=== PATIENT | female | born 1960 | race Caucasian/White ===

== ENCOUNTER → 2017-04-22 07:50 | Outpatient (CLI) | payer OTHER, SELFPAY ==
--- NOTE | 2017-04-22 07:54 | AAVD_ITS ---
Reason For Study: Family Hx of AAA Aorta Measurements Aorta Doppler Measurements Proximal aorta measures1.9 x 1.9cm. in cross- Peak systolic flow velocities within the proximal sectional axis. aorta measure 54.1 cm/sec. Proximal aorta measures2.0cm. in longitudinal Peak systolic flow velocities within the mid axis. aorta measure 51.3 cm/sec. Mid aorta measures1.7 x 1.7cm. in cross-sectionalPeak systolic flow velocities within the distal axis. aorta measure 59.3 cm/sec. Mid aorta measures1.6cm. in longitudinal axis. Distal aorta measures1.6 x 1.6cm. in cross- sectional axis. Distal aorta measures1.5cm. in longitudinal axis. Left Iliac Artery Left iliac artery measures .76 cm. in the longitudinal axis. Left iliac artery measures .79 x .77 cm. in the cross-sectional axis. Peak systolic velocity in the left iliac artery measures 160.0 cm/sec. Right Iliac Artery Right iliac artery measures .79 cm. in the longitudinal axis. Right iliac artery measures .77 x .71 cm. in the cross-sectional axis. Peak systolic velocity in the right iliac artery measures 92.3 cm/sec. Procedure Aorta IVC Iliac vasculature or bypass grafts [id number]. Exam performed in department. Interpretation Summary The intra-abdominal aorta is of normal caliber, without evidence of aneurysmal dilatation. The iliac arteries are also normal in size bilaterally. The intra-abdominal aorta and iliac arteries are patent, demonstrating normal, pulsatile arterial flow and normal peak systolic velocities. Ordering Physician: Brayden Mac Referring Physician: Brayden Mac Performed By: Melva Alvarez RVT
== END ==
PROVIDERS: Family Provider Family Medicine; PCP Family Medicine; Visit Provider Family Medicine
DX: Z82.49 Family history of ischemic heart disease and other diseases of the circulatory system (principal)
CPT/HCPCS: 93978

== ENCOUNTER → 2018-02-07 09:40 | Outpatient (CLI) | payer OTHER, SELFPAY ==
--- OUTSIDE RECORDS SUMMARY | 2018-05-11 22:01 | XMS RPT_ITS ---
:1960 Author Organization [facility] Care Team Providers Name Role Phone Brayden Mac Attending Unavailable Bubba, Brayden Referring Unavailable Bubba, Brayden Primary Care Unavailable Brayden Mac Attending Unavailable Mac, Brayden Referring Unavailable Mac, Brayden Primary Care Unavailable Mac, Brayden Attending Unavailable Mac, Brayden Referring Unavailable Mac, Brayden Primary Care Unavailable PROBLEMS PROBLEMS No Problem Records FoundPROCEDURES PROCEDURES No Procedure Records FoundRESULTS RESULTS URINALYSIS, COMPLETE Collected: 02/09/2018 Status: F Source: [place] 4:23 PM [facility] REPOSITORY Order Comment: How was Urine Obtained? CLEAN CATCH TYPE CODE TESTS RESULT OUT OF RANGE REFERENCE UNITS LAB L400.3000 Yellow COLOR Normal Yellow LAB L400.3050 Clear Normal CLARITY Clear LAB L400.3200 Normal mg/dl Normal GLUCOSE, UR Normal LAB L400.3300 Negative mg/dL Normal BILIRUBIN URINE Negative LAB L400.3400 Negative mg/dl Normal KETONE UR Negative LAB L400.3465 1.002-1.030 Normal SP.GR. DIPSTX 1.025 LAB L400.3550 5.0 - 8.0 pH UR Normal 6.0 LAB L400.3600 Negative mg/dl High PROT 15 DIPSTX LAB L400.3700 Normal mg/dl Normal UROBILI Normal LAB L400.3750 Negative High NITRITE UR Positive LAB L400.3780 Negative /ul High 25 OCCULT BLOOD-UR LAB L400.3800 Negative /ul High LEUK 25 ESTERASE LAB L400.4050 0-5 /hpf WBC Normal 10-25 SEEN LAB L400.4100 0-5 /hpf 0 Normal RBC-UA SEEN LAB L400.4150 5-10 /hpf SQUAM Normal EPI 0-5 SEEN LAB L400.4300 None Seen /hpf 3+ Normal BACTERIA LAB L400.4350 <or=2+ /hpf 0 Normal MUCUS, URINE SEEN Performed By: #### L400.0001 #### [facility] [address] [place], [place], [address] Observed: 02/09/2018 Status: F Source: [place] CULTURE, URINE 4:23 PM [facility] REPOSITORY Urine Culture ORGANISM 1: Presumptive E. coli [place] Count >100,000 Presumptive E. coli: REACTION Amoxacillin/Clavulanic Acid $ <=2 S Ampicillin $ <=2 S Ampicillin/Sulbactam $ <=2 S Cefazolin $ <=4 S Cefepime $ <=1 S Ceftriaxone $ <=1 S Ciprofloxacin $ <=0.25 S ESBL - Ertapenim $$$ <=0.5 S Gentamicin $ <=1 S Imipenem *NF <=0.25 S Levofloxacin $ <=0.12 S Nitrofurantoin $ <=16 S Piperacillin/Tazobactam $$ <=4 S Tobramycin $ <=1 S Trimethoprim/Sulfametho $ <=20 S (NF) indicates non-formulary drug at [facility]. Approval by Infectious Disease Specialist required before non-formulary drugs may be ordered and/or dispensed. Performed By: #### M100.0650 #### [facility] [address] [place], [place], [address] ABD AORTIC/IVC DUPLEX Observed: 04/23/2017 Status: F Source: [place] SCAN 10:01 PM [facility] REPOSITORY [facility] Cardiovascular Services [address] [place] [address] Abd Aortic/IVC Duplex scan 04/22/17 0754 MR#: [id number] Acct: [id number] Name: WILLIAM SUAREZ Rep #: [id number] : 1960 57 From: Luciano Shaw MD Attending Dr: Bubba WATSON,Brayden Status: REG CLI Ordering Dr: Brayden Mac MD Date: 04/22/17 Location: [facility] Sex: F C Admitted: Reason For Study: Family Hx of AAA Aorta Measurements Aorta Doppler Measurements Proximal aorta measures1.9 x 1.9cm. in cross- Peak systolic flow velocities within the proximal sectional axis. aorta measure 54.1 cm/sec. Proximal aorta measures2.0cm. in longitudinal Peak systolic flow velocities within the mid axis. aorta measure 51.3 cm/sec. Mid aorta measures1.7 x 1.7cm. in cross-sectionalPeak systolic flow velocities within the distal axis. aorta measure 59.3 cm/sec. Mid aorta measures1.6cm. in longitudinal axis. Distal aorta measures1.6 x 1.6cm. in cross- sectional axis. Distal aorta measures1.5cm. in longitudinal axis. Left Iliac Artery Left iliac artery measures .76 cm. in the longitudinal axis. Left iliac artery measures .79 x .77 cm. in the cross-sectional axis. Peak systolic velocity in the left iliac artery measures 160.0 cm/sec. Right Iliac Artery Right iliac artery measures .79 cm. in the longitudinal axis. Right iliac artery measures .77 x .71 cm. in the cross-sectional axis. Peak systolic velocity in the right iliac artery measures 92.3 cm/sec. Procedure Aorta IVC Iliac vasculature or bypass grafts [id number]. Exam performed in department. Interpretation Summary The intra-abdominal aorta is of normal caliber, without evidence of aneurysmal dilatation. The iliac arteries are also normal in size bilaterally. The intra- abdominal aorta and iliac arteries are patent, demonstrating normal, pulsatile arterial flow and normal peak systolic velocities. Ordering Physician: Brayden Mac Referring Physician: Brayden Mac Performed By: Melva Alvarez RVT 04/23/172200 Date Luciano Shaw MD CC: Brayden Mac MD Date Dictated: 04/22/17 0754 Date Transcribed: 04/23/172200 Physical Integration Practitioner: Signed ALLERGIES ALLERGIES No Allergies Records FoundENCOUNTERS ENCOUNTERS ADMIT/DISCHARGE ACCOUNT ADMITTING ENCOUNTER LOCATION SOURCE NUMBER CLASS 02/09/2018 [id number] Ambulatory [place]onal 1 [facility] ing:[facility] Repository 02/07/2018 [id number] Ambulatory Ronal [place] 8 [facility] ing:[facility] Repository 04/22/2017 [id number] [facility] Ronal Ronal 4 [facility] ing:[facility] Repository PAYERS PAYERS ENCOUNTER GUARANTOR PAYER SUBSCRIBER SOURCE 02/09/2018 WILLIAM Mach[place]oster [id number] Lucy Insurance:[place] [facility] [id number] [address]Dsv: (330) Number: Repository [phone] () [id number] Date:[id number] [id number]: 02/09/2018 Secondary NOT GIVENUNK [place] Insurance:SELF PAY [facility] Number: Effective Repository Date:2018-02-09 02/07/2018 WILLIAM Yost [id number] Lucy Insurance:[place]ICAL [place] [facility] [id number] [address]Bjf: (330) Number: Repository [phone] () [id number] Date:[id number] [address] [place] [id number]: 02/07/2018 Secondary NOT GIVENUNK Ronal Insurance:SELF PAY [facility] Number: Effective Repository Date:2018-02-07 04/22/2017 WILLIAM Ward Primary WILLIAM Yost [id number] Lucy Insurance:MEDICAL [place] [facility] [id number] [address]Vho: [phone]) Number: Repository [phone] () [id number] Date:2064-09-05NU [address] [place] [id number]: 04/22/2017 Secondary NOT GIVENUNK Ronal Insurance:SELF PAY [facility] Number: Effective Repository Date:2017-03-26
== END ==
PROVIDERS: Family Provider Family Medicine; PCP Family Medicine; Referring Provider Family Medicine; Visit Provider Family Medicine
DX: R82.90 Unspecified abnormal findings in urine (principal)
CPT/HCPCS: 81001; 87086

== ENCOUNTER → 2018-02-09 16:19 | Outpatient (CLI) | payer OTHER, SELFPAY ==
[2018-02-09 16:23] LABS: Mucous, Urine 0 SEEN /hpf (<or=2+); Red Blood Cells-Urine 0 SEEN /hpf (0-5)
[2018-02-09 17:31] LABS: Color, Urine Yellow (Yellow); Glucose, Dipstick Normal (Normal); Ketone-Dipstick Negative (Negative); Leukocyte Esterase-Dipstick 25 /ul (Negative); Nitrite-Dipstick Positive (Negative); Occult Blood-Urine 25 /ul (Negative); Protein-Dipstick 15 mg/dl (Negative); Specific Gravity, Urine 1.025 (1.002-1.030); Urine Bilirubin Dipstick Negative (Negative); Urine Clarity Clear (Clear); Urine Urobilinogen Normal (Normal)
[2018-02-09 17:41] LABS: Bacteria 3+ /hpf (None Seen); Squamous Epithelial Cells - UA 0-5 SEEN /hpf (5-10); White Blood Cells 10-25 SEEN /hpf (0-5)
== END ==
PROVIDERS: Family Provider Family Medicine; PCP Family Medicine; Referring Provider Family Medicine; Visit Provider Family Medicine
DX: R82.90 Unspecified abnormal findings in urine (principal)
CPT/HCPCS: 81001; 87086; 87088; 87186

== ENCOUNTER → 2018-03-30 07:09 | Outpatient (CLI) | payer OTHER, SELFPAY ==
--- NOTE | 2018-03-30 07:12 | CT_ITS ---
HISTORY: TOBACCO [id number] X43 YRSQUIT X8 MONTHS AGO TECHNIQUE: Helically acquired images were obtained of the chest. A radiation dose optimization technique was used for this scan. IV Contrast dosage and agent: None. COMPARISON: None FINDINGS: # of images incl. paperwork: [phone] UPPER ABDOMEN: Unremarkable. HEART AND PERICARDIUM: Heart size is normal. There is no pericardial effusion. VESSELS: Thoracic aorta is not dilated. Mild calcific atherosclerosis. MEDIASTINUM AND ERNESTINE: There is no mediastinal or hilar adenopathy. Esophagus is unremarkable. There is no hiatal hernia. SOFT TISSUES: Included thyroid gland is unremarkable. There is no axillary, supraclavicular or lower cervical adenopathy. LUNGS AND LARGE AIRWAYS: No concerning nodules or masses. No pneumonia or edema. No significant emphysematous changes. PLEURA: Unremarkable. No pleural effusion or thickening. BONES: No suspicious lytic or blastic abnormality observed. CT/Low Dose CT Lung Screening IMPRESSION: Negative CT chest without contrast. Individualized dose optimization techniques were used for this CT. at 2312 Reported and signed by: Jose Colvin MD Electronically Signed: Jose Colvin, at 23:11 EST Tel , Service support ,
== END ==
PROVIDERS: Family Provider Family Medicine; PCP Family Medicine; Referring Provider Family Medicine; Visit Provider Family Medicine
DX: Z87.891 Personal history of nicotine dependence (principal)
CPT/HCPCS: G0297

== ENCOUNTER → 2018-05-03 17:00 | Outpatient (CLI) | payer OTHER, SELFPAY ==
--- NOTE | 2018-05-03 17:07 | BI_ITS ---
MAMMOGRAPHY - BILATERAL SCREENING REASON FOR EXAM: Female, 58 years old. Routine annual screening examination. PERTINENT HISTORY: Non-contributory. TECHNIQUE: Digital bilateral breast luisa (3D mammographic acquisition) in the CC and MLO projections. 2-D mediolateral oblique (MLO) and craniocaudad (CC) views of both breasts were obtained. CAD: Full Field Digital Mammography with Computer Added Detection was performed. COMPARISON: Comparison is made with prior study dated January 29, 2016 and January 03, 2015. FINDINGS: Breast Composition: There are scattered areas of fibroglandular density. There are no dominant masses or suspicious calcifications. No other significant abnormalities are identified. There has been no significant change since the prior study. BI/SCREENING MAMM (CAD), BILAT IMPRESSION: Stable bilateral screening mammogram. Yearly follow-up mammogram recommended. (A) ASSESSMENT CATEGORY: BIRADS Category 1: Negative. A letter regarding these results will be sent to the patient by the facility within 30 days. Approximately 10% of breast cancers are not detected by mammography. A normal mammogram should not delay biopsy of a clinically suspicious abnormality. [id number] Electronically Signed: Zohaib Mack, at 8:59 EDT , Service support ,
== END ==
PROVIDERS: Family Provider Family Medicine; PCP Family Medicine; Referring Provider Family Medicine; Visit Provider Family Medicine
DX: Z12.31 Encounter for screening mammogram for malignant neoplasm of breast (principal)
CPT/HCPCS: 77063; 77067

== ENCOUNTER → 2018-08-01 10:57 | Outpatient (CLI) | payer OTHER, SELFPAY ==
[2018-08-01 12:38] LABS: Hemoglobin A1c 6.1 % (4.2-6.3)
[2018-08-01 12:50] LABS: ALB/GLOB Ratio 1.2 RATIO (0.9-2.4); AST(SGOT) 19 U/L (15-37); Alanine Aminotransfer ALT/SGPT 26 U/L (13-56); Albumin, Serum 3.6 g/dL (3.2-5.0); Alkaline Phosphatase 75 U/L (45-117); Anion Gap 7 (5-15); BUN 13 mg/dL (7-18); BUN/Creat Ratio 16.7 RATIO (10-20); Calcium,Total 9.1 mg/dL (8.5-10.1); Chloride 106 mmol/L (98-107); Creatinine, Serum 0.78 mg/dL (0.55-1.02); EST Glomerular Filtration Rate 80 mL/min (>60); Est Glom Filt Rate - Afr Amer 97 mL/min (>60); Globulin 3.1 g/dL (2.2-4.2); Glucose 84 mg/dL (74-106); Potassium 4.4 mmol/L (3.5-5.1); Protein, Total 6.7 g/dL (6.4-8.2); Sodium Level 144 mmol/L (136-145); T4 Free Direct 1.51 ng/dL (0.76-1.46); Thyroid Stim Hormone (TSH) 0.31 uIU/mL (0.358-3.74)
== END ==
PROVIDERS: Family Provider Family Medicine; PCP Family Medicine; Visit Provider Family Medicine
DX: E03.9 Hypothyroidism, unspecified (principal)
CPT/HCPCS: 36415; 80053; 83036; 84439; 84443

== ENCOUNTER 2018-09-15 11:00 | Outpatient (RCR) | payer OTHER, SELFPAY | END 2018-09-21 23:59 | LOC: NS 11:00 | PROVIDERS: Family Provider Family Medicine; PCP Family Medicine; Visit Provider Family Medicine | DX: Z71.3 Dietary counseling and surveillance (principal); R73.03 Prediabetes; E66.3 Overweight; Z68.28 Body mass index [BMI] 28.0-28.9, adult | CPT/HCPCS: 97802; 97803 ==

== ENCOUNTER → 2018-10-04 08:00 | Outpatient (CLI) | payer OTHER, SELFPAY ==
[2018-10-04 10:19] LABS: Cholesterol 194 mg/dL (200); Creatinine, Serum 0.77 mg/dL (0.55-1.02); EST Glomerular Filtration Rate 81 mL/min (>60); Est Glom Filt Rate - Afr Amer 98 mL/min (>60); High Density Lipoprotein 62 mg/dL; T4 Free Direct 1.35 ng/dL (0.76-1.46); Thyroid Stim Hormone (TSH) 0.99 uIU/mL (0.358-3.74); Triglycerides 65 mg/dL; Very Low Density Lipoprotein 13 mg/dL (5-40)
== END ==
PROVIDERS: Family Provider Family Medicine; PCP Family Medicine; Referring Provider Family Medicine; Visit Provider Family Medicine
DX: Z00.00 Encounter for general adult medical examination without abnormal findings (principal); E03.9 Hypothyroidism, unspecified
CPT/HCPCS: 36415; 80061; 82565; 84439; 84443

== ENCOUNTER 2018-10-13 10:30 | Outpatient (RCR) | payer OTHER, SELFPAY | END 2018-10-22 23:59 | LOC: NS 10:30 | PROVIDERS: Family Provider Family Medicine; PCP Family Medicine; Visit Provider Family Medicine | DX: Z71.3 Dietary counseling and surveillance (principal); R73.03 Prediabetes; E66.3 Overweight; Z68.28 Body mass index [BMI] 28.0-28.9, adult | CPT/HCPCS: 97803 ==

== ENCOUNTER 2018-11-08 16:00 | Outpatient (RCR) | payer OTHER, SELFPAY | END 2018-11-21 23:59 | LOC: NS 16:00 | PROVIDERS: Family Provider Family Medicine; PCP Family Medicine; Visit Provider Family Medicine | DX: R73.03 Prediabetes (principal); E66.3 Overweight; Z68.28 Body mass index [BMI] 28.0-28.9, adult; Z71.3 Dietary counseling and surveillance | CPT/HCPCS: 97803 ==

== ENCOUNTER 2018-12-20 16:30 | Outpatient (RCR) | payer OTHER, SELFPAY | END 2018-12-22 23:59 | LOC: NS 16:30 | PROVIDERS: Family Provider Family Medicine; PCP Family Medicine; Visit Provider Family Medicine | DX: R73.03 Prediabetes (principal); E66.3 Overweight; Z68.28 Body mass index [BMI] 28.0-28.9, adult; Z71.3 Dietary counseling and surveillance | CPT/HCPCS: 97803 ==

== ENCOUNTER 2019-01-09 17:11 | Outpatient (RCR) | payer OTHER, SELFPAY | END 2019-01-09 23:59 | disposition home or self-care (01) | LOC: NS 17:11 | PROVIDERS: Family Provider Family Medicine; PCP Family Medicine; Visit Provider Family Medicine | DX: Z71.3 Dietary counseling and surveillance (principal); R73.03 Prediabetes; E66.3 Overweight; Z68.28 Body mass index [BMI] 28.0-28.9, adult | CPT/HCPCS: 97803 ==

== ENCOUNTER → 2019-05-23 09:40 | Outpatient (CLI) | payer OTHER, SELFPAY ==
[2019-05-23 12:38] LABS: PTHIN 75.6 pg/mL (18.4-80.1)
[2019-05-23 12:42] LABS: Vitamin B12 491 pg/mL (211-911)
[2019-05-23 12:55] LABS: ALB/GLOB Ratio 1.1 RATIO (0.9-2.4); AST(SGOT) 27 U/L (15-37); Alanine Aminotransfer ALT/SGPT 40 U/L (13-56); Albumin, Serum 3.6 g/dL (3.2-5.0); Alkaline Phosphatase 55 U/L (45-117); Anion Gap 5 (5-15); BUN 19 mg/dL (7-18); Calcium,Total 8.7 mg/dL (8.5-10.1); Chloride 104 mmol/L (98-107); Creatinine, Serum 0.76 mg/dL (0.55-1.02); EST Glomerular Filtration Rate 82 mL/min (>60); Est Glom Filt Rate - Afr Amer 99 mL/min (>60); Ferritin 81 ng/mL (8-252); Globulin 3.3 g/dL (2.2-4.2); Glucose 80 mg/dL (74-106); Potassium 4.2 mmol/L (3.5-5.1); Protein, Total 6.9 g/dL (6.4-8.2); Sodium Level 137 mmol/L (136-145); T4 Free Direct 1.32 ng/dL (0.76-1.46); Thyroid Stim Hormone (TSH) 1.87 uIU/mL (0.358-3.74)
[2019-05-25 12:01] LABS: ANTINUCLEAR ANTIBODIES DIRECT Negative (Negative)
== END ==
PROVIDERS: PCP Family Medicine; Referring Provider Family Medicine; Visit Provider Family Medicine
DX: E03.9 Hypothyroidism, unspecified (principal); K59.00 Constipation, unspecified; R53.83 Other fatigue
CPT/HCPCS: 36415; 80053; 82607; 82728; 82746; 83970; 84439; 84443; 86038

== ENCOUNTER → 2019-06-08 14:32 | Outpatient (CLI) | payer OTHER, SELFPAY ==
--- NOTE | 2019-06-08 14:38 | CT_ITS ---
STUDY: LOW DOSE CT LUNG CANCER SCREENING REASON FOR EXAM: Female, 59 years old. 35 pack-year history. 2 years ago. Prediabetic on metformin. RADIATION DOSAGE (If Supplied By Facility): CTDIvol = ( 2.01 ) mGy, DLP = ( 74.99 ) mGycm TECHNIQUE: No contrast was administered. Low dose technique was utilized (average mAS-38 and kVp 120). 1.25 mm axial source images with a slice interval of 1.25-mm were reconstructed in lung windows. 2.5 mm axial source images with a slice interval of 2.5-mm were reconstructed in lung windows. 5.0 mm axial source images with a slice interval of 5.0-mm were reconstructed in soft tissue windows. Nodule measured using lung windows on PACS and/or independent workstation with automated measurement of minimum and maximum diameter. Nodule measurement reported as average diameter rounded to the nearest whole number. Growth is defined as an increase ins size of greater than 1.5 mm. COMPARISON: March 30, 2018. NODULES: Total lung nodules (excluding granulomas): 0 Emphysema: None Endobronchial lesion: None Aorta: Atherosclerotic changes of the thoracic aorta without aneurysm. Coronary arteries: Stable coronary artery calcifications. Heart: Normal in size Pulmonary artery: Normal Mediastinal nodes: None Other chest and abdominal findings: Mild degenerative changes of the thoracic spine. CT/Low Dose CT Lung Screening IMPRESSION: No major interval change when compared to the previous examination. Lung-RADS category 1 - Continue annual screening with LDCT in 12 months. IMPORTANT NOTES FOR USE: ACR Lung-RADS Version 1.0 Assessment Categories Release Date: June 19, 2013 Category: Coded 0-4 bases on nodule(s) with highest degree of suspicion. Negative screen is defined as categories 1 and 2; a positive screen is defined as categories 3 and 4. Category 3 and 4A nodules that are unchanged on interval CT should be coded as category 2, and individuals returned to screening in 12 months. Category 4X: Category 3 or 4 nodules with additional imaging findings that increase the suspicion of lung cancer, such as spiculation, GGN that doubles in size in 1 year, enlarged lymph notes, etc. Category Modifiers: S (significant finding unrelated to lung cancer) and C (prior history of treated lung cancer) may be added to the 0-4 Lung-RADS Electronically Signed: Phong Wilson DO at 17:32 EDT Tel [phone], Service support ,
== END ==
PROVIDERS: PCP Family Medicine; Referring Provider Family Medicine; Visit Provider Family Medicine
DX: Z87.891 Personal history of nicotine dependence (principal); Z12.2 Encounter for screening for malignant neoplasm of respiratory organs; R73.03 Prediabetes; Z79.899 Other long term (current) drug therapy
CPT/HCPCS: G0297

== ENCOUNTER → 2019-10-27 14:48 | Outpatient (CLI) | payer OTHER, SELFPAY ==
--- NOTE | 2019-10-27 15:13 | BI_ITS ---
MAMMOGRAPHY - BILATERAL SCREENING REASON FOR EXAM: Female, 59 years old. Routine annual screening examination. PERTINENT HISTORY: Non-contributory. TECHNIQUE: Digital bilateral breast mari (3D mammographic acquisition) in the CC and MLO projections. 2-D mediolateral oblique (MLO) and craniocaudad (CC) views of both breasts were obtained. CAD: Full Field Digital Mammography with Computer Added Detection was performed. COMPARISON: Comparison is made with prior study dated 05/03/2018 and 01/29/2016. FINDINGS: Breast Composition: There are scattered areas of fibroglandular density. There are no dominant masses or suspicious calcifications. Stable small benign appearing bilateral axillary nodes. No other significant abnormalities are identified. There has been no significant change since the prior study. BI/SCREEN MAMM (CAD) W/MARI BILAT IMPRESSION: Stable bilateral screening mammogram. Yearly follow-up mammogram recommended. (A) ASSESSMENT CATEGORY: BIRADS Category 2: Benign. A letter regarding these results will be sent to the patient by the facility within 30 days. Approximately 10% of breast cancers are not detected by mammography. A normal mammogram should not delay biopsy of a clinically suspicious abnormality. [id number] Electronically Signed: Zohaib Mack, at 8:03 EDT , Service support ,
== END ==
PROVIDERS: PCP Family Medicine; Referring Provider Family Medicine; Visit Provider Family Medicine
DX: Z12.31 Encounter for screening mammogram for malignant neoplasm of breast (principal)
CPT/HCPCS: 77063; 77067

== ENCOUNTER → 2020-03-27 17:21 | Outpatient (CLI) | payer OTHER, SELFPAY ==
--- NOTE | 2020-03-27 17:22 | RAD_ITS ---
HISTORY: lumbosacral pain, bilateral L low back more than R ADDITIONAL HISTORY: None provided. EXAMINATION/TECHNIQUE: XR Spine Lumbar Comp W/ Bending Min 6 Views Number of images including paperwork: 7 COMPARISON: None FINDINGS: VERTEBRAE: No acute fracture. VERTEBRAL ALIGNMENT: No traumatic subluxation. No evidence of instability on flexion and extension views. Mild left convex lumbar scoliosis. DISKS AND JOINTS: Moderate to severe discogenic degenerative changes at L3-4 and L5-S1. Mild discogenic degenerative changes elsewhere. Facet arthropathy. SOFT TISSUES: Vascular calcifications. RAD/L/S Spine w Bend Min 6 Vw IMPRESSION: 1. No acute findings. 2. Lumbar spondylosis. at 2224 Reported and signed by: Bertha Cruz MD Electronically Signed: Bertha Cruz MD at 22:24 EST Tel , Service support ,
== END ==
PROVIDERS: PCP Family Medicine; Referring Provider Family Medicine; Visit Provider Family Medicine
DX: M54.5 Low back pain (principal)
CPT/HCPCS: 72114

== ENCOUNTER 2020-05-01 17:30 | Outpatient (RCR) | payer OTHER, SELFPAY ==
--- NOTE | 2020-04-10 12:34 | HP.PTEVAL ---
Patient's Visit Information WILLIAM SUAREZ is a 60 year old F referred to Physical Therapy by Dr. Brayden Mac MD with a diagnosis of lumbo/sacral pain and glut pain. Date of Evaluation: 04/10/20 Physical Therapist: PETE Amador - Visit Plan Frequency: 2x /Week Duration: 4-6 Weeks Plan: 2X/ week for 4-6 weeks for B hip strengthening, core stability, postural exercises with HEP and modalities as needed. - Subjective Pt reports that the Dr did an x-ray and there was something wrong with her disc but not sure what it is. 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 The pain is on her R sided back pain and she feels that her urine has a smell and she is wondering if she has a kidney issue. It is a constant pain and pressure. She will call Dr Mac for a urine specimen. It is the same R sided pain that she had a few month ago as well. She has some pain in her R leg/groin area. The anti-inflamm helps some. - Pain Back pain Pain Intensity (Out of 10): 4 Pain Intensity Range: 7 R groin pain Pain Intensity (Out of 10): 0 - Objective Gait: walks with a normal gait pattern. Trunk AROM: flex 100%, Ext 75%, SB B 75% with no pain. LE MMT: B hip flex 4-/5, B knee ext 4/5, B knee flex 4/5, B hip abd 4-/5, R hip ext 3+/5 and L hip ext 4-/5. Able to walk on heels and toes with no signs of weakness. Patella DTR's 2+/3 B. Palpation: tender along the L5 on the R side.... no tenderness along the soft tissue. Prone press ups X 10 no change in symptoms. 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 Goal Time Frame: 4-6 Weeks Goal 3:: Decrease back pain to less than 1/10 with ADL's Goal Time Frame: 4-6 Weeks Goal 4:: Sit with upright posture during treatment sessions Goal Time Frame: 4-6 Weeks - Rehabilitation Potential Rehabilitation Potential: Good - Anticipated Interventions Patient/Client Instruction: Educate patient on: Condition, Plan of Care For the Purpose of:: To decrease pain, To increase ROM, To improve nutrient delivery to tissue, To improve muscle performance and motor function, To improve ability to perform ADL's, To increase tolerance to activity/condition/position, To improve performance and independence with ADL's, To improve gait and locomotor functions, To improve health of tissue, To decrease soft tissue restriction, To increase flexibility/ROM Therapeutic Exercise to Include: Strength training, Body mechanics, Postural training, Flexibilty training, Gait and locomotor training, Neuromotor development, Passive ROM, Active ROM, Dynamic Lumbar Stabilization, Jame Exercises, Scapular Strength/Stabilization For the Purpose of:: To decrease pain, To increase ROM, To improve nutrient delivery to tissue, To improve muscle performance and motor function, To improve ability to perform ADL's, To improve performance and independence with ADL's, To decrease level of supervision to perform tasks, To improve ability of physical actions for home/community/work/leisure, To improve gait and locomotor functions, To improve health of tissue, To decrease soft tissue restriction Manual Therapy Techniques to Include: Mobilization, Passive ROM, Soft tissue mobilization For the Purpose of:: To decrease pain, To increase ROM, To improve nutrient delivery to tissue, To improve muscle performance and motor function, To improve ability to perform ADL's, To increase tolerance to activity/condition/position, To improve gait and locomotor functions, To improve health of tissue, To decrease soft tissue restriction IF ES: Yes Cryotherapy (ice pack, ice massage): Yes Thermo therapy (hot pack): Yes Ultrasound (thermal/non thermal): Yes For the Purpose of:: To decrease pain, To decrease swelling/inflammation, To increase ROM, To improve nutrient delivery to tissue Thank you for the opportunity to evaluate your patient. For Medicare and Medicare HMO plans, please review the plan of care and approve it. It will need to be FAXED BACK to us at [phone] for Medicare purposes. For Medicare only, by signing this I certify the plan of care. Please let me know if there are questions or concerns regarding this plan of care. Physician Signature: Date:
== END 2020-05-01 19:00 | disposition home or self-care (01) ==
LOC: PT 17:30
PROVIDERS: PCP Family Medicine; Referring Provider Family Medicine; Visit Provider Family Medicine
DX: M54.5 Low back pain (principal)
CPT/HCPCS: 97110; 97140; 97161; 97530

== ENCOUNTER → 2020-07-05 10:34 | Outpatient (CLI) | payer OTHER, SELFPAY ==
[2020-07-05 13:03] LABS: ALB/GLOB Ratio 1.3 RATIO (0.9-2.4); AST(SGOT) 21 U/L (15-37); Alanine Aminotransfer ALT/SGPT 27 U/L (13-56); Albumin, Serum 3.7 g/dL (3.2-5.0); Alkaline Phosphatase 73 U/L (45-117); Anion Gap 5 (5-15); BUN 17 mg/dL (7-18); BUN/Creat Ratio 23.6 RATIO (10-20); Calcium,Total 9.1 mg/dL (8.5-10.1); Chloride 107 mmol/L (98-107); Creatinine, Serum 0.72 mg/dL (0.55-1.02); EST Glomerular Filtration Rate 87 mL/min (>60); Est Glom Filt Rate - Afr Amer 105 mL/min (>60); Globulin 2.8 g/dL (2.2-4.2); Glucose 78 mg/dL (74-106); Potassium 4.5 mmol/L (3.5-5.1); Protein, Total 6.5 g/dL (6.4-8.2); Sodium Level 140 mmol/L (136-145); Thyroid Stim Hormone (TSH) 1.86 uIU/mL (0.358-3.74)
== END ==
PROVIDERS: PCP Family Medicine; Referring Provider Family Medicine; Visit Provider Family Medicine
DX: E88.81 Metabolic syndrome and other insulin resistance (principal); E03.9 Hypothyroidism, unspecified
CPT/HCPCS: 36415; 80053; 84443

== ENCOUNTER → 2020-07-17 15:40 | Outpatient (CLI) | payer OTHER, SELFPAY ==
--- NOTE | 2020-07-17 15:45 | CT_ITS ---
STUDY: LOW DOSE CT LUNG CANCER SCREENING REASON FOR EXAM: Female, 60 years old. 35 pack-year history. 3 years ago. Prediabetes. RADIATION DOSAGE (If Supplied By Facility): CTDIvol = ( 3.02 ) mGy, DLP = ( 99.68 ) mGycm TECHNIQUE: No contrast was administered. Low dose technique was utilized (average mAS-38 and kVp 120). 1.25 mm axial source images with a slice interval of 1.25-mm were reconstructed in lung windows. 2.5 mm axial source images with a slice interval of 2.5-mm were reconstructed in lung windows. 5.0 mm axial source images with a slice interval of 5.0-mm were reconstructed in soft tissue windows. Nodule measured using lung windows on PACS and/or independent workstation with automated measurement of minimum and maximum diameter. Nodule measurement reported as average diameter rounded to the nearest whole number. Growth is defined as an increase ins size of greater than 1.5 mm. COMPARISON: 06/08/2019. NODULES: Total lung nodules (excluding granulomas): 0 Emphysema: Yes Endobronchial lesion: No Aorta: Stable atherosclerotic changes. Coronary arteries: Stable coronary artery calcifications. Heart: Normal Pulmonary artery: Normal Mediastinal nodes: None Other chest and abdominal findings: Mild degenerative changes on the thoracic spine. CT/Low Dose CT Lung Screening IMPRESSION: No major interval change when compared to prior study. Lung-RADS category 1 - Continue annual screening with LDCT in 12 months. IMPORTANT NOTES FOR USE: ACR Lung-RADS Version 1.1 Assessment Categories Release Date: 2018 Category: Coded 0-4 bases on nodule(s) with highest degree of suspicion. Negative screen is defined as categories 1 and 2; a positive screen is defined as categories 3 and 4. Category 3 and 4A nodules that are unchanged on interval CT should be coded as category 2, and individuals returned to screening in 12 months. Category 4X: Category 3 or 4 nodules with additional imaging findings that increase the suspicion of lung cancer, such as spiculation, GGN that doubles in size in 1 year, enlarged lymph notes, etc. Category Modifiers: S (significant finding unrelated to lung cancer) Electronically Signed: Phong Wilson DO at 19:01 EDT [phone] This report is pending additional review. Service support ,
== END ==
PROVIDERS: PCP Family Medicine; Referring Provider Family Medicine; Visit Provider Family Medicine
DX: Z87.891 Personal history of nicotine dependence (principal)
CPT/HCPCS: 71271

== ENCOUNTER 2020-09-11 06:37 | Day surgery (SDC) | payer OTHER, SELFPAY ==
[2020-09-11 07:00] VITALS: BP 146/74; PULSE 68; RESP 16; TEMP 35.9; O2SAT 100; BMI 28.6
[2020-09-11] MEDS: Lactated Ringers 1,000 ML 100 ML IV (07:07)
--- NOTE | 2020-09-11 07:25 | H&P.OPEN ---
HPI - General HPI Narrative WILLIAM SUAREZ, is a 60 F who presents for screening colonoscopy. Patient's last colonoscopy was in 2010 had a small inflammatory polyp at that time in the cecum, colon was also noted to be tortuous. Patient denies any chronic abdominal pain/nausea/vomiting/reflux. Patient states he has bowel moods about every 3 days, denies any family history of colon cancer. [facility] Medical History (Updated 09/11/20 @ 07:[address] Debbie Garrett MD) Back pain Former smoker Hx of fracture of wrist Thyroid disease Wears partial dentures Home Medications levothyroxine 112 mcg PO DAILY 09/10/20 [History Last Taken 09/11/20 06:00] meloxicam 15 mg PO PRN PRN 09/10/20 [History Last Taken Unknown] Allergy/AdvReac Type Severity Reaction Status Date / Time sulfamethoxazole Allergy Swelling Verified 09/11/20 06:59 [From Bactrim] trimethoprim [From Bactrim] Allergy Swelling Verified 09/11/20 06:59 Surgical History (Updated 09/10/20 @ 09:34 by Estela Tripp) Hx of hysterectomy Hx of tubal ligation Social History Smoking Status: Former smoker Past Medical/Surgical History Planned Operation Planned Operative Procedure/s: COLONOSCOPY Previous Hospitalizations/Surgeries HX Hospitalizations: No Any Problems With Anesthesia: No You/Your Family Experience Fever (Hyperthermia) With Anes: No Cholinesterase deficiency: No Cardiovascular Hx of Irregular Heartbeat and/or Afib: No Hx Heart Attack: No Hx Congestive Heart Failure: No Hx Hypertension: No Hx Pacemaker: No Respiratory Hx Chronic Obstructive Pulmonary Disease (COPD): No Hx Asthma: No Hx Emphysema: No Hx Sleep Apnea: No Hx Respiratory Tract Infection/Cold (presently): No Do You Snore Loudly (louder than talking or can be heard): No Do You Often Feel Tired/ Fatigued/ Sleepy Dring Daytime?: No Has Anyone Observed You Stop Breathing During Sleep?: No Result (for STOP score): Negative Smoking Status: Former smoker Gastrointestinal Hx Gastroesophageal Reflux: Yes Controlled With Meds: No (unsure) Hx Ulcer: No Special diet followed at home: No Neurological Hx Seizures: No Hx Headaches: No Does patient have nerve stimulator: No Endocrine Hx Diabetes: No (Pre DM) Miscellaneous Recent Exposure to Contagious Disease: No Allergies sulfamethoxazole [From Bactrim] Allergy (Verified 09/11/20 06:59) Swelling trimethoprim [From Bactrim] Allergy (Verified 09/11/20 06:59) Swelling Discharge Is Pt Admitted From a Jail, or a Correction: No After D/C, Where Do you Plan to Go: Return Home Vital Signs Vital Signs Vital Signs: 09/11/20 07:00 Temperature 96.6 F L Temperature Source Temporal Pulse Rate 68 Respiratory Rate 16 Respiratory Pattern Normal Blood Pressure 146/74 H Blood Pressure Mean 98 Blood Pressure Source Monitor Blood Pressure Position Semi-Fowlers Blood Pressure Location Right Arm Pulse Ox 100 Oxygen Delivery Method Room Air Weight Weight: 166 lb 14.239 oz Body Mass Index (BMI) 28.6 Physical Exam Const alert, oriented x3 and no apparent distress HEENT normocephalic and head/scalp atraumatic Resp normal respiratory effort Cardio regular rate GI soft to palpation and non-tender; Negative for non-distended Palpation: Negative for guarding Extremity no clubbing, cyanosis or edema Neuro CN's II-XII intact bilaterally Psych mental status grossly normal Assessment & Plan Assessment/Plan (1) Screening for colon cancer: Procedure Criteria Type of Procedure Procedure Type: Elective Elective Risks - COVID COVID Risk Discussion: The surgeon/proceduralist and patient have discussed in detail the risk of exposure to and/or potential harm posed by the COVID-19 virus with having a surgery/procedure at this time versus the risk of delaying the surgery/procedure. It is not possible to know either the risk of delaying the surgery or procedure or chance of getting an infection with perfect accuracy, but a joint decision was made between the patient and the surgeon/proceduralist to proceed at this time with the scheduled surgery/procedure as indicated on the consent form. Surgery Risks - Colonoscopy Risks Include but are not Limited To: Risks include but are not limited to: Bleeding, perforation requiring further surgery, inability to complete colonoscopy requiring barium enema.
--- NOTE | 2020-09-11 08:00 | COLBX_PTH ---
PATIENT: WILLIAM SUAREZ LOC: EN U#:[id number] AGE/SX: 60/F ROOM: RE09/11/[address]: Dr. Debbie Garrett MD : 1960 BED: DIS: 09/11/2020 SPEC #: [id number] RECD: 09/11/20 08:43 STATUS: EMMETT REHerb #: [id number] FLO: 09/11/20 08:[address]: Debbie Garrett DEPT: SURGICAL PATHOLOGY RECD BY: Precious Wilde ENTERED: 09/11/20 10:42 SP TYPE: COLON BX OT DR: Dr. Brayden Mac MD Tissues: A - Transverse colon B - Descending colon C - Rectum, NOS Procedures: Surgery Specimen Level IV HEADER OPERATION: Colonoscopy ? open access (MAC) PRE-OP DIAGNOSIS: Screening for colon cancer TISSUE SUBMITTED: A - Transverse colon polyp biopsy, B - Descending colon polyp biopsy, C - Rectal colon polyp x3 biopsy MICROSCOPIC DIAGNOSIS A. Transverse colon polyp, biopsy: Polypoid fragment of benign colonic mucosa. See comment. B. Descending colon polyp, biopsy: Colonic mucosa with focal hyperplastic change. C. Rectal polyp, biopsy: Fragments of hyperplastic polyp. AM:ric 09/12/2020 COMMENT A. Neither hyperplastic nor adenomatous change is identified. Clinical correlation is suggested. MICROSCOPIC DESCRIPTION Slides are reviewed. GROSS DESCRIPTION A - Received in fixative is one container labeled with the patient's name and designated transverse colon polyp biopsy. The specimen consists of one irregular fragment of light schaefer soft tissue that measures 0.2 x 0.2 x 0.1 cm. The specimen is totally submitted in one cassette. B - Received in fixative is one container labeled with the patient's name and designated descending colon polyp biopsy. The specimen consists of two irregular fragments of light schaefer soft tissue that in aggregate measure 0.6 x 0.4 x 0.1 cm. The specimen is totally submitted in one cassette. C - Received in fixative is one container labeled with the patient's name and designated rectal colon polyps x3 biopsy. The specimen consists of multiple irregular fragments of light schaefer soft tissue that in aggregate measure 0.8 x 0.5 x 0.1 cm. The specimen is totally submitted in one cassette. / JENNIFER:ric 09/11/20 TC:5 CPT: 59736 x3
[2020-09-11 08:29] VITALS: BP 108/77; BP 146/74; PULSE 68; RESP 16; TEMP 36.1; O2SAT 100
[2020-09-11 08:35] VITALS: BP 117/62; BP 146/74; PULSE 55; RESP 16; O2SAT 100
[2020-09-11 08:40] VITALS: BP 103/77; BP 146/74; PULSE 61; RESP 16; O2SAT 100
[2020-09-11 08:45] VITALS: BP 115/76; BP 146/74; PULSE 58; RESP 16; TEMP 35.9; O2SAT 100
[2020-09-11 09:05] VITALS: BP 146/74
--- NOTE | 2020-09-11 10:18 | OP.CCLET_ITS ---
09/11/2020 Brayden Mac [address] [place] [address] Re : Colonoscopy procedure for Kristina Shoemaker Dear Dr. Mac This procedure was performed on Friday, September 11, 2020. My impressions and recommendations are as follows: Impressions : - Five 3 to 5 mm polyps in the rectum, in the descending colon and in the transverse colon, removed with a cold biopsy forceps. Resected and retrieved. - Non-bleeding external hemorrhoids. Recommendations : - Repeat colonoscopy in 3 - 5 years for surveillance based on pathology results. - Continue present medications. My findings are described in the full procedure note, which is enclosed. If I can be of further assistance, please feel free to contact me at Doctor phone number(s): , Work: . Sincerely, MD Debbie Hines MD 09/11/2020 8:39:03 AM This report has been signed electronically.
--- NOTE | 2020-09-11 10:18 | OP.COLON_ITS ---
Patient Name: Kristina Shoemaker Procedure Date: 09/11/2020 7:43 AM Date of : 1960 Age: 60 Procedure: Colonoscopy Indications: Screening for colorectal malignant neoplasm Providers: Debbie Garrett MD Referring MD: Brayden Mac Medicines: Monitored Anesthesia Care Patient Profile: This is a 60 year old female. Last Colonoscopy: 2010. Complications: No immediate complications. Procedure: Pre-Anesthesia Assessment: - Prior to the procedure, a History and Physical was performed, and patient medications and allergies were reviewed. The patient's tolerance of previous anesthesia was also reviewed. The risks and benefits of the procedure and the sedation options and risks were discussed with the patient. All questions were answered, and informed consent was obtained. Prior Anticoagulants: The patient has taken no previous anticoagulant or antiplatelet agents. ASA Grade Assessment: Per anesthesia. After reviewing the risks and benefits, the patient was deemed in satisfactory condition to undergo the procedure. After I obtained informed consent, the scope was passed under direct vision. Throughout the procedure, the patient's blood pressure, pulse, and oxygen saturations were monitored continuously. The colonoscope was introduced through the anus and advanced to the cecum, identified by the appendiceal orifice, ileocecal valve and palpation. The patient tolerated the procedure well. The colonoscopy was technically difficult and complex due to a tortuous colon. The patient tolerated the procedure well. The quality of the bowel preparation was good. Scope In: 7:57:31 AM Scope Withdrawal Time 0 hours 17 minutes 26 seconds Scope Out: 8:24:32 AM Total Procedure Duration Time 0 hours 27 minutes 1 second Findings: Five sessile polyps were found in the rectum, descending colon and transverse colon. The polyps were 3 to 5 mm in size. These polyps were removed with a cold biopsy forceps. Resection and retrieval were complete. No additional abnormalities were found on retroflexion. Non-bleeding external hemorrhoids were found. Impression: - Five 3 to 5 mm polyps in the rectum, in the descending colon and in the transverse colon, removed with a cold biopsy forceps. Resected and retrieved. - Non-bleeding external hemorrhoids. Recommendation: - Repeat colonoscopy in 3 - 5 years for surveillance based on pathology results. - Continue present medications. Procedure Code(s): --- Professional --- 11672, PT, Colonoscopy, flexible; with biopsy, single or multiple Diagnosis Code(s): --- Professional --- Z12.11, Encounter for screening for malignant neoplasm of colon K62.1, Rectal polyp D12.4, Benign neoplasm of descending colon D12.3, Benign neoplasm of transverse colon (hepatic flexure or splenic flexure) K64.4, Residual hemorrhoidal skin tags CPT copyright 2017 [employer]. All rights reserved. The codes documented in this report are preliminary and upon emt paramedic review may be revised to meet current compliance requirements. MD Debbie Hines MD 09/11/2020 8:39:03 AM This report has been signed electronically. Number of Addenda: 0 Note Initiated On: 09/11/2020 7:43 AM
== END 2020-09-11 09:18 ==
LOC: EN 06:37 → AC 06:39
PROVIDERS: PCP Family Medicine; Referring Provider Family Medicine; Visit Provider Surgery
PROC: 0DJD8ZZ Inspection of Lower Intestinal Tract, Via Natural or Artificial Opening Endoscopic (ICD-10-PCS; CPT 45378; principal; 2020-09-11 07:55)
DX: Z12.11 Encounter for screening for malignant neoplasm of colon (principal); D12.4 Benign neoplasm of descending colon; D12.3 Benign neoplasm of transverse colon; K62.1 Rectal polyp; K64.4 Residual hemorrhoidal skin tags; E07.9 Disorder of thyroid, unspecified; K21.9 Gastro-esophageal reflux disease without esophagitis; Z79.890 Hormone replacement therapy; Z79.899 Other long term (current) drug therapy; Z87.891 Personal history of nicotine dependence
CPT/HCPCS: 45380; 88305; J7120; J2405

== ENCOUNTER → 2020-11-22 12:25 | Outpatient (CLI) | payer OTHER, SELFPAY ==
--- NOTE | 2020-11-22 12:27 | BI_ITS ---
MAMMOGRAPHY - BILATERAL SCREENING REASON FOR EXAM: Female, 60 years old. Routine annual screening examination. PERTINENT HISTORY: Non-contributory. TECHNIQUE: Digital bilateral breast mari (3D mammographic acquisition) in the CC and MLO projections. 2-D mediolateral oblique (MLO) and craniocaudad (CC) views of both breasts were obtained. CAD: Full Field Digital Mammography with Computer Added Detection was performed. COMPARISON: Comparison is made with prior study 10/27/2019 and 05/03/2018. FINDINGS: Breast Composition: There are scattered areas of fibroglandular density. There are no dominant masses or suspicious calcifications. Stable small benign-appearing bilateral axillary lymph nodes. No other significant abnormalities are identified. There has been no significant change since the prior study. BI/SCRN MAMM (CAD)W/MARI BILAT IMPRESSION: Stable bilateral screening mammogram. Yearly follow-up mammogram recommended. (A) ASSESSMENT CATEGORY: BIRADS Category 2: Benign. A letter regarding these results will be sent to the patient by the facility within 30 days. Approximately 10% of breast cancers are not detected by mammography. A normal mammogram should not delay biopsy of a clinically suspicious abnormality. [id number] Electronically Signed: Zohaib Mack MD at 13:16 EDT , Service support ,
== END ==
PROVIDERS: PCP Family Medicine; Referring Provider Family Medicine; Visit Provider Family Medicine
DX: Z12.31 Encounter for screening mammogram for malignant neoplasm of breast (principal)
CPT/HCPCS: 77063; 77067

== ENCOUNTER 2021-04-21 09:39 | Outpatient (CLI) | payer OTHER, SELFPAY ==
[2021-04-21 12:47] LABS: AST(SGOT) 22 U/L (15-37); Alanine Aminotransfer ALT/SGPT 29 U/L (13-56); Albumin, Serum 3.6 g/dL (3.2-5.0); Alkaline Phosphatase 71 U/L (45-117); Anion Gap 6 (5-15); BUN 11 mg/dL (7-18); Calcium,Total 9.5 mg/dL (8.5-10.1); Chloride 106 mmol/L (98-107); Cholesterol 202 mg/dL (200); Creatinine, Serum 0.78 mg/dL (0.55-1.02); EST Glomerular Filtration Rate 79 mL/min (>60); Est Glom Filt Rate - Afr Amer 95 mL/min (>60); Globulin 3.6 g/dL (2.2-4.2); Glucose 89 mg/dL (74-106); High Density Lipoprotein 65 mg/dL; Protein, Total 7.2 g/dL (6.4-8.2); Sodium Level 137 mmol/L (136-145); T4 Free Direct 1.43 ng/dL (0.76-1.46); Thyroid Stim Hormone (TSH) 0.62 uIU/mL (0.358-3.74); Triglycerides 62 mg/dL; Very Low Density Lipoprotein 12 mg/dL (5-40)
[2021-04-21 13:28] LABS: Hemoglobin A1c 5.7 % (3.8-5.6)
== END 2021-04-21 23:59 | disposition home or self-care (01) ==
PROVIDERS: PCP Family Medicine; Referring Provider Family Medicine; Visit Provider Family Medicine
DX: E88.81 Metabolic syndrome and other insulin resistance (principal); E03.9 Hypothyroidism, unspecified
CPT/HCPCS: 36415; 80053; 80061; 83036; 84439; 84443

== ENCOUNTER → 2021-09-12 | Outpatient (CLI) | payer OTHER, SELFPAY ==
--- NOTE | 2021-09-12 13:51 | CT_ITS ---
STUDY: LOW DOSE CT LUNG CANCER SCREENING REASON FOR EXAM: Female, 61 years old. FORMER TOBACCO USE. The patient smoked 1.5 packs per day for 40 years. RADIATION DOSAGE (If Supplied By Facility): CTDIvol = ( 3.02 ) mGy, DLP = ( 104.20 ) mGycm TECHNIQUE: No contrast was administered. Low dose technique was utilized (average mAS-38 and kVp 120). 1.25 mm axial source images with a slice interval of 1.25-mm were reconstructed in lung windows. 2.5 mm axial source images with a slice interval of 2.5-mm were reconstructed in lung windows. 5.0 mm axial source images with a slice interval of 5.0-mm were reconstructed in soft tissue windows. COMPARISON: Comparison is made with prior study dated 07/17/2020. NODULES: No suspicious nodules are seen. Emphysema: Mild degree of emphysematous changes. Endobronchial lesion: None Aorta: Calcified atherosclerotic plaques of the aortic arch. CORONARY ARTERIES: Coronary artery calcification is seen. Heart: Unremarkable Pulmonary artery: Unremarkable Mediastinal nodes: Unremarkable Other chest and abdominal findings: Mild degree of degenerative changes of the dorsal spine. CT/Low Dose CT Lung Screening IMPRESSION: Lung-RADS category 2 - Continue annual screening with LDCT in 12 months. IMPORTANT NOTES FOR USE: ACR Lung-RADS Version 1.1 Assessment Categories Release Date: 2018 Category: Coded 0-4 bases on nodule(s) with highest degree of suspicion. Negative screen is defined as categories 1 and 2; a positive screen is defined as categories 3 and 4. Category 3 and 4A nodules that are unchanged on interval CT should be coded as category 2, and individuals returned to screening in 12 months. Category 4X: Category 3 or 4 nodules with additional imaging findings that increase the suspicion of lung cancer, such as spiculation, GGN that doubles in size in 1 year, enlarged lymph notes, etc. Category Modifiers: S (significant finding unrelated to lung cancer) Electronically Signed: Zohaib Mack MD at 14:25 EDT ,
== END | disposition home or self-care (01) ==
LOC: CT 13:50
PROVIDERS: PCP Family Medicine; Referring Provider Family Medicine; Visit Provider Family Medicine
DX: Z87.891 Personal history of nicotine dependence (principal)
CPT/HCPCS: 71271

== ENCOUNTER → 2021-12-08 | Outpatient (CLI) | payer OTHER, SELFPAY ==
[2021-12-08 17:13] LABS: Mucous, Urine 0 SEEN /hpf (<or=2+)
[2021-12-08 17:52] LABS: Color, Urine Yellow (Yellow); Glucose, Dipstick Normal (Normal); Ketone-Dipstick Negative (Negative); Leukocyte Esterase-Dipstick 500 /ul (Negative); Nitrite-Dipstick Positive (Negative); Occult Blood-Urine 250 /ul (Negative); Protein-Dipstick 100 mg/dl (Negative); Urine Bilirubin Dipstick Negative (Negative); Urine Clarity Sl. Cloudy (Clear); Urine Urobilinogen Normal (Normal)
[2021-12-08 18:00] LABS: Bacteria 4+ /hpf (None Seen); Red Blood Cells-Urine 50-100 SEEN /hpf (0-5); Squamous Epithelial Cells - UA 0-5 SEEN /hpf (5-10); White Blood Cells >100 SEEN /hpf (0-5)
== END | disposition home or self-care (01) ==
LOC: LAB 17:09
PROVIDERS: PCP Family Medicine; Referring Provider Family Medicine; Visit Provider Family Medicine
DX: R35.0 Frequency of micturition (principal)
CPT/HCPCS: 81001; 87086; 87088; 87186

== ENCOUNTER → 2021-12-16 | Outpatient (CLI) | payer OTHER, SELFPAY ==
[2021-12-16 14:22] LABS: Mucous, Urine 0 SEEN /hpf (<or=2+)
[2021-12-16 18:03] LABS: Color, Urine Amber (Yellow); Glucose, Dipstick Normal (Normal); Ketone-Dipstick Negative (Negative); Leukocyte Esterase-Dipstick 500 /ul (Negative); Nitrite-Dipstick Positive (Negative); Occult Blood-Urine 250 /ul (Negative); Protein-Dipstick 30 mg/dl (Negative); Urine Bilirubin Dipstick Negative (Negative); Urine Clarity Sl. Cloudy (Clear); Urine Urobilinogen Normal (Normal)
[2021-12-16 18:56] LABS: Bacteria 3+ /hpf (None Seen); Red Blood Cells-Urine 25-50 SEEN /hpf (0-5); Squamous Epithelial Cells - UA 0-5 SEEN /hpf (5-10); White Blood Cells 25-50 SEEN /hpf (0-5)
== END | disposition home or self-care (01) ==
LOC: MTLAB 14:12
PROVIDERS: PCP Family Medicine; Referring Provider Family Medicine; Visit Provider Family Medicine
DX: R35.0 Frequency of micturition (principal)
CPT/HCPCS: 81001; 87086; 87088; 87186

== ENCOUNTER → 2022-07-16 | Outpatient (CLI) | payer OTHER, SELFPAY ==
[2022-07-16 10:56] LABS: Anion Gap 7 (5-15); BUN 18 mg/dL (7-18); BUN/Creat Ratio 25.2 RATIO (10-20); Calcium,Total 9.1 mg/dL (8.5-10.1); Chloride 107 mmol/L (98-107); Cholesterol 203 mg/dL (200); Creatinine, Serum 0.71 mg/dL (0.55-1.02); EST Glomerular Filtration Rate 87 mL/min (>60); Est Glom Filt Rate - Afr Amer 106 mL/min (>60); Glucose 83 mg/dL (74-106); High Density Lipoprotein 60 mg/dL; Potassium 4.3 mmol/L (3.5-5.1); Sodium Level 139 mmol/L (136-145); Thyroid Stim Hormone (TSH) 3.76 uIU/mL (0.358-3.74); Triglycerides 79 mg/dL; Very Low Density Lipoprotein 16 mg/dL (5-40)
== END | disposition home or self-care (01) ==
PROVIDERS: PCP Family Medicine; Visit Provider Nurse Practitioner Family
DX: E03.9 Hypothyroidism, unspecified (principal); Z13.220 Encounter for screening for lipoid disorders; Z13.1 Encounter for screening for diabetes mellitus
CPT/HCPCS: 36415; 80048; 80061; 84443

== ENCOUNTER → 2022-07-17 | Outpatient (CLI) | payer OTHER, SELFPAY ==
--- NOTE | 2022-07-17 14:25 | BI_ITS ---
MAMMOGRAPHY - BILATERAL SCREENING REASON FOR EXAM: Female, 62 years old. Routine annual screening examination. PERTINENT HISTORY: Non-contributory. TECHNIQUE: Digital bilateral breast mari (3D mammographic acquisition) in the CC and MLO projections. 2-D mediolateral oblique (MLO) and craniocaudad (CC) views of both breasts were obtained. CAD: Full Field Digital Mammography with Computer Added Detection was performed. COMPARISON: Comparison is made with prior examination November 22, 2020 and October 27, 2019. FINDINGS: Breast Composition: There are scattered areas of fibroglandular density. There are no dominant masses or suspicious calcifications. Stable small benign appearing bilateral axillary lymph nodes. No other significant abnormalities are identified. There has been no significant change since the prior study. BI/SCRN MAMM (CAD)W/MARI BILAT IMPRESSION: Stable bilateral screening mammogram. Yearly follow-up mammogram recommended. (A) ASSESSMENT CATEGORY: BIRADS Category 2: Benign. A letter regarding these results will be sent to the patient by the facility within 30 days. Approximately 10% of breast cancers are not detected by mammography. A normal mammogram should not delay biopsy of a clinically suspicious abnormality. [id number] Electronically Signed: Zohaib Mack MD at 13:11 EDT ,
== END | disposition home or self-care (01) ==
LOC: OPBI 14:24
PROVIDERS: PCP Family Medicine; Referring Provider Nurse Practitioner Family; Visit Provider Nurse Practitioner Family
DX: Z12.31 Encounter for screening mammogram for malignant neoplasm of breast (principal)
CPT/HCPCS: 77063; 77067

== ENCOUNTER → 2022-09-16 | Outpatient (CLI) | payer OTHER, SELFPAY ==
--- NOTE | 2022-09-16 14:39 | CT_ITS ---
EXAM: CT CHEST, LUNG CANCER SCREENING WITHOUT INTRAVENOUS CONTRAST CLINICAL INDICATION: EX-SMOKER 5 YEARS. DID SMOKE 1.5 PPD X 40 YEARS TECHNIQUE: Helically acquired images were obtained of the chest without intravenous contrast using low dose (LDCT) lung cancer screening protocol. This CT exam was performed using one or more of the following dose reduction techniques: automated exposure control, adjustment of the mA and/or kV according to patient size, and/or use of iterative reconstruction technique. COMPARISON: CT Lung Cancer Screening dated 09/12/2021 FINDINGS: LUNGS AND PLEURAL SPACES: New 4 mm right upper lobe pulmonary nodule. Stable scattered 3 mm nodules noted throughout both lungs. Mild diffuse centrilobular pulmonary emphysema. No pleural effusion or thickening. No pneumothorax. HEART: Heart is normal size. Mild to moderate coronary artery calcification. No pericardial effusion. MEDIASTINUM: Normal. No mediastinal or hilar adenopathy. Esophagus is unremarkable. No hiatal hernia. THYROID: Normal. No thyroid nodules or calcification. BONES/JOINTS: No suspicious lytic or blastic abnormality. VASCULATURE: No aortic aneurysm. LYMPH NODES: Normal. No enlarged lymph nodes. CT/Low Dose CT Lung Screening IMPRESSION: New 4 mm right apical pulmonary nodule. Stable scattered 3 mm nodules within both lungs. Lung-RADS score: 3 - Probably Benign. Recommend low-dose CT (LDCT) in 6 months. Electronically Signed: Yung Daniels MD at 15:20 EDT ,
== END | disposition home or self-care (01) ==
LOC: CT 14:37
PROVIDERS: PCP Family Medicine; Referring Provider Nurse Practitioner Family; Visit Provider Nurse Practitioner Family
DX: Z12.2 Encounter for screening for malignant neoplasm of respiratory organs (principal); Z87.891 Personal history of nicotine dependence
CPT/HCPCS: 71271

== ENCOUNTER → 2023-03-20 | Outpatient (CLI) | payer MEDICARE, SELFPAY ==
--- NOTE | 2023-03-20 09:45 | CT_ITS ---
STUDY: LOW DOSE CT LUNG CANCER SCREENING REASON FOR EXAM: Female, 63 years old. SCREEN RADIATION DOSAGE (If Supplied By Facility): CTDIvol = ( 3.02 ) mGy, DLP = ( 92.89 ) mGycm TECHNIQUE: No contrast was administered. Low dose technique was utilized (average mAS-38 and kVp 120). 1.25 mm axial source images with a slice interval of 1.25-mm were reconstructed in lung windows with coronal and sagittal reformats. COMPARISON: September 16, 2022, September 12, 2021, July 17, 2020 NODULES: Nodule #: 1 Density: Solid Lung location: Anterior central right lung apex, 2 cm from pleura Location in series: Series Number: 2 Image: 36 Size - D1 x D2 mm: 4 x 4 mm: 4mm average diameter Margin: Irregular Shape: Irregular Calcification: None Fat: None Temporal comparison: Unchanged from September 16, 2022, new compared with September 12, 2021 Other scattered subpleural and pleural-based to 3 mm nodules again remain unchanged from prior exams. Parenchyma: No airspace consolidation, effusion, or pneumothorax. Endobronchial lesion: Mild bilateral peribronchial thickening. No endobronchial lesion Aorta: Enteric atherosclerosis without ectasia. CORONARY ARTERIES: Mild multivessel coronary atherosclerosis. Heart: No cardiomegaly or pericardial effusion. Pulmonary artery: No main pulmonary arterial enlargement. Mediastinal nodes: No mediastinal or hilar adenopathy. Other chest and abdominal findings: Minimal hiatal hernia. CT/Low Dose CT Lung Screening IMPRESSION: Right apical 4 mm nodule remains unchanged from September 16, 2022. Other scattered 2 to 3 mm nodules also remain unchanged. No evidence of new or enlarging nodularity. Recommend attention to right apical nodule on one year follow-up screening CT. Mild peribronchial thickening as can be seen with acute or chronic bronchitis/bronchiolitis. Lung-RADS category 2 - Continue annual screening with LDCT in 12 months. IMPORTANT NOTES FOR USE: ACR Lung-RADS Version 1.1 Assessment Categories Release Date: 2018 Category: Coded 0-4 bases on nodule(s) with highest degree of suspicion. Negative screen is defined as categories 1 and 2; a positive screen is defined as categories 3 and 4. Category 3 and 4A nodules that are unchanged on interval CT should be coded as category 2, and individuals returned to screening in 12 months. Category 4X: Category 3 or 4 nodules with additional imaging findings that increase the suspicion of lung cancer, such as spiculation, GGN that doubles in size in 1 year, enlarged lymph notes, etc. Category Modifiers: S (significant finding unrelated to lung cancer) Electronically Signed: Jonathan Gonzalez MD at 7:45 EST ,
--- OUTSIDE RECORDS SUMMARY | 2023-03-20 09:51 | XMS RPT_ITS | CCD ---
Author Name Unknown Address [address] [place] [address] Organization [facility] Care Team Providers Care Toilet And Laundry Soap Supervisor Name Role Phone Angelo Payton Unavailable Vickie Haney Unavailable Unavailable FLORES, MARGOT Unavailable Unavailable FLORES, MARGOT Unavailable Unavailable FLORES, MARGOT Unavailable Unavailable FLORES, MARGOT Unavailable Unavailable FLORES, MARGOT Unavailable Unavailable FLORES, MARGOT Unavailable Unavailable FLORES, MARGOT Unavailable Unavailable FLORES, MARGOT Unavailable Unavailable FLORES, MARGOT Unavailable Unavailable FLORES, MARGOT Unavailable Unavailable Allergies Allergy Classification Reported Allergen(s) Allergy Type Date of Onset Reaction(s) Facility (2 sources) sulfamethoxazole / trimethoprim Drug Allergy 7 [facility] Work Phone: (2 sources) sulfamethoxazole / trimethoprim; Translations: [SULFAMETHOXAZOLE-TR IMETHOPRIM] Drug Allergy 7 [facility] Rep[facility] Medications Completed/Discontinued Medications Medication Drug Class(es) Dates Sig (Normalized) Sig (Original) levothyroxine sodium 0.125 mg oral tablet (2 sources) l-Thyroxine Start: 01-21-2017 LEVOTHYROXINE SODIUM 125 MCG TABS 1 tablet daily LEVOTHYROXINE SODIUM [id number] Bijan HUMMEL Problems Active Problems Problem Classification Problem Date Documented Da te Episodic/Chronic Thyroid disorders (2 sources) Hypothyroidism; Translations: [Hypothyroidism, unspecified] Onset: 01-21-2017 01-21-2017 Chronic Unclassified (1 source) Unknown / UNK(Unknown) Onset: 08-31-2016 Past or Other Problems Problem Classification Problem Date Documented Date Episodic/Chronic Diseases of mouth; excluding dental (2 sources) Aphthous ulcer of mouth; Translations: [Recurrent oral aphthae] Onset: 01-21-2017 01-21-2017 Episodic Fracture of upper limb (2 sources) Other intraarticular fracture of lower end of right radius, subsequent encounter for closed fracture with routine healing; Translations: [Fracture of unspecified carpal bone, right wrist, initial encounter for closed fracture] Onset: 08-07-2016 Episodic Results Test Name Value Interpretation Reference Range Facil ity Vital Signs Date Time Vital Sign Value Performing Clinician Facility 01-21-2017 12:39-0500 BMI (Body Mass Index) 24.93 kg/m2 [facility] Work Phone: 01-21-2017 12:39-0500 Body Temperature 98.1 [degF] [facility] Work Phone: 01-21-2017 12:39-0500 BP Diastolic 82 mm[Hg] [facility] Work Phone: 01-21-2017 12:39-0500 BP Systolic 124 mm[Hg] [facility] Work Phone: 01-21-2017 12:39-0500 Height 161.29 cm [facility] Work Phone: 01-21-2017 12:39-0500 Pulse (Heart Rate) 74 /min [facility] Work Phone: 01-21-2017 12:39-0500 Respiratory Rate 14 /min [facility] Work Phone: 01-21-2017 12:39-0500 Weight 64.86 kg [facility] [employer] Work Phone: Encounters Encounter Date Encounter Type Care Provider Facility Start: 09-21-2016 End: 09-21-2016 Ambulatory MARGOT FLORES [facility] Start: 09-08-2016 End: 09-08-2016 Ambulatory MARGOT FLORES [facility] Start: 08-31-2016 End: 08-31-2016 Ambulatory MARGOT FLORES [facility] Start: 08-07-2016 Ambulatory [facility] Plan of Treatment Date Care Activity Detail Author Start: 01-21-2017 End: 01-21-2017 Appointment Appointment [facility] Work Phone: [facility] Work Phone: Summary Purpose Family History No Family History Records FoundNo Family History Records Found Advance Directives No Advanced Directives Records FoundNo Advanced Directives Records Found Additional Source Comments INFORMATION SOURCE (unrecogn ized section and content) DATE CREATED AUTHOR AUTHOR'S ANMOL VINCIIUSADALI 08/18/2017 [facility] FOR RECORDS PERTAINING TO PATIENTS WHO ARE OR HAVE BEEN ENROLLED IN A CHEMICAL DEPENDENCY/SUBSTANCEABUSE PROGRAM, SOME INFORMATION MAY BE OMITTED. This clinical summary was aggregated from multiple sources. Caution should be exercised in using it in the provision of clinical care. This summary normalizes information from multiple sources, and as a consequence, information in this document may materially change the coding, format and clinical context of patient data. In addition, data may be omitted in some cases. CLINICAL DECISIONS SHOULD BE BASED ON THE PRIMARY CLINICAL RECORDS. [facility] [employer] [facility]. provides no warranty or guarantee of the accuracy or completeness of information in this document.
== END | disposition home or self-care (01) ==
LOC: CT 09:44
PROVIDERS: PCP Family Medicine; Visit Provider Nurse Practitioner Family
DX: Z12.2 Encounter for screening for malignant neoplasm of respiratory organs (principal)
CPT/HCPCS: 71271

== ENCOUNTER → 2023-08-03 | Outpatient (CLI) | payer MEDICARE, SELFPAY ==
[2023-08-03 12:19] LABS: Absolute Lymphocyte Count 1.46 X10^3/uL (0.83-4.51); Absolute Neutrophil Count 3.4 X10^3/uL (2.0-7.7); Basophil# 0.09 X10^3/uL; Basophil% 1.6 % (0-1); Eosinophil# 0.37 X10^3/uL; Eosinophils% 6.5 % (0-5); Hematocrit 41.2 % (37-47); Hemoglobin 13.1 g/dL (12.0-15.0); Lymphocyte # 1.46 X10^3/ul (0.83-4.51); Lymphocyte % 25.7 % (19-41); Mean Corp Hgb Conc 31.8 g/dL (32-36); Mean Corpuscular Hgb 30.9 pg (27.0-32.0); Mean Corpuscular Volume 97.2 fL (81-99); Mean Platelet Vol. 10.9 fl (6.2-12.0); Monocyte# 0.34 X10^3/uL; NRBC Flagged by Analyzer 0 % (0-5); Neutrophil # 3.41 X10^3/uL (2.7-7.7); Platelet Count 330 K/mm3 (150-450); RBC Distribution Width CV 13.8 % (11.6-14.6); RBC Distribution Width SD 49.8 fl (35.1-43.9); Red Blood Count 4.24 M/mm3 (4.2-5.4); White Blood Count 5.7 K/mm3 (4.4-11.0)
[2023-08-03 14:08] LABS: AST(SGOT) 22 U/L (15-37); Alanine Aminotransfer ALT/SGPT 26 U/L (13-56); Albumin, Serum 3.5 g/dL (3.2-5.0); Alkaline Phosphatase 78 U/L (45-117); Anion Gap 3 (5-15); BUN 13 mg/dL (7-18); BUN/Creat Ratio 17.6 RATIO (10-20); Calcium,Total 9.3 mg/dL (8.5-10.1); Chloride 108 mmol/L (98-107); Cholesterol 209 mg/dL (200); Creatinine, Serum 0.74 mg/dL (0.55-1.02); EST Glomerular Filtration Rate 84 mL/min (>60); Est Glom Filt Rate - Afr Amer 101 mL/min (>60); Free T3 1.9 pg/mL (2.18-3.98); Globulin 3.5 g/dL (2.2-4.2); Glucose 83 mg/dL (74-106); High Density Lipoprotein 68 mg/dL; Potassium 4.2 mmol/L (3.5-5.1); Sodium Level 139 mmol/L (136-145); T4 Free Direct 1.49 ng/dL (0.76-1.46); Thyroid Stim Hormone (TSH) 3.04 uIU/mL (0.358-3.74); Triglycerides 74 mg/dL; Very Low Density Lipoprotein 15 mg/dL (5-40)
[2023-08-03 14:42] LABS: Hemoglobin A1c 5.5 % (3.8-5.6)
== END | disposition home or self-care (01) ==
LOC: MTLAB 09:28
PROVIDERS: PCP Family Medicine; Referring Provider Family Medicine; Visit Provider Family Medicine
DX: R79.89 Other specified abnormal findings of blood chemistry (principal); E88.810 Metabolic syndrome; M23.92 Unspecified internal derangement of left knee; E03.9 Hypothyroidism, unspecified
CPT/HCPCS: 36415; 80053; 80061; 83036; 84439; 84443; 84481; 85025

== ENCOUNTER → 2023-09-07 | Outpatient (CLI) | payer MEDICARE, SELFPAY ==
--- NOTE | 2023-09-07 14:09 | BI_ITS ---
MAMMOGRAPHY - BILATERAL SCREENING REASON FOR EXAM: Female, 63 years old. Routine annual screening examination. PERTINENT HISTORY: Non-contributory. TECHNIQUE: Digital bilateral breast mari (3D mammographic acquisition) in the CC and MLO projections. 2-D mediolateral oblique (MLO) and craniocaudad (CC) views of both breasts were obtained. CAD: Full Field Digital Mammography with Computer Added Detection was performed. COMPARISON: Comparison is made with prior study of July 17, 2022 and November 22, 2020. FINDINGS: Breast Composition: The breasts are almost entirely fatty. There are no dominant masses or suspicious calcifications. No other significant abnormalities are identified. There has been no significant change since the prior study. BI/SCRN MAMM (CAD)W/MARI BILAT IMPRESSION: Stable bilateral screening mammogram. Yearly follow-up mammogram recommended. (A) ASSESSMENT CATEGORY: BIRADS Category 1: Negative. A letter regarding these results will be sent to the patient by the facility within 30 days. Approximately 10% of breast cancers are not detected by mammography. A normal mammogram should not delay biopsy of a clinically suspicious abnormality. [id number] Electronically Signed: Zohaib Mack MD at 15:18 EDT ,
--- NOTE | 2023-09-07 14:09 | BD_ITS ---
STUDY: DUAL ENERGY X-RAY ABSORPTIOMETRY / DXA REASON FOR EXAM: Female, 63 years old. [id number] TECHNIQUE: Bone Mineral Density (BMD) measurements of lumbar spine and bilateral hips were obtained. COMPARISON: None. FINDINGS: Lumbar Spine (L1-L4): g/cm2 (0.978) / T-score (-0.6) / Z-score (1.2) Findings are suggestive of normal bone density with a low fracture risk. Left Femur Total: g/cm2 (0.767) / T-score (-1.4) / Z-score (-0.2) Left Femoral Neck: g/cm2 (0.626) / T-score (-2.0) / Z-score (-0.5) Right Femur Total: g/cm2 (0.726) / T-score (-1.8) / Z-score (-0.5) Right Femoral Neck: g/cm2 (0.546) / T-score (-2.7) / Z-score (-1.2) BD/Dexa Bone Density Study IMPRESSION: The patient is considered osteoporotic as outlined below according to World Zeeshan Organization (WHO) criteria with a high fracture risk. Reference Information: The T-score is the number of standard deviations above or below the standard which is normal for young adults at their peak bone mineral density. The World Health Organization (WHO) interprets the T-scores as follows: Above -1 Normal bone density Between -1 and -2.5 Osteopenia Equal to / or below -2.5 Osteoporosis As a practical clinical guideline, osteopenia may be graded as follows: Mild -1 through -1.5 Moderate -1.6 through -2.0 Severe -2.1 through -2.4 The Z-score is the number of standard deviations above or below age-matched controls. A Z-score of less than -1.5 would be considered abnormal. References: 1. NIH Osteoporosis and Related Bone Diseases www osteo.org 2. International Society for Clinical Densitometry www iscd.org 3. National Osteoporosis Foundation www nof.org Electronically Signed: Zohaib Mack MD at 8:16 EDT ,
== END | disposition home or self-care (01) ==
LOC: OPBD 14:07
PROVIDERS: PCP Family Medicine; Referring Provider Family Medicine; Visit Provider Family Medicine
DX: Z12.31 Encounter for screening mammogram for malignant neoplasm of breast (principal); N95.9 Unspecified menopausal and perimenopausal disorder
CPT/HCPCS: 77063; 77067; 77080

== ENCOUNTER → 2023-09-13 | Outpatient (CLI) | payer MEDICARE, SELFPAY ==
--- NOTE | 2023-09-13 16:32 | MRI_ITS ---
EXAM: MR LEFT LOWER EXTREMITY WITHOUT INTRAVENOUS CONTRAST, KNEE CLINICAL INDICATION: internal derangement lt knee, ANTERIOR PAIN TECHNIQUE: Multiplanar and multisequence MR images of the left knee without intravenous contrast. COMPARISON: No relevant prior studies available. FINDINGS: BONES/JOINTS: Osteochondral defect or insufficiency fracture involving the middle weightbearing portion of the lateral femoral condyle with an anterior to posterior dimension of 1.8 cm and associated edema and tiny subchondral cystic changes. EXTENSOR MECHANISM: Unremarkable. MEDIAL MENISCUS: Complex tear involving the posterior horn and adjacent portion of the body segment of the medial meniscus with degenerative thickening and possible degenerative tearing involving the posterior root ligament of the medial meniscus. LATERAL MENISCUS: Lateral meniscus is intact. MEDIAL CAPSULE/SUPPORTING STRUCTURES: Unremarkable. Intact. LATERAL CAPSULE/SUPPORTING STRUCTURES: Unremarkable. Lateral collateral ligamentous complex, inclusive of the popliteal tendon, are intact. ANTERIOR CRUCIATE LIGAMENT: Unremarkable. Intact. POSTERIOR CRUCIATE LIGAMENT: Unremarkable. Intact. MUSCLES: Unremarkable. CARTILAGE: Unremarkable. Intact. FLUID: Small amount of joint fluid with tiny Cabral''s cyst noted. OTHER SOFT TISSUES: No other remarkable soft tissue masses or fluid collections. MRI/Lower Ext Joint Only (Routine) IMPRESSION: 1. Osteochondral defect or insufficiency fracture involving the middle weightbearing portion of the lateral femoral condyle with an anterior to posterior dimension of 1.8 cm and associated bone marrow edema/small subchondral cystic changes. 2. Complex tear involving the posterior horn and adjacent portion of the body segment of the medial meniscus with degenerative thickening and possible degenerative tearing involving the posterior root ligament of the medial meniscus. Electronically Signed: Evaristo Andrade MD at 0:35 EDT ,
== END | disposition home or self-care (01) ==
LOC: MRI 16:10
PROVIDERS: PCP Family Medicine; Referring Provider Family Medicine; Visit Provider Family Medicine
DX: Z87.891 Personal history of nicotine dependence (principal); N95.9 Unspecified menopausal and perimenopausal disorder; Z12.31 Encounter for screening mammogram for malignant neoplasm of breast; M23.92 Unspecified internal derangement of left knee
CPT/HCPCS: 73721

== ENCOUNTER → 2024-01-27 | Outpatient (CLI) | payer MEDICARE, SELFPAY ==
[2024-01-27 10:16] LABS: Absolute Lymphocyte Count 1.68 X10^3/uL (0.83-4.51); Absolute Neutrophil Count 4.5 X10^3/uL (2.0-7.7); Basophil# 0.07 X10^3/uL; Eosinophil# 0.33 X10^3/uL; Eosinophils% 4.7 % (0-5); Hematocrit 42.1 % (37-47); Lymphocyte # 1.68 X10^3/ul (0.83-4.51); Lymphocyte % 23.8 % (19-41); Mean Corp Hgb Conc 30.9 g/dL (32-36); Mean Corpuscular Hgb 29.6 pg (27.0-32.0); Mean Corpuscular Volume 95.9 fL (81-99); Mean Platelet Vol. 10.9 fl (6.2-12.0); Monocyte# 0.46 X10^3/uL; Monocyte% 6.5 % (0-10); NRBC Flagged by Analyzer 0 % (0-5); Neutrophil # 4.48 X10^3/uL (2.7-7.7); Neutrophil % 63.4 % (47-70); Platelet Count 336 K/mm3 (150-450); RBC Distribution Width CV 13.3 % (11.6-14.6); Red Blood Count 4.39 M/mm3 (4.2-5.4); White Blood Count 7.1 K/mm3 (4.4-11.0)
[2024-01-27 11:06] LABS: AST(SGOT) 20 U/L (15-37); Alanine Aminotransfer ALT/SGPT 28 U/L (13-56); Albumin, Serum 3.6 g/dL (3.2-5.0); Alkaline Phosphatase 73 U/L (45-117); Anion Gap 5 (5-15); BUN 14 mg/dL (7-18); BUN/Creat Ratio 19.1 RATIO (10-20); Calcium,Total 9.1 mg/dL (8.5-10.1); Chloride 106 mmol/L (98-107); Creatinine, Serum 0.73 mg/dL (0.55-1.02); EST Glomerular Filtration Rate 84 mL/min (>60); Est Glom Filt Rate - Afr Amer 102 mL/min (>60); Globulin 3.6 g/dL (2.2-4.2); Glucose 91 mg/dL (74-106); Potassium 4.3 mmol/L (3.5-5.1); Protein, Total 7.2 g/dL (6.4-8.2); Sodium Level 138 mmol/L (136-145); T4 Free Direct 1.37 ng/dL (0.76-1.46)
[2024-01-27 12:41] LABS: Hemoglobin A1c 5.7 % (3.8-5.6)
== END | disposition home or self-care (01) ==
LOC: MFPLAB 08:57
PROVIDERS: PCP Family Medicine; Visit Provider Family Medicine
DX: E03.9 Hypothyroidism, unspecified (principal); E88.810 Metabolic syndrome; K21.9 Gastro-esophageal reflux disease without esophagitis
CPT/HCPCS: 36415; 80053; 83036; 84439; 84443; 85025

== ENCOUNTER → 2024-03-21 | Outpatient (CLI) | payer MEDICARE, SELFPAY ==
--- NOTE | 2024-03-21 15:49 | CT_ITS ---
PROCEDURE: LOW DOSE CT LUNG SCREENING REASON FOR EXAM: Former smoker. TECHNIQUE: Low Dose CT Lung Screening without contrast COMPARISON: 03/20/2023 CT. FINDINGS: PULMONARY NODULES: (Only nodules >6mm are reported) Pulmonary Nodules: Right upper lobe 5 mm nodule, unchanged (image 41). Right lower lobe subpleural perifissural 2 mm nodule, unchanged (image 86) Left upper lobe 5 mm ground-glass nodule, unchanged (image 48). Hardware:None Lymph Nodes:No mediastinal hilar or axillary lymphadenopathy. Heart and Vasculature:Normal heart size. No pericardial effusion.Thoracic aorta and pulmonary arteries have normal contours; noncontrast technique limits evaluation. Coronary Artery Calcifications: Lungs and Airways: Mild centrilobular emphysema. Pleura:No pleural effusion. No pneumothorax. Upper Abdomen:Visualized portions of the upper abdominal viscera are unremarkable. Bones:Bone windows are unremarkable. CT/Low Dose CT Lung Screening IMPRESSION: 1. BASED ON THE ACR LUNG RADS FOR THE MOST SUSPICIOUS NODULE (IF ANY) DESCRIBE D IN THIS REPORT, THE OVERALL LUNG RADS SCORE IS 2.2 - BENIGN (BASED ON IMAGING FEATURES OR INDOLENT BEHAVIOR). RECOMMEND 12-MON TH SCREENING LDCT.. 2. SMOKING CESSATION COUNSELING IS RECOMMENDED IF THE PATIENT IS STILL SMOKING . 3. OTHER SIGNIFICANT FINDINGSmild centrilobular emphysema. One or more dose reduction techniques were used (e.g., Automated exposure contr ol, adjustment of the mA and/or kV according to patient size, use of iterative reconstruction technique). The following information is provided for reference:Lung-RADS 2021 Assessment C ategories. Additional information involving Lung-RADS is available at www.acr.org. Reading Location: [id number]
== END | disposition home or self-care (01) ==
LOC: CT 15:46
PROVIDERS: PCP Family Medicine; Referring Provider Family Medicine; Visit Provider Family Medicine
DX: Z12.2 Encounter for screening for malignant neoplasm of respiratory organs (principal); Z87.891 Personal history of nicotine dependence
CPT/HCPCS: 71271

== ENCOUNTER 2024-08-01 09:05 | Observation (INO) | payer MEDICARE, SELFPAY ==
[2024-08-01] VITALS (13 sets, daily range): BP systolic 136–185; BP diastolic 71–99; PULSE 58–86; RESP 14–18; TEMP 36.1–36.7; O2SAT 95–99; BMI 31.6; BMI 32.1; BMI 32.2
--- NOTE | 2024-08-01 09:09 | EKG12_ITS ---
Test Reason : Blood Pressure : */* mmHG Vent. Rate : 57 BPM Atrial Rate : 57 BPM P-R Int : 196 ms QRS Dur : 72 ms QT Int : 406 ms P-R-T Axes : 56 39 32 degrees QTcB Int : 395 ms Sinus bradycardia Otherwise normal ECG Confirmed by Peter Ocampo ([id number]), editor greeting card OVI MENDEZ ([id number]) on 08/03/2024 6:13:14 AM Referred By: Confirmed By: Peter Ocampo
--- NOTE | 2024-08-01 09:09 | CT_ITS ---
PROCEDURE: STROKE CTA HEAD AND NECK W/CON 08/01/2024 REASON FOR EXAM: NEURO DEFICIT, ACUTE, STROKE SUSPECTED TECHNIQUE: CTA imaging of the head and neck from the aortic arch to the skull vertex with out contrast and with intravenous contrast. Multiplanar and multisequence images were obtained. CONTRAST: 100 cc Isovue 370 mL One or more dose reduction techniques were used (e.g., Automated exposure control, adjustment of the mA and/or kV according to patient size, use of iterative reconstruction technique). RADIATION DOSE SUMMARY: DLP: 625.23 mGycm COMPARISON: August 01, 2024 9:11 FINDINGS: Aortic Arch: Unremarkable Brachiocephalic and Subclavians: Patent RIGHT Carotid: Right CCA: Patent Right ICA: Patent Maximum stenosis (NASCET): 0 % Right ECA: Patent LEFT Carotid: Left CCA: Patent Left ICA: Patent Maximum stenosis (NASCET): 0 % Left ECA: Patent Vertebrals: Patent RIGHT Vertebral: Patent LEFT Vertebral: Patent Anatomy: Intact Aneurysm or avm: None Anterior cerebral arteries: Patent Middle cerebral arteries: Patent Basilar artery: Patent Posterior cerebral arteries: Patent Other major branches of the posterior circulation: Unremarkable Major venous structures: Patent Other findings: Neck: Clear lungs: Clear bones: Fluid density is noted in a portion of the left mastoid air cells, with mastoiditis. CT/STROKE CTA Head AND Neck W/Con IMPRESSION: Fluid density is noted in a portion of the left mastoid air cells, with mastoid itis. Unremarkable CTA of the head and neck. Reading Location: [facility]
--- NOTE | 2024-08-01 09:09 | CT_ITS ---
PROCEDURE: STROKE BRAIN/HEAD WITHOUT CONT 08/01/2024 REASON FOR EXAM: NEURO DEFICIT, ACUTE, STROKE SUSPECTED Left arm weakness/numbness. TECHNIQUE: Head CT without intravenous contrast. Coronal and Sagittal reconstruction series were provided. One or more dose reduction techniques were used (e.g., Automated exposure control, adjustment of the mA and/or kV according to patient size, use of iterative reconstruction technique. RADIATION DOSE SUMMARY: CTDlvol: 44.99 mGy DLP: 796.11 mGycm COMPARISON: None FINDINGS: Brain: Tiny lacune is seen in the right basal ganglion. No surrounding edema or mass effect. CSF Spaces: Mild generalized cerebral atrophy Sinuses/Mastoids: Clear at visualized levels Bones: Unremarkable CT/STROKE Brain/Head without Cont IMPRESSION: Tiny lacune in the right basal ganglion. Red Alert: Tiny lacune in Right basal ganglion The critical information above was relayed directly by me by telephone to Imtiaz Bocanegra on 08/01/2024 at 9:30 am with readback verification. Reading Location: [place] [id number]
--- NOTE | 2024-08-01 09:10 | ED.VIS.STROK ---
HPI History of Present Illness Chief Complaint: Stroke Alert Informant: patient and family Narrative Narrative: 7:30 AM was walking fell tingling left arm then it turned in the rubber.. She is right-hand dominant. She feeling weak in the left arm. Starting to improve. No headache no speech changes. No leg weakness. She ambulates to the department. No stroke history. No anticoagulants. History of prediabetes on metformin states couple weeks ago the medication was increased by her PCP. Denies visual changes. Prior similar symptoms: No PFSH PFSH Medical History Wears partial dentures Thyroid disease Back pain Former smoker Hx of fracture of wrist Home Medications ?Medication ?Instructions ?Recorded ?Last Taken ?Type acetaminophen 650 mg 1,300 mg PO Q8H PRN fever or pain 08/01/24 Unknown History tablet,extended release (8 Hour Pain Reliever) celecoxib 200 mg capsule 200 mg PO BID PRN PRN knee pain 08/01/24 Unknown History famotidine 20 mg tablet 20 mg PO BID 08/01/24 07/31/24 History ibandronate 150 mg tablet 150 mg PO QMONTH 08/01/24 Unknown History levothyroxine 125 mcg tablet 125 mcg PO DAILY 08/01/24 08/01/24 History metformin 500 mg tablet 500 mg PO BID 08/01/24 07/31/24 History pantoprazole 20 mg tablet,delayed 20 mg PO DAILY 08/01/24 07/31/24 History release Allergy/AdvReac Type Severity Reaction Status Date / Time sulfamethoxazole (From Allergy Swelling Verified 09/11/20 06:59 Bactrim) trimethoprim (From Bactrim) Allergy Swelling Verified 09/11/20 06:59 Surgical History Hx of tubal ligation Hx of hysterectomy Social History Smoking Status: Former smoker ROS ROS ED Constitutional Constitutional ED: Denies chills, fever(s) or sweats ENT ENT ED: Denies sore throat Cardiovascular Cardiovascular: Denies chest pain, leg edema, palpitations or racing heartbeat Respiratory/Chest Respiratory/Chest: Denies cough, dyspnea or dyspnea on exertion Gastrointestinal Gastrointestinal: Denies abdominal pain, diarrhea, nausea or vomiting Genitourinary Genitourinary ED: Denies dysuria, hematuria or urinary frequency Musculoskeletal Musculoskeletal: Denies back pain, extremity pain or neck pain Integumentary Denies rash or wounds Neurologic Neurologic: Reports paresthesias and weakness; Denies headache(s) EXAM Physical Exam Const Vital Signs: 08/01/24 09:06 08/01/24 09:07 08/01/24 09:09 Temperature 97 F L Temperature Source Temporal Pulse Rate 78 73 Respiratory Rate 18 18 Blood Pressure 168/86 H 168/86 H Blood Pressure Mean 113 113 Pulse Ox 99 98 Oxygen Delivery Method Room Air Room Air Room Air 08/01/24 09:39 08/01/24 10:09 08/01/24 10:30 Temperature Temperature Source Pulse Rate 62 63 64 Respiratory Rate 15 14 14 Blood Pressure 166/82 H 169/91 H 171/99 H Blood Pressure Mean 110 117 123 Pulse Ox 98 98 98 Oxygen Delivery Method Room Air Room Air Room Air 08/01/24 11:00 08/01/24 11:00 08/01/24 11:18 Temperature 97.9 F Temperature Source Pulse Rate 72 64 64 Respiratory Rate 16 14 16 Blood Pressure 165/80 H 185/75 H 180/72 H Blood Pressure Mean 108 111 108 Pulse Ox 98 98 99 Oxygen Delivery Method Room Air Room Air Positive well nourished and well developed General Appearance ED: well developed and NAD HEENT Reports moist mucous membranes normocephalic and atraumatic Eyes General Eye ED: Yes normal appearance of both eyes Neck full ROM Chest Wall Chest: Negative for tenderness Resp normal respiratory effort and normal air movement Effort and Inspection: symmetric chest movement; Negative for respiratory distress Cardio regular rate, regular rhythm and no murmurs Peripheral Pulses: pulses 2+ throughout GI normal to inspection, nondistended, normoactive bowel sounds and non-tender Palpation: Negative for guarding or rebound tenderness present Extremity normal to inspection General Extremety ED: Negative for edema or tenderness General Extremity: Negative for edema Neuro oriented x3, CN's II-XII intact bilaterally and no sensory deficits noted Neuro Narrative: Mild clinical pharmacologist strength weakness left side compared to right. Sensorium / Orientation: awake and alert Skin no rashes or lesions noted and no wounds MDM MDM MDM Narrative Medical decision making narrative: Interventions / MDM: Differential diagnosis: TIA, left upper extremity weakness, history of diabetes Diagnosis considered but do not suspect: Intracranial hemorrhage however CT negative My EKG interpretation: Sinus rate of 57, no ST changes. QTc 395. Imaging independently reviewed and interpreted by myself: CT brain: No acute process. CT angiogram head and neck: External documents reviewed: N/A Test considered but not ordered:N/A ED course: Patient symptom onset 730, 90 minutes prior to arrival ice to the left upper extremity symptoms mild clinical pharmacologist strength weakness NIH was 0. Timeframe symptom onset stroke protocol initiated. 0924: Patient returned from CT recheck NIH still 0 still has mild clinical pharmacologist strength weakness left hand compared to the right. CT brain reviewed inter myself no intracranial hemorrhage awaiting final read from radiology. 0928: Discussed with radiology concerns for small lacunar infarct basal ganglia, age-indeterminate 0940: Stroke neurologist on the monitor in the room evaluated patient. Decreased could be a small stroke. We discussed the radiology read on the basal ganglia, he states difficult to call at this time our treatment will be the same without intervention. Recommended full dose aspirin statin to be started. Bedside swallow will be obtained. Awaiting final read from CT angiogram however no obvious large vessel occlusions noted by neurology. Will plan for admission for further workup. 1017: Resolved CT angiogram no LVO normal vasculature per radiology. Fluid densely left mastoid. Questioning mastoiditis per radiology. Patient without ear pain TMs normal no mastoid tenderness. Will discuss with hospitalist service for admission. 1100: I spoke with Dr. Marcos for admission to PCU. Re-evaluation: stable Disposition discussed with patient/family/significant other: Patient and family Case discussed with consulting clinician: Telestroke neurology, hospitalist This note was generated with [employer] dictation software. It may contain incorrect words, spelling, and punctuation that were not noted in checking the note before signing. Lab Data Attestation: I reviewed the patient's lab results. Labs: Laboratory Results - last 24 hr 08/01/24 08/01/24 09:08 09:25 WBC 4.4 RBC 3.66 L Hgb 11.2 L Hct 34.0 L MCV 92.9 MCH 30.6 MCHC 32.9 RDW Std Deviation 47.2 H RDW Coeff of Jamin 13.7 Plt Count 273 MPV 10.3 Immature Gran % (Auto) 0.200 Neut % (Auto) 58.2 Lymph % (Auto) 29.6 [place] % (Auto) 7.0 Eos % (Auto) 3.4 Baso % (Auto) 1.6 H Absolute Neuts (auto) 2.6 Absolute Lymphs (auto) 1.31 Nucleated RBC % 0 PT 13.0 INR 1.0 APTT 27.2 Sodium 133 Potassium 3.9 Chloride 102 Carbon Dioxide 22.3 Anion Gap 9 BUN 16 Creatinine 0.61 L Estim Creat Clear Calc 72.92 Est GFR (MDRD) Non-Af 98 BUN/Creatinine Ratio 26.7 H Glucose 94 Calcium 8.4 Troponin T High Sens 12 POC Glucose 84 Radiography Diagnostic Testing: Clinical Impression(s) from Imaging Studies Brain CT 08/01/24 09:09 IMPRESSION: Tiny lacune in the right basal ganglion. Red Alert: Tiny lacune in Right basal ganglion The critical information above was relayed directly by me by telephone to Karl Bocanegra on 08/01/2024 at 9:30 am with readback verification. Reading Location: [facility] Head/Neck CTA 08/01/24 09:09 IMPRESSION: Fluid density is noted in a portion of the left mastoid air cells, with mastoiditis. Unremarkable CTA of the head and neck. Reading [facility] Critical Care Time Critical Care Time: Yes Critical care time (excluding procedures): 30-74 minutes, Discussing w/Patient &/or Family/[place], Discussing w/Consultants, Arranging Admission or Transfer, Performing Direct Patient Care at Bedside and - (30 minutes) Discharge Plan Dx/Rx/DC Orders Clinical Impression: Brain TIA, Left arm weakness, History of prediabetes Disposition Disposition: Acute Care Hospital [facility] Discharge Date/Time: 08/01/24 12:05 NIHSS NIHSS 1a. Level of Consciousness: 0 - Alert; keenly responsive 1b. LOC Questions: 0 - Answers BOTH questions correctly 1c. LOC Commands: 0 - Performs BOTH tasks correctly 2. Best Gaze: 0 - Normal 3. Visual: 0 - No visual loss 4. Facial Palsy: 0 - Normal symmetrical movements 5a. Left Arm: 0 - No drift; arm holds 90 (or 45) degrees for full 10 seconds 5b. Right Arm: 0 - No drift; arm holds 90 (or 45) degrees for full 10 seconds 6a. Left Le - No drift; leg holds 30-degree position for full 5 seconds 6b. Right Le - No drift; leg holds 30-degree position for full 5 seconds 7. Limb Ataxia: 0 - Absent 8. Sensory: 0 - Normal; no sensory loss 9. Best Language: 0 - No aphasia; normal 10. Dysarthria: 0 - Normal 11. Extinction and Inattention: 0 - No abnormality Total: 0 Stroke Questions Stroke Team Activated: Yes Reviewed Inclusion/Exclusion criteria: Yes
[2024-08-01 09:27] LABS: Bedside Glucose 84 mg/dL (74-106)
[2024-08-01 09:36] LABS: Absolute Lymphocyte Count 1.31 X10^3/uL (0.83-4.51); Absolute Neutrophil Count 2.6 X10^3/uL (2.0-7.7); Basophil# 0.07 X10^3/uL; Basophil% 1.6 % (0-1); Eosinophil# 0.15 X10^3/uL; Eosinophils% 3.4 % (0-5); Hemoglobin 11.2 g/dL (12.0-15.0); Lymphocyte # 1.31 X10^3/ul (0.83-4.51); Lymphocyte % 29.6 % (19-41); Mean Corp Hgb Conc 32.9 g/dL (32-36); Mean Corpuscular Hgb 30.6 pg (27.0-32.0); Mean Corpuscular Volume 92.9 fL (81-99); Mean Platelet Vol. 10.3 fl (6.2-12.0); Monocyte# 0.31 X10^3/uL; NRBC Flagged by Analyzer 0 % (0-5); Neutrophil # 2.57 X10^3/uL (2.7-7.7); Neutrophil % 58.2 % (47-70); Platelet Count 273 K/mm3 (150-450); RBC Distribution Width CV 13.7 % (11.6-14.6); RBC Distribution Width SD 47.2 fl (35.1-43.9); Red Blood Count 3.66 M/mm3 (4.2-5.4); White Blood Count 4.4 K/mm3 (4.4-11.0)
[2024-08-01 09:47] LABS: Partial Thromboplast Time 27.2 Seconds (24.1-36.2)
[2024-08-01] MEDS: Aspirin 325 MG Tablet PO (09:55)
[2024-08-01 10:04] LABS: Anion Gap 9 (5-15); BUN 16 mg/dL (4-19); BUN/Creat Ratio 26.7 RATIO (10-20); Calcium,Total 8.4 mg/dL (7.6-11.0); Carbon Dioxide 22.3 mmol/L (21.0-32.0); Chloride 102 mmol/L (98-108); Creatinine, Serum 0.61 mg/dL (0.70-1.20); EST Glomerular Filtration Rate 98 (>60); Estimated Creatinine Clearance 72.92 ml/min (50-250); Glucose 94 mg/dL (70-99); Potassium 3.9 mmol/L (3.3-5.1); Sodium Level 133 mmol/L (133-145); Troponin T High Sensitivity 12 ng/L (<=14)
[2024-08-01] MEDS: Pravastatin 40 MG Tablet PO (10:39)
--- NOTE | 2024-08-01 11:37 | ECHOCS_ITS ---
Reason For Study Reason For Study: TIA/CVA Procedure This was a 2D Doppler, Color Flow transthoracic echocardiogram. Contrast injection was performed. Exam performed portable in patient room. Left Ventricle Normal size and thickness. The LV systolic function is normal. EF is 65 %. Normal diastology for age. Right Ventricle Normal right ventricle. Atria The left and right atria are normal. Mitral Valve Trivial mitral valve insufficiency. Tricuspid Valve Trivial tricuspid valve insufficiency. Normal pulmonary artery pressure. Aortic Valve Aortic sclerosis, no stenosis. Pulmonic Valve The pulmonic valve is not well visualized. Great Vessels Normal sized aortic root. Pericardium/Pleural No pericardial effusion. Medication Diluted definity 1.5ml given slow IV push to enhance endocardial definition. MMode/2D Measurements & Calculations LVIDd: 4.4 cm IVSd: 1.1 cm LVOT diam: 2.0 cm LVIDs: 2.6 cm LVPWd: 0.96 cm RVDd: 3.4 cm FS: 41.2 % LVOT area: 3.1 cm2 asc Aorta Diam: 3.5 cm LAV(MOD-bp): 35.2 ml LVAd ap4: 30.5 cm2 LAV(MOD-bp) Indexed: 18.5 ml/m2 LVLd ap4: 8.1 cm LAV(MOD-sp2): 28.9 ml EDV(MOD-sp4): 94.4 ml LAV(MOD-sp4): 35.3 ml EDV(sp4-el): 97.8 ml LVAs ap4: 16.7 cm2 LVLs ap4: 6.5 cm ESV(MOD-sp4): 38.7 ml ESV(sp4-el): 36.6 ml EF(MOD-sp4): 59.1 % EF(sp4-el): 62.6 % LVAd ap2: 32.4 cm2 SV(MOD-sp4): 55.8 ml SV(MOD-sp2): 67.2 ml LVLd ap2: 8.1 cm SI(MOD-sp4): 29.3 ml/m2 SI(MOD-sp2): 35.4 ml/m2 EDV(MOD-sp2): 107.2 ml EDV(sp2-el): 109.3 ml LVAs ap2: 17.5 cm2 LVLs ap2: 6.7 cm ESV(MOD-sp2): 40.0 ml ESV(sp2-el): 38.8 ml EF(MOD-sp2): 62.7 % SV(sp4-el): 61.2 ml Ao sinus diam: 3.[address] Junction: 2.7 cm LA dimension(2D): 3.6 cm LA A4 area: 15.2 cm2 RA A4 area: 8.0 cm2 TAPSE: 2.0 cm Time Measurements MV dec time: 0.19 sec Doppler Measurements & Calculations MV E max ammon: 64.3 cm/sec Lat Peak E' Ammon: 10.5 cm/sec Med Peak E' Ammon: 11.2 cm/sec MV A max ammon: 75.9 cm/sec E/E' lat: 6.1 E/E' med: 5.8 MV E/A: 0.85 MV dec slope: 336.2 cm/sec2 Ao V2 max: 105.2 cm/sec LV V1 max: 85.2 cm/sec Ao max P.4 mmHg LV V1 max P.9 mmHg Ao V2 mean: 77.1 cm/sec LV V1 mean P.3 mmHg Ao mean P.6 mmHg LV V1 mean: 53.3 cm/sec Ao V2 VTI: 25.7 cm LV V1 VTI: 18.9 cm AV (velocity ratio): 0.73 KEYSHA(I,D): 2.3 cm2 KEYSHA(V,D): 2.6 cm2 SV(LVOT): 59.4 ml PA V2 max: 87.2 cm/sec TR max ammon: 214.7 cm/sec TR max P.4 mmHg ECHO/Echo Complete W/ Contrast Interpretation Summary The LV systolic function is normal. EF is 65 %. Aortic sclerosis, no stenosis. Ordering Physician: Srinivasan Marcos Referring Physician: Brayden Mac MD Performed By: Jacquelin Werner RDCS and Student
--- NOTE | 2024-08-01 15:15 | MRI_ITS ---
PROCEDURE: BRAIN WITHOUT CONTRAST 08/01/2024 REASON FOR EXAM: TIA TECHNIQUE: Noncontrast brain MRI. Multiplanar and multisequence images were obtained. COMPARISON: 08/01/2024 CT and CTA. FINDINGS: The ventricles are normal in size and midline in position. No evidence of acute hemorrhage or infarction. No extra-axial blood or fluid collections. Periventricular white matter T2/FLAIR hyperintense foci likely representing mild chronic microvascular ischemia. Partial left and trace right mastoid effusions. The paranasal sinuses are clear. MRI/Brain without Contrast IMPRESSION: No acute intracranial abnormality. Reading Location: [place] [id number]
--- NOTE | 2024-08-01 16:02 | CHAPLAIN ---
Type of Pastoral Visit ___ Initial Visit ___ Follow-up Visit ___ On-call Visit ___ General Patient Visit ___ Spiritual Assessment ___ Family Conference ___ Bereavement ___ Rapid Response ___ Code Blue ___ Other (describe below) Pastoral Care Referral From ___ Patient ___ Family ___ Nurse ___ Physician ___ Head Transfer Clerk ___ Driller Brake Lining ___ Other (describe below) Sacrament/Intervention ___ Active listening ___ Anointing ___ Mosque ___ Bereavement ___ Communion ___ Ninfa exploration ___ ___ Life review ___ Prayer ___ Reconciliation ___ Sacrament of Sick ___ Supportive presence ___ Wedding ___ Other (describe below) Pastoral Comments patient was out of the room; left a calling card
[2024-08-01 17:05] LABS: Troponin T High Sens 2 HR 11 ng/L (<=14)
--- NOTE | 2024-08-01 18:45 | CASEMGMT ---
Care Management Face to Face with patient for initial transition planning/care coordination assessment in the ED.? This commercial lines underwriter introduced self and role at [facility]. Patient alert and oriented. Patient willing to participate in assessment and is able to answer all questions appropriately.? Care providers, pharmacy, and demographics verified. Admitting Diagnosis: ?Brain TIA Other diagnosis history: ?thyroid disease, back pain PCP: ?[facility] Specialists: ?none Preferred Pharmacy: [facility] Insurance: ?MMO Medicare Prescription Benefit: ?yes Living Will/HPOA: ?would like to complete while admitted LNOK: ?Son Living Arrangements: ?Patient lives alone in a 3 story home, independent with ADLs and IADLs.? Transportation: ?Patient drives DME: ?cane, pulse ox HHC: ?none SNF/Rehab: ?none Community Resources: ?none Behavioral Health History: ?none Patient goals: Patient wishes to discharge home, denies need for home health care at this time. Patient denies any further needs or concerns at this time. Disposition Plan: admission to acute; RN CM/SW to follow for discharge planning needs that may arise. Geno Avila, MACHINE SANDER, MID TEACHER
--- NOTE | 2024-08-01 19:59 | DCINST_ITS ---
Discharge Instructions Diet Discharge Diet: No restrictions DC O2, CPAP, BIPAP needs Home O2 Discharge instructions: No Dressing / Incision Discharge Activity: Return to Normal Activity Weight Bearing Status: Full weight bearing Follow Up Care Test Results: Test results from this visit will be discussed in further detail at your follow- up appointment, if applicable. Discharge Plan Admission Admit Date/Time: 08/01/24 11:20 Primary Reason for Your Visit: Transient ischemic attack (TIA) Attending Provider: Srinivasan Marcos Primary Care Provider: Brayden Mac Consulting Providers: Bassam Cross; Gisela Reyes; Nohelia Burns; Lizbeth Peralta; Kate Goins; Cresencio Guzman; Adrienne Jaramillo; Forrest Luna; Zechariah Haines; Daniel Asencio; Martina Poe; Jonathan Lofton; Rosamaria Davenport; Reyes Stubbs; Turner Laurent; Karri Mims; Marina Falcon; Griffin Joseph; Becca Douglas; Cassie Mnia Discharge Orders/Prescriptions Prescriptions: New atorvastatin 80 mg Tablet 80 mg PO DAILY Qty: 30 0RF aspirin 81 mg Tablet,Chewable 81 mg PO BREAKFAST Qty: 0 0RF clopidogrel 75 mg tablet 75 mg PO DAILY Qty: 30 0RF Continued pantoprazole 20 mg tablet,delayed release (DR/EC) 20 mg PO DAILY metformin 500 mg tablet 500 mg PO BID Patient Comments: patient takes 1,000 mg BID per PCP order. New prescription written, just not filled. famotidine 20 mg tablet 20 mg PO BID levothyroxine 125 mcg tablet 125 mcg PO DAILY ibandronate 150 mg tablet 150 mg PO QMONTH celecoxib 200 mg capsule 200 mg PO BID PRN PRN (Reason: knee pain) No Action acetaminophen [8 Hour Pain Reliever] 650 mg tablet extended release 1,300 mg PO Q8H PRN (Reason: fever or pain) Referrals / Follow Up: Brayden Mac MD [Primary Care Provider] - Within 2 Weeks Disposition Disposition (needs filled in before D/C Order can be placed): Home, Self Care
--- NOTE | 2024-08-01 20:05 | PCM.HP.STD ---
HPI - General General Date of Admission: 08/01/24 Date of Service: 08/01/24 Chief Complaint: Left arm paresthesias and weakness HPI Narrative WILLIAM SUAREZ, is a 64 F who presents to the emergency room at [facility] with an episode of left arm weakness and paresthesias which lasted approximately a minute according to the patient. Patient stated her left arm felt like rubber and there was tingling in the arm. Stroke alert was called, she was examined by teleneurology in the ER, her NIH stroke score was 0 and her imaging studies showed only a small lacunar infarct in the right basal ganglion. Patient CBC was notable for a hemoglobin of 11.2, chemistry profile was unremarkable. Patient will be placed in observation status on PCU, she was placed on 81 mg aspirin daily and 80 mg Lipitor daily, lipid profile will be ordered, she will be seen by PT OT and speech therapy. Patient will undergo an MRI of the brain without contrast. She will undergo an echocardiogram. [facility] Medical History Wears partial dentures Thyroid disease Back pain Former smoker Hx of fracture of wrist Home Medications ?Medication ?Instructions ?Recorded ?Last Taken ?Type acetaminophen 650 mg 1,300 mg PO Q8H PRN fever or pain 08/01/24 Unknown History tablet,extended release (8 Hour Pain Reliever) aspirin 81 mg chewable tablet 81 mg PO BREAKFAST #0 tabs 08/01/24 Unknown Rx atorvastatin 80 mg tablet 80 mg PO DAILY #30 tabs 08/01/24 Unknown Rx celecoxib 200 mg capsule 200 mg PO BID PRN PRN knee pain 08/01/24 Unknown History clopidogrel 75 mg tablet 75 mg PO DAILY #30 tabs 08/01/24 Unknown Rx famotidine 20 mg tablet 20 mg PO BID 08/01/24 07/31/24 History ibandronate 150 mg tablet 150 mg PO QMONTH 08/01/24 Unknown History levothyroxine 125 mcg tablet 125 mcg PO DAILY 08/01/24 08/01/24 History metformin 500 mg tablet 500 mg PO BID 08/01/24 07/31/24 History pantoprazole 20 mg tablet,delayed 20 mg PO DAILY 08/01/24 07/31/24 History release Allergy/AdvReac Type Severity Reaction Status Date / Time sulfamethoxazole (From Allergy Swelling Verified 07/21/21 06:59 Bactrim) trimethoprim (From Bactrim) Allergy Swelling Verified 09/11/20 06:59 Surgical History Hx of tubal ligation Hx of hysterectomy Social History Smoking Status: Former smoker ROS Constitutional Constitutional: Denies anorexia, change in weight, chills, fatigue, fever(s), night sweats or weakness Eyes Eyes: Denies blurry vision, change in vision, discharge from eye(s) or eye pain Cardiovascular Cardiovascular: Denies chest pain, claudication, edema or palpitations Respiratory/Chest Respiratory/Chest: Denies cough, hemoptysis, shortness of breath at rest or shortness of breath with exertion Gastrointestinal Gastrointestinal: Denies abdominal pain, constipation, diarrhea, hematemesis, hematochezia, melena, nausea or vomiting Genitourinary Genitourinary: Denies dysuria, hematuria, urinary frequency, urinary hesitancy, urinary incontinence or urinary urgency Musculoskeletal Musculoskeletal: Denies back pain, joint pain, joint stiffness, joint swelling, myalgias or neck pain Neurologic Neurologic: Reports focal weakness, paresthesias RUE and other Details: Focal weakness in the right arm lasting approximately a minute, paresthesias in the right arm lasting a minute ; Denies abnormal gait, abnormal speech, dizziness, headache(s), loss of vision, numbness, other visual disturbances, syncope or tingling Psychiatric Psychiatric: Denies anxiety, cognitive impairment, depression, irritability, mood swings or suicidal ideation Endocrine Endocrinology: Denies change in body appearance, cold intolerance, excessive sweating, heat intolerance, polydipsia or polyuria Hematologic/Lymphatic Hematologic/Lymphatic: Denies none, anemia, easy bleeding, easy bruising or lymphadenopathy Allergic/Immunologic Allergic/Immunologic: Denies rhinitis, urticaria, eczemia or asthma Vital Signs Vital Signs Vital Signs: 08/01/24 09:06 08/01/24 09:07 08/01/24 09:09 Temperature 97 F L Temperature Source Temporal Pulse Rate 78 73 Respiratory Rate 18 18 Blood Pressure 168/86 H 168/86 H Blood Pressure Mean 113 113 Blood Pressure Source Blood Pressure Position Blood Pressure Location Pulse Ox 99 98 Oxygen Delivery Method Room Air Room Air Room Air 08/01/24 09:39 08/01/24 10:09 08/01/24 10:30 Temperature Temperature Source Pulse Rate 62 63 64 Respiratory Rate 15 14 14 Blood Pressure 166/82 H 169/91 H 171/99 H Blood Pressure Mean 110 117 123 Blood Pressure Source Blood Pressure Position Blood Pressure Location Pulse Ox 98 98 98 Oxygen Delivery Method Room Air Room Air Room Air 08/01/24 11:00 08/01/24 11:00 08/01/24 11:18 Temperature 97.9 F Temperature Source Pulse Rate 72 64 64 Respiratory Rate 16 14 16 Blood Pressure 165/80 H 185/75 H 180/72 H Blood Pressure Mean 108 111 108 Blood Pressure Source Blood Pressure Position Blood Pressure Location Pulse Ox 98 98 99 Oxygen Delivery Method Room Air Room Air 08/01/24 11:30 08/01/24 12:20 08/01/24 14:42 Temperature 97.2 F L 98.0 F Temperature Source Temporal Oral Pulse Rate 63 58 L 61 Respiratory Rate 14 15 18 Blood Pressure 180/72 H 150/90 H 147/96 H Blood Pressure Mean 108 110 113 Blood Pressure Source Monitor Monitor Blood Pressure Position Supine Supine Blood Pressure Location Right Arm Right Arm Pulse Ox 98 98 95 Oxygen Delivery Method Room Air Room Air Room Air 08/01/24 18:23 Temperature 97.3 F L Temperature Source Temporal Pulse Rate 62 Respiratory Rate 17 Blood Pressure 136/71 H Blood Pressure Mean 92 Blood Pressure Source Monitor Blood Pressure Position Supine Blood Pressure Location Left Arm Pulse Ox 96 Oxygen Delivery Method Room Air Weight Weight: 85.1 kg Body Mass Index (BMI) 32.2 Physical Exam Const alert, oriented x3, no apparent distress and healthy appearing General Appearance: cooperative, well kempt and well developed Orientation / Consciousness: awake, oriented to person, oriented to place and oriented to time HEENT normocephalic, head/scalp atraumatic, hearing grossly normal bilaterally and moist oral mucous membranes Eyes PERRL, EOMs intact bilaterally and conjunctivae normal Neck supple, no JVD, thyroid normal and no carotid bruits General: trachea midline Resp normal respiratory effort, no retractions, no use of accessory muscles and clear to auscultation bilaterally Auscultation: Negative for rales, rhonchi or wheezes Cardio regular rate, regular rhythm, S1 normal heart sound, S2 normal heart sound, no murmurs, no rub and no gallops GI normal to inspection, nondistended, normoactive bowel sounds, soft to palpation, non-tender and non-distended Extremity no clubbing, cyanosis or edema Skin no rashes or lesions noted General Skin Exam: no breakdown Neuro oriented x3, CN's II-XII intact bilaterally, moves all extremities, no focal motor deficits and no sensory deficits noted Sensorium / Orientation: awake and alert Speech: speech normal Psych affect normal Results Lab / Micro Data 08/01/24 09:25 08/01/24 09:25 Labs: Laboratory Results - last 24 hr 08/01/24 09:08: POC Glucose 84 08/01/24 09:25: WBC 4.4, RBC 3.66 L, Hgb 11.2 L, Hct 34.0 L, MCV 92.9, MCH 30.6, MCHC 32.9, RDW Std Deviation 47.2 H, RDW Coeff of Jamin 13.7, Plt Count 273, MPV 10.3, Immature Gran % (Auto) 0.200, Neut % (Auto) 58.2, Lymph % (Auto) 29.6, [place] % (Auto) 7.0, Eos % (Auto) 3.4, Baso % (Auto) 1.6 H, Absolute Neuts (auto) 2.6, Absolute Lymphs (auto) 1.31, Nucleated RBC % 0, PT 13.0, INR 1.0, APTT 27.2, Sodium 133, Potassium 3.9, Chloride 102, Carbon Dioxide 22.3, Anion Gap 9, BUN 16, Creatinine 0.61 L, Estim Creat Clear Calc 72.92, Est GFR (MDRD) Non-Af 98, BUN/Creatinine Ratio 26.7 H, Glucose 94, Calcium 8.4, Troponin T High Sens 12 08/01/24 16:15: Troponin T Hi Sens 2 Hr 11 Imaging Radiology Impression Brain CT 08/01/24 09:09 IMPRESSION: Tiny lacune in the right basal ganglion. Red Alert: Tiny lacune in Right basal ganglion The critical information above was relayed directly by me by telephone to Karl Bocanegra on 08/01/2024 at 9:30 am with readback verification. Reading Location: [id number] Head/Neck CTA 08/01/24 09:09 IMPRESSION: Fluid density is noted in a portion of the left mastoid air cells, with mastoiditis. Unremarkable CTA of the head and neck. Reading Location: [facility] Echocardiogram 08/01/24 11:37 Interpretation Summary The LV systolic function is normal. EF is 65 %. Aortic sclerosis, no stenosis. Ordering Physician: Srinivasan Marcos Referring Physician: Brayden Mac MD Performed By: Jacquelin Werner RDCS and Student Brain MRI 08/01/24 15:15 IMPRESSION: No acute intracranial abnormality. Reading Location: [id number] Assessment & Plan Assessment/Plan (1) Brain TIA: PLAN: Plan 1. Left arm weakness and left arm paresthesia lasting approximately 1 minute-possible TIA, patient will be placed in observation status on PCU, she will undergo an MRI, echocardiogram, she will be given 81 mg aspirin and 80 mg Lipitor, lipid panel will be performed, she will be seen by PT OT and speech therapy, NIH scores will be monitored, she will be seen by teleneurology and follow-up tomorrow. #2 prediabetes-patient is on metformin, this will be held during her observation stay #3 hypothyroidism-patient is on Synthroid #4 GERD-patient is on omeprazole according to nursing and she takes Pepcid as needed for symptoms Total clinical time spent by myself addressing the patient's medical issues, reviewing all of her data, and collaborating of the patient's care team: 55 minutes Charges/Coding Visit Charges Inpatient E&M: 49346 Init Hosp L2
--- OUTSIDE RECORDS SUMMARY | 2024-08-01 20:10 | XMS RPT_ITS | CCD ---
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 Role Phone Angelo Payton Unavailable Vickie Haney Unavailable Unavailable FLORES, MARGOT Unavailable Unavailable FLORES, MARGOT Unavailable Unavailable FLORES, MARGOT Unavailable Unavailable FLORES, MARGOT Unavailable Unavailable FLORES, MARGOT Unavailable Unavailable FLORES, MARGOT Unavailable Unavailable FLORES, MARGOT Unavailable Unavailable FLORES, MARGOT Unavailable Unavailable FLORES, MARGOT Unavailable Unavailable FLORES, MARGOT Unavailable Unavailable Mac, Brayden Primary Care Unavailable Mac, Brayden Attending Unavailable Mac, Brayden Referring Unavailable Mac, Brayden Referring Unavailable Mac, Brayden Primary Care Unavailable Mac, Brayden Attending Unavailable Mac, Brayden Referring Unavailable Mac, Brayden Primary Care Unavailable Mac, Brayden Attending Unavailable Mac, Brayden Referring Unavailable Mac, Brayden Primary Care Unavailable Mac, Brayden Attending Unavailable Mac, Brayden Primary Care Unavailable Bubba, Brayden Attending Unavailable Bubba WATSON, Dr. Owen Primary Care Provider [phone] Dr. Karl Bocanegra DO Emergency Provider Dr. Marie Marcos DO Admit Provider Dr. Marie Marcos DO Attending Provider Allergies Allergy Classification Reported Allergen(s) Allergy Type Date of Onset Reaction(s) Facility (2 sources) sulfamethoxazole / trimethoprim Drug Allergy [address] [facility] Work Phone: (2 sources) sulfamethoxazole / trimethoprim; Translations: [SULFAMETHOXAZOLE-TR IMETHOPRIM] Drug Allergy 7 [facility] Repository (7 sources) Sulfamethoxazole Drug Allergy 1 [facility] (7 sources) Trimethoprim Drug Allergy 1 Swelling [facility] (1 source) Sulfamethoxazole Drug Allergy 1 [facility] Repository (1 source) Trimethoprim Drug Allergy 1 [facility] Repository Medications Current Medications Medication Drug Class(es) Dates Sig (Normalized) Sig (Original) 8 hr acetaminophen 650 mg extended release oral tablet (1 source) Start: 08-01-2024 Acetaminophen (8 Hour Pain Reliever) 650 mg tablet extended release Active 1300 mg PO Q8H as needed for fever or pain August 01, 2024 12:00am famotidine 20 mg oral tablet (1 source) Histamine-2 Receptor Antagonist Start: 08-01-2024 take 1 tablet by mouth twice daily Famotidine 20 mg tablet Active 20 mg PO TWICE A DAY August 01, 2024 12:00am ibandronic acid 150 mg oral tablet (1 source) Bisphosphonate Start: 08-01-2024 take 1 tablet by mouth every month Ibandronate 150 mg tablet Active 150 mg PO EVERY MONTH August 01, 2024 12:00am metFORMIN hydrochloride 500 mg oral tablet (1 source) Biguanide Start: 08-01-2024 take 1 tablet by mouth twice daily Metformin 500 mg tablet Active 500 mg PO TWICE A DAY August 01, 2024 12:00am pantoprazole 20 mg delayed release oral tablet (1 source) Proton Pump Inhibitor Start: 08-01-2024 take 1 tablet by mouth once daily Pantoprazole 20 mg tablet,delayed release (DR/EC) Active 20 mg PO DAILY August 01, 2024 12:00am levothyroxine sodium 0.125 mg oral tablet (10 sources) l-Thyroxine Start: 08-01-2024 take 1 tablet by mouth once daily Levothyroxine 125 mcg tablet Active 125 ug PO DAILY August 01, 2024 12:00am Start: 09-10-2020 End: 08-01-2024 take 1 tablet by mouth once daily Levothyroxine 112 mcg tablet Discontinued 112 ug PO DAILY September 10, 2020 12:00am August 01, 2024 9:13am Start: 01-21-2017 LEVOTHYROXINE SODIUM 125 MCG TABS 1 tablet daily LEVOTHYROXINE SODIUM [id number] Bijan HUMMEL Completed/Discontinued Medications Medication Drug Class(es) Dates Sig (Normalized) Sig (Original) meloxicam 15 mg oral tablet (7 sources) Nonsteroidal Anti-inflammatory Drug Start: 09-10-2020 End: 08-01-2024 Meloxicam 15 mg tablet Discontinued 15 mg PO NEEDED as needed for Pain September 10, 2020 12:00am August 01, 2024 9:13am Problems Active Problems Problem Classification Problem Date Documented Date Episodic/Chronic Other connective tissue disease (2 sources) Muscle weakness of upper limb; Translations: [Other symptoms and signs involving the musculoskeletal system] 08-01-2024 Episodic Other screening for suspected conditions (not mental disorders or infectious disease) (10 sources) Patient encounter status; Translations: [Encounter for screening for malignant neoplasm of colon] Onset: 08-20-2023 09-11-2020 Episodic Residual codes; unclassified (2 sources) H/O: endocrine disorder; Translations: [Personal history of other specified conditions] 08-01-2024 Episodic Thyroid disorders (3 sources) Hypothyroidism; Translations: [Hypothyroidism, unspecified] Onset: 01-21-2017 01-21-2017 Chronic Transient cerebral ischemia (2 sources) Transient cerebral ischemia; Translations: [Transient cerebral ischemic attack, unspecified] 08-01-2024 Chronic Unclassified (1 source) Unknown / UNK(Unknown) [...] encounter for closed fracture] Onset: 08-07-2016 Episodic Screening and history of mental health and substance abuse codes (1 source) Personal history of nicotine dependence; Translations: [Personal history of nicotine dependence] Onset: 10-06-2023 Episodic Results Test Name Value Interpretation Reference Range Facility Absolute lymphocyte countOrd ered By: Karl Bocanegra on 08-01-2024 Lymphocytes Auto (Unsp spec) [#/Vol] 1.31 10*3/uL 0.83-4.51 [facility] Absolute neutrophil countOrd ered By: Karl Bocanegra on 08-01-2024 Neutrophils (Bld) [#/Vol] 2.6 10*3/uL 2.0-7.7 [facility] Activated partial thrombopla stin time (aPTT) in platelet poor plasma by coagulation aOrdered By: Karl Bocanegra on 08-01-2024 aPTT Coag (PPP) [Time] 27.2 s 24.1-36.2 [facility] Anion gap in Serum or Plasma Ordered By: Karl Bocanegra on 08-01-2024 Anion gap [Moles/Vol] 9 mmol/L 5-15 [facility] Automated lymphocyte count a s percentage of total leukocytesOrdered By: Karl Bocanegra on 08-01-2024 Lymphocytes/100 WBC Auto (Unsp spec) 29.6 % 19-41 [facility] BUN/creatinine ratioOrdered By: Karl Bocanegra on 08-01-2024 Urea nitrogen/Creatinine [Mass ratio] 26.7 mg/mg High 10-20 [facility] Basophil percentageOrdered B y: Karl Bocanegra on 08-01-2024 Basophils/100 WBC (Bld) 1.6 % High 0-1 [facility] Carbon dioxide, total [Moles /volume] in Central venous bloodOrdered By: Karl Bocanegra on 08-01-2024 CO2 [Moles/Vol] 22.3 mmol/L 21.0-32.0 [facility] Chloride assayOrdered By: Juan Antonio Bocanegra on 08-01-2024 Chloride [Moles/Vol] 102 mmol/L 98-108 [facility] Eosinophil percentageOrdered By: Karl Bocanegra on 08-01-2024 Eosinophils/100 WBC (Bld) 3.4 % 0-5 [facility] Erythrocyte distribution wid th ratioOrdered By: Karl Bocanegra on 08-01-2024 Erythrocyte distribution width (RBC) [Ratio] 13.7 % 11.6-14.6 [facility] Erythrocyte distribution wid th standard deviationOrdered By: Karl Bocanegra on 08-01-2024 Erythrocyte distribution width (RBC) [Ratio] 47.2 fl High 35.1-43.9 [facility] Glomerular filtration rate ( GFR) estimation/1.73 sq m using serum, plasma, or whole bOrdered By: Karl Bocanegra on 08-01-2024 GFR/1.73 sq M.predicted among non-blacks MDRD (S/P/Bld) [Vol rate/Area] 98 mL/min/{1.73_m2} >60 [facility] Comment on above: mL/min/1.73m2 CKD-EP I Creatinine Equation (2020) Glucose measurement at bedsi deOrdered By: Karl Bocanegra on 08-01-2024 Glucose [Mass/Vol] 84 mg/dL 74-106 [facility] Comment on above: MANAGEMENT OF PATIEN T CARE PER NURSING PROTOCOL Hematocrit Auto (Bld) [Volum e fraction]Ordered By: Karl Bocanegra on 08-01-2024 Hematocrit (Bld) [Volume fraction] 34.0 % Low 37-47 [facility] Hemoglobin measurementOrdere d By: Karl Bocanegra on 08-01-2024 Hemoglobin (Bld) [Mass/Vol] 11.2 g/dL Low 12.0-15.0 [facility] Immature granulocytes/100 WB C Auto (Bld)Ordered By: Karl Bocanegra on 08-01-2024 Immature granulocytes/100 WBC (Bld) 0.200 % 0.0-0.9 [facility] Comment on above: IG% - Immature Granu locytes (promyelocytes, myelocytes and metamyelocytes) > 1% indicates that a LEFT SHIFT is Present. International normalized rat io (INR) calculationOrdered By: Karl Bocanegra on 08-01-2024 INR Coag (Bld) [Relative time] 1.0 {INR} [facility] MCV (mean corpuscular volume ) determinationOrdered By: Karl Bocanegra on 08-01-2024 MCV (RBC) [Entitic vol] 92.9 fL 81-99 [facility] Mean corpuscular hemoglobin (MCH) determinationOrdered By: Karl Bocanegra on 08-01-2024 MCH (RBC) [Entitic mass] 30.6 pg 27.0-32.0 [facility] Mean corpuscular hemoglobin concentration (MCHC) determinationOrdered By: Karl Bocanegra on 08-01-2024 MCHC (RBC) [Mass/Vol] 32.9 g/dL 32-36 [facility] Mean platelet volume determi nationOrdered By: Karl Bocanegra on 08-01-2024 Platelet mean volume (Bld) [Entitic vol] 10.3 fL 6.2-12.0 [facility] Monocyte percentageOrdered B y: Karl Bocanegra on 08-01-2024 Monocytes/100 WBC (Bld) 7.0 % 0-10 [facility] Neutrophil percentageOrdered By: Karl Bocanegra on 08-01-2024 Neutrophils/100 WBC (Bld) 58.2 % 47-70 [facility] Nucleated red blood cell per centageOrdered By: Karl Bocanegra on 08-01-2024 Nucleated RBC/100 WBC (Bld) [Ratio] 0 % 0-5 [facility] Platelet countOrdered By: Juan Antonio Bocanegra on 08-01-2024 Platelets (Bld) [#/Vol] 273 10*3/uL 150-450 [facility] Potassium measurement (mass/ volume)Ordered By: Karl Bocanegra on 08-01-2024 Potassium (Unsp spec) [Mass/Vol] 3.9 mmol/L 3.3-5.1 [facility] Prothrombin timeOrdered By: Karl Bocanegra on 08-01-2024 PT Coag (PPP) [Time] 13.0 s 11.7-14.9 [facility] RBC Auto (Bld) [#/Vol]Ordere d By: Karl Bocanegra on 08-01-2024 RBC (Bld) [#/Vol] 3.66 10*6/uL Low 4.2-5.4 [facility] Serum creatinine measurement (mass/volume)Ordered By: Karl Bocanegra on 08-01-2024 Creatinine [Mass/Vol] 0.61 mg/dL Low 0.70-1.20 [facility] Serum glucose measurement (m ass/volume)Ordered By: Karl Bocanegra on 08-01-2024 Glucose [Mass/Vol] 94 mg/dL 70-99 [facility] Serum or plasma calcium delta urement (mass/volume)Ordered By: Karl Bocanegra on 08-01-2024 Calcium [Mass/Vol] 8.4 mg/dL 7.6-11.0 [facility] Serum or plasma urea nitroge n measurement (mass/volume)Ordered By: Karl Bocanegra on 08-01-2024 Urea nitrogen [Mass/Vol] 16 mg/dL 4-19 [facility] Sodium levelOrdered By: Karl Bocanegra on 08-01-2024 Sodium [Moles/Vol] 133 mmol/L 133-145 [facility] Troponin T.cardiac [Mass/vol ume] in Serum or Plasma by High sensitivity methodOrdered By: Karl Bocanegra on 08-01-2024 Troponin T.cardiac High sensitivity method [Mass/Vol] 12 ng/L <14 [facility] White blood cell (WBC) count Ordered By: Karl Bocanegra on 08-01-2024 WBC (Bld) [#/Vol] 4.4 10*3/uL 4.4-11.0 [facility] Low Dose CT Lung Screeningon 03-21-[address] Lung Screening [facility] [address] [place] [address] Lung Screening MR#: [id number] Acct: [id number] Name: KRISTINA SUAREZ Rep #: [id number] : 1960 F 64 From: Jonathan Haney MD PCP: Dr. Brayden Mac MD Status: [facility] CLI Study: Low Dose CT Lung Screening Date of Exam: 03/21 Exam# [id number] Ordering Dr: Brayden Mac MD PROCEDURE: LOW DOSE CT LUNG SCREENING REASON FOR EXAM: Former smoker. TECHNIQUE: Low Dose CT Lung Screening without contrast COMPARISON: 03/20/2023 CT. FINDINGS: PULMONARY NODULES: (Only nodules >6mm are reported) Pulmonary Nodules: Right upper lobe 5 mm nodule, unchanged (image 41). Right lower lobe subpleural perifissural 2 mm nodule, unchanged (image 86) Left upper lobe 5 mm ground-glass nodule, unchanged (image 48). Hardware:None Lymph Nodes:No mediastinal hilar or axillary lymphadenopathy. Heart and Vasculature:Normal heart size. No pericardial effusion.Thoracic aorta and pulmonary arteries have normal contours; noncontrast technique limits evaluation. Coronary Artery Calcifications: Lungs and Airways: Mild centrilobular emphysema. Pleura:No pleural effusion. No pneumothorax. Upper Abdomen:Visualized portions of the upper abdominal viscera are unremarkable. Bones:Bone windows are unremarkable. CT/Low Dose CT Lung Screening IMPRESSION: 1. BASED ON THE ACR LUNG RADS FOR THE MOST SUSPICIOUS NODULE (IF ANY) DESCRIBED IN THIS REPORT, THE OVERALL LUNG RADS SCORE IS 2.2 - BENIGN (BASED ON IMAGING FEATURES OR INDOLENT BEHAVIOR). RECOMMEND 12-MONTH SCREENING LDCT.. 2. SMOKING CESSATION COUNSELING IS RECOMMENDED IF THE PATIENT IS STILL SMOKING. 3. OTHER SIGNIFICANT FINDINGSmild centrilobular emphysema. One or more dose reduction techniques were used (e.g., Automated exposure control, adjustment of the mA and/or kV according to patient size, use of iterative reconstruction technique). The following information is provided for reference:Lung-RADS 2022 Assessment Categories. Additional information involving Lung-RADS is available at www.[email or web address].org. Reading Location: [id number] CC: Dr. Brayden Mac MD Physical Therapy Professor: Signed Normal [facility] CBC W/Diff, Automatedon Absolute Lymph 1.68 X10 3/uL Normal 0.83-4.51 [facility] Comment on above: Order Comment: Order Date: 01/27/24 Order Info: 0184-1 - CBCD Performed By: #### L 500.4050, L100.0100, L501.9520, L501.9985, L506.0400 #### [facility] [address] [place], [address] Absolute Neut 4.5 X10 3/uL Normal 2.0-7.7 [facility] Comment on above: Order Comment: Order Date: 01/27/24 Order Info: 0184-1 - CBCD Performed By: #### L 500.4050, L100.0100, L501.9520, L501.9985, L506.0400 #### [facility] [address] [place], [address] Basophils/100 WBC (Bld) 1.0 % Normal 0-1 [facility] Comment on above: Order Comment: Order Date: 01/27/24 Order Info: 0184-1 - CBCD Performed By: #### L 500.4050, L100.0100, L501.9520, L501.9985, L506.0400 #### [facility] [address] [place], [address] Eosinophils/100 WBC (Bld) 4.7 % Normal 0-5 [facility] Comment on above: Order Comment: Order Date: 01/27/24 Order Info: 0184-1 - CBCD Performed By: #### L 500.4050, L100.0100, L501.9520, L501.9985, L506.0400 #### [facility] [address] [place], [address] Erythrocyte distribution width (RBC) [Ratio] 13.3 % Normal 11.6-14.6 [facility] Comment on above: Order Comment: Order Date: 01/27/24 Order Info: 0184-1 - CBCD Performed By: #### L 500.4050, L100.0100, L501.9520, L501.9985, L506.0400 #### [facility] [address] [place], [address] Hematocrit (Bld) [Volume fraction] 42.1 % Normal 37-47 [facility] Comment on above: Order Comment: Order Date: 01/27/24 Order Info: 0184-1 - CBCD Performed By: #### L 500.4050, L100.0100, L501.9520, L501.9985, L506.0400 #### [facility] [address] [place], [address] Hemoglobin (Bld) [Mass/Vol] 13.0 g/dL Normal 12.0-15.0 [facility] Comment on above: Order Comment: Order Date: 01/27/24 Order Info: 0184-1 - CBCD Performed By: #### L 500.4050, L100.0100, L501.9520, L501.9985, L506.0400 #### [facility] [address] [place], [address] IG% 0.600 Normal 0.0-0.9 [facility] Comment on above: Order Comment: Order Date: 01/27/24 Order Info: 0184-1 - CBCD Result Comment: IG% - Immature Granulocytes (promyelocytes, myelocytes and metamyelocytes) > 1% indicates that a LEFT SHIFT is Present. Performed By: #### L 500.4050, L100.0100, L501.9520, L501.9985, L506.0400 #### [facility] [address] [place], [address] Lymphocytes/100 WBC (Bld) 23.8 % Normal 19-41 [facility] Comment on above: Order Comment: Order Date: 01/27/24 Order Info: 0184-1 - CBCD Performed By: #### L 500.4050, L100.0100, L501.9520, L501.9985, L506.0400 #### [facility] [address] [place], [address] MCH (RBC) [Entitic mass] 29.6 pg Normal 27.0-32.0 [facility] Comment on above: Order Comment: Order Date: 01/27/24 Order Info: 0184-1 - CBCD Performed By: #### L 500.4050, L100.0100, L501.9520, L501.9985, L506.0400 #### [facility] [address] [place], [address] MCHC (RBC) [Mass/Vol] 30.9 g/dL Low 32-36 [facility] Comment on above: Order Comment: Order Date: 01/27/24 Order Info: 0184-1 - CBCD Performed By: #### L 500.4050, L100.0100, L501.9520, L501.9985, L506.0400 #### [facility] [address] [place], [address] MCV (RBC) [Entitic vol] 95.9 fL Normal 81-99 [facility] Comment on above: Order Comment: Order Date: 01/27/24 Order Info: 0184-1 - CBCD Performed By: #### L 500.4050, L100.0100, L501.9520, L501.9985, L506.0400 #### [facility] [address] [place], [address] Monocytes/100 WBC (Bld) 6.5 % Normal 0-10 [facility] Comment on above: Order Comment: Order Date: 01/27/24 Order Info: 0184-1 - CBCD Performed By: #### L 500.4050, L100.0100, L501.9520, L501.9985, L506.0400 #### [facility] [address] [place], [address] Neutrophils/100 WBC (Bld) 63.4 % Normal 47-70 [facility] Comment on above: Order Comment: Order Date: 01/27/24 Order Info: 0184-1 - CBCD Performed By: #### L 500.4050, L100.0100, L501.9520, L501.9985, L506.0400 #### [facility] [address] [place], [address] Nucleated RBC (Bld) [#/Vol] 0 10*3/uL Normal 0-5 [facility] Comment on above: Order Comment: Order Date: 01/27/24 Order Info: 0184-1 - CBCD Performed By: #### L 500.4050, L100.0100, L501.9520, L501.9985, L506.0400 #### [facility] [address] [place], [address] Platelet mean volume (Bld) [Entitic vol] 10.9 fL Normal 6.2-12.0 [facility] Comment on above: Order Comment: Order Date: 01/27/24 Order Info: 0184-1 - CBCD Performed By: #### L 500.4050, L100.0100, L501.9520, L501.9985, L506.0400 #### [facility] [address] [place], [address] Platelets (Bld) [#/Vol] 336 10*3/uL Normal 150-450 [facility] Comment on above: Order Comment: Order Date: 01/27/24 Order Info: 018- - CBCD Performed By: #### L 500.4050, L100.0100, L501.9520, L501.9985, L506.0400 #### [facility] [address] [place], [address] RBC (Bld) [#/Vol] 4.39 10*6/uL Normal 4.2-5.4 [facility] Comment on above: Order Comment: Order Date: 01/27/24 Order Info: 0184- - CBCD Performed By: #### L 500.4050, L100.0100, L501.9520, L501.9985, L506.0400 #### [facility] [address] [place], [address] RDW SD 48.0 fl High 35.1-43.9 [facility] Comment on above: Order Comment: Order Date: 01/27/24 Order Info: 018- - CBCD Performed By: #### L 500.4050, L100.0100, L501.9520, L501.9985, L506.0400 #### [facility] [address] [place], [address] WBC (Bld) [#/Vol] 7.1 10*3/uL Normal 4.4-11.0 [facility] Comment on above: Order Comment: Order Date: 01/27/24 Order Info: 018-1 - CBCD Performed By: #### L 500.4050, L100.0100, L501.9520, L501.9985, L506.0400 #### [facility] [address] [place], [address] Comprehensive Metabolic Prof ilon 01-27-2024 Albumin [Mass/Vol] 3.6 g/dL Normal 3.2-5.0 [facility] Comment on above: Order Comment: Order Date: 01/27/24 Order Info: 0786-1 - CMP Order Info: 3016-3 - TSH Order Info: 3024-7 - T4F Performed By: #### L 500.4050, L100.0100, L501.9520, L501.9985, L506.0400 #### [facility] [address] [place], [address] Albumin/Globulin [Mass ratio] 1.0 {ratio} Normal 0.9-2.4 [facility] Comment on above: Order Comment: Order Date: 01/27/24 Order Info: 0786-1 - CMP Order Info: 3 - TSH Order Info: 3027 - T4F Performed By: #### L 500.4050, L100.0100, L501.9520, L501.9985, L506.0400 #### [facility] [address] [place], [address] ALK P 73 U/L Normal 45-117 [facility] Comment on above: Order Comment: Order Date: 01/27/24 Order Info: 0786-1 - CMP Order Info: 3 - TSH Order Info: 302-7 - T4F Performed By: #### L 500.4050, L100.0100, L501.9520, L501.9985, L506.0400 #### [facility] [address] [place], [address] ALT [Catalytic activity/Vol] 28 U/L Normal 13-56 [facility] Comment on above: Order Comment: Order Date: 01/27/24 Order Info: 0786-1 - CMP Order Info: [id number] - TSH Order Info: 3024-7 - T4F Performed By: #### L 500.4050, L100.0100, L501.9520, L501.9985, L506.0400 #### [facility] [address] [place], [address] AST [Catalytic activity/Vol] 20 U/L Normal 15-37 [facility] Comment on above: Order Comment: Order Date: 01/27/24 Order Info: 0786-1 - CMP Order Info: 3016-3 - TSH Order Info: 3024-7 - T4F Performed By: #### L 500.4050, L100.0100, L501.9520, L501.9985, L506.0400 #### [facility] [address] [place], [address] Bilirubin [Mass/Vol] 0.40 mg/dL Normal 0.20-1.00 [facility] Comment on above: Order Comment: Order Date: 01/27/24 Order Info: 07-1 - CMP Order Info: 3 - TSH Order Info: 302-7 - T4F Result Comment: For patients on eltrombopag therapy, use of Dimension [place] TBIL is not recommended. Performed By: #### L 500.4050, L100.0100, L501.9520, L501.9985, L506.0400 #### [facility] [address] [place], [address] BUN/CRE 19.1 RATIO Normal 10-20 [facility] Comment on above: Order Comment: Order Date: 01/27/24 Order Info: 0786-1 - CMP Order Info: 3016-3 - TSH Order Info: 3024-7 - T4F Performed By: #### L 500.4050, L100.0100, L501.9520, L501.9985, L506.0400 #### [facility] [address] [place], [address] CA,Total 9.1 mg/dL Normal 8.5-10.1 [facility] Comment on above: Order Comment: Order Date: 01/27/24 Order Info: 0786-1 - CMP Order Info: 3015-04 - TSH Order Info: 7 - T4F Performed By: #### L 500.4050, L100.0100, L501.9520, L501.9985, L506.0400 #### [facility] [address] [place], [address] Chloride [Moles/Vol] 106 mmol/L Normal 98-107 [facility] Comment on above: Order Comment: Order Date: 01/27/24 Order Info: 07-1 - CMP Order Info: 3015-04 - TSH Order Info: 3023-08 - T4F Performed By: #### L 500.4050, L100.0100, L501.9520, L501.9985, L506.0400 #### [facility] [address] [place], [address] CO2 [Moles/Vol] 27.0 mmol/L Normal 21.0-32.0 [facility] Comment on above: Order Comment: Order Date: 01/27/24 Order Info: 07 - CMP Order Info: 3015-04 - TSH Order Info: 3023-08 - T4F Performed By: #### L 500.4050, L100.0100, L501.9520, L501.9985, L506.0400 #### [facility] [address] [place], [address] Creatinine [Mass/Vol] 0.73 mg/dL Normal 0.55-1.02 [facility] Comment on above: Order Comment: Order Date: 01/27/24 Order Info: 0786-1 - CMP Order Info: 3015-04 - TSH Order Info: 7 - T4F Result Comment: The validity of the calculated GFR GFRAA in patients over 70 years has not been determined. Clinical correlation is essential. Performed By: #### L 500.4050, L100.0100, L501.9520, L501.9985, L506.0400 #### [facility] [address] [place], [address] EST GFR - AA 102 mL/min Normal >60 [facility] Comment on above: Order Comment: Order Date: 01/27/24 Order Info: 785- - CMP Order Info: 3015-04 - TSH Order Info: 3023-08 - T4F Result Comment: Afri can Croatian GFR Calc Performed By: #### L 500.4050, L100.0100, L501.9520, L501.9985, L506.0400 #### [facility] [address] [place], [address] GAP 5 Normal 5-15 [facility] Comment on above: Order Comment: Order Date: 01/27/24 Order Info: 785-02 - CMP Order Info: 3015-04 - TSH Order Info: 3023-08 - T4F Performed By: #### L 500.4050, L100.0100, L501.9520, L501.9985, L506.0400 #### [facility] [address] [place], [address] GFR/1.73 sq M.predicted among non-blacks MDRD (S/P/Bld) [Vol rate/Area] 84 mL/min/{1.73_m2} Normal >60 [facility] Comment on above: Order Comment: Order Date: 01/27/24 Order Info: 785-02 - CMP Order Info: 3015-04 - TSH Order Info: 3023-08 - T4F Result Comment: Non- GFR Calc Performed By: #### L 500.4050, L100.0100, L501.9520, L501.9985, L506.0400 #### [facility] [address] [place], [address] Globulin (S) [Mass/Vol] 3.6 g/dL Normal 2.2-4.2 [facility] Comment on above: Order Comment: Order Date: 01/27/24 Order Info: 785- - CMP Order Info: 3015-04 - TSH Order Info: 3024-7 - T4F Performed By: #### L 500.4050, L100.0100, L501.9520, L501.9985, L506.0400 #### [facility] [address] [place], [address] Glucose [Mass/Vol] 91 mg/dL Normal 74-106 [facility] Comment on above: Order Comment: Order Date: 01/27/24 Order Info: 0786-1 - CMP Order Info: 3015-3 - TSH Order Info: 302-7 - T4F Performed By: #### L 500.4050, L100.0100, L501.9520, L501.9985, L506.0400 #### [facility] [address] [place], [address] Potassium [Moles/Vol] 4.3 mmol/L Normal 3.5-5.1 [facility] Comment on above: Order Comment: Order Date: 01/27/24 Order Info: 0786-1 - CMP Order Info: 6-3 - TSH Order Info: 3023-7 - T4F Performed By: #### L 500.4050, L100.0100, L501.9520, L501.9985, L506.0400 #### [facility] [address] [place], [address] Sodium [Moles/Vol] 138 mmol/L Normal 136-145 [facility] Comment on above: Order Comment: Order Date: 01/27/24 Order Info: 0786-1 - CMP Order Info: 3016-3 - TSH Order Info: 3024-7 - T4F Performed By: #### L 500.4050, L100.0100, L501.9520, L501.9985, L506.0400 #### [facility] [address] [place], [address] T PROT 7.2 g/dL Normal 6.4-8.2 [facility] Comment on above: Order Comment: Order Date: 01/27/24 Order Info: 0786-1 - CMP Order Info: 3 - TSH Order Info: 3023-08 - T4F Performed By: #### L 500.4050, L100.0100, L501.9520, L501.9985, L506.0400 #### [facility] [address] [place], [address] Urea nitrogen [Mass/Vol] 14 mg/dL Normal 7-18 [facility] Comment on above: Order Comment: Order Date: 01/27/24 Order Info: 0786 - CMP Order Info: 3 - TSH Order Info: 3023-08 - T4F Performed By: #### L 500.4050, L100.0100, L501.9520, L501.9985, L506.0400 #### [facility] [address] [place], [address] Hemoglobin A1con 01-27-2024 HbA1c (Bld) [Mass fraction] 5.7 % High 3.8-5.6 [facility] Comment on above: Order Comment: Order Date: 01/27/24 Order Info: 4548-4 - A1C Result Comment: Norm al < 5.7 % Prediabetic 5.7 - 6.4 % Diabetic >or= 6.5 % Please note range changes. Performed By: #### L 500.4050, L100.0100, L501.9520, L501.9985, L506.0400 #### [facility] [address] [place], [address] T4 Free Directon 01-27-2024 T4 FREE DIRECT 1.37 ng/dL Normal 0.76-1.46 [facility] Comment on above: Order Comment: Order Date: 01/27/24 Order Info: 0786-1 - CMP Order Info: 3016-3 - TSH Order Info: 30205-29 - T4F Performed By: #### L 500.4050, L100.0100, L501.9520, L501.9985, L506.0400 #### [facility] [address] [place], [address] Thyroid Stim Hormone (TSH)on 01-27-2024 TSH 5.210 uIU/mL High 0.358-3.740 [facility] Comment on above: Order Comment: Order Date: 01/27/24 Order Info: 0786-1 - CMP Order Info: 3016-3 - TSH Order Info: 3024-7 - T4F Performed By: #### L 500.4050, L100.0100, L501.9520, L501.9985, L506.0400 #### [facility] [address] [place], [place], [address] Lower Ext Joint Only (Routin e)on 09-13-2023 Lower Ext Joint Only (Routine) [facility] Imaging Services [address] [place], [place] [address] Lower Ext Joint Only (Routine) MR#: [id number] Acct: [id number] Name: KRISTINA SUAREZ Rep #: [id number] : 1960 F 63 From: Evaristo Andrade MD PCP: Dr. Brayden Mac MD Status: REG CLI Study: Lower Ext Joint Only (Routine) Date of Exam: 0 09/13/23 Exam# [id number] Ordering Dr: Brayden aMc MD [id number] EXAM: MR LEFT LOWER EXTREMITY WITHOUT INTRAVENOUS CONTRAST, KNEE CLINICAL INDICATION: internal derangement lt knee, ANTERIOR PAIN TECHNIQUE: Multiplanar and multisequence MR images of the left knee without intravenous contrast. COMPARISON: No relevant prior studies available. FINDINGS: BONES/JOINTS: Osteochondral defect or insufficiency fracture involving the middle weightbearing portion of the lateral femoral condyle with an anterior to posterior dimension of 1.8 cm and associated edema and tiny subchondral cystic changes. EXTENSOR MECHANISM: Unremarkable. MEDIAL MENISCUS: Complex tear involving the posterior horn and adjacent portion of the body segment of the medial meniscus with degenerative thickening and possible degenerative tearing involving the posterior root ligament of the medial meniscus. LATERAL MENISCUS: Lateral meniscus is intact. MEDIAL CAPSULE/SUPPORTING STRUCTURES: Unremarkable. Intact. LATERAL CAPSULE/SUPPORTING STRUCTURES: Unremarkable. Lateral collateral ligamentous complex, inclusive of the popliteal tendon, are intact. ANTERIOR CRUCIATE LIGAMENT: Unremarkable. Intact. POSTERIOR CRUCIATE LIGAMENT: Unremarkable. Intact. MUSCLES: Unremarkable. CARTILAGE: Unremarkable. Intact. FLUID: Small amount of joint fluid with tiny Cabral''s cyst noted. OTHER SOFT TISSUES: No other remarkable soft tissue masses or fluid collections. MRI/Lower Ext Joint Only (Routine) IMPRESSION: 1. Osteochondral defect or insufficiency fracture involving the middle weightbearing portion of the lateral femoral condyle with an anterior to posterior dimension of 1.8 cm and associated bone marrow edema/small subchondral cystic changes. 2. Complex tear involving the posterior horn and adjacent portion of the body segment of the medial meniscus with degenerative thickening and possible degenerative tearing involving the posterior root ligament of the medial meniscus. Electronically Signed: Evaristo Andrade MD at 0:35 EDT Reading Location ID and State: [facility] / [place] Tel , Service support , CC: Dr. Brayden Mac MD Physical Therapy Professor: Signed Normal [facility] Dexa Bone Density Studyon Dexa Bone Density Study [facility] Imaging Services [address] [place] [address] Dexa Bone Density Study MR#: [id number] Acct: [id number] Name: KRISTINA SUAREZ Rep #: [id number] : 1960 F 63 From: Zohaib garcia MD PCP: Dr. Brayden Mac MD Status: [facility] Study: Dexa Bone Density Study Date of Exam: 09/07/23 Exam# [id number] Ordering Dr: Brayden Mac MD [id number] STUDY: DUAL ENERGY X-RAY ABSORPTIOMETRY / DXA REASON FOR EXAM: Female, 63 years old. [id number] TECHNIQUE: Bone Mineral Density (BMD) measurements of lumbar spine and bilateral hips were obtained. COMPARISON: None. FINDINGS: Lumbar Spine (L1-L4): g/cm2 (0.978) / T-score (-0.6) / Z-score (1.2) Findings are suggestive of normal bone density with a low fracture risk. Left Femur Total: g/cm2 (0.767) / T-score (-1.4) / Z-score (-0.2) Left Femoral Neck: g/cm2 (0.626) / T-score (-2.0) / Z-score (-0.5) Right Femur Total: g/cm2 (0.726) / T-score (-1.8) / Z-score (-0.5) Right Femoral Neck: g/cm2 (0.546) / T-score (-2.7) / Z-score (-1.2) BD/Dexa Bone Density Study IMPRESSION: The patient is considered osteoporotic as outlined below according to World Zeeshan Organization (WHO) criteria with a high fracture risk. Reference Information: The T-score is the number of standard deviations above or below the standard which is normal for young adults at their peak bone mineral density. The World Health Organization (WHO) interprets the T-scores as follows: Above -1 Normal bone density Between -1 and -2.5 Osteopenia Equal to / or below -2.5 Osteoporosis As a practical clinical guideline, osteopenia may be graded as follows: Mild -1 through -1.5 Moderate -1.6 through -2.0 Severe -2.1 through -2.4 The Z-score is the number of standard deviations above or below age-matched controls. A Z-score of less than -1.5 would be considered abnormal. References: 1. NIH Osteoporosis and Related Bone Diseases www osteo.org 2. International Society for Clinical Densitometry www iscd.org 3. National Osteoporosis Foundation www nof.org Electronically Signed: Zohaib Mack MD at 8:16 EDT , CC: Dr. Brayden Mac MD Physical Therapy Professor: Signed Normal [facility] SCRN MAMM (CAD)W/MARI BILATo n 09-07-2023 SCRN MAMM (CAD)W/MARI BILAT [facility] Imaging Services [address] [place], [place] [address] SCRN MAMM (CAD)W/MARI BILAT MR#: [id number] Acct: [id number] Name: KRISTINA SUAREZ Rep #: [id number] : 1960 F 63 From: Zohaib garcia MD PCP: Dr. Brayden Mac MD Status: [facility] Study: SCRN MAMM (CAD)W/MARI BILAT Date of Exam: 08/22 08/15 Exam# [id number] Ordering Dr: Brayden Mac MD [id number] MAMMOGRAPHY - BILATERAL SCREENING REASON FOR EXAM: Female, 63 years old. Routine annual screening examination. PERTINENT HISTORY: Non-contributory. TECHNIQUE: Digital bilateral breast mari (3D mammographic acquisition) in the CC and MLO projections. 2-D mediolateral oblique (MLO) and craniocaudad (CC) views of both breasts were obtained. CAD: Full Field Digital Mammography with Computer Added Detection was performed. COMPARISON: Comparison is made with prior study of July 17, 2022 and November 22, 2020. FINDINGS: Breast Composition: The breasts are almost entirely fatty. There are no dominant masses or suspicious calcifications. No other significant abnormalities are identified. There has been no significant change since the prior study. BI/SCRN MAMM (CAD)W/MARI BILAT IMPRESSION: Stable bilateral screening mammogram. Yearly follow-up mammogram recommended. (A) ASSESSMENT CATEGORY: BIRADS Category 1: Negative. A letter regarding these results will be sent to the patient by the facility within 30 days. Approximately 10% of breast cancers are not detected by mammography. A normal mammogram should not delay biopsy of a clinically suspicious abnormality. [id number] Electronically Signed: Zohaib Mack MD at 15:18 EDT , CC: Dr. Brayden Mac MD Physical Therapy Professor: Signed Normal [facility] CBC W/Diff, Automatedon 07-23 Absolute Lymph 1.46 X10 3/uL Normal 0.83-4.51 [facility] Comment on above: Order Comment: Order Date: 08/03/23 Order Info: 0184-1 - CBCD Performed By: #### L 501.84380, L501.9520, L506.0400, L501.9985, L100.0100, L500.4100, L500.4050 #### [facility] [address] [place], [place], [address] Absolute Neut 3.4 X10 3/uL Normal 2.0-7.7 [facility] Comment on above: Order Comment: Order Date: 08/03/23 Order Info: 0184-1 - CBCD Performed By: #### L 501.11088, L501.9520, L506.0400, L501.9985, L100.0100, L500.4100, L500.4050 #### [facility] [address] [place], [place], [address] Basophils/100 WBC (Bld) 1.6 % High 0-1 [facility] Comment on above: Order Comment: Order Date: 08/03/23 Order Info: 0184-1 - CBCD Performed By: #### L 501.47840, L501.9520, L506.0400, L501.9985, L100.0100, L500.4100, L500.4050 #### [facility] [address] [place], [address] Eosinophils/100 WBC (Bld) 6.5 % High 0-5 [facility] Comment on above: Order Comment: Order Date: 08/03/23 Order Info: 0184-1 - CBCD Performed By: #### L 501.52668, L501.9520, L506.0400, L501.9985, L100.0100, L500.4100, L500.4050 #### [facility] [address] [place], [address] Erythrocyte distribution width (RBC) [Ratio] 13.8 % Normal 11.6-14.6 [facility] Comment on above: Order Comment: Order Date: 08/03/23 Order Info: 0184-1 - CBCD Performed By: #### L 501.80720, L501.9520, L506.0400, L501.9985, L100.0100, L500.4100, L500.4050 #### [facility] [address] [place], [address] Hematocrit (Bld) [Volume fraction] 41.2 % Normal 37-47 [facility] Comment on above: Order Comment: Order Date: 08/03/23 Order Info: 0184-1 - CBCD Performed By: #### L 501.80250, L501.9520, L506.0400, L501.9985, L100.0100, L500.4100, L500.4050 #### [facility] [address] [place], [address] Hemoglobin (Bld) [Mass/Vol] 13.1 g/dL Normal 12.0-15.0 [facility] Comment on above: Order Comment: Order Date: 08/03/23 Order Info: 0184-1 - CBCD Performed By: #### L 501.66225, L501.9520, L506.0400, L501.9985, L100.0100, L500.4100, L500.4050 #### [facility] [address] [place], [address] IG% 0.200 Normal 0.0-0.9 [facility] Comment on above: Order Comment: Order Date: 08/03/23 Order Info: 01805-23 - CBCD Result Comment: IG% - Immature Granulocytes (promyelocytes, myelocytes and metamyelocytes) > 1% indicates that a LEFT SHIFT is Present. Performed By: #### L 501.09228, L501.9520, L506.0400, L501.9985, L100.0100, L500.4100, L500.4050 #### [facility] [address] [place], [address] Lymphocytes/100 WBC (Bld) 25.7 % Normal 19-41 [facility] Comment on above: Order Comment: Order Date: 08/03/23 Order Info: 0184-1 - CBCD Performed By: #### L 501.02587, L501.9520, L506.0400, L501.9985, L100.0100, L500.4100, L500.4050 #### [facility] [address] [place], [address] MCH (RBC) [Entitic mass] 30.9 pg Normal 27.0-32.0 [facility] Comment on above: Order Comment: Order Date: 08/03/23 Order Info: 0184-1 - CBCD Performed By: #### L 501.93616, L501.9520, L506.0400, L501.9985, L100.0100, L500.4100, L500.4050 #### [facility] [address] [place], [address] MCHC (RBC) [Mass/Vol] 31.8 g/dL Low 32-36 [facility] Comment on above: Order Comment: Order Date: 08/03/23 Order Info: 0184-1 - CBCD Performed By: #### L 501.26183, L501.9520, L506.0400, L501.9985, L100.0100, L500.4100, L500.4050 #### [facility] [address] [place], [address] MCV (RBC) [Entitic vol] 97.2 fL Normal 81-99 [facility] Comment on above: Order Comment: Order Date: 08/03/23 Order Info: 0184-1 - CBCD Performed By: #### L 501.54960, L501.9520, L506.0400, L501.9985, L100.0100, L500.4100, L500.4050 #### [facility] [address] [place], [address] Monocytes/100 WBC (Bld) 6.0 % Normal 0-10 [facility] Comment on above: Order Comment: Order Date: 08/03/23 Order Info: 0184-1 - CBCD Performed By: #### L 501.49798, L501.9520, L506.0400, L501.9985, L100.0100, L500.4100, L500.4050 #### [facility] [address] [place], [address] Neutrophils/100 WBC (Bld) 60.0 % Normal 47-70 [facility] Comment on above: Order Comment: Order Date: 08/03/23 Order Info: 0184-1 - CBCD Performed By: #### L 501.56021, L501.9520, L506.0400, L501.9985, L100.0100, L500.4100, L500.4050 #### [facility] [address] [place], [address] Nucleated RBC (Bld) [#/Vol] 0 10*3/uL Normal 0-5 [facility] Comment on above: Order Comment: Order Date: 08/03/23 Order Info: 0184-1 - CBCD Performed By: #### L 501.67404, L501.9520, L506.0400, L501.9985, L100.0100, L500.4100, L500.4050 #### [facility] [address] [place], [address] Platelet mean volume (Bld) [Entitic vol] 10.9 fL Normal 6.2-12.0 [facility] Comment on above: Order Comment: Order Date: 08/03/23 Order Info: 0184-1 - CBCD Performed By: #### L 501.11782, L501.9520, L506.0400, L501.9985, L100.0100, L500.4100, L500.4050 #### [facility] [address] [place], [address] Platelets (Bld) [#/Vol] 330 10*3/uL Normal 150-450 [facility] Comment on above: Order Comment: Order Date: 08/03/23 Order Info: 0184-1 - CBCD Performed By: #### L 501.96469, L501.9520, L506.0400, L501.9985, L100.0100, L500.4100, L500.4050 #### [facility] [address] [place], [address] RBC (Bld) [#/Vol] 4.24 10*6/uL Normal 4.2-5.4 [facility] Comment on above: Order Comment: Order Date: 08/03/23 Order Info: 0184-1 - CBCD Performed By: #### L 501.67629, L501.9520, L506.0400, L501.9985, L100.0100, L500.4100, L500.4050 #### [facility] [address] [place], [place], [address] RDW SD 49.8 fl High 35.1-43.9 [facility] Comment on above: Order Comment: Order Date: 08/03/23 Order Info: 0184-1 - CBCD Performed By: #### L 501.54526, L501.9520, L506.0400, L501.9985, L100.0100, L500.4100, L500.4050 #### [facility] [address] [place], [place], [address] WBC (Bld) [#/Vol] 5.7 10*3/uL Normal 4.4-11.0 [facility] Comment on above: Order Comment: Order Date: 08/03/23 Order Info: 0184-1 - CBCD Performed By: #### L 501.41891, L501.9520, L506.0400, L501.9985, L100.0100, L500.4100, L500.4050 #### [facility] [address] [place], [place], [id number] Comprehensive Metabolic Prof [facility] 08-03-2023 Albumin [Mass/Vol] 3.5 g/dL Normal 3.2-5.0 [facility] Comment on above: Order Comment: Order Date: 08/03/23 Order Info: 0786-1 - CMP Order Info: 73996-9 - LIPID Order Info: 3051-0 - T3F Order Info: 3016-3 - TSH Order Info: 3024-7 - T4F Performed By: #### L 501.87099, L501.9520, L506.0400, L501.9985, L100.0100, L500.4100, L500.4050 #### [facility] [address] [place], [place], [address] Albumin/Globulin [Mass ratio] 1.0 {ratio} Normal 0.9-2.4 [facility] Comment on above: Order Comment: Order Date: 08/03/23 Order Info: 86-1 - CMP Order Info: 63851-4 - LIPID Order Info: 3051-0 - T3F Order Info: 3016-3 - TSH Order Info: 3024-7 - T4F Performed By: #### L 501.75172, L501.9520, L506.0400, L501.9985, L100.0100, L500.4100, L500.4050 #### [facility] [address] [place], [address] ALK P 78 U/L Normal 45-117 [facility] Comment on above: Order Comment: Order Date: 08/03/23 Order Info: 785-1 - CMP Order Info: 49901-0 - LIPID Order Info: 3051-0 - T3F Order Info: 3 - TSH Order Info: 3024-7 - T4F Performed By: #### L 501.15554, L501.9520, L506.0400, L501.9985, L100.0100, L500.4100, L500.4050 #### [facility] [address] [place], [address] ALT [Catalytic activity/Vol] 26 U/L Normal 13-56 [facility] Comment on above: Order Comment: Order Date: 08/03/23 Order Info: 785-1 - CMP Order Info: 10869-6 - LIPID Order Info: 3051-0 - T3F Order Info: 3 - TSH Order Info: 3024-7 - T4F Performed By: #### L 501.62423, L501.9520, L506.0400, L501.9985, L100.0100, L500.4100, L500.4050 #### [facility] [address] [place], [address] AST [Catalytic activity/Vol] 22 U/L Normal 15-37 [facility] Comment on above: Order Comment: Order Date: 08/03/23 Order Info: 785- - CMP Order Info: 59180-8 - LIPID Order Info: 3051-0 - T3F Order Info: 3 - TSH Order Info: 7 - T4F Performed By: #### L 501.36172, L501.9520, L506.0400, L501.9985, L100.0100, L500.4100, L500.4050 #### [facility] [address] [place], [address] Bilirubin [Mass/Vol] 0.30 mg/dL Normal 0.20-1.00 [facility] Comment on above: Order Comment: Order Date: 08/03/23 Order Info: 785-02 - CMP Order Info: - LIPID Order Info: 3051-0 - T3F Order Info: 3 - TSH Order Info: 7 - T4F Result Comment: For patients on eltrombopag therapy, use of Dimension [place] TBIL is not recommended. Performed By: #### L 501.31769, L501.9520, L506.0400, L501.9985, L100.0100, L500.4100, L500.4050 #### [facility] [address] [place], [address] BUN/CRE 17.6 RATIO Normal 10-20 [facility] Comment on above: Order Comment: Order Date: 08/03/23 Order Info: 785-02 - CMP Order Info: 41042-4 - LIPID Order Info: 3051-0 - T3F Order Info: 3 - TSH Order Info: 3023-7 - T4F Performed By: #### L 501.48809, L501.9520, L506.0400, L501.9985, L100.0100, L500.4100, L500.4050 #### [facility] [address] [place], [address] CA,Total 9.3 mg/dL Normal 8.5-10.1 [facility] Comment on above: Order Comment: Order Date: 08/03/23 Order Info: 785-02 - CMP Order Info: - LIPID Order Info: 3050-0 - T3F Order Info: 3 - TSH Order Info: 7 - T4F Performed By: #### L 501.70908, L501.9520, L506.0400, L501.9985, L100.0100, L500.4100, L500.4050 #### [facility] [address] [place], [address] Chloride [Moles/Vol] 108 mmol/L High 98-107 [facility] Comment on above: Order Comment: Order Date: 08/03/23 Order Info: 785- - CMP Order Info: 60714-5 - LIPID Order Info: 3050-0 - T3F Order Info: 3 - TSH Order Info: 7 - T4F Performed By: #### L 501.48518, L501.9520, L506.0400, L501.9985, L100.0100, L500.4100, L500.4050 #### [facility] [address] [place], [address] CO2 [Moles/Vol] 28.0 mmol/L Normal 21.0-32.0 [facility] Comment on above: Order Comment: Order Date: 08/03/23 Order Info: 785-02 - CMP Order Info: - LIPID Order Info: 3050-0 - T3F Order Info: 3 - TSH Order Info: 3024-7 - T4F Performed By: #### L 501.64945, L501.9520, L506.0400, L501.9985, L100.0100, L500.4100, L500.4050 #### [facility] [address] [place], [address] Creatinine [Mass/Vol] 0.74 mg/dL Normal 0.55-1.02 [facility] Comment on above: Order Comment: Order Date: 08/03/23 Order Info: 785- - CMP Order Info: - LIPID Order Info: 3050-0 - T3F Order Info: 3015-04 - TSH Order Info: 7 - T4F Result Comment: The validity of the calculated GFR GFRAA in patients over 70 years has not been determined. Clinical correlation is essential. Performed By: #### L 501.06782, L501.9520, L506.0400, L501.9985, L100.0100, L500.4100, L500.4050 #### [facility] [address] [place], [place], [address] EST GFR - AA 101 mL/min Normal >60 [facility] Comment on above: Order Comment: Order Date: 08/03/23 Order Info: 785-02 - CMP Order Info: - LIPID Order Info: 0 - T3F Order Info: 3015-04 - TSH Order Info: 3023-08 - T4F Result Comment: Afri can Croatian GFR Calc Performed By: #### L 501.78627, L501.9520, L506.0400, L501.9985, L100.0100, L500.4100, L500.4050 #### [facility] [address] [place], [place], [address] GAP 3 Low 5-15 [facility] Comment on above: Order Comment: Order Date: 08/03/23 Order Info: 07- - CMP Order Info: [id number] - LIPID Order Info: 0 - T3F Order Info: 3015-04 - TSH Order Info: 3023-08 - T4F Performed By: #### L [id number], L501.9520, L506.0400, L501.9985, L100.0100, L500.4100, L500.4050 #### [facility] [address] [place], [place], [id number] GFR/1.73 sq M.predicted among non-blacks MDRD (S/P/Bld) [Vol rate/Area] 84 mL/min/{1.73_m2} Normal >60 [facility] Comment on above: Order Comment: Order Date: 08/03/23 Order Info: 785-1 - CMP Order Info: [id number] - LIPID Order Info: 3051-0 - T3F Order Info: 3 - TSH Order Info: 7 - T4F Result Comment: Non- GFR Calc Performed By: #### L 501.44330, L501.9520, L506.0400, L501.9985, L100.0100, L500.4100, L500.4050 #### [facility] [address] [place], [place], [id number] Globulin (S) [Mass/Vol] 3.5 g/dL Normal 2.2-4.2 [facility] Comment on above: Order Comment: Order Date: 08/03/23 Order Info: 785-02 - CMP Order Info: - LIPID Order Info: 0 - T3F Order Info: 3015-04 - TSH Order Info: 3023-08 - T4F Performed By: #### L 501.89131, L501.9520, L506.0400, L501.9985, L100.0100, L500.4100, L500.4050 #### [facility] [address] [place], [place], [address] Glucose [Mass/Vol] 83 mg/dL Normal 74-106 [facility] Comment on above: Order Comment: Order Date: 08/03/23 Order Info: 785-02 - CMP Order Info: - LIPID Order Info: 305-0 - T3F Order Info: 3 - TSH Order Info: 7 - T4F Performed By: #### L 501.08599, L501.9520, L506.0400, L501.9985, L100.0100, L500.4100, L500.4050 #### [facility] [address] [place], [address] Potassium [Moles/Vol] 4.2 mmol/L Normal 3.5-5.1 [facility] Comment on above: Order Comment: Order Date: 08/03/23 Order Info: 86-1 - CMP Order Info: 22984-4 - LIPID Order Info: 3051-0 - T3F Order Info: 3016-3 - TSH Order Info: 3024-7 - T4F Performed By: #### L 501.16864, L501.9520, L506.0400, L501.9985, L100.0100, L500.4100, L500.4050 #### [facility] [address] [place], [address] Sodium [Moles/Vol] 139 mmol/L Normal 136-145 [facility] Comment on above: Order Comment: Order Date: 08/03/23 Order Info: 785- - CMP Order Info: 50879-3 - LIPID Order Info: 3051-0 - T3F Order Info: 3016-3 - TSH Order Info: 3024-7 - T4F Performed By: #### L 501.00948, L501.9520, L506.0400, L501.9985, L100.0100, L500.4100, L500.4050 #### [facility] [address] [place], [address] T PROT 7.0 g/dL Normal 6.4-8.2 [facility] Comment on above: Order Comment: Order Date: 08/03/23 Order Info: 785-1 - CMP Order Info: 50160-4 - LIPID Order Info: 3051-0 - T3F Order Info: 3016-3 - TSH Order Info: 3024-7 - T4F Performed By: #### L 501.53360, L501.9520, L506.0400, L501.9985, L100.0100, L500.4100, L500.4050 #### [facility] [address] [place], [address] Urea nitrogen [Mass/Vol] 13 mg/dL Normal 7-18 [facility] Comment on above: Order Comment: Order Date: 08/03/23 Order Info: 07-1 - CMP Order Info: 64559-5 - LIPID Order Info: 3051-0 - T3F Order Info: 3016-3 - TSH Order Info: 3024-7 - T4F Performed By: #### L 501.48504, L501.9520, L506.0400, L501.9985, L100.0100, L500.4100, L500.4050 #### [facility] [address] [place], [place], [id number] (152) Free T3on 08-03-2023 Free T3 [Mass/Vol] 1.9 pg/mL Low 2.18-3.98 [facility] Comment on above: Order Comment: Order Date: 08/03/23 Order Info: 07 - CMP Order Info: 72312-2 - LIPID Order Info: 3051-0 - T3F Order Info: 6-3 - TSH Order Info: 7 - T4F Performed By: #### L 501.31982, L501.9520, L506.0400, L501.9985, L100.0100, L500.4100, L500.4050 #### [facility] [address] [place], [place], [id number] [phone] Hemoglobin A1con 08-03-2023 HbA1c (Bld) [Mass fraction] 5.5 % Normal 3.8-5.6 [facility] Comment on above: Order Comment: Order Date: 01/27/24 Order Info: 0184-1 - CBCD Result Comment: Norm al < 5.7 % Prediabetic 5.7 - 6.4 % Diabetic >or= 6.5 % Please note range changes. Performed By: #### L 500.4050, L100.0100, L501.9520, L501.9985, L506.0400 #### [facility] [address] [place], [place], [id number] Lipid Profileon 08-03-2023 Cholesterol [Mass/Vol] 209 mg/dL High 200 [facility] Comment on above: Order Comment: Order Date: 08/03/23 Order Info: 785- - CMP Order Info: - LIPID Order Info: 0 - T3F Order Info: 3 - TSH Order Info: 3023-08 T4F Result Comment: <200 mg/dL Desirable 200-240 mg/dL Borderline >240 mg/dL High Risk Performed By: #### L 501.64454, L501.9520, L506.0400, L501.9985, L100.0100, L500.4100, L500.4050 #### [facility] [address] [place], [address] Cholesterol in HDL [Mass/Vol] 68 mg/dL Normal [facility] Comment on above: Order Comment: Order Date: 08/03/23 Order Info: 785-02 - CMP Order Info: - LIPID Order Info: T3F Order Info: 3015-04 - TSH Order Info: 3023-08 T4F Result Comment: The drugs N-Acetylcysteine and Metamizole may falsely depress this assay. Reference Range HDL <40 mg/dL Low HDL Cholesterol HDL >or= 60 mg/dL High HDL Cholesterol Performed By: #### L 501.90504, L501.9520, L506.0400, L501.9985, L100.0100, L500.4100, L500.4050 #### [facility] [address] [place], [address] Cholesterol in LDL [Mass/Vol] 126 mg/dL Normal 0-130 [facility] Comment on above: Order Comment: Order Date: 08/03/23 Order Info: 07 - CMP Order Info: - LIPID Order Info: 0 - T3F Order Info: 3015-04 - TSH Order Info: 3023-08 T4F Performed By: #### L 501.08778, L501.9520, L506.0400, L501.9985, L100.0100, L500.4100, L500.4050 #### [facility] [address] [place], [address] Cholesterol in VLDL [Mass/Vol] 15 mg/dL Normal 5-40 [facility] Comment on above: Order Comment: Order Date: 08/03/23 Order Info: 0786-1 - CMP Order Info: 77788-1 - LIPID Order Info: 3051-0 - T3F Order Info: 3 - TSH Order Info: 7 - T4F Performed By: #### L 501.20434, L501.9520, L506.0400, L501.9985, L100.0100, L500.4100, L500.4050 #### [facility] [address] [place], [address] Triglyceride [Mass/Vol] 74 mg/dL Normal [facility] Comment on above: Order Comment: Order Date: 08/03/23 Order Info: 0786- - CMP Order Info: 26978-1 - LIPID Order Info: 305-0 - T3F Order Info: 3 - TSH Order Info: 7 - T4F Result Comment: The drugs N-Acetylcysteine and Metamizole may falsely depress this assay. Serum Triglycerides Reference Interval Normal <150 mg/dL Borderline high 150 - 199 mg/dL High 200 - 499 mg/dL Very High > or = 500 mg/dL Performed By: #### L 501.40762, L501.9520, L506.0400, L501.9985, L100.0100, L500.4100, L500.4050 #### [facility] [address] [place], [address] T4 Free Directon 08-03-2023 T4 FREE DIRECT 1.49 ng/dL High 0.76-1.46 [facility] Comment on above: Order Comment: Order Date: 01/27/24 Order Info: 0184-1 - CBCD Performed By: #### L 500.4050, L100.0100, L501.9520, L501.9985, L506.0400 #### [facility] [address] [place], [address] Thyroid Stim Hormone (TSH)on 08-03-2023 TSH 3.04 uIU/mL Normal 0.358-3.74 [facility] Comment on above: Order Comment: Order Date: 01/27/24 Order Info: 0184-1 - CBCD Performed By: #### L 500.4050, L100.0100, L501.9520, L501.9985, L506.0400 #### [facility] [address] [place], [address] Basophil percentageOrdered B y: Chanell Cantu on 07-16-2022 Chloride [Moles/Vol] 107 mmol/L 98-107 [facility] Cholesterol [Mass/Vol] 203 mg/dL <200 [facility] Comment on above: <200 mg/dL Desirable 200-240 mg/dL Borderline >240 mg/dL High Risk Glucose [Mass/Vol] 83 mg/dL 74-106 [facility] Potassium [Moles/Vol] 4.3 mmol/L 3.5-5.1 [facility] Sodium [Moles/Vol] 139 mmol/L 136-145 [facility] Triglyceride [Mass/Vol] 79 mg/dL <199 [facility] Comment on above: The drugs N-Acetylcy steine and Metamizole may falsely depress this assay.Serum Triglycerides Reference Interval Normal <150 mg/dL Borderline high 150 - 199 mg/dL High 200 - 499 mg/dL Very High > or = 500 mg/dL Laboratory - Chemistry and C hemistry - challengeOrdered By: Chanell Cantu on 07-16-2022 CO2 [Moles/Vol] 25.0 mmol/L 21.0-32.0 [facility] Urea nitrogen/Creatinine [Mass ratio] 25.2 mg/mg 10-20 [facility] No Panel InformationOrdered By: Chanell Cantu on 07-16-2022 Estimated GFR (MDRD) Amer 106 mL/min >60 [facility] Comment on above: GFR Calc Estimated GFR (MDRD) Non-Af Amer 87 mL/min >60 [facility] Comment on above: Non- GFR Calc Thyroid Stimulating Hormone (TSH) 3.76 uIU/mL 0.358-3.74 [facility] Serum or plasma calcium delta urement (mass/volume)Ordered By: Chanell Cantu on 07-16-2022 Calcium [Mass/Vol] 9.1 mg/dL 8.5-10.1 [facility] Serum or plasma cholesterol in HDL measurement (mass/volume)Ordered By: Chanell Cantu on 07-16-2022 Cholesterol in HDL [Mass/Vol] 60 mg/dL >40 [facility] Comment on above: The drugs N-Acetylcy steine and Metamizole may falsely depress this assay. Reference Range HDL <40 mg/dL Low HDL Cholesterol HDL >or= 60 mg/dL High HDL Cholesterol Serum or plasma cholesterol in VLDL measurement (mass/volume)Ordered By: Chanell Cantu on 07-16-2022 Cholesterol in VLDL [Mass/Vol] 16 mg/dL 5-40 [facility] Serum or plasma creatinine m easurement (mass/volume)Ordered By: Chanell Cantu on 07-16-2022 Creatinine [Mass/Vol] 0.71 mg/dL 0.55-1.02 [facility] Comment on above: The validity of the calculated GFR & GFRAA in patients over 70 years has not been determined. Clinical correlation is essential. Serum or plasma low density lipoprotein (LDL) cholesterol measurement (mass/volume)Ordered By: Chanell Cantu on 07-16-2022 Cholesterol in LDL [Mass/Vol] 127 mg/dL 0-130 [facility] Serum or plasma urea nitroge n measurement (mass/volume)Ordered By: Chanellmitch Cantu on 07-16-2022 Urea nitrogen [Mass/Vol] 18 mg/dL 7-18 [facility] Thin prep Papanicolaou smear with manual screeningOrdered By: Chanellmitch Cantu on 07-16-2022 Thin prep Papanicolaou smear with manual screening 7 5-15 [facility] Basophil percentageon 2021 Basophil percentage >100 SEEN /hpf 0-5 [facility] Work Phone: Bilirubin Test strip Ql (U)o n 12-08-2021 Bilirubin Ql (U) Negative Negative [facility] Work Phone: Ketones Test strip Ql (U)on 12-08-2021 Ketones Ql (U) Negative Negative [facility] Work Phone: Mucus LM Ql (Urine sed)on Mucus Ql (Urine sed) 0 SEEN /hpf [facility] Work Phone: Nitrite Test strip Ql (U)on 12-08-2021 Nitrite Ql (U) Positive Negative [facility] Work Phone: Protein Test strip Ql (U)on 12-08-2021 Protein Ql (U) 100 mg/dl Negative [facility] Work Phone: Squamous epithelial cells de tection in urine sediment by light microscopyon 12-08-2021 Epithelial cells.squamous LM Ql (Urine sed) 0-5 SEEN /hpf 5-10 [facility] Work Phone: Urine blood detectionon 11-22 RBC Ql (U) 250 /ul Negative [facility] Work Phone: RBC Ql (U) 50-100 SEEN /hpf 0-5 [facility] Work Phone: Urine clarityon 12-08-2021 Clarity (U) Sl. Cloudy Clear [facility] Work Phone: Urine color determinationon 12-08-2021 Color (U) Yellow Yellow [facility] Work Phone: Urine glucose detectionon Glucose Ql (U) Normal mg/dl Normal [facility] Work Phone: Urine leukocyte esterase det ection by dipstickon 12-08-2021 Leukocyte esterase Test strip Ql (U) 500 /ul Negative [facility] Work Phone: Urine pHon 12-08-2021 pH (U) 7.0 [pH] 5.0 - 8.0 [facility] Work Phone: Urine sediment bacteria coun t by microscopy (number/high power field)on 12-08-2021 Bacteria LM.HPF (Urine sed) [#/Area] 4 /[HPF] None Seen [facility] Work Phone: Urine specific gravity measu rementon 12-08-2021 Specific gravity (U) [Rel density] 1.010 1.002-1.030 [facility] Work Phone: Urobilinogen Auto test strip Ql (U)on 12-08-2021 Urobilinogen Ql (U) Normal mg/dl Normal [facility] Work Phone: Office Visit: UC: Hypothyroi dism aphthous ulcer,on 01-21-2017 Documentation of current medications (procedure) Done Invalid Interpretation Code [facility] Work Phone: Fall risk assessment No Invalid Interpretation Code [facility] Work Phone: Tobacco smoking status NHIS Never Invalid Interpretation Code [facility] Work Phone: Tobacco smoking status NHIS Tobacco smoking status NHIS Invalid Interpretation Code [facility] Work Phone: Tobacco use [facility] Never smoker Invalid Interpretation Code [facility] Work Phone: PROGRESSon 09-22-2016 PROGRESS HNO ID: [id number]: Margot FloresSerlorrainee: (none)Author Type: PhysicianType: Progress NotesFiled: 09/22/2016 8:14 AMNote Text:Margot Flores [facility]ENTERepartment of OrthopaedicsOrtpark city hospitalaeson[facility] [facility] [address]Xkpz: [phone] Myoo 2016CHIEF COMPLAINT: Surgical Followup (6 weeks 3 days post ORIF right distalradius).ASSESSME NT:S52.571D Other closed intra-articular fracture of distal end of rightradius with routine healing, subsequent encounter (primary encounterdiagnosis)RAFITA RANGEL/PLAN:Patient is 6/2 weeks status post ORIF of right distal radius. She isdoing far better and enjoys removing the brace at times to get some of thestiffness out. She also was not wearing it at work recently as itdifficult for her to write with the brace on. She has not been doing anylifting. Pain is significantly better. She does report a small stitchthat appears to be in the center.We discussed occupational therapy if her stiffness does not seem to beresolving over the next week or 2.Exam:Surgical site is healed nicely, there is a bit of the Monocryl suture inthe center without any redness or troubles. She is quite stiff with onlyflexion of 30? extension of 30?. She's lacking only a few degrees ofterminal pronation and 15? of supination.Imaging:IMP RESSION: Stable distal radial fractureTranscriptioni st: PSCB ?Transcribe Date/Time: Sep 21 2016 ?4:01PDictated by : TITUS ISLAS MDThis examination was interpreted and the report reviewed andelectronically signed by:TITUS ISLAS MD on Sep 21 2016 ?4:02PM ?ESTResults-Findings* * *Final Report* * *DATE OF EXAM: Sep 21 2016 12:42PM ?WRX ? 2880 ?- ?XR WRIST PA/LAT/OBL ?- RIGHT / REASON: Other intraarticular fracture of lower end of rightradius, subsequent encounter?? ?* * * * Physician Interpretation * * * *?PROCEDURE: ?Right wristINDICATION: ?Other intraarticular fracture of lower end of right radius,subsequent encounter for closed fracture with routine healing ? .TECHNIQUE: ?XR WRIST PA/LAT/OBLCOMPARISON: ?08/31/2016FINDINGS:Jamee te and screws within the distal radius remain in place. ?Satisfactorily aligned distal radial fracture is unchanged in position. ?There is mild sclerosis at the fracture site consistent with healing,however little changed in amount compared to the prior study. ?Disuseosteopenia is evident.Ms. Kristina Suarez was advised as to contrast therapies and/or to takeanalgesics/anti-in flammatories as needed and all contraindications werereviewed.Radha mcmahon Information Below:Medications:Curr ent Outpatient Prescriptions:levothyr oxine (SYNTHROID) 50 mcg ORAL tablet Take 125 mcg by mouth oncedaily.HYDROcodone- acetaminophen (NORCO) 5-325 mg per tablet Take 1 tablet bymouth every 6 hours as needed.No current facility-administered medications for this visit.Allergies: Bactrim [Sulfamethoxazole-Trim ethoprim]This note was partially generated using [employer] voice recognition system,and there may be some incorrect words, spellings, and punctuation thatwere not noted in checking the note before saving.Margot Flores MD [facility] CNOVon 09-21-2016 CNOV Office Visit (ORTHWS) KRISTINA SUAREZ ([id number]) 1960 FDate Time Provider Department09/21/16 1:00 PM MARGOT FLORES During your visit today, we recorded the following information about you:Silva Charles Ma 09/22/2016 8:14 AM SignedPatient presents with:Surgical Followup: 6 weeks 3 days post ORIF right distal radiusAMB ROOMING INTAKE FLOWSHEET DATARisk ScreeningDo you have concerns about personal safety or safety in the home?: NoPatient states she is continuing to wear Exos brace. States she does remove itwhen she gets home at night and doing the exercises. 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 States she did not lift anything. Patient does have a retainingdisolvable stitch that is poking out in the middle of her incision. Patient hadx-ray done today prior to appointment.Gris Trujillo RN 09/22/2016 8:14 AM SignedIncision cleansed with Chlora prep and small disolvable suture clipped at skinlevel mid incision. New stockinet given from under EXOS brace.Marogt Flores MD 09/22/2016 8:14 AM SignedMargot Flores [facility]ENTERepartment of Orthopaedicrtsan [facility]Woosteva [place] [address]Odbo: [phone] Mmpe 2016CHIEF COMPLAINT: Surgical Followup (6 weeks 3 days post ORIF right distalradius).ASSESSME NT:S52.571D Other closed intra-articular fracture of distal end of right radiuswith routine healing, subsequent encounter (primary encounter diagnosis)SUMMARY/PLAN :Patient is 6/2 weeks status post ORIF of right distal radius. She is doing farbetter and enjoys removing the brace at times to get some of the stiffness out. She also was not wearing it at work recently as it difficult for her to writewith the brace on. She has not been doing any lifting. Pain is significantlybetter. She does report a small stitch that appears to be in the center.We discussed occupational therapy if her stiffness does not seem to beresolving over the next week or 2.Exam:Surgical site is healed nicely, there is a bit of the Monocryl suture in thecenter without any redness or troubles. She is quite stiff with only flexionof 30? extension of 30?. She's lacking only a few degrees of terminalpronation and 15? of supination.Imaging:IMP RESSION: Stable distal radial fractureTranscriptioni st: PSCB ?Transcribe Date/Time: Sep 21 2016 ?4:01PDictated by : TITUS ISLAS MDThis examination was interpreted and the report reviewed andelectronically signed by:TITUS ISLAS MD on Sep 21 2016 ?4:02PM ?ESTResults-Findings* * *Final Report* * *DATE OF EXAM: Sep 21 2016 12:42PM ?WRX ? 2880 ?- ?XR WRIST PA/LAT/OBL ?- RIGHT / REASON: Other intraarticular fracture of lower end of rightradius, subsequent encounter?? ?* * * * Physician Interpretation * * * *?PROCEDURE: ?Right wristINDICATION: ?Other intraarticular fracture of lower end of right radius,subsequent encounter for closed fracture with routine healing ? .TECHNIQUE: ?XR WRIST PA/LAT/OBLCOMPARISON: ?08/31/2016FINDINGS:Jamee te and screws within the distal radius remain in place. ?Satisfactorily aligned distal radial fracture is unchanged in position. ?There is mild sclerosis at the fracture site consistent with healing,however little changed in amount compared to the prior study. ?Disuseosteopenia is evident.Ms. Kristina Suarez was advised as to contrast therapies and/or to takeanalgesics/anti-in flammatories as needed and all contraindications werereviewed.Radha mcmahon Information Below:Medications:[facility] ent Outpatient Prescriptions:levothyr oxine (SYNTHROID) 50 mcg ORAL tablet Take 125 mcg by mouth once daily.HYDROcodone-acet aminophen (NORCO) 5-325 mg per tablet Take 1 tablet by mouthevery 6 hours as needed.No current facility-administered medications for this visit.Allergies: Bactrim [Sulfamethoxazole-Trim ethoprim]This note was partially generated using [employer] voice recognition system, andthere may be some incorrect words, spellings, and punctuation that were notnoted in checking the note before saving.Reece Avendaño Provider: MARGOT FLORES [[id number]]Allergies As of Date: 09/21/2016 Noted Allergy ReactionBACTRIM (SULFAMETHOXAZOLE-TRIM ETH*08/03/2016 14 - Other: See Comments Comments: Tongue swells and lips get tinglyDate Reviewed: 09/21/2016Reviewed by: Silva Charles Ma - Fully AssessedReason for Visit: Surgical Followup [104] Cmt: 6 weeks 3 days post ORIF right distal radiusPrimary Visit Diagnosis:Other closed intra-articular fracture of distal end of right radius with routine healing, subsequent encounter [S52.570J]Prescription s as of 09/21/2016 Sig: * LEVOTHYROXINE 50 MCG TABLET Take 125 mcg by mouth once da* HYDROCODONE 5 MG-ACETAMINOPHE* Take 1 tablet by mouth every *Problem List As Of Date 09/21/2016 Noted Resolved Benign neoplasm of colon [D12.6] INVALID FOR* Special screening for malignant neoplasms, colo*INVALID FOR*08/05/2016 Hypothyroid [E03.9] INVALID FOR* Smoker [F17.200] INVALID FOR* Status:Closed by MARGOT FLORES MD on 09/22/16 [facility] PROGRESSon 09-21-2016 PROGRESS HNO ID: [id number]: Gris Trujillo RNService: (none)Author Type: (none)Type: Progress NotesFiled: 09/22/2016 8:14 AMNote Text:Incision cleansed with Chlora prep and small disolvable suture clipped atskin level mid incision. New stockinet given from under EXOS brace. Normal [facility] PROGRESS HNO ID: [id number]: Silva Charles Kelli: (none)Author Type: (none)Type: Progress NotesFiled: 09/22/2016 8:14 AMNote Text:Patient presents with:Surgical Followup: 6 weeks 3 days post ORIF right distal radiusAMB ROOMING INTAKE FLOWSHEET DATARisk ScreeningDo you have concerns about personal safety or safety in the home?: NoPatient states she is continuing to wear Exos brace. States she doesremove it when she gets home at night and doing the exercises. Patientstates they had inventory at work last night and removed the brace due tohaving to write numbers. States she did not lift anything. Patient doeshave a retaining disolvable stitch that is poking out in the middle of herincision. Patient had x-ray done today prior to appointment. Normal [facility] PROGRESS HNO ID: [id number]: Itz Saunders (Rt): (none)Author Type: TechnicianType: Progress NotesFiled: 09/21/2016 12:33 PMNote Text: Radiology Service Progress NotePATIENT NAME: Kristina JulioN: [id number] OF SERVICE: September 21, 2016TIME: 12:27 PMPATIENT IDENTITY VERIFICATION COMPLETED USING TWO (2) METHODS: Patientconfirmed name verbally and Date of .PATIENT GENDER DATA: Female. status: : NoBreastfeeding status: NO.PATIENT RELEVANT IMPLANT DATA REVIEWED: Not ApplicableRADIOLOGY DEPARTMENT: General X-ray: Exam(s) Completed: Upper ExtremityX-Ray(s): Wrist, Right :PERIPHERAL IV DATA: Not applicableSIGNED BY: Sol Saunders 2016 12:27 PM [facility] XR WRIST PA/LAT/OBLon 2016 XR WRIST PA/LAT/OBL * * *Final Report* * *DATE OF EXAM: Sep 21 2016 12:42PM WRX 2880 - XR WRIST PA/LAT/OBL - RIGHT / REASON: Other intraarticular fracture of lower end of right radius, subsequent encounter * * * * Physician Interpretation * * * * PROCEDURE: Right wristINDICATION: Other intraarticular fracture of lower end of right radius, subsequent encounter for closed fracture with routine healing .TECHNIQUE: XR WRIST PA/LAT/OBLCOMPARISON: 08/31/2016FINDINGS:Plat e and screws within the distal radius remain in place. Satisfactorily aligned distal radial fracture is unchanged in position. There is mild sclerosis at the fracture site consistent with healing, however little changed in amount compared to the prior study. Disuse osteopenia is evident.IMPRESSION: Stable distal radial fractureTranscriptioni st: PSCB Transcribe Date/Time: Sep 21 2016 4:01PDictated by : TITUS ISLAS MDThis examination was interpreted and the report reviewed and electronically signed by: TITUS ISLAS MD on Sep 21 2016 4:02PM EST Normal [facility] PROGRESSon 09-01-2016 PROGRESS HNO ID: [id number]: Margot FloresSerlorrainee: (none)Author Type: PhysicianType: Progress NotesFiled: 09/01/2016 11:38 AMNote Text:Margot Flores [facility]ENTERepartment of OrthopaedicsOrtpark city hospitalaesonoma valley hospital[address] [facility] [address]Wxui: [phone] Fbom 2016CHIEF COMPLAINT: Post Op (3 week 3 days post ORIF right wrist ).ASSESSMENT:S52.571D Other closed intra-articular fracture of distal end of rightradius with routine healing, subsequent encounter (primary encounterdiagnosis)RAFITA RANGEL/PLAN:Patient is just over 3 weeks status post ORIF of her right distal radius.She is actually doing quite a bit better, still a bit concerned about thebruising which is very minimal at this time. She stated she had a littlebit of tingling in the palm but this is already improved since her castwas off. We'll get her into a functional brace. She has excellent rangeof motion already with pronation and supination and she'll continue workon this. We'll see how she does with just some light flexion andextension range of motion exercises over the next 3 weeks or so. If donatoins quite stiff, we'll get her into hand therapy, otherwise we'll seeher back for 3 weeks with repeat imaging. I was still caution her withlifting, however otherwise she can return to work.Imagin views of the right wrist show excellent positioning of the hardware andreduction of the fracture. No issues interval.Supporting Information Below:Medications:[facility] ent Outpatient Prescriptions:levothyr oxine (SYNTHROID) 50 mcg ORAL tablet Take 125 mcg by mouth oncedaily.HYDROcodone- acetaminophen (NORCO) 5-325 mg per tablet Take 1 tablet bymouth every 6 hours as needed.No current facility-administered medications for this visit.Allergies: Bactrim [Sulfamethoxazole-Trim ethoprim]This note was partially generated using [employer] voice recognition system,and there may be some incorrect words, spellings, and punctuation thatwere not noted in checking the note before saving.Margot Flores MD [facility] CNOVon 08-31-2016 CNOV Office Visit (BHARATH) KRISTINA SUAREZ ([id number]) 1960 [facility] Time Provider Department08/31/16 4:00 PM MARGOT FLORES During your visit today, we recorded the following information about you:Alis Willingham Ma 09/01/2016 11:38 AM SignedAMB ROOMING INTAKE FLOWSHEET DATARisk ScreeningDo you have concerns about personal safety or safety in the home?: NoPatient here today for 3 weeks 3 days post ORIF right wrist. Denies any painin surgical arm. Arrives with cast intact, but removed for exam and x-ray.Silva Charles Ma 09/01/2016 11:38 AM SignedPT ASSESSMENT - CASTING ROOMKathleen presents for Application of brace.Applied Kavon Jimenez short arm fracture brace open thumb to Right wrist.Patient tolerated well.Patient has been instructed in Care and proper application of brace. Patientsigned Jonathon Collins product agreement form for billing. Patient verbalizednakia gallegoSilva Charles Breana Flores MD 09/01/2016 11:38 AM SignedTAYLOR Avendañoartment of OrthopaedicsOrtgood samaritan hospital [address] [address]Zezj: [phone] Zfmj 2016CHIEF COMPLAINT: Post Op (3 week 3 days post ORIF right wrist ).ASSESSMENT:S52.571D Other closed intra-articular fracture of distal end of right radiuswith routine healing, subsequent encounter (primary encounter diagnosis)SUMMARY/PLAN :Patient is just over 3 weeks status post ORIF of her right distal radius. Sheis actually doing quite a bit better, still a bit concerned about the bruisingwhich is very minimal at this time. She stated she had a little bit oftingling in the palm but this is already improved since her cast was off.We'll get her into a functional brace. She has excellent range of motionalready with pronation and supination and she'll continue work on this. We'llsee how she does with just some light flexion and extension range of motionexercises over the next 3 weeks or so. If she remains quite stiff, we'll gether into hand therapy, otherwise we'll see her back for 3 weeks with repeatimaging. I was still caution her with lifting, however otherwise she canreturn to work.Imagin views of the right wrist show excellent positioning of the hardware andreduction of the fracture. No issues interval.Supporting Information Below:Medications:Curr ent Outpatient Prescriptions:levothyr oxine (SYNTHROID) 50 mcg ORAL tablet Take 125 mcg by mouth once daily.HYDROcodone-acet aminophen (NORCO) 5-325 mg per tablet Take 1 tablet by mouthevery 6 hours as needed.No current facility-administered medications for this visit.Allergies: Bactrim [Sulfamethoxazole-Trim ethoprim]This note was partially generated using [employer] voice recognition system, andthere may be some incorrect words, spellings, and punctuation that were notnoted in checking the note before saving.KAMARI Avendañoeferrdee Provider: MARGOT FLORES [[id number]]Allergies As of Date: 08/31/2016 Noted Allergy ReactionBACTRIM (SULFAMETHOXAZOLE-TRIM ETH*08/03/2016 14 - Other: See Comments Comments: Tongue swells and lips get tinglyDate Reviewed: 08/31/2016Reviewed by: Alis Willingham Ma - Fully AssessedReason for Visit: Post Op [174] Cmt: 3 week 3 days post ORIF right wristPrimary Visit Diagnosis:Other closed intra-articular fracture of distal end of right radius with routine healing, subsequent encounter [S52.571D]Prescription s as of 08/31/2016 Sig: * LEVOTHYROXINE 50 MCG TABLET Take 125 mcg by mouth once da* HYDROCODONE 5 MG-ACETAMINOPHE* Take 1 tablet by mouth every *Medication notes this encounter HYDROCODONE 5 MG-ACETAMINOPHEN 325 MG TABLET >> Alis Willingham Ma 08/31/2016 4:07 PM >> ALIS WILLINGHAM MA Mon Aug 31, 2016 4:07 PM No longer taking.Problem List As Of Date 08/31/2016 Noted Resolved Benign neoplasm of colon [D12.6] INVALID FOR* Special screening for malignant neoplasms, colo*INVALID FOR*08/05/2016 Hypothyroid [E03.9] INVALID FOR* Smoker [F17.200] INVALID FOR* Status:Closed by MARGOT FLORES MD on 09/01/16 [facility] PROGRESSon 08-31-2016 PROGRESS HNO ID: [id number]: Silva Charles MaService: (none)Author Type: (none)Type: Progress NotesFiled: 09/01/2016 11:38 AMNote Text:PT ASSESSMENT - CASTING ROOMKristina presents for Application of brace.Applied DonJoy Exos short arm fracture brace open thumb to Right wrist.Patient tolerated well.Patient has been instructed in Care and proper application of brace.Patient signed [employer] product agreement form for billing. Patientverbalized understanding.Silva Charles Ma [facility] PROGRESS HNO ID: [id number]: Sarah Cisneros (Rt) Itz Armendariz: (none)Author Type: TechnicianType: Progress NotesFiled: 08/31/2016 4:41 PMNote Text: Radiology Service Progress NotePATIENT NAME: Kristina RajputRN: [id number] OF SERVICE: August 31, 2016TIME: 4:34 PMPATIENT IDENTITY VERIFICATION COMPLETED USING TWO (2) METHODS: Patientconfirmed name verbally and Date of .PATIENT GENDER DATA: Female. status: : NoBreastfeeding status: NO.PATIENT RELEVANT IMPLANT DATA REVIEWED: Not ApplicableRADIOLOGY DEPARTMENT: General X-ray: Exam(s) Completed: Upper ExtremityX-Ray(s): Wrist, Right :PERIPHERAL IV DATA: Not applicableSIGNED BY: Sol Story 2016 4:34 PM Normal [facility] PROGRESS HNO ID: [id number]: Alis Willingham MaService: (none)Author Type: (none)Type: Progress NotesFiled: 09/01/2016 11:38 AMNote Text:AMB ROOMING INTAKE FLOWSHEET DATARisk ScreeningDo you have concerns about personal safety or safety in the home?: NoPatient here today for 3 weeks 3 days post ORIF right wrist. Denies anypain in surgical arm. Arrives with cast intact, but removed for exam andx-ray. Normal [facility] XR WRIST PA/LAT/OBLon 2016 XR WRIST PA/LAT/OBL * * *Final Report* * *DATE OF EXAM: Aug 31 2016 4:42PM WRX [id number] - XR WRIST PA/LAT/OBL - RIGHT / REASON: Other intraarticular fracture of lower end of right radius, subsequent encounter * * * * Physician Interpretation * * * * Right breastHISTORY: 56 years oldClinical information: Other intraarticular fracture of lower end of right radius, subsequent encounter for closed fracture with routine healingFracture and surgery follow up without complicationTECHNIQUE: Images: XR WRIST PA/LAT/OBLComparison: 08/17/2016.RESULT:Find ings:No change in alignment of distal radial fracture or change of associated hardware. Increased density associated with area of fracture consistent with callus.IMPRESSION:Heal ing fracture.Wireless Construction Manager ist: PSCB Transcribe Date/Time: Sep 01 2016 6:17PDictated by : MARIE MARION MDThis examination was interpreted and the report reviewed and electronically signed by: MARIE MARION MD on Sep 01 2016 6:18PM EST Normal [facility] PROGRESSon 08-24-2016 PROGRESS HNO ID: [id number]: Margot Johanna: (none)Author Type: PhysicianType: Progress NotesFiled: 08/24/2016 12:25 PMNote Text:Margot Flores [facility]ENTERepartment of OrthopaedicsOrtpark city hospitalae cs[address] RdWnewton [place] [address]Jgte: [phone] Bxmu 2016CHIEF COMPLAINT: New Patient (Comminuted impacted right wrist fracture )HPI: Ms. Kristina Suarez is a 56 year old female , lrkde-tuhv-ajainxnh whohad a fall at her daughter's house just a day or 2 ago. She was then seenat urgent care and splinted. 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 Shedenies any head or neck injury, no elbow or shoulder pain.ASSESSMENT:S52.57 1A Other closed intra-articular fracture of distal end of rightradius, initial encounter (primary encounter diagnosis)PLAN:With the comminution and displacement of the fracture, my recommendationis for operative fixation. The risks, benefits, alternatives andpotential Locations were discussed and she would like to pursue surgicalintervention.F OLLOW UP INSTRUCTIONS:We'll schedule accordingly.Ms. Kristina Suarez was advised as to contrast therapies and/or to takeanalgesics/anti-in flammatories as needed and all contraindications werereviewed.OBJECTIVE :Ms. Kristina Suarez is a pleasant 56 year old in no apparent distress.Gen:BP 131/91 Pulse 98 Ht 5' 4 (1.63m) Wt 144 lb 9.6 oz (65.6kg) BMI 24.81 kg/(m2). nl development, non obese, no deformitiesENT: Normocephalic, normal hearing, moist mucosaCV: Pulses:Radial= 2+ and symmetric, capillary refill < 2 secs, noperipheral edema/varicositiesSkin : no rash, bruising or lesions. Good turgor.Psych: cooperative and appropriate, alert and oriented x 3, good mood andaffect.Musculoskele connie:Right wrist with no skin lesions or abrasions. Mild appropriate swellingand ecchymoses. Tenderness at the distal radial metaphysis.Neurovascul ar exam is intact.IMAGING:* * *Final Report* * *DATE OF EXAM: Aug 02 2016 11:45AM ?WOX ? 1503 ?- ?XR WRIST 3VIEW /SCAPHOID ?- RIGHT / REASON: Unspecified injury of right wrist, hand and finger(s),initial encounter?? ?* * * * Physician Interpretation * * * *?HISTORY: InjuryTECHNIQUE: 4 viewsCOMPARISON: NoneRESULT: There is comminuted impaction fracture of the distal radius withslight dorsal angulation.Supporting Subjective Information Below:Past Medical History:PAST MEDICAL HISTORYDiagnosis Date- Benign neoplasm of colon- Hypothyroid- Smoker 08/05/2016Past Surgical History: PAST SURGICAL HISTORY06/26/2010: COLONOSCOP W/ OR W/O [facility] SPEC Comment: ColonoscopyNo date: DANDC, DIAG AND/OR THERAPEUTIC Comment: Dilation AND curettageNo date: LIGATE FALLOPIAN TUBE Comment: Tubal /16/2017: PAST SURGICAL HISTORY OF Right Comment: ORIF right wristNo date: TOTAL ABDOM HYSTERECTOMY Comment: Hysterectomy, TAHFamily History:FAMILY HISTORY Cancer Father Comment: lung COPD Mother Emphysema Mother Hypertension Mother A fib [OTHER] MotherSocial History:Social History Marital status: Single Spouse name: Chetan Years of education: Number of children: 4Occupational HistoryOccupation Employer Comment [employer] History Main Topics Smoking status: Current Every Day Smoker Packs/day: 1.00 Years: 0.00 Types: Cigarettes Start date: 02/23/1972 Smokeless status: Never Used Alcohol use: Yes Comment: 6 cans per week Drug use: NoMedications:Current Outpatient Prescriptions:levothyr oxine (SYNTHROID) 50 mcg ORAL tablet Take 125 mcg by mouth oncedaily.HYDROcodone- acetaminophen (NORCO) 5-325 mg per tablet Take 1 tablet bymouth every 6 hours as needed.No current facility-administered medications for this visit.Allergies: Bactrim [Sulfamethoxazole-Trim ethoprim]ROS:General (negative for fatigue, malaise, weight loss/gain)HEENT (negative for headache, earache, recent vision changes, sinus pain,sore throat) Respiratory (no recent shortness of breath, hemoptysis)CV (negative for chest tightness, palpitations)Musculosk eletal (see HPI)Psych (no depression, anxiety)REFERRING PHYSICIAN: Ms. Kristina Suarez was referred to me forconsultation by the following physician. This consultation note will besent to the following physician by either mail or electronic medicalrecord.[place] Call, [id number] [facility] [id number] Ferguson [address] [address]Pxhq note was partially generated using [employer] voice recognition system,and there may be some incorrect words, spellings, and punctuation thatwere not noted in checking the note before saving.Margot Flores MD Normal [facility] Culture, urine Bacteria identified Cx Nom (U) Presumptive E. coli [facility] Work Phone: Vital Signs Date Time Vital Sign Value Performing Clinician Facility 08-01-2024 12:10-0400 Body height 162.[address] Brayden Mac MD Work Phone: [facility] 08-01-2024 12:10-0400 Body mass index (BMI) [Ratio] 32.2 kg/m2 Dr. Brayden Mac MD Work Phone: [facility] 08-01-2024 12:10-0400 Body weight 85.[address] Brayden Mac MD Work Phone: [facility] 08-01-2024 11:30-0400 Diastolic blood pressure 72 mm[Hg] Dr. Brayden Mac MD Work Phone: [facility] 08-01-2024 11:30-0400 Heart rate 63 /min Dr. Brayden Mac MD Work Phone: [facility] 08-01-2024 11:30-0400 Respiratory rate 14 /min Dr. Brayden Mac MD Work Phone: [facility] 08-01-2024 11:30-0400 SaO2% (BldA) [Mass fraction] 98 % Dr. Brayden Mac MD Work Phone: [facility] 08-01-2024 11:30-0400 Systolic blood pressure 180 mm[Hg] Dr. Brayden Mac MD Work Phone: [facility] 08-01-2024 11:18-0400 Body temperature 97.9 [degF] Dr. Brayden Mac MD Work Phone: [facility] 01-21-2017 12:39-0500 BMI (Body Mass Index) 24.93 kg/m2 [facility] Work Phone: 01-21-2017 12:39-0500 Body Temperature 98.1 [degF] [facility] Work Phone: 01-21-2017 12:39-0500 BP Diastolic 82 mm[Hg] [facility] Work Phone: 01-21-2017 12:39-0500 BP Systolic 124 mm[Hg] [facility] Work Phone: 01-21-2017 12:39-0500 Height 161.29 cm [facility] Work Phone: 01-21-2017 12:39-0500 Pulse (Heart Rate) 74 /min [facility] Work Phone: 01-21-2017 12:39-0500 Respiratory Rate 14 /min [facility] Work Phone: 01-21-2017 12:39-0500 Weight 64.86 kg [facility] Work Phone: Encounters Encounter Date Encounter Type Care Provider Facility Start: 08-01-2024 Evaluation and management of inpatient Dr. Marie Marcos DO -Progressive Care Unit Work Phone: Start: 08-01-[address] Brayden Mac MD Work Phone: [facility] Work Phone: Start: 03-21-2024 End: 03-21-2024 ambulatory Brayden Mac Facility:[facility] Start: 01-27-2024 End: 01-27-2024 ambulatory Brayden Mac Facility:[facility] Start: 09-13-2023 End: 09-13-2023 ambulatory Brayden Mac Facility:[facility] Start: 09-07-2023 End: 09-07-2023 ambulatory Brayden Mac Facility:[facility] Start: 08-03-2023 End: 08-03-2023 ambulatory Brayden Mac Facility:[facility] Start: 03-20-2023 End: 03-20-2023 ambulatory [facility] Work Phone: Start: 03-20-2023 End: 03-20-2023 Patient encounter procedure [facility]-Cat Scan, [facility] Work Phone: Start: 09-16-2022 End: 09-16-2022 ambulatory [facility] Work Phone: Start: 09-16-2022 End: 09-16-2022 Patient encounter procedure [facility]-Cat Scan, [facility] Work Phone: Start: 07-17-2022 End: 07-17-2022 ambulatory [facility] Work Phone: Start: 07-17-2022 End: 07-17-2022 Patient encounter procedure [facility]-Outpatient Breast Imaging Work Phone: Start: 07-16-2022 End: 07-16-2022 ambulatory [facility] Work Phone: Start: 07-16-2022 End: 07-16-2022 Patient encounter procedure [facility]-Laboratory, [facility] Start: 12-08-2021 End: 12-08-2021 ambulatory [facility] Work Phone: Start: 12-08-2021 End: 12-08-2021 Patient encounter procedure [facility]-Laboratory Start: 09-12-2021 End: 09-12-2021 Patient encounter procedure [facility]-Cat Scan, [facility] Start: 09-21-2016 End: 09-21-2016 Ambulatory MARGOT FLORES [facility] Start: 09-08-2016 End: 07-18-2017 Ambulatory MARGOT FLORES [facility] Start: 08-31-2016 End: 08-31-2016 Ambulatory MARGOT FLORES [facility] Start: 08-07-2016 Ambulatory MARGOT FLORES [facility] Procedures Date Procedure Procedure Detail Performing Clinician Start: 08-01-[address] Brayden Mac MD Work Phone: Start: 08-01-2024 CT angiography of he ad and neck Dr. Brayden Mac MD Work Phone: Start: 08-01-2024 CT of head without contrast Dr. Brayden Mac MD Work Phone: Start: 03-20-2023 CT of chest Start: 09-16-2022 CT of chest Start: 07-17-2022 Screening mammography Start: 09-12-2021 CT of chest Bacteria identified in Urine by Culture Urine culture Plan of Treatment Date Care Activity Detail Author Start: 08-01-2024 Ambulation without limitation [facility] Start: 08-01-2024 Assessment of risk of venous thromboembolism [facility] Start: 08-01-2024 Cardiac monitoring [facility] Start: 08-01-2024 Catheterization of vein [facility] Start: 08-01-2024 Consultation [facility] Start: 08-01-2024 Continuous pulse oximetry [facility] Start: 08-01-2024 Exercises [facility] Start: 08-01-2024 Insertion of catheter into peripheral vein [facility] Start: 08-01-2024 Measuring intake and output [facility] Start: 08-01-2024 Notification of physician [facility] Start: 08-01-2024 Oxygen therapy [facility] Start: 08-01-2024 Patient referral to dietitian [facility] Start: 08-01-2024 Providing care according to standard [facility] Start: 08-01-2024 Referral to occupational therapist [facility] Start: 08-01-2024 Referral to service [facility] Start: 08-01-2024 Speech therapy assessment [facility] Start: 08-01-2024 Telemedicine consultation with patient [facility] Start: 08-01-2024 Vital signs measurements [facility] Start: 08-01-2024 MRI of brain without contrast Brain without Contrast [facility] Start: 08-01-2024 Verification routine [facility] Start: 08-01-2024 Admission procedure [facility] Start: 08-01-2024 End: 08-01-2024 [facility] Start: 08-01-2024 Hospital admission, emergency, from emergency room, medical nature [facility] Start: 08-01-2024 Oxygen therapy [facility] Start: 08-01-2024 [facility] Start: 01-21-2017 End: 01-21-[address] [facility] Work Phone: Cholesterol [Mass/vo lume] in Serum or Plasma [facility] Cholesterol in HDL [Mass/volume] in Serum or Plasma [facility] Low density lipoprot ein cholesterol measurement [facility] Patient referral [facility] Work Phone: Total cholesterol:HD L ratio measurement [facility] Triglycerides measurement [facility] Troponin T.cardiac [Mass/volume] in Serum or Plasma by High sensitivity method [facility] Troponin T.cardiac [Mass/volume] in Serum or Plasma by High sensitivity method [facility] VLDL cholesterol measurement [facility] Work Phone: Payers Date Payer Category Payer Self-pay [id number] Unknown [id number] Private Health Insurance [employer] [id number] Unknown [id number] Unknown [id number] 2.16.8 [id number] Unknown [id number] 2.16.8 [id number] Unknown [id number] 2.16.8 [id number] Unknown [id number] 2.16.8 [id number] Unknown [id number] 2.16.8 [id number] Social History Date Type Detail Facility Start: 09-11-2020 End: 09-11-2020 Tobacco smoking status OKIS Unknown if ever smoked [facility] Start: 1960 Sex Assigned At Female W [facility] Start: 08-01-2024 Tobacco smoking stat us NHIS Ex-smoker (finding) [facility] Mental Status Date Assessment Result Facility 08-01-2024 Cognitive function Voice/Name [facility] Work Phone: Radiology Diagnostic study note 08-01-2024 Note Date & Type Note Facility 08-01-2024 Radiology Diagnostic study note [facility] Imaging Services [address] [place] [address] STROKE CTA Head AND Neck W/Con MR#: [id number] Acct: [id number] Name: KRISTINA SUAREZ Rep #: [id number] : 1960 F 64 From: Shama Butt MD PCP: Dr. Brayden Mac MD Status: [facility] ER Study:STROKE CTA Head AND Neck W/Con Date of Exam: 08/01/24 Exam# [id number] Ordering Dr: Karl Bocanegra DO PROCEDURE: STROKE CTA HEAD AND NECK W/CON 08/01/2024 REASON FOR EXAM: NEURO DEFICIT, ACUTE, STROKE SUSPECTED TECHNIQUE: CTA imaging of the head and neck from the aortic arch to the skull vertex with out contrast and with intravenous contrast. Multiplanar and multisequence images were obtained. CONTRAST: 100 cc Isovue 370 mL One or more dose reduction techniques were used (e.g., Automated exposure control, adjustment of the mA and/or kV according to patient size, use of iterative reconstruction technique). RADIATION DOSE SUMMARY: DLP: 625.23 mGycm COMPARISON: August 01, 2024 9:11 FINDINGS: Aortic Arch: Unremarkable Brachiocephalic and Subclavians: Patent RIGHT Carotid: Right CCA: Patent Right ICA: Patent Maximum stenosis (NASCET): 0 % Right ECA: Patent LEFT Carotid: Left CCA: Patent Left ICA: Patent Maximum stenosis (NASCET): 0 % Left ECA: Patent Vertebrals: Patent RIGHT Vertebral: Patent LEFT Vertebral: Patent Anatomy: Intact Aneurysm or avm: None Anterior cerebral arteries: Patent Middle cerebral arteries: Patent Basilar artery: Patent Posterior cerebral arteries: Patent Other major branches of the posterior circulation: Unremarkable Major venous structures: Patent Other findings: Neck: Clear lungs: Clear bones: Fluid density is noted in a portion of the left mastoid air cells, with mastoiditis. CT/STROKE CTA Head AND Neck W/Con IMPRESSION: Fluid density is noted in a portion of the left mastoid air cells, with mastoiditis. Unremarkable CTA of the head and neck. [facility] CC: Dr. Brayden Mac MD; Dr. Karl Bocanegra DO ~ Physical Therapy Professor: Signed [facility] Radiology Diagnostic study note 08-01-2024 Note Date & Type Note Facility 08-01-2024 Radiology Diagnostic study note [facility] Imaging Services [address], [place] [id number] STROKE Brain/Head without Cont MR#: [id number] Acct: [id number] Name: KRISTINA SUAREZ Rep #: [id number] : [id number] F 64 From: Romain Mack MD PCP: Dr. Brayden Mac MD Status: REG ER Study:STROKE Brain/Head without Cont Date of Exam: 08/01/24 Exam# [id number] Ordering Dr: Karl Bocanegra DO PROCEDURE: STROKE BRAIN/HEAD WITHOUT CONT 08/01/2024 REASON FOR EXAM: NEURO DEFICIT, ACUTE, STROKE SUSPECTED Left arm weakness/numbness. TECHNIQUE: Head CT without intravenous contrast. Coronal and Sagittal reconstruction serieswere provided. One or more dose reduction techniques were used (e.g., Automated exposure control, adjustment of the mA and/or kV according to patient size, use of iterative reconstruction technique. RADIATION DOSE SUMMARY: CTDlvol: 44.99 mGy DLP: 796.11 mGycm COMPARISON: None FINDINGS: Brain: Tiny lacune is seen in the right basal ganglion. No surrounding edema ormass effect. CSF Spaces: Mild generalized cerebral atrophy Sinuses/Mastoids: Clear at visualized levels Bones: Unremarkable CT/STROKE Brain/Head without Cont IMPRESSION: Tiny lacune in the right basal ganglion. Red Alert: Tiny lacune in Right basal ganglion The critical information above was relayed directly by me by telephone to Karl Bocanegra on 08/01/2024 at 9:30 am with readback verification. Reading Location: [place] [address] CC: Dr. Brayden Mac MD; Dr. Karl Bocanegra DO ~ Physical Therapy Professor: Signed [facility] Evaluation note Note Date & Type Note Facility Evaluation note No assessment information availa ble [facility] Work Phone: Evaluation note Note Date & Type Note Facility Evaluation note Diagnosis Onset Date Resolution Brain TIA acute August 01 11:20am History of prediabetes acute Ju 2024 11:20am Left arm weakness acute August 012024 11:20am [facility] Work Phone: Reason for referral (narrative) Note Date & Type Note Facility Reason for referral (narrative) No reason for referral information available [facility] Work Phone: Summary Purpose Family History No Family History Records FoundNo Family History Records FoundNo Family History Records Found Advance Directives Advance Directive Response Recorded Date/ Time Living Will No September 10, 2020 9:35am Power of Fashion Intern No September 10 9:35am Advance Directive Response Recorded Date/ Time Living Will No September 10, 2020 8:35am Power of Fashion Intern No September 10 8:35am Advance Directive Response Recorded Date/ Time Do you have a Healthcare Power of Fashion Intern? No August 01, 2024 12:02pm Chief Complaint and Reason for Visit Chief Complaint FORMER TOBACCO USE Chief Complaint FORMER TOBACCO USE EORDER- URINE Chief Complaint SCREENING Chief Complaint SCREENING MALIGNANT NEOPLASM OF RESPITORY ORGANS Chief Complaint Encounter for screen ing for malignant neoplasm of Chief Complaint Admit Date TIA, LUE WEAKNESS August 01, 2024 11:2 0am Reason for Visit Admit Date Brain TIA August 01, 2024 11:2 0am History of prediabetes August 01, 2024 1 1:20am Left arm weakness August 01, 2024 11:2 0am Additional Source Comments INFORMATION SOURCE (unrecogn ized section and content) DATE CREATED AUTHOR 08/18/2017 [facility] DATE CREATED AUTHOR AUTHOR'S ORGANIZ ATION 08/18/2017 [facility] DATE CREATED AUTHOR AUTHOR'S ORGANIZ ATION 04/07/2024 [facility] Goals (unrecognized section and content) Goals may be documented in a n alternate sectionGoals may be documented in an alternate sectionGoals may be documented in an alternate sectionGoals may be documented in an alternate sectionGoals may be documented in an alternate sectionGoals may be documented in an alternate sectionGoals may be documented in an alternate section Care Teams (unrecognized sec tion and content) Team Status: Active Member Role Status Dates Dr. Brayden Mac MD Family Provider Active Dr. Brayden Mac MD Primary Care Provider Active Team Status: Active Member Role Status Dates Dr. Brayden Mac MD Primary Care Provider Active Chanell Cantu NP, DISTRIBUTION OPERATIONS MANAGER-C Attending Provider Active Team Status: Inactive Member Role Status Dates Dr. Brayden Mac MD Primary Care Provider Active Chanell Cantu NP, DISTRIBUTION OPERATIONS MANAGER-C Attending Provider, Referring Pro vider Active Team Status: Inactive Member Role Status Dates Dr. Brayden Mac MD Primary Care Provider Active Chanell Cantu NP, DISTRIBUTION OPERATIONS MANAGER-C Attending Provider Active Team Status: Active Member Role Status Dates Dr. Brayden Mac MD Primary Care Provider Active Team Status: Active Member Role Status Dates Dr. Brayden Mac MD Primary Care Provider Active Start: August 01, 2024 Dr. Karl Bocanegra DO Emergency Provider Active Start : August 01, 2024 Dr. Marie Marcos DO Admit Provider Active S tart: August 01, 2024 Dr. Marie Marcos DO Attending Provider Active Start: August 01, 2024 FOR RECORDS PERTAINING TO PATIENTS WHO ARE [...] BE BASED ON THE PRIMARY CLINICAL RECORDS. [email or web address]. provides no warranty or guarantee of the accuracy or completeness of information in this document.
--- NOTE | 2024-08-01 20:17 | DS.PCM_ITS ---
Providers Date of Admission: 08/01/24 Date of Discharge: 08/01/24 Primary Care Physician: Dr. Brayden Mac MD Consultations 08/01/24 12:01 Consult: Tele-Neurology Routine Consulting Provider: [facility] Reason for Consult: Acute Ischemic Stroke/TIA EMERGENT Consult: No MD Notified: Yes Date Notified: 08/01/24 Time Notified: 12:00 Method of Notification: ED Physician Initiated Nursing Unit Staff Notify [facility] of Tele-Neurology Consult: Yes Reason For Visit: TIA, LUE WEAKNESS Diagnosis Discharge Diagnosis (1) Brain TIA: Status: Acute Code(s): G45.9 - Transient cerebral ischemic attack, unspecified Plan 1. TIA involving the left arm-resolved at the time of discharge #2 prediabetes-patient is on metformin, this will be held during her observation stay #3 hypothyroidism-patient is on Synthroid #4 GERD-patient is on omeprazole according to nursing and she takes Pepcid as needed for symptoms Total clinical time spent by myself addressing the patient's medical issues, reviewing all of her data, and collaborating of the patient's care team: 55 minutes Medications at Discharge Home Medications acetaminophen 650 mg tablet,extended release (8 Hour Pain Reliever) 1,300 mg PO Q8H PRN fever or pain 08/01/24 aspirin 81 mg chewable tablet 81 mg PO BREAKFAST #0 tabs 08/01/24 atorvastatin 80 mg tablet 80 mg PO DAILY #30 tabs 08/01/24 celecoxib 200 mg capsule 200 mg PO BID PRN PRN knee pain 08/01/24 clopidogrel 75 mg tablet 75 mg PO DAILY #30 tabs 08/01/24 famotidine 20 mg tablet 20 mg PO BID 08/01/24 ibandronate 150 mg tablet 150 mg PO QMONTH 08/01/24 levothyroxine 125 mcg tablet 125 mcg PO DAILY 08/01/24 metformin 500 mg tablet 500 mg PO BID 08/01/24 pantoprazole 20 mg tablet,delayed release 20 mg PO DAILY 08/01/24 Hospital Course Operations None Procedures 2-D Echocardiogram Summary of Care Provided Minutes Spent on Discharge: 30 Hospital Course: This 64-year-old white female was seen in the emergency room at [facility] with complaints of an episode of left arm numbness and loss of strength that lasted approximately 1 minute while she was in her car. This resolved prior to her being seen in the emergency room at [facility], a stroke team was called on her arrival to the ER and she underwent imaging studies that were unremarkable except for a right basilar ganglia lacunar infarct. CTA of her head and neck did not show any evidence of high- grade occlusion. Patient is NIH stroke score was 0. Labs showed only a slightly low hemoglobin, chemistry panel was unremarkable. Patient was seen by stroke teleneurology, it was recommended the patient be placed in the hospital and undergo an echocardiogram labs and be seen by PT OT and speech therapy, also it was recommended she undergo an MRI of the brain and echocardiogram. Patient underwent an MRI of the brain on 08/01/2024 which was unremarkable, patient underwent an echocardiogram on 08/01/2024 which was also unremarkable for thrombus, a lipid profile was drawn on the patient, her NIH scores remained 0. I talked to the patient the evening of 08/01/2024, she desired to be discharged home and did not want to be seen by neurology on 08/02/2024. She she understood the risks of this. I made the decision to place her on aspirin 81 mg and Plavix 75 mg as well as Lipitor 80 mg. On 08/01/2024, patient was seen and examined: On examination she appeared in good health and spirits, she does not appear to be in any distress. Vital signs as documented. Skin warm and dry and without overt rashes. Neck without JVD, thyroid appears normal, trachea is midline, neck is supple. Lungs clear, normal air movement was noted. Heart exam notable for regular rhythm, normal sounds and absence of murmurs, rubs or gallops. Abdomen unremarkable and without evidence of organomegaly, masses, or abdominal aortic enlargement, bowel sounds are present in all 4 quadrants, no abdominal tenderness was noted. Extremities nonedematous, no cyanosis was noted, no clubbing was noted. Neuro: Cranial nerves II through XII are grossly intact, no focal motor deficits were noted, sensation to light touch and pinprick is intact, motor exam 5/5 throughout. Psych: Patient is alert and oriented x3, she does not appear anxious or depressed, she does not appear agitated. Patient was not seen by PT OT and speech therapy, patient felt that she did not need to see them and her NIH stroke score remained 0. Patient was discharged in stable condition on 08/01/2024 Weight / BMI Weight Weight: 85.1 kg Body Mass Index (BMI) 32.2 ABG / Lab / Microbiology Data 08/01/24 09:25 08/01/24 09:25 Laboratory: Laboratory Results - last 24 hr 08/01/24 09:08: POC Glucose 84 08/01/24 09:25: WBC 4.4, RBC 3.66 L, Hgb 11.2 L, Hct 34.0 L, MCV 92.9, MCH 30.6, MCHC 32.9, RDW Std Deviation 47.2 H, RDW Coeff of Jamin 13.7, Plt Count 273, MPV 10.3, Immature Gran % (Auto) 0.200, Neut % (Auto) 58.2, Lymph % (Auto) 29.6, [place] % (Auto) 7.0, Eos % (Auto) 3.4, Baso % (Auto) 1.6 H, Absolute Neuts (auto) 2.6, Absolute Lymphs (auto) 1.31, Nucleated RBC % 0, PT 13.0, INR 1.0, APTT 27.2, Sodium 133, Potassium 3.9, Chloride 102, Carbon Dioxide 22.3, Anion Gap 9, BUN 16, Creatinine 0.61 L, Estim Creat Clear Calc 72.92, Est GFR (MDRD) Non-Af 98, BUN/Creatinine Ratio 26.7 H, Glucose 94, Calcium 8.4, Troponin T High Sens 12 08/01/24 16:15: Troponin T Hi Sens 2 Hr 11 Radiography Diagnostic Testing: Radiology Impression Brain CT 08/01/24 09:09 IMPRESSION: Tiny lacune in the right basal ganglion. Red Alert: Tiny lacune in Right basal ganglion The critical information above was relayed directly by me by telephone to Karl Bocanegra on 08/01/2024 at 9:30 am with readback verification. Reading Location: [facility] Head/Neck CTA 08/01/24 09:09 IMPRESSION: Fluid density is noted in a portion of the left mastoid air cells, with mastoiditis. Unremarkable CTA of the head and neck. Reading Location: [facility] Echocardiogram 08/01/24 11:37 Interpretation Summary The LV systolic function is normal. EF is 65 %. Aortic sclerosis, no stenosis. Ordering Physician: Srinivasan Marcos Referring Physician: Brayden Mac MD Performed By: Jacquelin Werner RDCS and Student Brain MRI 08/01/24 15:15 IMPRESSION: No acute intracranial abnormality. Reading Location: [id number] D/C Instructions Discharge Diet: No restrictions Weight Bearing Status: Full weight bearing DC O2, CPAP, BIPAP Needs Home O2 Discharge instructions: No Meaningful Use Info Meaningful Use Meaningful Use Diagnoses (Choose all that apply): None applicable Ischemic Stroke Statin Dosing Therapy Reference: STATIN DOSE THERAPY REFERENCE: * Patients > 75 years receive moderate or high dose statin therapy. * Patients 75 years or YOUNGER should receive HIGH intensity statin dose unless contraindicated. You will be required to document reason for non-treatment if statin daily dose does not meet guidelines. HIGH DOSE STATIN THERAPY DAILY Atorvastatin > than or = to 40 mg Rosuvastatin > than or = to 20 mg Amlodipine + Atorvastatin > than or = to 2.5/40 mg Ezetimibe + Simvastatin 10/80 mg Simvastatin 80mg Discharge Plan Admission Admit Date/Time: 08/01/24 11:20 Primary Reason for Your Visit: Transient ischemic attack (TIA) Attending Provider: Srinivasan Marcos Primary Care Provider: Brayden Mac Consulting Providers: Bassam Cross; Gisela Reyes; Nohelia Burns; Lizbeth Peralta; Kate Goins; Cresencio Guzman; Adrienne Jaramillo; Forrest Luna; Zechariah Haines; Daniel Asencio; Martina Poe; Jonathan Lofton; Rosamaria Davenport; Reyes Stubbs; Turner Laurent; Karri Mims; Marina Falcon; Griffin Joseph; Becca Douglas; Cassie Mina Discharge Orders/Prescriptions Prescriptions: New atorvastatin 80 mg Tablet 80 mg PO DAILY Qty: 30 0RF aspirin 81 mg Tablet,Chewable 81 mg PO BREAKFAST Qty: 0 0RF clopidogrel 75 mg tablet 75 mg PO DAILY Qty: 30 0RF Continued pantoprazole 20 mg tablet,delayed release (DR/EC) 20 mg PO DAILY metformin 500 mg tablet 500 mg PO BID Patient Comments: patient takes 1,000 mg BID per PCP order. New prescription written, just not filled. famotidine 20 mg tablet 20 mg PO BID levothyroxine 125 mcg tablet 125 mcg PO DAILY ibandronate 150 mg tablet 150 mg PO QMONTH celecoxib 200 mg capsule 200 mg PO BID PRN PRN (Reason: knee pain) No Action acetaminophen [8 Hour Pain Reliever] 650 mg tablet extended release 1,300 mg PO Q8H PRN (Reason: fever or pain) Referrals / Follow Up: Brayden Mac MD [Primary Care Provider] - Within 2 Weeks Disposition Disposition (needs filled in before D/C Order can be placed): Home, Self Care Charges/Coding Visit Charges OBSV E&M: 32416 Observ/hosp same date L1
[2024-08-01 20:59] LABS: Cholesterol 190 mg/dL (<=200); High Density Lipoprotein 54 mg/dL; Low Density Lipoprotein Calc. 121 mg/dL; Triglycerides 75 mg/dL; Very Low Density Lipoprotein 15 mg/dL (5-40); cholesterol:hdl ratio screen 3.52
--- OUTSIDE RECORDS SUMMARY | 2024-08-01 23:02 | XMS RPT_ITS | CCD ---
Author Organization [facility] CliniSytx Care Team Providers Care Color Dipper Name Role Phone Angelo Payton Unavailable Vickie Haney Unavailable Unavailable FLORES, KOBI Unavailable Unavailable FLORES, KOBI Unavailable Unavailable FLORES, KOBI Unavailable Unavailable FLORES, KOBI Unavailable Unavailable FLORES, KOBI Unavailable Unavailable FLORES, KOBI Unavailable Unavailable FLORES, KOBI Unavailable Unavailable FLORES, KOBI Unavailable Unavailable FLORES, KOBI Unavailable Unavailable FLORES, KOBI Unavailable Unavailable Mac, Brayden Primary Care Unavailable Mac, Brayden Attending Unavailable Mac, Brayden Referring Unavailable Mac, Brayden Referring Unavailable Mac, Brayden Primary Care Unavailable Mac, Brayden Attending Unavailable Mac, Brayden Referring Unavailable Mac, Brayden Primary Care Unavailable Mac, Brayden Attending Unavailable Mac, Brayden Referring Unavailable Mac, Brayden Primary Care Unavailable Mac, Brayden Attending Unavailable Mac, Brayden Primary Care Unavailable Mac, Brayden Attending Unavailable Bubba WATSON, Dr. Owen Primary Care Provider [phone] Dr. Karl Bocanegra DO Emergency Provider Dr. Marie Marcos DO Admit Provider [phone] Marie Marcos DO Attending Provider Bassam Cross MD Other Provider Unavailable Dr. Gisela Reyes MD Other Provider Nohelia Burns MD Other Provider Unavailable Dr. Lizbeth Peralta DO Other Provider [phone] Dr. Kate Goins MD Other Provider Dr. Cresencio Guzman MD Other Provider Dr. Adrienne Jaramillo MD Other Provider Dr. Forrest Luna MD Other Provider Dr. Titus Haines MD Other Provider Luis M WATSON, Dr. Sanchez Other Provider [phone] Martina Poe MD Other Provider Kirsty WATSON, Dr. Castillo Other Provider Issac WATSON, Dr. Blank Other Provider [phone] Evelyne WATSON, Dr. Chambers Other Provider [phone] Mehran WATSON, Dr. Turner Reed Other Provider Prasanna WATSON, Dr. Zeng Other Provider Ezekiel WATSON, Dr. Gray Other Provider [phone] Opal WATSON, Dr. Moya Other Provider Misael WATSON, Dr. Hudson Other Provider Unavailable Leopoldo WATSON, Yousejeremy Other Provider Unavailable Rafat WATSON, Dr. Hobbs Attending Provider Hemant RIZVI, Dr. Mattson Other Provider Allergies Allergy Classification Reported Allergen(s) Allergy Type Date of Onset Reaction(s) Facility (2 sources) sulfamethoxazole / trimethoprim Drug Allergy 7 [facility] Work Phone: (2 sources) sulfamethoxazole / trimethoprim; Translations: [SULFAMETHOXAZOLE-TR IMETHOPRIM] Drug Allergy 7 [facility] Rep[facility] (8 sources) Sulfamethoxazole Drug Allergy 1 Swelling [facility] (8 sources) Trimethoprim Drug Allergy 1 [facility] (1 source) Sulfamethoxazole Drug Allergy 1 [facility] Repository (1 source) Trimethoprim Drug Allergy 1 [facility] Repository Medications Current Medications Medication Drug Class(es) Dates Sig (Normalized) Sig (Original) 8 hr acetaminophen 650 mg extended release oral tablet (2 sources) Start: 08-01-2024 Acetaminophen (8 Hour Pain Reliever) 650 mg tablet extended release Active 1300 mg PO Q8H as needed for fever or pain August 01, 2024 12:00am aspirin 81 mg chewable tablet (1 source) Platelet Aggregation Inhibitor, Nonsteroidal Anti-inflammatory Drug Start: 08-01-2024 take 1 tablet by mouth at breakfast Aspirin 81 mg Tablet,Chewable Active 81 mg PO WITH BREAKFAST 0 August 01, 2024 12:00am atorvastatin 80 mg oral tablet (1 source) HMG-CoA Reductase Inhibitor Start: 08-01-2024 take 1 tablet by mouth once daily Atorvastatin 80 mg Tablet Active 80 mg PO DAILY August 01, 2024 12:00am celecoxib 200 mg oral capsule (1 source) Nonsteroidal Anti-inflammatory Drug Start: 08-01-2024 take 1 capsule by mouth twice daily as needed for pain Celecoxib 200 mg capsule Active 200 mg PO TWICE DAILY NEEDED as needed for knee pain August 01, 2024 12:00am clopidogrel 75 mg oral tablet (1 source) P2Y12 Platelet Inhibitor Start: 08-01-2024 take 1 tablet by mouth once daily Clopidogrel 75 mg tablet Active 75 mg PO DAILY August 01, 2024 12:00am famotidine 20 mg oral tablet (2 sources) Histamine-2 Receptor Antagonist Start: 08-01-2024 take 1 tablet by mouth twice daily Famotidine 20 mg tablet Active 20 mg PO TWICE A DAY August 01, 2024 12:00am ibandronic acid 150 mg oral tablet (2 sources) Bisphosphonate Start: 08-01-2024 take 1 tablet by mouth every month Ibandronate 150 mg tablet Active 150 mg PO EVERY MONTH August 01, 2024 12:00am metFORMIN hydrochloride 500 mg oral tablet (2 sources) Biguanide Start: 08-01-2024 take 1 tablet by mouth twice daily Metformin 500 mg tablet Active 500 mg PO TWICE A DAY August 01, 2024 12:00am pantoprazole 20 mg delayed release oral tablet (2 sources) Proton Pump Inhibitor Start: 08-01-2024 take 1 tablet by mouth once daily Pantoprazole 20 mg tablet,delayed release (DR/EC) Active 20 mg PO DAILY August 01, 2024 12:00am levothyroxine sodium 0.125 mg oral tablet (12 sources) l-Thyroxine Start: 08-01-2024 take 1 tablet [...] MCG TABS 1 tablet daily LEVOTHYROXINE SODIUM [id number] Bijan HUMMEL Completed/Discontinued Medications Medication Drug Class(es) Dates Sig (Normalized) Sig (Original) meloxicam 15 mg oral tablet (8 sources) Nonsteroidal Anti-inflammatory Drug Start: 09-10-2020 End: 08-01-2024 Meloxicam 15 mg tablet Discontinued 15 mg PO NEEDED as needed for Pain September 10, 2020 12:00am August 01, 2024 9:13am Problems Active Problems Problem Classification Problem Date Documented Date Episodic/Chronic Other connective tissue disease (4 sources) Muscle weakness of upper limb; Translations: [Other symptoms and signs involving the musculoskeletal system] 08-01-2024 Episodic Other screening for suspected conditions (not mental disorders or infectious disease) (11 sources) Patient encounter status; Translations: [Encounter for screening for malignant neoplasm of colon] Onset: 08-20-2023 09-11-2020 Episodic Residual codes; unclassified (4 sources) H/O: endocrine disorder; Translations: [Personal history of other specified conditions] 08-01-2024 Episodic Thyroid disorders (3 sources) Hypothyroidism; Translations: [Hypothyroidism, unspecified] Onset: 01-21-2017 01-21-2017 Chronic Transient cerebral ischemia (4 sources) Transient cerebral ischemia; Translations: [Transient cerebral [...] Auto (Unsp spec) [#/Vol] 1.31 10*3/uL 0.83-4.51 [facility] Absolute neutrophil countOrd ered By: Karl Bcoanegra on 08-01-2024 Neutrophils (Bld) [#/Vol] 2.6 10*3/uL 2.0-7.7 [facility] Activated partial thrombopla stin time (aPTT) in platelet poor plasma by coagulation aOrdered By: Karl Bocanegra on 08-01-2024 aPTT Coag (PPP) [Time] 27.2 s 24.1-36.2 [facility] Anion gap in Serum or Plasma Ordered By: Karl Bocanegra on 08-01-2024 Anion gap [Moles/Vol] 9 mmol/L 5-15 [facility] Automated lymphocyte count a s percentage of total leukocytesOrdered By: Karl Bocanegra on 08-01-2024 Lymphocytes/100 WBC Auto (Unsp spec) 29.6 % 19-41 [facility] BUN/creatinine ratioOrdered By: Karl Bocanegra on 08-01-2024 Urea nitrogen/Creatinine [Mass ratio] 26.7 mg/mg High 10-20 [facility] Basophil percentageOrdered B y: Karl Bocanegra on 08-01-2024 Basophils/100 WBC (Bld) 1.6 % High 0-1 [facility] Calculated very low density lipoprotein (VLDL) cholesterol measurementOrdered By: Marie Marcos on 08-01-2024 Calculated very low density lipoprotein (VLDL) cholesterol measurement 15 mg/dL 5-40 [facility] Carbon dioxide, total [Moles /volume] in Central venous bloodOrdered By: Karl Bocanegra on 08-01-2024 CO2 [Moles/Vol] 22.3 mmol/L 21.0-32.0 [facility] Chloride assayOrdered By: Juan Antonio Bocanegra on 08-01-2024 Chloride [Moles/Vol] 102 mmol/L 98-108 [facility] Echocardiogram study reportO rdered By: Anjel Douglass on 08-01-2024 Study report [facility] [address] [place] [address] Echo Complete W/ Contrast 08/01/24 1316 MR#: [id number] Acct: [id number] Name: KRISTINA SUAREZ Rep #:[id number] : 1960 64 From: Anjel Douglass MD Attending Dr: Dr. Marie Marcos, DO Status: ADM LUCIANA Ordering Dr: Marie Marcos DO Date: 08/01/24 Location: [facility] Sex: F C Admitted: 08/01/24 Reason For Study Reason For Study: TIA/CVA Procedure This was a 2D Doppler, Color Flow transthoracic echocardiogram. Contrast injection was performed. Exam performed portable in patient room. Left Ventricle Normal size and thickness. The LV systolic function is normal. EF is 65 %. Normal diastology for age. Right Ventricle Normal right ventricle. Atria The left and right atria are normal. Mitral Valve Trivial mitral valve insufficiency. Tricuspid Valve Trivial tricuspid valve insufficiency. Normal pulmonary artery pressure. Aortic Valve Aortic sclerosis, no stenosis. Pulmonic Valve The pulmonic valve is not well visualized. Great Vessels Normal sized aortic root. Pericardium/Pleural No pericardial effusion. Medication Diluted definity 1.5ml given slow IV push to enhance endocardial definition. MMode/2D Measurements & Calculations LVIDd: 4.4 cm IVSd: 1.1 cm LVOT diam: 2.0 cm LVIDs: 2.6 cm LVPWd: 0.96 cm RVDd: 3.4 cm FS: 41.2 % LVOT area: 3.1 cm2 asc Aorta Diam: 3.5 cm LAV(MOD-bp): 35.2 ml LVAd ap4: 30.5 cm2 LAV(MOD-bp) Indexed: 18.5 ml/m2 LVLd ap4: 8.1 cm LAV(MOD-sp2): 28.9 ml EDV(MOD-sp4): 94.4 ml LAV(MOD-sp4): 35.3 ml EDV(sp4-el): 97.8 ml LVAs ap4: 16.7 cm2 LVLs ap4: 6.5 cm ESV(MOD-sp4): 38.7 ml ESV(sp4-el): 36.6 ml EF(MOD-sp4): 59.1 % EF(sp4-el): 62.6 % LVAd ap2: 32.4 cm2 SV(MOD-sp4): 55.8 ml SV(MOD-sp2): 67.2 ml LVLd ap2: 8.1 cm SI(MOD-sp4): 29.3 ml/m2 SI(MOD-sp2): 35.4 ml/m2 EDV(MOD-sp2): 107.2 ml EDV(sp2-el): 109.3 ml LVAs ap2: 17.5 cm2 LVLs ap2: 6.7 cm ESV(MOD-sp2): 40.0 ml ESV(sp2-el): 38.8 ml EF(MOD-sp2): 62.7 % SV(sp4-el): 61.2 ml Ao sinus diam: 3.[address] Junction: 2.7 cm LA dimension(2D): 3.6 cm LA A4 area: 15.2 cm2 RA A4 area: 8.0 cm2 TAPSE: 2.0 cm Time Measurements MV dec time: 0.19 sec Doppler Measurements & Calculations MV E max yared: 64.3 cm/sec Lat Peak E' Yared: 10.5 cm/sec Med Peak E' Yared: 11.2 cm/sec MV A max yared: 75.9 cm/sec E/E' lat: 6.1 E/E' med: 5.8 MV E/A: 0.85 _ MV dec slope: 336.2 cm/sec2 Ao V2 max: 105.2 cm/sec LV V1 max: 85.2 cm/sec Ao max P.4 mmHg LV V1 max P.9 mmHg Ao V2 mean: 77.1 cm/sec LV V1 mean P.3 mmHg Ao mean P.6 mmHg LV V1 mean: 53.3 cm/sec Ao V2 VTI: 25.7 cm LV V1 VTI: 18.9 cm AV (velocity ratio): 0.73 KEYSHA(I,D): 2.3 cm2 KEYSHA(V,D): 2.6 cm2 SV(LVOT): 59.4 ml PA V2 max: 87.2 cm/sec TR max yared: 214.7 cm/sec TR max P.4 mmHg ECHO/Echo Complete W/ Contrast Interpretation Summary The LV systolic function is normal. EF is 65 %. Aortic sclerosis, no stenosis. Ordering Physician: Marie Marcos Referring Physician: Brayden Mac MD Performed By: Jacquelin Werner RDCS and Student 08/01/24 1530 Date _ Anjel Douglass MD CC: Dr. Brayden Mac MD; Dr. Marie Marcos DO ~ Date Dictated: 08/01/24 1316 Date Transcribed: 08/01/24 153 Pastry Chef: Signed [facility] Work Phone: Eosinophil percentageOrdered By: Karl Bocanegra on 08-01-2024 Eosinophils/100 WBC (Bld) 3.4 % 0-5 [facility] Erythrocyte distribution wid th ratioOrdered By: Karl Bocanegra on 08-01-2024 Erythrocyte distribution width (RBC) [Ratio] 13.7 % 11.6-14.6 [facility] Erythrocyte distribution wid th standard deviationOrdered By: Kalr Bocanegra on 08-01-2024 Erythrocyte distribution width (RBC) [Ratio] 47.2 fl High 35.1-43.9 [facility] Glomerular filtration rate ( GFR) estimation/1.73 sq m using serum, plasma, or whole bOrdered By: Karl Bocanegra on 08-01-2024 GFR/1.73 sq M.predicted among non-blacks MDRD (S/P/Bld) [Vol rate/Area] 98 mL/min/{1.73_m2} >60 [facility] Comment on above: mL/min/1.73m2 CKD-EP I Creatinine Equation (2020) Gl[facility] deOrdered By: Karl Bocanegra on 08-01-2024 Glucose [Mass/Vol] 84 mg/dL 74-106 [facility] Comment on above: MANAGEMENT OF PATIEN T CARE PER NURSING PROTOCOL Hematocrit Auto (Bld) [Volum e fraction]Ordered By: Karl Bocanegra on 08-01-2024 Hematocrit (Bld) [Volume fraction] 34.0 % Low 37-47 [facility] Hemoglobin measurementOrdere d By: Karl Bocanegra on 08-01-2024 Hemoglobin (Bld) [Mass/Vol] 11.2 g/dL Low 12.0-15.0 [facility] Immature granulocytes/100 WB C Auto (Bld)Ordered By: Karl Bocanegra on 08-01-2024 Immature granulocytes/100 WBC (Bld) 0.200 % 0.0-0.9 [facility] Comment on above: IG% - Immature Granu locytes (promyelocytes, myelocytes and metamyelocytes) > 1% indicates that a LEFT SHIFT is Present. International normalized rat io (INR) calculationOrdered By: Karl Bocanegra on 08-01-2024 INR Coag (Bld) [Relative time] 1.0 {INR} [facility] LDL calc ser/plasOrdered By: Marie Marcos on 08-01-2024 Cholesterol in LDL [Mass/Vol] 121 mg/dL [facility] Comment on above: Iaewztgccs=005-873 m g/dL & Higher Eypa=152 mg/dL or greater MCV (mean corpuscular volume ) determinationOrdered By: Karl Bocanegra on 08-01-2024 MCV (RBC) [Entitic vol] 92.9 fL 81-99 [facility] Magnetic resonance imaging r eportOrdered By: Jonathan Haney on 08-01-2024 Study report [facility] Imaging Services [address] [place], [place] [address] Brain without Contrast MR#: [id number] Acct: [id number] Name: KRISTINA SUAREZ Rep #: [id number] : 1960 F 64 From: Rik Haney MD PCP: Dr. rBayden Mac MD Status: ADM LUCIANA Study:Brain without Contrast Date of Exam: 08/01/24 Exam# [id number] Ordering Dr: Marie Reese DO PROCEDURE: BRAIN WITHOUT CONTRAST 08/01/2024 REASON FOR EXAM: TIA TECHNIQUE: Noncontrast brain MRI. Multiplanar and multisequence images were obtained. COMPARISON: 08/01/2024 CT and CTA. FINDINGS: The ventricles are normal in size and midline in position. No evidence of acutehemorrhage or infarction. No extra-axial blood or fluid collections. Periventricular white matter T2/FLAIR hyperintense foci likely representing mild chronic microvascular ischemia. Partial left and trace right mastoid effusions. The paranasal sinuses are clear. MRI/Brain without Contrast IMPRESSION: No acute intracranial abnormality. Reading Location: [place] [address] CC: Dr. Brayden Mac MD; Dr. Marie Marcos DO ~ Pastry Chef: Signed [facility] Mean corpuscular hemoglobin (MCH) determinationOrdered By: Karl Bocanegra on 08-01-2024 MCH (RBC) [Entitic mass] 30.6 pg 27.0-32.0 [facility] Mean corpuscular hemoglobin concentration (MCHC) determinationOrdered By: Karl Bocanegra on 08-01-2024 MCHC (RBC) [Mass/Vol] 32.9 g/dL 32-36 [facility] Mean platelet volume determi nationOrdered By: Karl Bocanegra on 08-01-2024 Platelet mean volume (Bld) [Entitic vol] 10.3 fL 6.2-12.0 [facility] Monocyte percentageOrdered B y: Karl Bocanegra on 08-01-2024 Monocytes/100 WBC (Bld) 7.0 % 0-10 [facility] Neutrophil percentageOrdered By: Karl Le on 08-01-2024 Neutrophils/100 WBC (Bld) 58.2 % 47-70 [facility] Nucleated red blood cell per centageOrdered By: Karl Le on 08-01-2024 Nucleated RBC/100 WBC (Bld) [Ratio] 0 % 0-5 [facility] Platelet countOrdered By: Juan Antonio Bocanegra on 08-01-2024 Platelets (Bld) [#/Vol] 273 10*3/uL 150-450 [facility] Potassium measurement (mass/ volume)Ordered By: Karl Bocanegra on 08-01-2024 Potassium (Unsp spec) [Mass/Vol] 3.9 mmol/L 3.3-5.1 [facility] Prothrombin timeOrdered By: Karl Bocanegra on 08-01-2024 PT Coag (PPP) [Time] 13.0 s 11.7-14.9 [facility] RBC Auto (Bld) [#/Vol]Ordere d By: Karl Bocanegra on 08-01-2024 RBC (Bld) [#/Vol] 3.66 10*6/uL Low 4.2-5.4 [facility] Screening total cholesterol/ high density lipoprotein (HDL) cholesterol ratioOrdered By: Marie Marcos on 08-01-2024 Cholesterol.total/Marisol sterol in HDL [Mass ratio] 3.52 {ratio} [facility] Serum creatinine measurement (mass/volume)Ordered By: Karl Bocanegra on 08-01-2024 Creatinine [Mass/Vol] 0.61 mg/dL Low 0.70-1.20 [facility] Serum glucose measurement (m ass/volume)Ordered By: Karl Bocanegra on 08-01-2024 Glucose [Mass/Vol] 94 mg/dL 70-99 [facility] Serum or plasma calcium delta urement (mass/volume)Ordered By: Karl Bocanegra on 08-01-2024 Calcium [Mass/Vol] 8.4 mg/dL 7.6-11.0 [facility] Serum or plasma cholesterol in HDL measurement (mass/volume)Ordered By: Marie Marcos on 08-01-2024 Cholesterol in HDL [Mass/Vol] 54 mg/dL >40 [facility] Comment on above: National Cholesterol Education Program (NCEP) guidelines:<40 mg/dL: Low HDL-cholesterol (major risk factor for CHD)>= 60 mg/dL: High HDL-cholesterol (negative risk factor for CHD)HDL-cholesterol is affected by a number of factors, e.g. smoking, exercise, hormones, sex and age. Serum or plasma cholesterol measurement (mass/volume)Ordered By: Marie Marcos on 08-01-2024 Cholesterol [Mass/Vol] 190 mg/dL <201 [facility] Comment on above: Cholesterol level, D esirable <200 mg/dLBorderline high cholesterol 200-239 mg/dLHigh cholesterol >=240 mg/dLRecommendations of the NCEP Adult Treatment Panel for the following risk-cutoff thresholds for the [place] population. Serum or plasma urea nitroge n measurement (mass/volume)Ordered By: Karl Bocanegra on 08-01-2024 Urea nitrogen [Mass/Vol] 16 mg/dL 4-19 [facility] Sodium levelOrdered By: Karl Bocanegra on 08-01-2024 Sodium [Moles/Vol] 133 mmol/L 133-145 [facility] Triglycerides measurementOrd ered By: Marie Marcos on 08-01-2024 Triglyceride [Mass/Vol] 75 mg/dL <199 [facility] Comment on above: The drugs N-Acetylcy steine and Metamizole may falsely depress this assay. Normal range: <150 mg/dLBorderline High: 150-199 mg/dLHigh: 200-499 mg/dLVery High: >500 mg/dL Troponin T.cardiac [Mass/vol ume] in Serum or Plasma by High sensitivity methodOrdered By: Karl Bocanegra on 08-01-2024 Troponin T.cardiac High sensitivity method [Mass/Vol] 11 ng/L <14 [facility] Troponin T.cardiac High sensitivity method [Mass/Vol] 12 ng/L <14 [facility] White blood cell (WBC) count Ordered By: Karl Bocanegra on 08-01-2024 WBC (Bld) [#/Vol] 4.4 10*3/uL 4.4-11.0 [facility] Low Dose CT Lung Screeningon 03-21-[address] Lung Screening [facility] Imaging Services [address] [place], [place] [id number] Low Dose CT Lung Screening MR#: [id number] Acct: [id number] Name: KRISTINA SUAREZ Rep #: [id number] : 1960 F 64 From: Jonathan Haney MD PCP: Dr. Brayden Mac MD Status: REG CLI Study: Low Dose CT Lung Screening Date of Exam: 03/21 Exam# [id number] Ordering Dr: Brayden Mac MD PROCEDURE: LOW [...] Lung-RADS is available at [email or web address] Reading Location: [id number] CC: Dr. Brayden Mac MD Pastry Chef: Signed Normal [facility] CBC W/Diff, Automatedon 12-0 Absolute Lymph 1.68 X10 3/uL Normal 0.83-4.51 [facility] Comment on above: Order Comment: Order Date: 01/27/24 Order Info: 0184-1 - CBCD Performed By: #### L 500.4050, L100.0100, L501.9520, L501.9985, L506.0400 #### [facility] Laboratory [address] [place], [address] Absolute Neut 4.5 X10 3/uL Normal 2.0-7.7 [facility] Comment on above: Order Comment: Order Date: 01/27/24 Order Info: 018- - CBCD Performed By: #### L 500.4050, L100.0100, L501.9520, L501.9985, L506.0400 #### [facility] [address] [place], [address] Basophils/100 WBC (Bld) 1.0 % Normal 0-1 [facility] Comment on above: Order Comment: Order Date: 01/27/24 Order Info: 018- - CBCD Performed By: #### L 500.4050, L100.0100, L501.9520, L501.9985, L506.0400 #### [facility] [address] [place], [address] Eosinophils/100 WBC (Bld) 4.7 % Normal 0-5 [facility] Comment on above: Order Comment: Order Date: 01/27/24 Order Info: 0184-1 - CBCD Performed By: #### L 500.4050, L100.0100, L501.9520, L501.9985, L506.0400 #### [facility] [address] [place], [address] Erythrocyte distribution width (RBC) [Ratio] 13.3 % Normal 11.6-14.6 [facility] Comment on above: Order Comment: Order Date: 01/27/24 Order Info: 0184-1 - CBCD Performed By: #### L 500.4050, L100.0100, L501.9520, L501.9985, L506.0400 #### [facility] [address] [place], [address] Hematocrit (Bld) [Volume fraction] 42.1 % Normal 37-47 [facility] Comment on above: Order Comment: Order Date: 01/27/24 Order Info: 0184-1 - CBCD Performed By: #### L 500.4050, L100.0100, L501.9520, L501.9985, L506.0400 #### [facility] [address] [place], [address] Hemoglobin (Bld) [Mass/Vol] 13.0 g/dL Normal 12.0-15.0 [facility] Comment on above: Order Comment: Order Date: 01/27/24 Order Info: 0184-1 - CBCD Performed By: #### L 500.4050, L100.0100, L501.9520, L501.9985, L506.0400 #### [facility] [address] [place], [address] IG% 0.600 Normal 0.0-0.9 [facility] Comment on above: Order Comment: Order Date: 01/27/24 Order Info: 0184-1 - CBCD Result Comment: IG% - Immature Granulocytes (promyelocytes, myelocytes and metamyelocytes) > 1% indicates that a LEFT SHIFT is Present. Performed By: #### L 500.4050, L100.0100, L501.9520, L501.9985, L506.0400 #### [facility] [address] [place], [address] Lymphocytes/100 WBC (Bld) 23.8 % Normal 19-41 [facility] Comment on above: Order Comment: Order Date: 01/27/24 Order Info: 0184-1 - CBCD Performed By: #### L 500.4050, L100.0100, L501.9520, L501.9985, L506.0400 #### [facility] [address] [place], [address] MCH (RBC) [Entitic mass] 29.6 pg Normal 27.0-32.0 [facility] Comment on above: Order Comment: Order Date: 01/27/24 Order Info: 0184- - CBCD Performed By: #### L 500.4050, L100.0100, L501.9520, L501.9985, L506.0400 #### [facility] [address] [place], [address] MCHC (RBC) [Mass/Vol] 30.9 g/dL Low 32-36 [facility] Comment on above: Order Comment: Order Date: 01/27/24 Order Info: 0184- - CBCD Performed By: #### L 500.4050, L100.0100, L501.9520, L501.9985, L506.0400 #### [facility] [address] [place], [address] MCV (RBC) [Entitic vol] 95.9 fL Normal 81-99 [facility] Comment on above: Order Comment: Order Date: 01/27/24 Order Info: 0184-1 - CBCD Performed By: #### L 500.4050, L100.0100, L501.9520, L501.9985, L506.0400 #### [facility] [address] [place], [address] Monocytes/100 WBC (Bld) 6.5 % Normal 0-10 [facility] Comment on above: Order Comment: Order Date: 01/27/24 Order Info: 0184-1 - CBCD Performed By: #### L 500.4050, L100.0100, L501.9520, L501.9985, L506.0400 #### [facility] [address] [place], [address] Neutrophils/100 WBC (Bld) 63.4 % Normal 47-70 [facility] Comment on above: Order Comment: Order Date: 01/27/24 Order Info: 0184-1 - CBCD Performed By: #### L 500.4050, L100.0100, L501.9520, L501.9985, L506.0400 #### [facility] [address] [place], [address] Nucleated RBC (Bld) [#/Vol] 0 10*3/uL Normal 0-5 [facility] Comment on above: Order Comment: Order Date: 01/27/24 Order Info: 0184-1 - CBCD Performed By: #### L 500.4050, L100.0100, L501.9520, L501.9985, L506.0400 #### [facility] [address] [place], [address] Platelet mean volume (Bld) [Entitic vol] 10.9 fL Normal 6.2-12.0 [facility] Comment on above: Order Comment: Order Date: 01/27/24 Order Info: 0184-1 - CBCD Performed By: #### L 500.4050, L100.0100, L501.9520, L501.9985, L506.0400 #### [facility] [address] [place], [address] Platelets (Bld) [#/Vol] 336 10*3/uL Normal 150-450 [facility] Comment on above: Order Comment: Order Date: 01/27/24 Order Info: 0184-1 - CBCD Performed By: #### L 500.4050, L100.0100, L501.9520, L501.9985, L506.0400 #### [facility] [address] [place], [address] RBC (Bld) [#/Vol] 4.39 10*6/uL Normal 4.2-5.4 [facility] Comment on above: Order Comment: Order Date: 01/27/24 Order Info: 0184-1 - CBCD Performed By: #### L 500.4050, L100.0100, L501.9520, L501.9985, L506.0400 #### [facility] [address] [place], [address] RDW SD 48.0 fl High 35.1-43.9 [facility] Comment on above: Order Comment: Order Date: 01/27/24 Order Info: 0184- - CBCD Performed By: #### L 500.4050, L100.0100, L501.9520, L501.9985, L506.0400 #### [facility] [address] [place], [address] WBC (Bld) [#/Vol] 7.1 10*3/uL Normal 4.4-11.0 [facility] Comment on above: Order Comment: Order Date: 01/27/24 Order Info: 0184-1 - CBCD Performed By: #### L 500.4050, L100.0100, L501.9520, L501.9985, L506.0400 #### [facility] [address] [place], [address] Comprehensive Metabolic Prof ilon 01-27-2024 Albumin [Mass/Vol] 3.6 g/dL Normal 3.2-5.0 [facility] Comment on above: Order Comment: Order Date: 01/27/24 Order Info: 0786-1 - CMP Order Info: 3016-3 - TSH Order Info: 3024-7 - T4F Performed By: #### L 500.4050, L100.0100, L501.9520, L501.9985, L506.0400 #### [facility] [address] [place], [address] Albumin/Globulin [Mass ratio] 1.0 {ratio} Normal 0.9-2.4 [facility] Comment on above: Order Comment: Order Date: 01/27/24 Order Info: 0786-1 - CMP Order Info: 3016-3 - TSH Order Info: 3024-7 - T4F Performed By: #### L 500.4050, L100.0100, L501.9520, L501.9985, L506.0400 #### [facility] [address] [place], [address] ALK P 73 U/L Normal 45-117 [facility] Comment on above: Order Comment: Order Date: 01/27/24 Order Info: 0786-1 - CMP Order Info: 3 - TSH Order Info: 3027 - T4F Performed By: #### L 500.4050, L100.0100, L501.9520, L501.9985, L506.0400 #### [facility] [address] [place], [address] ALT [Catalytic activity/Vol] 28 U/L Normal 13-56 [facility] Comment on above: Order Comment: Order Date: 01/27/24 Order Info: 0786-1 - CMP Order Info: 3 - TSH Order Info: 302-7 - T4F Performed By: #### L 500.4050, L100.0100, L501.9520, L501.9985, L506.0400 #### [facility] [address] [place], [address] AST [Catalytic activity/Vol] 20 U/L Normal 15-37 [facility] Comment on above: Order Comment: Order Date: 01/27/24 Order Info: 0786-1 - CMP Order Info: 3013 - TSH Order Info: 3024-7 - T4F Performed By: #### L 500.4050, L100.0100, L501.9520, L501.9985, L506.0400 #### [facility] [address] [place], [address] Bilirubin [Mass/Vol] 0.40 mg/dL Normal 0.20-1.00 [facility] Comment on above: Order Comment: Order Date: 01/27/24 Order Info: 0786-1 - CMP Order Info: 3016-3 - TSH Order Info: 3027 - T4F Result Comment: For patients on eltrombopag therapy, use of Dimension [place] TBIL is not recommended. Performed By: #### L 500.4050, L100.0100, L501.9520, L501.9985, L506.0400 #### [facility] [address] [place], [address] BUN/CRE 19.1 RATIO Normal 10-20 [facility] Comment on above: Order Comment: Order Date: 01/27/24 Order Info: 0786-1 - CMP Order Info: 3016-3 - TSH Order Info: 7 - T4F Performed By: #### L 500.4050, L100.0100, L501.9520, L501.9985, L506.0400 #### [facility] [address] [place], [address] CA,Total 9.1 mg/dL Normal 8.5-10.1 [facility] Comment on above: Order Comment: Order Date: 01/27/24 Order Info: 0786-1 - CMP Order Info: 3016-3 - TSH Order Info: 3027 - T4F Performed By: #### L 500.4050, L100.0100, L501.9520, L501.9985, L506.0400 #### [facility] [address] [place], [address] Chloride [Moles/Vol] 106 mmol/L Normal 98-107 [facility] Comment on above: Order Comment: Order Date: 01/27/24 Order Info: 785-02 - CMP Order Info: 3015-04 - TSH Order Info: 3023-08 - T4F Performed By: #### L 500.4050, L100.0100, L501.9520, L501.9985, L506.0400 #### [facility] [address] [place], [address] CO2 [Moles/Vol] 27.0 mmol/L Normal 21.0-32.0 [facility] Comment on above: Order Comment: Order Date: 01/27/24 Order Info: 785-02 - CMP Order Info: 3015-04 - TSH Order Info: 3023-08 - T4F Performed By: #### L 500.4050, L100.0100, L501.9520, L501.9985, L506.0400 #### [facility] [address] [place], [address] Creatinine [Mass/Vol] 0.73 mg/dL Normal 0.55-1.02 [facility] Comment on above: Order Comment: Order Date: 01/27/24 Order Info: 785-02 - CMP Order Info: 3015-04 - TSH Order Info: 3023-08 - T4F Result Comment: The validity of the calculated GFR GFRAA in patients over 70 years has not been determined. Clinical correlation is essential. Performed By: #### L 500.4050, L100.0100, L501.9520, L501.9985, L506.0400 #### [facility] [address] [place], [address] EST GFR - AA 102 mL/min Normal >60 [facility] Comment on above: Order Comment: Order Date: 01/27/24 Order Info: 07861 - CMP Order Info: 3015-04 - TSH Order Info: 3027 - T4F Result Comment: Afri can [place] GFR Calc Performed By: #### L 500.4050, L100.0100, L501.9520, L501.9985, L506.0400 #### [facility] [address] [place], [address] GAP 5 Normal 5-15 [facility] Comment on above: Order Comment: Order Date: 01/27/24 Order Info: 0786-1 - CMP Order Info: 3016-3 - TSH Order Info: 3024-7 - T4F Performed By: #### L 500.4050, L100.0100, L501.9520, L501.9985, L506.0400 #### [facility] [address] [place], [address] GFR/1.73 sq M.predicted among non-blacks MDRD (S/P/Bld) [Vol rate/Area] 84 mL/min/{1.73_m2} Normal >60 [facility] Comment on above: Order Comment: Order Date: 01/27/24 Order Info: 0786-1 - CMP Order Info: 3015-3 - TSH Order Info: 3024-7 - T4F Result Comment: Non- GFR Calc Performed By: #### L 500.4050, L100.0100, L501.9520, L501.9985, L506.0400 #### [facility] [address] [place], [address] Globulin (S) [Mass/Vol] 3.6 g/dL Normal 2.2-4.2 [facility] Comment on above: Order Comment: Order Date: 01/27/24 Order Info: 0786-1 - CMP Order Info: 3016-3 - TSH Order Info: 3024-7 - T4F Performed By: #### L 500.4050, L100.0100, L501.9520, L501.9985, L506.0400 #### [facility] [address] [place], [address] Glucose [Mass/Vol] 91 mg/dL Normal 74-106 [facility] Comment on above: Order Comment: Order Date: 01/27/24 Order Info: 0786-1 - CMP Order Info: 3 - TSH Order Info: 3027 - T4F Performed By: #### L 500.4050, L100.0100, L501.9520, L501.9985, L506.0400 #### [facility] [address] [place], [address] Potassium [Moles/Vol] 4.3 mmol/L Normal 3.5-5.1 [facility] Comment on above: Order Comment: Order Date: 01/27/24 Order Info: 0786-1 - CMP Order Info: 3 - TSH Order Info: 7 - T4F Performed By: #### L 500.4050, L100.0100, L501.9520, L501.9985, L506.0400 #### [facility] [address] [place], [address] Sodium [Moles/Vol] 138 mmol/L Normal 136-145 [facility] Comment on above: Order Comment: Order Date: 01/27/24 Order Info: 0786-1 - CMP Order Info: 3 - TSH Order Info: 3027 - T4F Performed By: #### L 500.4050, L100.0100, L501.9520, L501.9985, L506.0400 #### [facility] [address] [place], [address] T PROT 7.2 g/dL Normal 6.4-8.2 [facility] Comment on above: Order Comment: Order Date: 01/27/24 Order Info: 0786-1 - CMP Order Info: 3 - TSH Order Info: 3027 - T4F Performed By: #### L 500.4050, L100.0100, L501.9520, L501.9985, L506.0400 #### [facility] [address] [place], [address] Urea nitrogen [Mass/Vol] 14 mg/dL Normal 7-18 [facility] Comment on above: Order Comment: Order Date: 01/27/24 Order Info: 0786-1 - CMP Order Info: 3015-3 - TSH Order Info: 3023-7 - T4F Performed By: #### L 500.4050, L100.0100, L501.9520, L501.9985, L506.0400 #### [facility] [address] [place], [address] Hemoglobin A1con 01-27-2024 HbA1c (Bld) [Mass fraction] 5.7 % High 3.8-5.6 [facility] Comment on above: Order Comment: Order Date: 01/27/24 Order Info: 4548-4 - A1C Result Comment: Norm al < 5.7 % Prediabetic 5.7 - 6.4 % Diabetic >or= 6.5 % Please note range changes. Performed By: #### L 500.4050, L100.0100, L501.9520, L501.9985, L506.0400 #### [facility] [address] [place], [address] T4 Free Directon 01-27-2024 T4 FREE DIRECT 1.37 ng/dL Normal 0.76-1.46 [facility] Comment on above: Order Comment: Order Date: 01/27/24 Order Info: 0786-1 - CMP Order Info: 301-3 - TSH Order Info: 7 - T4F Performed By: #### L 500.4050, L100.0100, L501.9520, L501.9985, L506.0400 #### [facility] [address] [place], [address] Thyroid Stim Hormone (TSH)on 01-27-2024 TSH 5.210 uIU/mL High 0.358-3.740 [facility] Comment on above: Order Comment: Order Date: 01/27/24 Order Info: 0786-1 - CMP Order Info: 3 - TSH Order Info: 7 - T4F Performed By: #### L 500.4050, L100.0100, L501.9520, L501.9985, L506.0400 #### [facility] [address] [place], [place], [address] Lower Ext Joint Only (Routin e)on 09-13-2023 Lower Ext Joint Only (Routine) [facility] Imaging Services [address] [place] [address] Lower Ext Joint Only (Routine) MR#: [id number] Acct: [id number] Name: KRISTINA SUAREZ Rep #: [id number] : 1960 F 63 From: Evaristo Andrade MD PCP: Dr. Brayden Mac MD Status: REG CLI Study: Lower Ext Joint Only (Routine) Date of Exam: 0 09/13/23 Exam# [id number] Ordering Dr: Brayden Mac MD [id number] EXAM: MR LEFT LOWER EXTREMITY WITHOUT INTRAVENOUS [...] Signed: Evaristo Andrade MD at 0:35 EDT , CC: Dr. Brayden Mac MD Pastry Chef: Signed Normal [facility] Dexa Bone Density Studyon Dexa Bone Density Study [facility] Imaging Services [address] [place] [address] Dexa Bone Density Study MR#: [id number] Acct: [id number] Name: KRISTINA SUAREZ Rep #: [id number] : 1960 F 63 From: Zohaib garcia MD PCP: Dr. Brayden Mac MD Status: [facility] Study: Dexa Bone Density Study Date of Exam: 09/07/23 Exam# [id number] Ordering Dr: Brayden Mac MD [id number] STUDY: DUAL ENERGY X-RAY ABSORPTIOMETRY / DXA [...] EDT , CC: Dr. Brayden Mac MD Pastry Chef: Signed Normal [facility] SCRN MAMM (CAD)W/MARI Abdullahi n 09-07-2023 SCRN MAMM (CAD)W/MARI BRANT [facility] Imaging Services [address] [place] [place] [address] SCRN MAMM (CAD)W/MARI BILAT MR#: [id number] Acct: [id number] Name: KRISTINA SUAREZ Rep #: [id number] : 1960 F 63 From: Zohaib garcia MD PCP: Dr. Brayden Mac MD Status: [facility] Study: SCRN MAMM (CAD)W/MARI BILAT Date of Exam: 08/22 08/15 Exam# [id number] Ordering Dr: Brayden Mac MD [id number] MAMMOGRAPHY - BILATERAL SCREENING REASON FOR EXAM: [...] delay biopsy of a clinically suspicious abnormality. [id number] Electronically Signed: Zohaib Mack MD at 15:18 EDT , CC: Dr. Brayden Mac MD Pastry Chef: Signed Normal [facility] CBC W/Diff, Automatedon 07-23 Absolute Lymph 1.46 X10 3/uL Normal 0.83-4.51 [facility] Comment on above: Order Comment: Order Date: 08/03/23 Order Info: 0184-1 - CBCD Performed By: #### L 501.14553, L501.9520, L506.0400, L501.9985, L100.0100, L500.4100, L500.4050 #### [facility] [address] [place], [place], [id number] (607) Absolute Neut 3.4 X10 3/uL Normal 2.0-7.7 [facility] Comment on above: Order Comment: Order Date: 08/03/23 Order Info: 0184-1 - CBCD Performed By: #### L 501.69121, L501.9520, L506.0400, L501.9985, L100.0100, L500.4100, L500.4050 #### [facility] [address] [place], [address] Basophils/100 WBC (Bld) 1.6 % High 0-1 [facility] Comment on above: Order Comment: Order Date: 08/03/23 Order Info: 0184-1 - CBCD Performed By: #### L 501.37936, L501.9520, L506.0400, L501.9985, L100.0100, L500.4100, L500.4050 #### [facility] [address] [place], [place], [phone] (253) Eosinophils/100 WBC (Bld) 6.5 % High 0-5 [facility] Comment on above: Order Comment: Order Date: 08/03/23 Order Info: 0184-1 - CBCD Performed By: #### L 501.69685, L501.9520, L506.0400, L501.9985, L100.0100, L500.4100, L500.4050 #### [facility] [address] [place], [place], [phone] Erythrocyte distribution width (RBC) [Ratio] 13.8 % Normal 11.6-14.6 [facility] Comment on above: Order Comment: Order Date: 08/03/23 Order Info: 0184-1 - CBCD Performed By: #### L 501.11880, L501.9520, L506.0400, L501.9985, L100.0100, L500.4100, L500.4050 #### [facility] [address] [place], [place], [address] Hematocrit (Bld) [Volume fraction] 41.2 % Normal 37-47 [facility] Comment on above: Order Comment: Order Date: 08/03/23 Order Info: 0184-1 - CBCD Performed By: #### L 501.01066, L501.9520, L506.0400, L501.9985, L100.0100, L500.4100, L500.4050 #### [facility] [address] [place], [place], [phone] Hemoglobin (Bld) [Mass/Vol] 13.1 g/dL Normal 12.0-15.0 [facility] Comment on above: Order Comment: Order Date: 08/03/23 Order Info: 0184-1 - CBCD Performed By: #### L 501.38169, L501.9520, L506.0400, L501.9985, L100.0100, L500.4100, L500.4050 #### [facility] [address] [place], [address] IG% 0.200 Normal 0.0-0.9 [facility] Comment on above: Order Comment: Order Date: 08/03/23 Order Info: 01805-23 - CBCD Result Comment: IG% - Immature Granulocytes (promyelocytes, myelocytes and metamyelocytes) > 1% indicates that a LEFT SHIFT is Present. Performed By: #### L 501.94739, L501.9520, L506.0400, L501.9985, L100.0100, L500.4100, L500.4050 #### [facility] [address] [place], [address] Lymphocytes/100 WBC (Bld) 25.7 % Normal 19-41 [facility] Comment on above: Order Comment: Order Date: 08/03/23 Order Info: 01805-23 - CBCD Performed By: #### L 501.82139, L501.9520, L506.0400, L501.9985, L100.0100, L500.4100, L500.4050 #### [facility] [address] [place], [address] MCH (RBC) [Entitic mass] 30.9 pg Normal 27.0-32.0 [facility] Comment on above: Order Comment: Order Date: 08/03/23 Order Info: 01805-23 - CBCD Performed By: #### L 501.23317, L501.9520, L506.0400, L501.9985, L100.0100, L500.4100, L500.4050 #### [facility] [address] [place], [address] MCHC (RBC) [Mass/Vol] 31.8 g/dL Low 32-36 [facility] Comment on above: Order Comment: Order Date: 08/03/23 Order Info: 01805-23 - CBCD Performed By: #### L 501.82419, L501.9520, L506.0400, L501.9985, L100.0100, L500.4100, L500.4050 #### [facility] [address] [place], [address] MCV (RBC) [Entitic vol] 97.2 fL Normal 81-99 [facility] Comment on above: Order Comment: Order Date: 08/03/23 Order Info: 018- - CBCD Performed By: #### L 501.90144, L501.9520, L506.0400, L501.9985, L100.0100, L500.4100, L500.4050 #### [facility] [address] [place], [address] Monocytes/100 WBC (Bld) 6.0 % Normal 0-10 [facility] Comment on above: Order Comment: Order Date: 08/03/23 Order Info: 01805-23 - CBCD Performed By: #### L 501.45731, L501.9520, L506.0400, L501.9985, L100.0100, L500.4100, L500.4050 #### [facility] [address] [place], [address] Neutrophils/100 WBC (Bld) 60.0 % Normal 47-70 [facility] Comment on above: Order Comment: Order Date: 08/03/23 Order Info: 01805-23 - CBCD Performed By: #### L 501.91724, L501.9520, L506.0400, L501.9985, L100.0100, L500.4100, L500.4050 #### [facility] [address] [place], [address] Nucleated RBC (Bld) [#/Vol] 0 10*3/uL Normal 0-5 [facility] Comment on above: Order Comment: Order Date: 08/03/23 Order Info: 018- - CBCD Performed By: #### L 501.49481, L501.9520, L506.0400, L501.9985, L100.0100, L500.4100, L500.4050 #### [facility] [address] [place], [address] Platelet mean volume (Bld) [Entitic vol] 10.9 fL Normal 6.2-12.0 [facility] Comment on above: Order Comment: Order Date: 08/03/23 Order Info: 0184-1 - CBCD Performed By: #### L 501.60753, L501.9520, L506.0400, L501.9985, L100.0100, L500.4100, L500.4050 #### [facility] [address] [place], [address] Platelets (Bld) [#/Vol] 330 10*3/uL Normal 150-450 [facility] Comment on above: Order Comment: Order Date: 08/03/23 Order Info: 0184-1 - CBCD Performed By: #### L 501.78980, L501.9520, L506.0400, L501.9985, L100.0100, L500.4100, L500.4050 #### [facility] [address] [place], [address] RBC (Bld) [#/Vol] 4.24 10*6/uL Normal 4.2-5.4 [facility] Comment on above: Order Comment: Order Date: 08/03/23 Order Info: 0184-1 - CBCD Performed By: #### L 501.83722, L501.9520, L506.0400, L501.9985, L100.0100, L500.4100, L500.4050 #### [facility] [address] [place], [address] RDW SD 49.8 fl High 35.1-43.9 [facility] Comment on above: Order Comment: Order Date: 08/03/23 Order Info: 0184-1 - CBCD Performed By: #### L 501.89154, L501.9520, L506.0400, L501.9985, L100.0100, L500.4100, L500.4050 #### [facility] [address] [place], [place], [address] WBC (Bld) [#/Vol] 5.7 10*3/uL Normal 4.4-11.0 [facility] Comment on above: Order Comment: Order Date: 08/03/23 Order Info: 0184-1 - CBCD Performed By: #### L 501.50181, L501.9520, L506.0400, L501.9985, L100.0100, L500.4100, L500.4050 #### [facility] [address] [place], [place], [address] Comprehensive Metabolic Prof ilon 08-03-2023 Albumin [Mass/Vol] 3.5 g/dL Normal 3.2-5.0 [facility] Comment on above: Order Comment: Order Date: 08/03/23 Order Info: 0786-1 - CMP Order Info: 27338-2 - LIPID Order Info: 1-0 - T3F Order Info: 3 - TSH Order Info: 7 - T4F Performed By: #### L 501.41512, L501.9520, L506.0400, L501.9985, L100.0100, L500.4100, L500.4050 #### [facility] [address] [place], [place], [address] Albumin/Globulin [Mass ratio] 1.0 {ratio} Normal 0.9-2.4 [facility] Comment on above: Order Comment: Order Date: 08/03/23 Order Info: 0786-1 - CMP Order Info: 73567-1 - LIPID Order Info: 3051-0 - T3F Order Info: 3016-3 - TSH Order Info: 3024-7 - T4F Performed By: #### L 501.66280, L501.9520, L506.0400, L501.9985, L100.0100, L500.4100, L500.4050 #### [facility] [address] [place], [place], [address] ALK P 78 U/L Normal 45-117 [facility] Comment on above: Order Comment: Order Date: 08/03/23 Order Info: 86-1 - CMP Order Info: 41461-5 - LIPID Order Info: 3051-0 - T3F Order Info: 3016-3 - TSH Order Info: 3024-7 - T4F Performed By: #### L 501.05459, L501.9520, L506.0400, L501.9985, L100.0100, L500.4100, L500.4050 #### [facility] [address] [place], [place], [address] ALT [Catalytic activity/Vol] 26 U/L Normal 13-56 [facility] Comment on above: Order Comment: Order Date: 08/03/23 Order Info: 86-1 - CMP Order Info: 63665-0 - LIPID Order Info: 3051-0 - T3F Order Info: 3016-3 - TSH Order Info: 3024-7 - T4F Performed By: #### L 501.89588, L501.9520, L506.0400, L501.9985, L100.0100, L500.4100, L500.4050 #### [facility] [address] [place], [place], [address] [phone] [Catalytic activity/Vol] 22 U/L Normal 15-37 [facility] Comment on above: Order Comment: Order Date: 08/03/23 Order Info: 86-1 - CMP Order Info: 98955-9 - LIPID Order Info: 3051-0 - T3F Order Info: 3016-3 - TSH Order Info: 3024-7 - T4F Performed By: #### L 501.24872, L501.9520, L506.0400, L501.9985, L100.0100, L500.4100, L500.4050 #### [facility] [address] [place], [place], [address] Bilirubin [Mass/Vol] 0.30 mg/dL Normal 0.20-1.00 [facility] Comment on above: Order Comment: Order Date: 08/03/23 Order Info: 0786- - CMP Order Info: 57505-7 - LIPID Order Info: 3051-0 - T3F Order Info: 3 - TSH Order Info: 302-7 - T4F Result Comment: For patients on eltrombopag therapy, use of Dimension [place] TBIL is not recommended. Performed By: #### L 501.33222, L501.9520, L506.0400, L501.9985, L100.0100, L500.4100, L500.4050 #### [facility] [address] [place], [place], [address] BUN/CRE 17.6 RATIO Normal 10-20 [facility] Comment on above: Order Comment: Order Date: 08/03/23 Order Info: 785-02 - CMP Order Info: 61609-0 - LIPID Order Info: 3051-0 - T3F Order Info: 3 - TSH Order Info: 7 - T4F Performed By: #### L 501.11024, L501.9520, L506.0400, L501.9985, L100.0100, L500.4100, L500.4050 #### [facility] [address] [place], [place], [address] [place],Total 9.3 mg/dL Normal 8.5-10.1 [facility] Comment on above: Order Comment: Order Date: 08/03/23 Order Info: [id number] - CMP Order Info: [id number] - LIPID Order Info: 3051-0 - T3F Order Info: 3013 - TSH Order Info: 3024-7 - T4F Performed By: #### L [id number], [id number], L506.0400, L501.9985, L100.0100, L500.4100, L500.4050 #### [facility] [address] [place], [address] Chloride [Moles/Vol] 108 mmol/L High 98-107 [facility] Comment on above: Order Comment: Order Date: 08/03/23 Order Info: 785-1 - CMP Order Info: [id number] - LIPID Order Info: 3051-0 - T3F Order Info: 3013 - TSH Order Info: 302-7 - T4F Performed By: #### L 501.22706, L501.9520, L506.0400, L501.9985, L100.0100, L500.4100, L500.4050 #### [facility] [address] [place], [address] CO2 [Moles/Vol] 28.0 mmol/L Normal 21.0-32.0 [facility] Comment on above: Order Comment: Order Date: 08/03/23 Order Info: 785-02 - CMP Order Info: [id number] - LIPID Order Info: 3051-0 - T3F Order Info: 3 - TSH Order Info: 7 - T4F Performed By: #### L 501.86044, L501.9520, L506.0400, L501.9985, L100.0100, L500.4100, L500.4050 #### [facility] [address] [place], [address] Creatinine [Mass/Vol] 0.74 mg/dL Normal 0.55-1.02 [facility] Comment on above: Order Comment: Order Date: 08/03/23 Order Info: 785-1 - CMP Order Info: [id number] - LIPID Order Info: 3051-0 - T3F Order Info: 30163 - TSH Order Info: 3024-7 - T4F Result Comment: The validity of the calculated GFR GFRAA in patients over 70 years has not been determined. Clinical correlation is essential. Performed By: #### L 501.87269, L501.9520, L506.0400, L501.9985, L100.0100, L500.4100, L500.4050 #### [facility] [address] [place], [place], [address] EST GFR - AA 101 mL/min Normal >60 [facility] Comment on above: Order Comment: Order Date: 08/03/23 Order Info: 785-1 - CMP Order Info: - LIPID Order Info: 305-0 - T3F Order Info: 3 - TSH Order Info: 3027 - T4F Result Comment: Afri can [place]gu[place] GFR Calc Performed By: #### L 501.66602, L501.9520, L506.0400, L501.9985, L100.0100, L500.4100, L500.4050 #### [facility] [address] [place], [place], [id number] [phone] [phone] 3 Low 5-15 [facility] Comment on above: Order Comment: Order Date: 08/03/23 Order Info: 785-02 - CMP Order Info: - LIPID Order Info: 0 - T3F Order Info: [id number] - TSH Order Info: 7 - T4F Performed By: #### L 501.04659, L501.9520, L506.0400, L501.9985, L100.0100, L500.4100, L500.4050 #### [facility] [address] [place], [place], [address] GFR/1.73 sq M.predicted among non-blacks MDRD (S/P/Bld) [Vol rate/Area] 84 mL/min/{1.73_m2} Normal >60 [facility] Comment on above: Order Comment: Order Date: 08/03/23 Order Info: 785-1 - CMP Order Info: [id number] - LIPID Order Info: 3051-0 - T3F Order Info: 3 - TSH Order Info: 3027 - T4F Result Comment: Non- GFR Calc Performed By: #### L 501.71016, L501.9520, L506.0400, L501.9985, L100.0100, L500.4100, L500.4050 #### [facility] [address] [place], [address] Globulin (S) [Mass/Vol] 3.5 g/dL Normal 2.2-4.2 [facility] Comment on above: Order Comment: Order Date: 08/03/23 Order Info: 785- - CMP Order Info: [id number] - LIPID Order Info: 3051-0 - T3F Order Info: 3 - TSH Order Info: 7 - T4F Performed By: #### L 501.95647, L501.9520, L506.0400, L501.9985, L100.0100, L500.4100, L500.4050 #### [facility] [address] [place], [address] Glucose [Mass/Vol] 83 mg/dL Normal 74-106 [facility] Comment on above: Order Comment: Order Date: 08/03/23 Order Info: 785-02 - CMP Order Info: - LIPID Order Info: 3051-0 - T3F Order Info: 3 - TSH Order Info: 302-7 - T4F Performed By: #### L 501.67952, L501.9520, L506.0400, L501.9985, L100.0100, L500.4100, L500.4050 #### [facility] [address] [place], [address] Potassium [Moles/Vol] 4.2 mmol/L Normal 3.5-5.1 [facility] Comment on above: Order Comment: Order Date: 08/03/23 Order Info: 785-02 - CMP Order Info: [id number] - LIPID Order Info: 3051-0 - T3F Order Info: 3013 - TSH Order Info: 30247 - T4F Performed By: #### L 501.82005, L501.9520, L506.0400, L501.9985, L100.0100, L500.4100, L500.4050 #### [facility] [address] [place], [place], [address] Sodium [Moles/Vol] 139 mmol/L Normal 136-145 [facility] Comment on above: Order Comment: Order Date: 08/03/23 Order Info: 785-1 - CMP Order Info: [id number] - LIPID Order Info: 3051-0 - T3F Order Info: 3016-3 - TSH Order Info: 3024-7 - T4F Performed By: #### L 501.91229, L501.9520, L506.0400, L501.9985, L100.0100, L500.4100, L500.4050 #### [facility] [address] [place], [place], [address] T PROT 7.0 g/dL Normal 6.4-8.2 [facility] Comment on above: Order Comment: Order Date: 08/03/23 Order Info: 785-02 - CMP Order Info: [id number] - LIPID Order Info: 3051-0 - T3F Order Info: 3016-3 - TSH Order Info: 3024-7 - T4F Performed By: #### L 501.56507, L501.9520, L506.0400, L501.9985, L100.0100, L500.4100, L500.4050 #### [facility] [address] [place], [place], [address] Urea nitrogen [Mass/Vol] 13 mg/dL Normal 7-18 [facility] Comment on above: Order Comment: Order Date: 08/03/23 Order Info: 785-1 - CMP Order Info: [id number] - LIPID Order Info: 3051-0 - T3F Order Info: 3016-3 - TSH Order Info: 3024-7 - T4F Performed By: #### L 501.69709, L501.9520, L506.0400, L501.9985, L100.0100, L500.4100, L500.4050 #### [facility] [address] [place], [place], [address] Free T3on 08-03-2023 Free T3 [Mass/Vol] 1.9 pg/mL Low 2.18-3.98 [facility] Comment on above: Order Comment: Order Date: 08/03/23 Order Info: 0786- - CMP Order Info: [id number] - LIPID Order Info: 0 - T3F Order Info: 3 - TSH Order Info: 3023-08 - T4F Performed By: #### L 501.05972, L501.9520, L506.0400, L501.9985, L100.0100, L500.4100, L500.4050 #### [facility] [address] [place], [address] Hemoglobin A1con 08-03-2023 HbA1c (Bld) [Mass fraction] 5.5 % Normal 3.8-5.6 [facility] Comment on above: Order Comment: Order Date: 01/27/24 Order Info: 0184-1 - CBCD Result Comment: Norm al < 5.7 % Prediabetic 5.7 - 6.4 % Diabetic >or= 6.5 % Please note range changes. Performed By: #### L 500.4050, L100.0100, L501.9520, L501.9985, L506.0400 #### [facility] [address] [place], [address] Lipid Profileon 08-03-2023 Cholesterol [Mass/Vol] 209 mg/dL High 200 [facility] Comment on above: Order Comment: Order Date: 08/03/23 Order Info: 0786- - CMP Order Info: [id number] - LIPID Order Info: 3051-0 - T3F Order Info: 6-3 - TSH Order Info: 7 - T4F Result Comment: <200 mg/dL Desirable 200-240 mg/dL Borderline >240 mg/dL High Risk Performed By: #### L 501.98635, L501.9520, L506.0400, L501.9985, L100.0100, L500.4100, L500.4050 #### [facility] [address] [place], [address] Cholesterol in HDL [Mass/Vol] 68 mg/dL Normal [facility] Comment on above: Order Comment: Order Date: 08/03/23 Order Info: 0786- - CMP Order Info: [id number] - LIPID Order Info: 0 - T3F Order Info: 3 - TSH Order Info: 3023-08 T4F Result Comment: The drugs N-Acetylcysteine and Metamizole may falsely depress this assay. Reference Range HDL <40 mg/dL Low HDL Cholesterol HDL >or= 60 mg/dL High HDL Cholesterol Performed By: #### L 501.12116, L501.9520, L506.0400, L501.9985, L100.0100, L500.4100, L500.4050 #### [facility] [address] [place], [address] Cholesterol in LDL [Mass/Vol] 126 mg/dL Normal 0-130 [facility] Comment on above: Order Comment: Order Date: 08/03/23 Order Info: 0786 - CMP Order Info: [id number] - LIPID Order Info: T3F Order Info: [id number] - TSH Order Info: 3023-08 T4F Performed By: #### L 501.28157, L501.9520, L506.0400, L501.9985, L100.0100, L500.4100, L500.4050 #### [facility] [address] [place], [address] Cholesterol in VLDL [Mass/Vol] 15 mg/dL Normal 5-40 [facility] Comment on above: Order Comment: Order Date: 08/03/23 Order Info: 07- - CMP Order Info: - LIPID Order Info: 0 - T3F Order Info: 3 - TSH Order Info: 3023-08 - T4F Performed By: #### L 501.52766, L501.9520, L506.0400, L501.9985, L100.0100, L500.4100, L500.4050 #### [facility] [address] [place], [place], [address] [phone]) Triglyceride [Mass/Vol] 74 mg/dL Normal [facility] Comment on above: Order Comment: Order Date: 08/03/23 Order Info: 0786-1 - CMP Order Info: [id number] - LIPID Order Info: 0 - T3F Order Info: [id number] - TSH Order Info: 3023-08 - T4F Result Comment: The drugs N-Acetylcysteine and Metamizole may falsely depress this assay. Serum Triglycerides Reference Interval Normal <150 mg/dL Borderline high 150 - 199 mg/dL High 200 - 499 mg/dL Very High > or = 500 mg/dL Performed By: #### L 501.05713, L501.9520, L506.0400, L501.9985, L100.0100, L500.4100, L500.4050 #### [facility] [address] [place], [place], [id number] [phone] T4 Free Directon 08-03-2023 T4 FREE DIRECT 1.49 ng/dL High 0.76-1.46 [facility] Comment on above: Order Comment: Order Date: 01/27/24 Order Info: 0184-1 - CBCD Performed By: #### L 500.4050, L100.0100, L501.9520, L501.9985, L506.0400 #### [facility] [address] [place], [place], [address] [phone] Thyroid Stim Hormone (TSH)on 08-03-2023 TSH 3.04 uIU/mL Normal 0.358-3.74 [facility] Comment on above: Order Comment: Order Date: 01/27/24 Order Info: 0184-1 - CBCD Performed By: #### L 500.4050, L100.0100, L501.3677, L501.9952, L506.0400 #### [facility] [address] [place], [address] Basophil percentageOrdered B y: Chanell Cantu on 07-16-2022 Chloride [Moles/Vol] 107 mmol/L 98-107 [facility] Cholesterol [Mass/Vol] 203 mg/dL <200 [facility] Comment on above: <200 mg/dL Desirable 200-240 mg/dL Borderline >240 mg/dL High Risk Glucose [Mass/Vol] 83 mg/dL 74-106 [facility] Potassium [Moles/Vol] 4.3 mmol/L 3.5-5.1 [facility] Sodium [Moles/Vol] 139 mmol/L 136-145 [facility] Triglyceride [Mass/Vol] 79 mg/dL <199 [facility] Comment on above: The drugs N-Acetylcy steine and Metamizole may falsely depress this assay.Serum Triglycerides Reference Interval Normal <150 mg/dL Borderline high 150 - 199 mg/dL High 200 - 499 mg/dL Very High > or = 500 mg/dL Laboratory - Chemistry and C hemistry - challengeOrdered By: Chanell Cantu on 07-16-2022 CO2 [Moles/Vol] 25.0 mmol/L 21.0-32.0 [facility] Urea nitrogen/Creatinine [Mass ratio] 25.2 mg/mg 10-20 [facility] No Panel InformationOrdered By: Chanell Cantu on 07-16-2022 Estimated GFR (MDRD) Amer 106 mL/min >60 [facility] Comment on above: GFR Calc Estimated GFR (MDRD) Non-Af Amer 87 mL/min >60 [facility] Comment on above: Non- GFR Calc Thyroid Stimulating Hormone (TSH) 3.76 uIU/mL 0.358-3.74 [facility] Serum or plasma calcium delta urement (mass/volume)Ordered By: Chanell Cantu on 07-16-2022 Calcium [Mass/Vol] 9.1 mg/dL 8.5-10.1 [facility] Serum or plasma cholesterol in HDL measurement (mass/volume)Ordered By: Chanell Cantu on 07-16-2022 Cholesterol in HDL [Mass/Vol] 60 mg/dL >40 [facility] Comment on above: The drugs N-Acetylcy steine and Metamizole may falsely depress this assay. Reference Range HDL <40 mg/dL Low HDL Cholesterol HDL >or= 60 mg/dL High HDL Cholesterol Serum or plasma cholesterol in VLDL measurement (mass/volume)Ordered By: Chanell Cantu on 07-16-2022 Cholesterol in VLDL [Mass/Vol] 16 mg/dL 5-40 [facility] Serum or plasma creatinine m easurement (mass/volume)Ordered By: Chanell Cantu on 07-16-2022 Creatinine [Mass/Vol] 0.71 mg/dL 0.55-1.02 [facility] Comment on above: The validity of the calculated GFR & GFRAA in patients over 70 years has not been determined. Clinical correlation is essential. Serum or plasma low density lipoprotein (LDL) cholesterol measurement (mass/volume)Ordered By: Chanell Cantu on 07-16-2022 Cholesterol in LDL [Mass/Vol] 127 mg/dL 0-130 [facility] Serum or plasma urea nitroge n measurement (mass/volume)Ordered By: Chanell Cantu on 07-16-2022 Urea nitrogen [Mass/Vol] 18 mg/dL 7-18 [facility] Thin prep Papanicolaou smear with manual screeningOrdered By: Chanellmitch Cantu on 07-16-2022 Thin prep Papanicolaou smear with manual screening 7 5-15 [facility] Basophil percentageon 2021 Basophil percentage >100 SEEN /hpf 0-5 [facility] Work Phone: Bilirubin Test strip Ql (U)o n 12-08-2021 Bilirubin Ql (U) Negative Negative [facility] Work Phone: Ketones Test strip Ql (U)on 12-08-2021 Ketones Ql (U) Negative Negative [facility] Work Phone: Mucus LM Ql (Urine sed)on Mucus Ql (Urine sed) 0 SEEN /hpf [facility] Work Phone: Nitrite Test strip Ql (U)on 12-08-2021 Nitrite Ql (U) Positive Negative [facility] Work Phone: Protein Test strip Ql (U)on 12-08-2021 Protein Ql (U) 100 mg/dl Negative [facility] Work Phone: Squamous epithelial cells de tection in urine sediment by light microscopyon 12-08-2021 Epithelial cells.squamous LM Ql (Urine sed) 0-5 SEEN /hpf 5-10 [facility] Work Phone: Urine blood detectionon 11-22 RBC Ql (U) 250 /ul Negative [facility] Work Phone: [phone] RBC Ql (U) 50-100 SEEN /hpf 0-5 [facility] Work Phone: Urine clarityon 12-08-2021 Clarity (U) Sl. Cloudy Clear [facility] Work Phone: Urine color determinationon 12-08-2021 Color (U) Yellow Yellow [facility] Work Phone: Urine glucose detectionon Glucose Ql (U) Normal mg/dl Normal [facility] Work Phone: Urine leukocyte esterase det ection by dipstickon 12-08-2021 Leukocyte esterase Test strip Ql (U) 500 /ul Negative [facility] Work Phone: Urine pHon 12-08-2021 pH (U) 7.0 [pH] 5.0 - 8.0 [facility] Work Phone: Urine sediment bacteria coun t by microscopy (number/high power field)on 12-08-2021 Bacteria LM.HPF (Urine sed) [#/Area] 4 /[HPF] None Seen [facility] Work Phone: Urine specific gravity measu rementon 12-08-2021 Specific gravity (U) [Rel density] 1.010 1.002-1.030 [facility] Work Phone: Urobilinogen Auto test strip Ql (U)on 12-08-2021 Urobilinogen Ql (U) Normal mg/dl Normal [facility] Work Phone: Office Visit: UC: Hypothyroi dism aphthous ulcer,on 01-21-2017 Documentation of current medications (procedure) Done Invalid Interpretation Code [facility] Work Phone: Fall risk assessment No Invalid Interpretation Code [facility] Work Phone: Tobacco smoking status NHIS Never Invalid Interpretation Code [facility] Work Phone: Tobacco smoking status NHIS Tobacco smoking status NHIS Invalid Interpretation Code [facility] Work Phone: Tobacco use HS Never smoker Invalid Interpretation Code [facility] Work Phone: PROGRESSon 09-22-2016 PROGRESS HNO ID: [id number]: Kobi FloresSerlorrainee: (none)Author Type: PhysicianType: Progress NotesFiled: 09/22/2016 8:14 AMNote Text:Kobi Flores, [facility] OrthopaedicsOrtva hospitalae [address] [facility] [place] [address]Bkyr: [phone] Cavq 2016CHIEF COMPLAINT: Surgical Followup (6 weeks 3 [...] needed and all contraindications werereviewed.Radha mcmahon Information Below:Medications:[facility] ent Outpatient Prescriptions:levothyr oxine (SYNTHROID) 50 mcg ORAL tablet Take 125 mcg by mouth oncedaily.HYDROcodone- acetaminophen (NORCO) 5-325 mg per tablet Take 1 tablet bymouth every 6 hours as needed.No current facility-administered medications for this visit.Allergies: Bactrim [Sulfamethoxazole-Trim ethoprim]This note was partially generated using AroundWire voice recognition system,and there may be some incorrect words, spellings, and punctuation thatwere not noted in checking the note before saving.Kobi Flores MD Normal [facility] CNOVon 09-21-2016 CNOV Office Visit (ORTHWS) KRISTINA SUAREZ ([id number]) 1960 [facility] Time Provider Department09/21/16 1:00 PM KOBI FLORES During your visit today, we recorded the following information about you:Silva Charles Donovan 09/22/2016 8:14 AM SignedPatient presents with:Surgical Followup: [...] incision. New stockinet given from under EXOS brace.Kobi Flores MD 09/22/2016 8:14 AM SignedKobi Flores [facility] OrthopaedicsOrtlos [facility] [facility] [address]Vhya: [phone] Qths 2016CHIEF COMPLAINT: Surgical Followup (6 weeks 3 [...] [Sulfamethoxazole-Trim ethoprim]This note was partially generated using AroundWire voice recognition system, andthere may be some incorrect words, spellings, and punctuation that were notnoted in checking the note before saving.Reece Avendaño Provider: KOBI FLORES [[id number]]Allergies As of Date: 09/21/2016 Noted Allergy ReactionBACTRIM [...] healing, subsequent encounter [S52.571D]Prescription s as of 09/21/2016 Sig: * LEVOTHYROXINE 50 MCG TABLET Take 125 mcg by mouth once da* HYDROCODONE 5 MG-ACETAMINOPHE* Take 1 tablet by mouth every *Problem List As Of Date 09/21/2016 Noted Resolved Benign neoplasm of colon [D12.6] INVALID FOR* Special screening for malignant neoplasms, colo*INVALID FOR*08/05/2016 Hypothyroid [E03.9] INVALID FOR* Smoker [F17.200] INVALID FOR* Status:Closed by KOBI FLORES MD on 09/22/16 Normal [facility] PROGRESSon 09-21-2016 PROGRESS HNO ID: [id number]: Gris Trujillo RNService: (none)Author Type: (none)Type: Progress NotesFiled: 09/22/2016 8:14 AMNote Text:Incision cleansed with Chlora prep and small disolvable suture clipped atskin level mid incision. New stockinet given from under EXOS brace. Normal [facility] PROGRESS HNO ID: [id number]: Silva Charles MaService: (none)Author Type: (none)Type: Progress NotesFiled: 09/22/2016 8:14 [...] x-ray done today prior to appointment. Normal [facility] PROGRESS HNO ID: [id number]: Sania White (Rt) Itz Lim: (none)Author Type: TechnicianType: Progress NotesFiled: 09/21/2016 12:33 PMNote Text: Radiology Service Progress NotePATIENT NAME: Kristina RajputRN: [id number] OF SERVICE: September 21, 2016TIME: 12:27 PMPATIENT IDENTITY VERIFICATION COMPLETED USING TWO (2) METHODS: Patientconfirmed name verbally and Date of .PATIENT GENDER DATA: Female. status: : NoBreastfeeding status: NO.PATIENT RELEVANT IMPLANT DATA REVIEWED: Not ApplicableRADIOLOGY DEPARTMENT: General X-ray: Exam(s) Completed: Upper ExtremityX-Ray(s): Wrist, Right :PERIPHERAL IV DATA: Not applicableSIGNED BY: Sol Saunders 2016 12:27 PM [facility] XR [...] 21 2016 4:01PDictated by : TITUS ISLAS MDThidasia examination was interpreted and the report reviewed and electronically signed by: TIUTS ISLAS MD on Sep 21 2016 4:02PM EST Normal [facility] PROGRESSon 09-01-2016 PROGRESS HNO ID: [id number]: Kobi FloresSerlorrainee: (none)Author Type: PhysicianType: Progress NotesFiled: 09/01/2016 11:38 AMNote Text:Kobi Flores [facility]ep[facility] OrthopaedicsOrthopaedi [address] [place] [address]Gkbu: [phone] Adwv 2016CHIEF COMPLAINT: Post Op (3 week 3 days post ORIF right wrist ).ASSESSMENT:S52.571D Other closed intra-articular fracture of distal end of rightradius with routine healing, subsequent encounter (primary encounterdiagnosis)SUM JUAN CARLOS/PLAN:Patient is just over 3 weeks status post [...] the next 3 weeks or so. If sheremains quite stiff, we'll get her into hand [...] [Sulfamethoxazole-Trim ethoprim]This note was partially generated using AroundWire voice recognition system,and there may be some incorrect words, spellings, and punctuation thatwere not noted in checking the note before saving.Kobi Flores MD [facility] CNOVon 08-31-2016 CNOV Office Visit (ORTHWS) KRISTINA SUAREZ ([id number]) 1960 [facility] Time Provider Department08/31/16 4:00 PM KOBI FLORES During your visit today, we recorded the following information about you:Alis Ed Tarsha Lagos 09/01/2016 11:38 AM SignedAMB ROOMING INTAKE FLOWSHEET DATARisk ScreeningDo you have concerns about personal safety or safety in the home?: NoPatient here today for 3 weeks 3 days post ORIF right wrist. Denies any painin surgical arm. Arrives with cast intact, but removed for exam and x-ray.Silva Charles Ma 09/01/2016 11:38 AM SignedPT ASSESSMENT - CASTING ROOMKatlamar regional hospital presents for Application of brace.Applied DonKarina Exos short arm fracture brace open thumb to Right wrist.Patient tolerated well.Patient has been instructed in Care and proper application of brace. Patientsigned Jonathon Collins product agreement form for billing. Patient verbalizednakia Flores MD 09/01/2016 11:38 AM SignedKobi Flores [facility]ep[facility] OrthopaedicsOrtva hospitalae [address]ost[place] [address]Opmw: [phone] Hksi 2016CHIEF COMPLAINT: Post Op (3 week 3 days post ORIF right wrist ).ASSESSMENT:S52.979P Other closed intra-articular fracture of distal end [...] [Sulfamethoxazole-Trim ethoprim]This note was partially generated using AroundWire voice recognition system, andthere may be some incorrect words, spellings, and punctuation that were notnoted in checking the note before saving.Reece Avendaño Provider: KOBI FLORES [[id number]]Allergies As of Date: 08/31/2016 Noted Allergy ReactionBACTRIM (SULFAMETHOXAZOLE-TRIM ETH*08/03/2016 14 - Other: See Comments Comments: Tongue swells and lips get tinglyDate Reviewed: 08/31/2016Reviewed by: Alis Willingham Ma - Fully AssessedReason for Visit: Post Op [174] Cmt: 3 week 3 days post ORIF right wristPrimary Visit Diagnosis:Other closed intra-articular fracture of distal end of right radius with routine healing, subsequent encounter [S59.571D]Prescription s as of 08/31/2016 Sig: * LEVOTHYROXINE 50 MCG TABLET Take 125 mcg by mouth once da* HYDROCODONE 5 MG-ACETAMINOPHE* Take 1 tablet by mouth every *Medication notes this encounter HYDROCODONE 5 MG-ACETAMINOPHEN 325 MG TABLET >> Alis Willingham Ma 08/31/2016 4:07 PM >> TARSHA LAGOSALIS Ed Mon Aug 31, 2016 4:07 PM No longer taking.Problem List As Of Date 08/31/2016 Noted Resolved Benign neoplasm of colon [D12.6] INVALID FOR* Special screening for malignant neoplasms, colo*INVALID FOR*08/05/2016 Hypothyroid [E03.9] INVALID FOR* Smoker [F17.200] INVALID FOR* Status:Closed by KOBI FLORES MD on 09/01/16 [facility] PROGRESSon 08-31-2016 PROGRESS HNO ID: [id number]: Silva Charles MaService: (none)Author Type: (none)Type: Progress NotesFiled: 09/01/2016 11:38 AMNote Text:PT ASSESSMENT - CASTING ROOMKristina presents for Application of brace.Applied DonTop Prospect Exos short arm fracture brace open thumb to Right wrist.Patient tolerated well.Patient has been instructed in Care and proper application of brace.Patient signed adSage Karina product agreement form for billing. Patientverbalized understanding.Silva Charles Ma Normal [facility] PROGRESS HNO ID: [id number]: Sarah Cisneros (Itz Callahan: (none)Author Type: TechnicianType: Progress NotesFiled: 08/31/2016 4:41 PMNote Text: Radiology Service Progress NotePATIENT NAME: Kristina PorterMRN: [id number] OF SERVICE: August 31, 2016TIME: 4:34 PMPATIENT IDENTITY VERIFICATION COMPLETED USING TWO (2) METHODS: Patientconfirmed name verbally and Date of .PATIENT GENDER DATA: Female. status: : NoBreastfeeding status: NO.PATIENT RELEVANT IMPLANT DATA REVIEWED: Not ApplicableRADIOLOGY DEPARTMENT: General X-ray: Exam(s) Completed: Upper ExtremityX-Ray(s): Wrist, Right :PERIPHERAL IV DATA: Not applicableSIGNED BY: Sol Story 2016 4:34 PM Normal [facility] PROGRESS HNO ID: [id number]: Alis Boggsice: (none)Author Type: (none)Type: Progress NotesFiled: 09/01/2016 11:38 AMNote Text:AMB ROOMING INTAKE FLOWSHEET DATARisk ScreeningDo you have concerns about personal safety or safety in the home?: NoPatient here today for 3 weeks 3 days post ORIF right wrist. Denies anypain in surgical arm. Arrives with cast intact, but removed for exam andx-ray. Normal [facility] XR WRIST PA/LAT/OBLon 2016 XR WRIST PA/LAT/OBL [...] area of fracture consistent with callus.IMPRESSION:Heal ing fracture.Trade Union Official ist: PSCB Transcribe Date/Time: Sep 01 2016 6:17PDictated by : MARIE MARION MDThis examination was interpreted and the report reviewed and electronically signed by: MARIE MARION MD on Sep 01 2016 6:18PM EST Normal [facility] PROGRESSon 08-24-2016 PROGRESS HNO ID: [id number]: Kobi Spencer: (none)Author Type: PhysicianType: Progress NotesFiled: 08/24/2016 12:25 PMNote Text:TAYLOR Avendañoepartment of OrthopaedicsOrtva hospitalae cs[address] [place] [address]Lpsx: [phone] Vipo [id number] COMPLAINT: New Patient (Comminuted impacted right wrist fracture )HPI: Ms. Kristina Suarez is a 56 year old female , [id number] whohad a fall at her daughter's house just a day or 2 ago. She was then seenat urgent care and splinted. 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 Main Topics Smoking status: Current Every [...] by either mail or electronic medicalrecord.[place] Call, NBV9141 [facility] HospitalWOOCR[facility]ST[facility] [address]WxugtTitus Amaro MD[address] [facility] 102W[facility] [id number] note was partially generated using AroundWire voice recognition system,and there may be some incorrect words, spellings, and punctuation thatwere not noted in checking the note before saving.Kobi Flores MD [facility] Culture, urine Bacteria identified Cx Nom (U) Presumptive E. coli [facility] Work Phone: Vital Signs Date Time Vital Sign Value Performing Clinician Facility 08-01-2024 20:05-0400 Body temperature 97.9 [degF] Dr. Brayden Mac MD Work Phone: [facility] 08-01-2024 20:05-0400 Diastolic blood pressure 84 mm[Hg] Dr. Brayden Mac MD Work Phone: [facility] 08-01-2024 20:05-0400 Heart rate 64 /min Dr. Brayden Mac MD Work Phone: [facility] 08-01-2024 20:05-0400 Respiratory rate 18 /min Dr. Brayden Mac MD Work Phone: [facility] 08-01-2024 20:05-0400 SaO2% (BldA) [Mass fraction] 96 % Dr. Brayden Mac MD Work Phone: [facility] 08-01-2024 20:05-0400 Systolic blood pressure 141 mm[Hg] Dr. Brayden Mac MD Work Phone: [facility] 08-01-2024 14:45-0400 Body height 162.[address] Brayden Mac MD Work Phone: [facility] 08-01-2024 14:45-0400 Body weight 85.[address] Brayden Mac MD Work Phone: [facility] 08-01-2024 12:10-0400 Body height 162.[address] Brayden Mac MD Work Phone: [facility] 08-01-2024 12:10-0400 Body mass index (BMI) [Ratio] 32.2 kg/m2 Dr. Brayden Mac MD Work Phone: [facility] 08-01-2024 12:10-0400 Body weight 85.[address] Brayden Mac MD Work Phone: [facility] 08-01-2024 11:30-0400 Diastolic blood pressure 72 mm[Hg] Dr. Brayden Mac MD Work Phone: [facility] 08-01-2024 11:30-0400 Heart rate 63 /min Dr. Brayden Mac MD Work Phone: [facility] 08-01-2024 11:30-0400 Respiratory rate 14 /min Dr. Brayden Mac MD Work Phone: [facility] 08-01-2024 11:30-0400 SaO2% (BldA) [Mass fraction] 98 % Dr. Brayden Mac MD Work Phone: [facility] 08-01-2024 11:30-0400 Systolic blood pressure 180 mm[Hg] Dr. Brayden Mac MD Work Phone: [facility] 08-01-2024 11:18-0400 Body temperature 97.9 [degF] Dr. Brayden Mac MD Work Phone: [facility] 01-21-2017 12:39-0500 BMI (Body Mass Index) 24.93 kg/m2 [facility] Work Phone: 01-21-2017 12:39-0500 Body Temperature 98.1 [degF] [facility] Work Phone: 01-21-2017 12:39-0500 BP Diastolic 82 mm[Hg] [facility] Work Phone: 01-21-2017 12:39-0500 BP Systolic 124 mm[Hg] [facility] Work Phone: 01-21-2017 12:39-0500 Height 161.29 cm [facility] Work Phone: 01-21-2017 12:39-0500 Pulse (Heart Rate) 74 /min [facility] Work Phone: 01-21-2017 12:39-0500 Respiratory Rate 14 /min [facility] Work Phone: 01-21-2017 12:39-0500 Weight 64.86 kg [facility] Work Phone: Encounters Encounter Date Encounter Type Care Provider Facility Start: 08-01-2024 Non-patient / Non-visit Dr. Marie Hollingsworth DO -[facility] Work Phone: Start: 08-01-2024 Non-patient / Non-visit Dr. Anjel boyd MD -[facility] Start: 08-01-2024 End: 08-01-2024 Evaluation and management of inpatient Dr. Marie Marcos DO -[facility] Work Phone: Start: 08-01-2024 End: 08-01-[address] Brayden Mac MD Work Phone: [facility] Work Phone: Start: 03-21-2024 End: 03-21-2024 ambulatory Brayden Mac Facility:[facility] Start: 01-27-2024 End: 01-27-2024 ambulatory Brayden Mac Facility:[facility] Start: 09-13-2023 End: 09-13-2023 ambulatory Brayden Mac Facility:[facility] Start: 09-07-2023 End: 09-07-2023 ambulatory Brayden Mac Facility:[facility] Start: 08-03-2023 End: 08-03-2023 ambulatory Brayden Bubba Facility:[facility] Start: 03-20-2023 End: 03-20-2023 ambulatory [facility] Work Phone: Start: 03-20-2023 End: 03-20-2023 Patient encounter procedure [facility]-Erika Page [facility] Work Phone: Start: 09-16-2022 End: 09-16-2022 ambulatory [facility] Work Phone: Start: 09-16-2022 End: 09-16-2022 Patient encounter procedure [facility]-Cat Scan, [facility] Work Phone: Start: 07-17-2022 End: 07-17-2022 ambulatory [facility] Work Phone: Start: 07-17-2022 End: 07-17-2022 Patient encounter procedure [facility]-Outpatient [facility] Work Phone: Start: 07-16-2022 End: 07-16-2022 ambulatory [facility] Work Phone: Start: 07-16-2022 End: 07-16-2022 [facility] Start: 12-08-2021 End: 12-08-2021 ambulatory [facility] Work Phone: Start: 12-08-2021 End: 12-08-2021 Patient encounter procedure [facility]Laboratory Start: 09-12-2021 End: 09-12-2021 Patient encounter procedure [facility]-Cat Scan, [facility] Start: 09-21-2016 End: 09-21-2016 Ambulatory KOBI FLORES [facility] Start: 09-08-2016 End: 09-08-2016 Ambulatory KOBI FLORES [facility] Start: 08-31-2016 End: 08-31-2016 Ambulatory KOBI FLORES [facility] Start: 08-07-2016 Ambulatory KOBI FLORES [facility] Procedures Date Procedure Procedure Detail Performing Clinician Start: 08-01-2024 MRI of brain without contrast Dr. Brayden Mac MD Work Phone: Start: 08-01-[address] Brayden [...] Date Care Activity Detail Author Start: 08-01-2024 Patient discharge [facility] Start: 08-01-2024 Ambulation without limitation [facility] Start: 08-01-2024 Assessment of risk of venous thromboembolism [facility] Start: 08-01-2024 Cardiac monitoring [facility] Start: 08-01-2024 Catheterization of vein [facility] Start: 08-01-2024 Consultation [facility] Start: 08-01-2024 Continuous pulse oximetry [facility] Start: 08-01-2024 Exercises [facility] Start: 08-01-2024 Insertion of catheter into peripheral vein [facility] Start: 08-01-2024 Measuring intake and output [facility] Start: 08-01-2024 Notification of physician [facility] Start: 08-01-2024 Oxygen therapy [facility] Start: 08-01-2024 Patient referral to dietitian [facility] Start: 08-01-2024 Providing care according to standard [facility] Start: 08-01-2024 Referral to occupational therapist [facility] Start: 08-01-2024 Referral to service [facility] Start: 08-01-2024 Speech therapy assessment [facility] Start: 08-01-2024 Telemedicine consultation with patient [facility] Start: 08-01-2024 Vital signs measurements [facility] Start: 08-01-2024 MRI of brain without contrast Brain without Contrast [facility] Start: 08-01-2024 Verification routine [facility] Start: 08-01-2024 Admission procedure [facility] Start: 08-01-2024 End: 08-01-2024 [facility] Start: 08-01-2024 Hospital admission, emergency, from emergency room, medical nature [facility] Start: 08-01-2024 Oxygen therapy [facility] Start: 08-01-2024 [facility] Start: 01-21-2017 End: 01-21-2017 Appointment Appointment [facility] Work Phone: Cholesterol [Mass/vo lume] in Serum or Plasma [facility] Cholesterol in HDL [Mass/volume] in Serum or Plasma [facility] Low density lipoprot ein cholesterol measurement [facility] Patient referral [facility] Work Phone: Total cholesterol:HD L ratio measurement [facility] Triglycerides measurement [facility] Troponin T.cardiac [Mass/volume] in Serum or Plasma by High sensitivity method [facility] Troponin T.cardiac [Mass/volume] in Serum or Plasma by High sensitivity method [facility] VLDL cholesterol measurement [facility] Work Phone: Payers Date Payer Category Payer Self-pay [id number] 2023 Unknown [id number] Private Health Insurance [employer] [id number] Unknown [id number] Unknown [id number] [id number] Unknown [id number] [id number] [id number] Unknown [id number] [id number] [id number] Unknown [id number] 2.16.8 [id number] Unknown [id number] 2.16.8 [id number] Social History Date Type Detail Facility Start: 09-11-2020 End: 09-11-2020 Tobacco smoking status NHIS Unknown if ever smoked [facility] Start: 1960 Sex Assigned At Female [facility] Start: 08-01-2024 End: 08-01-2024 Tobacco smoking status NHIS Ex-smoker (finding) [facility] Functional Status Date Assessment Result Facility 08-01-2024 Functional status Ambulates;Bathroom Priv ilege [facility] Work Phone: Mental Status Date Assessment Result Facility 08-01-2024 Cognitive function Voice/Name [facility] Work Phone: Clinical Notes 08-01-2024 Note Date & Type Note Facility 08-01-2024 Discharge summary [facility] 08-01-2024 History and physical note [facility] 08-01-2024 Discharge summary [facility] 08-01-2024 Discharge summary Note Date/Time August 01, 2024 5:31pm [facility] Medical Records Department [address] [place] [address] Emergency Department Summary 08/01/24 MR#: [id number] Acct: [id number] Name: KRISTINA SUAREZ Rep #:[id number] : 1960 64 From: Karl Wallace PCP: Dr. Brayden Mac MD Status:ADM LUCIANA Location: [address] History of Present Illness Chief Complaint: Stroke Alert Informant: patient and family Narrative Narrative: 7:30 AM was walking fell tingling left arm then it turned in the rubber.. Sheis right-hand dominant. She feeling weak in the left arm. Starting to improve. No headache no speech changes. No leg weakness. She ambulates to the department. No stroke history. No anticoagulants. History of prediabetes on metformin states couple weeks ago the medication was increased by her PCP. Denies visual changes. Prior similar symptoms: No PFSH PFSH Medical History Wears partial dentures Thyroid disease Back pain Former smoker Hx of fracture of wrist Home Medications ?Medication ?Instructions ?Recorded ?Last Taken ?Type acetaminophen 650 mg 1,300 mg PO Q8H PRN fever or pain 08/01/24 Unknown History tablet,extended release (8 Hour Pain Reliever) celecoxib 200 mg capsule 200 mg PO BID PRN PRN knee p ain 08/01/24 Unknown History famotidine 20 mg tablet 20 mg PO BID 08/01/24 History ibandronate 150 mg tablet 150 mg PO QMONTH 08/01/24 Un known History levothyroxine 125 mcg tablet 125 mcg PO DAILY 08/01/24 08/01/24 History metformin 500 mg tablet 500 mg PO BID 08/01/2407/31 History pantoprazole 20 mg tablet,delayed 20 mg PO DAILY 08/0107/31/24 History release Allergy/AdvReac Type Severity Reaction Status Date / Time sulfamethoxazole (From Allergy Swelling Verified 09/11/20 06:59 Bactrim) trimethoprim (From Bactrim) Allergy Swelling Verified 09/11/20 06:59 Surgical History Hx of tubal ligation Hx of hysterectomy Social History Smoking Status: Former smoker ROS ROS ED Constitutional Constitutional ED: Denies chills, fever(s) or sweats ENT ENT ED: Denies sore throat Cardiovascular Cardiovascular: Denies chest pain, leg edema, palpitations or racing heartbeat Respiratory/Chest Respiratory/Chest: Denies cough, dyspnea or dyspnea on exertion Gastrointestinal Gastrointestinal: Denies abdominal pain, diarrhea, nausea or vomiting Genitourinary Genitourinary ED: Denies dysuria, hematuria or urinary frequency Musculoskeletal Musculoskeletal: Denies back pain, extremity pain or neck pain Integumentary Denies rash or wounds Neurologic Neurologic: Reports paresthesias and weakness; Denies headache(s) EXAM Physical Exam Const Vital Signs: 08/01/24 09:06 08/01/24 09:07 08/01/24 09:09 Temperature 97 F L Temperature Source Temporal Pulse Rate 78 73 Respiratory Rate 18 18 Blood Pressure 168/86 H 168/86 H Blood Pressure Mean 113 113 Pulse Ox 99 98 Oxygen Delivery Method Room Air Room Air Room Air 08/01/24 09:39 08/01/24 10:09 08/01/24 10:30 Temperature Temperature Source Pulse Rate 62 63 64 Respiratory Rate 15 14 14 Blood Pressure 166/82 H 169/91 H 171/99 H Blood Pressure Mean 110 117 123 Pulse Ox 98 98 98 Oxygen Delivery Method Room Air Room Air Room Air 08/01/24 11:00 08/01/24 11:00 08/01/24 11:18 Temperature 97.9 F Temperature Source Pulse Rate 72 64 64 Respiratory Rate 16 14 16 Blood Pressure 165/80 H 185/75 H 180/72 H Blood Pressure Mean 108 111 108 Pulse Ox 98 98 99 Oxygen Delivery Method Room Air Room Air Positive well nourished and well developed General Appearance ED: well developed and NAD HEENT Reports moist mucous membranes normocephalic and atraumatic Eyes General Eye ED: Yes normal appearance of both eyes Neck full ROM Chest Wall Chest: Negative for tenderness Resp normal respiratory effort and normal air movement Effort and Inspection: symmetric chest movement; Negative for respiratory distress Cardio regular rate, regular rhythm and no murmurs Peripheral Pulses: pulses 2+ throughout GI normal to inspection, nondistended, normoactive bowel sounds and non-tender Palpation: Negative for guarding or rebound tenderness present Extremity normal to inspection General Extremety ED: Negative for edema or tenderness General Extremity: Negative for edema Neuro oriented x3, CN's II-XII intact bilaterally and no sensory deficits noted Neuro Narrative: 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 Sensorium / Orientation: awake and alert Skin no rashes or lesions noted and no wounds MDM MDM MDM Narrative Medical decision making narrative: Interventions / MDM: Differential diagnosis: TIA, left upper extremity weakness, history of diabetes Diagnosis considered but do not suspect: Intracranial hemorrhage however CT negative My EKG interpretation: Sinus rate of 57, no ST changes. QTc 395. Imaging independently reviewed and interpreted by myself: CT brain: No acute process. 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 Timeframe symptom onset stroke protocol initiated. 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 CT brain reviewed inter myself no intracranial hemorrhage awaiting final read from radiology. 0928: Discussed with radiology concerns for small lacunar infarct basal ganglia,age-indeterminate 0940: Stroke neurologist on the monitor in the room evaluated patient. Decreased could be a small stroke. We discussed the radiology read on the basalganglia, he states difficult to call at this time our treatment will be the samewithout intervention. Recommended full dose aspirin statin to be started. Bedside swallow will be obtained. Awaiting final read from CT angiogram howeverno obvious large vessel occlusions noted by neurology. Will plan for admission for further workup. 1017: Resolved CT angiogram no LVO normal vasculature per radiology. Fluid densely left mastoid. Questioning mastoiditis per radiology. Patient without ear pain TMs normal no mastoid tenderness. Will discuss with hospitalist service for admission. 1100: I spoke with Dr. Marcos for admission to PCU. Re-evaluation: stable Disposition discussed with patient/family/significant other: Patient and family Case discussed with consulting clinician: Telestroke neurology, hospitalist This note was generated with AroundWire dictation software. It may contain incorrectwords, spelling, and punctuation that were not noted in checking the note beforesigning. Lab Data Attestation: I reviewed the patient's lab results. Labs: Laboratory Results - last 24 hr 08/01/24 08/01/24 09:08 09:25 WBC 4.4 RBC 3.66 L Hgb 11.2 L Hct 34.0 L MCV 92.9 MCH 30.6 MCHC 32.9 RDW Std Deviation 47.2 H RDW Coeff of Jamin 13.7 Plt Count 273 MPV 10.3 Immature Gran % (Auto) 0.200 Neut % (Auto) 58.2 Lymph % (Auto) 29.6 [place] % (Auto) 7.0 Eos % (Auto) 3.4 Baso % (Auto) 1.6 H Absolute Neuts (auto) 2.6 Absolute Lymphs (auto) 1.31 Nucleated RBC % 0 PT 13.0 INR 1.0 APTT 27.2 Sodium 133 Potassium 3.9 Chloride 102 Carbon Dioxide 22.3 Anion Gap 9 BUN 16 Creatinine 0.61 L Estim Creat Clear Calc 72.92 Est GFR (MDRD) Non-Af 98 BUN/Creatinine Ratio 26.7 H Glucose 94 Calcium 8.4 Troponin T High Sens 12 POC Glucose 84 Radiography Diagnostic Testing: Clinical Impression(s) from Imaging Studies Brain CT 08/01/24 09:09 IMPRESSION: Tiny lacune in the right basal ganglion. Red Alert: Tiny lacune in Right basal ganglion The critical information above was relayed directly by me by telephone to Karl Bocanegra on 08/01/2024 at 9:30 am with readback verification. Reading Location: [facility] Head/Neck CTA 08/01/24 09:09 IMPRESSION: Fluid density is noted in a portion of the left mastoid air cells, with mastoiditis. Unremarkable CTA of the head and neck. 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 Level of Consciousness: 0 - Alert; keenly responsive 1b. LOC Questions: 0 - Answers BOTH questions correctly 1c. LOC Commands: 0 - Performs BOTH tasks correctly 2. Best Gaze: 0 - Normal 3. Visual: 0 - No visual loss 4. Facial Palsy: 0 - Normal symmetrical movements 5a. Left Arm: 0 - No drift; arm holds 90 (or 45) degrees for full 10 seconds 5b. Right Arm: 0 - No drift; arm holds 90 (or 45) degrees for full 10 seconds 6a. Left Le - No drift; leg holds 30-degree position for full 5 seconds 6b. Right Le - No drift; leg holds 30-degree position for full 5 seconds 7. Limb Ataxia: 0 - Absent 8. Sensory: 0 - Normal; no sensory loss 9. Best Language: 0 - No aphasia; normal 10. Dysarthria: 0 - Normal 11. Extinction and Inattention: 0 - No abnormality Total: 0 Stroke Questions Stroke Team Activated: Yes Reviewed Inclusion/Exclusion criteria: Yes What to do if you have Problems For any increased pain, shortness of breath, bleeding, nausea or vomiting, chestpain, or any unexpected problems, contact your Primary Care Provider. Call [facility] ([phone]) or report to the closest Emergency Room. Call 911 if necessary. 08/01/24 1731 <Electronically signed by Karl Wallace> Cosigner Signature (if applicable): CC: Dr. Brayden Mac MD ~ Signed [facility] Work Phone: [phone]) 226-833906-10-2025 Discharge summary [facility] Medical Records Department [address] [place] [address] Emergency Department Summary 08/01/24 MR#: [id number] Acct: [id number] Name: KRISTINA SUAREZ Rep #:[id number] : 1960 64 From: Karl Wallace PCP: Dr. Brayden Mac MD Status:ADM LUCIANA Location: [place] [address] HPI History of Present Illness Chief Complaint: Stroke Alert Informant: patient and family Narrative Narrative: 7:30 AM was walking fell tingling left arm then it turned in the rubber.. Sheis right-hand dominant. She feeling weak in the left arm. Starting to improve. No headache no speech changes. No leg weakness. She ambulates to the department. No stroke history. No anticoagulants. History of prediabeteson metformin states couple weeks ago the medication was increased by her PCP. Denies visual changes. Prior similar symptoms: No PFSH PFSH Medical History Wears partial dentures Thyroid disease Back pain Former smoker Hx of fracture of wrist Home Medications ?Medication ?Instructions ?Recorded ?Last Taken ?Type acetaminophen 650 mg 1,300 mg PO Q8H PRN fever or pain 08/01/24 Unknown History tablet,extended release (8 Hour Pain Reliever) celecoxib 200 mg capsule 200 mg PO BID PRN PRN knee p ain 08/01/24 Unknown History famotidine 20 mg tablet 20 mg PO BID 08/01/24 History ibandronate 150 mg tablet 150 mg PO QMONTH 08/01/24 Un known History levothyroxine 125 mcg tablet 125 mcg PO DAILY 08/01/24 08/01/24 History metformin 500 mg tablet 500 mg PO BID 08/01/2407/31 History pantoprazole 20 mg tablet,delayed 20 mg PO DAILY 08/0107/31/24 History release Allergy/AdvReac Type Severity Reaction Status Date / Time sulfamethoxazole (From Allergy Swelling Verified 09/11/20 06:59 Bactrim) trimethoprim (From Bactrim) Allergy Swelling Verified 09/11/20 06:59 Surgical History Hx of tubal ligation Hx of hysterectomy Social History Smoking Status: Former smoker ROS ROS ED Constitutional Constitutional ED: Denies chills, fever(s) or sweats ENT ENT ED: Denies sore throat Cardiovascular Cardiovascular: Denies chest pain, leg edema, palpitations or racing heartbeat Respiratory/Chest Respiratory/Chest: Denies cough, dyspnea or dyspnea on exertion Gastrointestinal Gastrointestinal: Denies abdominal pain, diarrhea, nausea or vomiting Genitourinary Genitourinary ED: Denies dysuria, hematuria or urinary frequency Musculoskeletal Musculoskeletal: Denies back pain, extremity pain or neck pain Integumentary Denies rash or wounds Neurologic Neurologic: Reports paresthesias and weakness; Denies headache(s) EXAM Physical Exam Const Vital Signs: 08/01/24 09:06 08/01/24 09:07 08/01/24 09:09 Temperature 97 F L Temperature Source Temporal Pulse Rate 78 73 Respiratory Rate 18 18 Blood Pressure 168/86 H 168/86 H Blood Pressure Mean 113 113 Pulse Ox 99 98 Oxygen Delivery Method Room Air Room Air Room Air 08/01/24 09:39 08/01/24 10:09 08/01/24 10:30 Temperature Temperature Source Pulse Rate 62 63 64 Respiratory Rate 15 14 14 Blood Pressure 166/82 H 169/91 H 171/99 H Blood Pressure Mean 110 117 123 Pulse Ox 98 98 98 Oxygen Delivery Method Room Air Room Air Room Air 08/01/24 11:00 08/01/24 11:00 08/01/24 11:18 Temperature 97.9 F Temperature Source Pulse Rate 72 64 64 Respiratory Rate 16 14 16 Blood Pressure 165/80 H 185/75 H 180/72 H Blood Pressure Mean 108 111 108 Pulse Ox 98 98 99 Oxygen Delivery Method Room Air Room Air Positive well nourished and well developed General Appearance ED: well developed and NAD HEENT Reports moist mucous membranes normocephalic and atraumatic Eyes General Eye ED: Yes normal appearance of both eyes Neck full ROM Chest Wall Chest: Negative for tenderness Resp normal respiratory effort and normal air movement Effort and Inspection: symmetric chest movement; Negative for respiratory distress Cardio regular rate, regular rhythm and no murmurs Peripheral Pulses: pulses 2+ throughout GI normal to inspection, nondistended, normoactive bowel sounds and non-tender Palpation: Negative for guarding or rebound tenderness present Extremity normal to inspection General Extremety ED: Negative for edema or tenderness General Extremity: Negative for edema Neuro oriented x3, CN's II-XII intact bilaterally and no sensory deficits noted Neuro Narrative: 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 Sensorium / Orientation: awake and alert Skin no rashes or lesions noted and no wounds MDM MDM MDM Narrative Medical decision making narrative: Interventions / MDM: Differential diagnosis: TIA, left upper extremity weakness, history of diabetes Diagnosis considered but do not suspect: Intracranial hemorrhage however CT negative My EKG interpretation: Sinus rate of 57, no ST changes. QTc 395. Imaging independently reviewed and interpreted by myself: CT brain: No acute process. 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 Timeframe symptom onset stroke protocol initiated. 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 CT brain reviewed inter myself no intracranial hemorrhage awaiting final readfrom radiology. 0928: Discussed with radiology concerns for small lacunar infarct basal ganglia,age-indeterminate 0940: Stroke neurologist on the monitor in the room evaluated patient. Decreased could be a small stroke. We discussed the radiology read on the basalganglia, he states difficult to call at this timeour treatment will be the samewithout intervention. Recommended full dose aspirin statin to be started. Bedside swallow will be obtained. Awaiting final read from CT angiogram howeverno obvious largevessel occlusions noted by neurology. Will plan for admission for further workup. 1017: Resolved CT angiogram no LVO normal vasculature per radiology. Fluid densely left mastoid. Questioning mastoiditis per radiology. Patient without ear pain TMs normal no mastoid tenderness. Willdiscuss with hospitalist service for admission. 1100: I spoke with Dr. Marcos for admission to PCU. Re-evaluation: stable Disposition discussed with patient/family/significant other: Patient and family Case discussed with consulting clinician: Telestroke neurology, hospitalist This note was generated with [employer] software. It may contain incorrectwords, spelling, and punctuation that were not noted in checking the note beforesigning. Lab Data Attestation: I reviewed the patient's lab results. Labs: Laboratory Results - last 24 hr 08/01/24 08/01/24 09:08 09:25 WBC 4.4 RBC 3.66 L Hgb 11.2 L Hct 34.0 L MCV 92.9 MCH 30.6 MCHC 32.9 RDW Std Deviation 47.2 H RDW Coeff of Jamin 13.7 Plt Count 273 MPV 10.3 Immature Gran % (Auto) 0.200 Neut % (Auto) 58.2 Lymph % (Auto) 29.6 [place] % (Auto) 7.0 Eos % (Auto) 3.4 Baso % (Auto) 1.6 H Absolute Neuts (auto) 2.6 Absolute Lymphs (auto) 1.31 Nucleated RBC % 0 PT 13.0 INR 1.0 APTT 27.2 Sodium 133 Potassium 3.9 Chloride 102 Carbon Dioxide 22.3 Anion Gap 9 BUN 16 Creatinine 0.61 L Estim Creat Clear Calc 72.92 Est GFR (MDRD) Non-Af 98 BUN/Creatinine Ratio 26.7 H Glucose 94 Calcium 8.4 Troponin T High Sens 12 POC Glucose 84 Radiography Diagnostic Testing: Clinical Impression(s) from Imaging Studies Brain CT 08/01/24 09:09 IMPRESSION: Tiny lacune in the right basal ganglion. Red Alert: Tiny lacune in Right basal ganglion The critical information above was relayed directly by me by telephone to Karl Bocanegra on 08/01/2024 at 9:30 am with readback verification. Reading Location: [facility] Head/Neck CTA 08/01/24 09:09 IMPRESSION: Fluid density is noted in a portion of the left mastoid air cells, with mastoiditis. Unremarkable CTA of the head and neck. Reading Location: [facility] Critical Care Time Critical Care Time: Yes Critical care time (excluding procedures): 30-74 minutes, Discussing w/Patient &/or Family/CareGiver, Discussing w/Consultants, Arranging Admission or Transfer, Performing Direct Patient Care atBedside and - (30 minutes) Discharge Plan Dx/Rx/DC Orders Clinical Impression: Brain TIA, Left arm weakness, History of prediabetes Disposition Disposition: Acute Care [facility] Discharge Date/Time: 08/01/24 12:05 NIHSS NIHSS 1a. Level of Consciousness: 0 - Alert; keenly responsive 1b. LOC Questions: 0 - Answers BOTH questions correctly 1c. LOC Commands: 0 - Performs BOTH tasks correctly 2. Best Gaze: 0 - Normal 3. Visual: 0 - No visual loss 4. Facial Palsy: 0 - Normal symmetrical movements 5a. Left Arm: 0 - No drift; arm holds 90 (or 45) degrees for full 10 seconds 5b. Right Arm: 0 - No drift; arm holds 90 (or 45) degrees for full 10 seconds 6a. Left Le - No drift; leg holds 30-degree position for full 5 seconds 6b. Right Le - No drift; leg holds 30-degree position for full 5 seconds 7. Limb Ataxia: 0 - Absent 8. Sensory: 0 - Normal; no sensory loss 9. Best Language: 0 - No aphasia; normal 10. Dysarthria: 0 - Normal 11. Extinction and Inattention: 0 - No abnormality Total: 0 Stroke Questions Stroke Team Activated: Yes Reviewed Inclusion/Exclusion criteria: Yes What to do if you have Problems For any increased pain, shortness of breath, bleeding, nausea or vomiting, chestpain, or any unexpected problems, contact your Primary Care Provider. Call [facility] ([phone]) or report tothe closest Emergency Room. Call 911 if necessary. 08/01/24 1731 Cosigner Signature (if applicable): CC: Dr. Brayden Mac MD ~ Signed [facility]06-10-2025 Evaluation note* Diagnosis Onset Date Resolution Status Admit Date Brain TIA acute August 01 11:20am History of prediabetes acute 2024 11:20am Left arm weakness acute August 012024 11:20am [facility] Work Phone: 1(251) 343-958906-10-2025 Radiology Diagnostic study note [facility] Imaging Services [address] [place] [address] STROKE CTA Head AND Neck W/Con MR#: [id number] Acct: [id number] Name: KRISTINA SUAREZ Rep #: [id number] : 1960 F 64 From: Shama Butt MD PCP: Dr. Brayden Mac MD Status: REG ER Study:STROKE CTA Head AND Neck W/Con Date of Exam: 08/01/24 Exam# [id number] Ordering Dr: Karl Bocanegra DO PROCEDURE: STROKE [...] of the head and neck. Reading Location: [facility] CC: Dr. Brayden Mac MD; Dr. Karl Bocanegra DO ~ Pastry Chef: Signed [facility]06-10-2025 Radiology Diagnostic study note [facility] Imaging Services [address] [place] [address] STROKE Brain/Head without Cont MR#: [id number] Acct: [id number] Name: KRISTINA SUAREZ Rep #: [id number] : 1960 F 64 From: Romain Mack MD PCP: Dr. Brayden Mac MD Status: REG ER Study:STROKE Brain/Head without Cont Date of Exam: 08/01/24 Exam# [id number] Ordering Dr: Karl Bocanegra DO PROCEDURE: STROKE [...] 9:30 am with readback verification. Reading Location: [place] [address] CC: Dr. Brayden Mac MD; Dr. Karl Bocanegra DO ~ Pastry Chef: [facility]igned [facility] Author Marie Marcos [facility] Note Date/Time August 01, 2024 8:[address] [facility] Medical Records Department [address] [place] [address] Instructions for Home/Discharge Instructions 08/01/241958 MR#: [id number] Acct: [id number] Name: KRISTINA SUAREZ Rep #:[id number] : 1960 64 From: Marie Marcos DO PCP: Dr. Brayden Mac MD Status:ADM LUCIANA Discharge Instructions Diet Discharge Diet: No restrictions DC O2, CPAP, BIPAP needs Home O2 Discharge instructions: No Dressing / Incision Discharge Activity: Return to Normal Activity Weight Bearing Status: Full weight bearing Follow Up Care Test Results: Test results from this visit will be discussed in further detail at your follow- up appointment, if applicable. Discharge Plan Admission Admit Date/Time: 08/01/24 11:20 Primary Reason for Your Visit: Transient ischemic attack (TIA) Attending Provider: Marie Marcos Primary Care Provider: Brayden Mac Consulting Providers: Bassam Cross; Gisela Reyes; Nohelia Burns; Lizbeth Peralta; Kate Goins; Cresencio Guzman; Adrienne Jaramillo; Forrest Luna; Titus Haines; Daniel Asencio; Martina Poe; Jonathan Lofton; Rosamaria Davenport; Reyes Stubbs; Turner Laurent; Karri Mims; Marina Falcon; Griffin Joseph; Becca Douglas; Cassie Mina Discharge Orders/Prescriptions Prescriptions: New atorvastatin 80 mg Tablet 80 mg PO DAILY Qty: 30 0RF aspirin 81 mg Tablet,Chewable 81 mg PO BREAKFAST Qty: 0 0RF clopidogrel 75 mg tablet 75 mg PO DAILY Qty: 30 0RF Continued pantoprazole 20 mg tablet,delayed release (DR/EC) 20 mg PO DAILY metformin 500 mg tablet 500 mg PO BID Patient Comments: patient takes 1,000 mg BID per PCP order. New prescription written, just not filled. famotidine 20 mg tablet 20 mg PO BID levothyroxine 125 mcg tablet 125 mcg PO DAILY ibandronate 150 mg tablet 150 mg PO QMONTH celecoxib 200 mg capsule 200 mg PO BID PRN PRN (Reason: knee pain) No Action acetaminophen [8 Hour Pain Reliever] 650 mg tablet extended release 1,300 mg PO Q8H PRN (Reason: fever or pain) Referrals / Follow Up: Brayden Mac MD [Primary Care Provider] - Within 2 Weeks Disposition Disposition (needs filled in before D/C Order can be placed): Home, Self Care 08/01/242004<Electronically signed by Marie Marcos DO>Marie Marcos DO CC: Lizbeth Peralta; Rosamaria Davenport; Karri Yorka Zha, MD; Nohelia Burns MD; Bassam Cross MD; Dr. Gisela Reyes MD; Dr. Cresencio Guzman MD; Dr. Marcio MD; Dr. Adrienne Jaramillo MD; Dr. Titus Haines MD; Dr. Forrest Luna MD; Dr. Daniel Asencio MD; Dr. Jonathan Lofton DO; Dr. Turner Laurent MD; Dr. Reyes Stubbs MD; Dr. Marina Falcon MD; Dr. Griffin Joseph MD; Dr. Becca Douglsa MD; Martian Poe DO; Cassie Mina MD ~ Signed [facility] Work Phone: Discharge summary Author Marie [facility] Note Date/Time August 01, 2024 8:25 pm [facility] Medical Records Department [address] [place] [address] Discharge Summary 08/01/242016 MR#: [id number] Acct: [id number] Name: KRISTINA SUAREZ Rep #:[id number] : 1960 64 From: Marie Marcos DO PCP: Dr. Brayden Mac MD Status:ADM LUCIANA Location: [place] [address] Providers Date of Admission: 08/01/24 Date of Discharge: 08/01/24 Primary Care Physician: Dr. Brayden Mac MD Consultations 08/01/24 12:01 Consult: Tele-Neurology Routine Consulting Provider: [facility] Reason for Consult: Acute Ischemic Stroke/TIA EMERGENT Consult: No MD Notified: Yes Date Notified: 08/01/24 Time Notified: 12:00 Method of Notification: ED Physician Initiated Nursing Unit Staff Notify [facility] of Tele-Neurology Consult: Yes Reason For Visit: TIA, LUE WEAKNESS Diagnosis Discharge Diagnosis (1) Brain TIA: Status: Acute Code(s): G45.9 - Transient cerebral ischemic attack, unspecified Plan 1. TIA involving the left arm-resolved at the time of discharge #2 prediabetes-patient is on metformin, this will be held during her observationstay #3 hypothyroidism-patient is on Synthroid #4 GERD-patient is on omeprazole according to nursing and she takes Pepcid as needed for symptoms Total clinical time spent by myself addressing the patient's medical issues, reviewing all of her data, and collaborating of the patient's care team: 55 minutes Medications at Discharge Home Medications acetaminophen 650 mg tablet,extended release (8 Hour Pain Reliever) 1,300 mg PO Q8H PRN fever or pain 08/01/24 aspirin 81 mg chewable tablet 81 mg PO BREAKFAST #0 tabs 08/01/24 atorvastatin 80 mg tablet 80 mg PO DAILY #30 tabs 08/01/24 celecoxib 200 mg capsule 200 mg PO BID PRN PRN knee pain 08/01/24 clopidogrel 75 mg tablet 75 mg PO DAILY #30 tabs 08/01/24 famotidine 20 mg tablet 20 mg PO BID 08/01/24 ibandronate 150 mg tablet 150 mg PO QMONTH 08/01/24 levothyroxine 125 mcg tablet 125 mcg PO DAILY 08/01/24 metformin 500 mg tablet 500 mg PO BID 08/01/24 pantoprazole 20 mg tablet,delayed release 20 mg PO DAILY 08/01/24 Hospital Course Operations None Procedures 2-D Echocardiogram Summary of Care Provided Minutes Spent on Discharge: 30 Hospital Course: This 64-year-old white female was seen in the emergency room at [facility] with complaints of an episode of left arm numbness and loss of strength that lasted approximately 1 minute while she was in her car. This resolved prior to her being seen in the emergency room at [facility], a stroke team was called on her arrival to the ER and she underwent imaging studies that were unremarkable except for a right basilar ganglia lacunar infarct. CTA of her head and neck did not show any evidence of high-grade occlusion. Patient is NIH stroke score was 0. Labs showed only a slightly low hemoglobin, chemistry panel was unremarkable. Patient was seen by stroke teleneurology, it was recommended the patient be placed in the hospital and undergo an echocardiogram labs and be seen by PT OT and speech therapy, alsoit was recommended she undergo an MRI of the brain and echocardiogram. Patient underwent an MRI of the brain on 08/01/2024 which was unremarkable, patient underwent an echocardiogram on 08/01/2024 which was also unremarkable for thrombus, a lipid profile was drawn on the patient, her NIH scores remained 0. I talked to the patient the evening of 08/01/2024, she desired to be discharged home and did not want to be seen by neurology on 08/02/2024. She she understood the risks of this. I made the decision to place her on aspirin 81 mg and Ylyzte19 mg as well as Lipitor 80 mg. On 08/01/2024, patient was seen and examined: On examination she appeared in goodhealth and spirits, she does not appear to be in any distress. Vital signs as documented. Skin warm and dry and without overt rashes. Neck without JVD, thyroid appears normal, trachea is midline, neck is supple. Lungs clear, normal air movement was noted. Heart exam notable for regular rhythm, normal sounds andabsence of murmurs, rubs or gallops. Abdomen unremarkable and without evidence of organomegaly, masses, or abdominal aortic enlargement, bowel sounds are present in all 4 quadrants, no abdominal tenderness was noted. Extremities nonedematous, no cyanosis was noted, no clubbing was noted. Neuro: Cranial nerves II through XII are grossly intact, no focal motor deficits were noted, sensation to light touch and pinprick is intact, motor exam 5/5 throughout. Psych: Patient is alert and oriented x3, she does not appear anxious or depressed, she does not appear agitated. Patient was not seen by PT OT and speech therapy, patient felt that she did not need to see them and her NIH stroke score remained 0. Patient was discharged instable condition on 08/01/2024 Weight / BMI Weight Weight: 85.1 kg Body Mass Index (BMI) 32.2 ABG / Lab / Microbiology Data 08/01/24 09:25 08/01/24 09:25 Laboratory: Laboratory Results - last 24 hr 08/01/24 09:08: POC Glucose 84 08/01/24 09:25: WBC 4.4, RBC 3.66 L, Hgb 11.2 L, Hct 34.0 L, MCV 92.9, MCH 30.6,MCHC 32.9, RDW Std Deviation 47.2 H, RDW Coeff of Jamin 13.7, Plt Count 273, MPV 10.3, Immature Gran % (Auto) 0.200, Neut % (Auto) 58.2, Lymph % (Auto) 29.6, [place] % (Auto) 7.0, Eos % (Auto) 3.4, Baso % (Auto) 1.6 H, Absolute Neuts (auto) 2.6, Absolute Lymphs (auto) 1.31, Nucleated RBC % 0, PT 13.0, INR 1.0, APTT 27.2, Sodium 133, Potassium 3.9, Chloride 102, Carbon Dioxide 22.3, Anion Gap 9,BUN 16, Creatinine 0.61 L, Estim Creat Clear Calc 72.92, Est GFR (MDRD) Non-Af 98, BUN/Creatinine Ratio 26.7 H, Glucose 94, Calcium 8.4, Troponin T High Sens 12 08/01/24 16:15: Troponin T Hi Sens 2 Hr 11 Radiography Diagnostic Testing: Radiology Impression Brain CT 08/01/24 09:09 IMPRESSION: Tiny lacune in the right basal ganglion. Red Alert: Tiny lacune in Right basal ganglion The critical information above was relayed directly by me by telephone to Karl Bocanegra on 08/01/2024 at 9:30 am with readback verification. Reading Location: [facility] Head/Neck CTA 08/01/24 09:09 IMPRESSION: Fluid density is noted in a portion of the left mastoid air cells, with mastoiditis. Unremarkable CTA of the head and neck. [facility] Echocardiogram 08/01/24 11:37 Interpretation Summary The LV systolic function is normal. EF is 65 %. Aortic sclerosis, no stenosis. Ordering Physician: Marie Marcos Referring Physician: Brayden Mac MD Performed By: Jacquelin Werner RDCS and Student Brain MRI 08/01/24 15:15 IMPRESSION: No acute intracranial abnormality. Reading Location: [place] [address] D/C Instructions Discharge Diet: No restrictions Weight Bearing Status: Full weight bearing DC O2, CPAP, BIPAP Needs Home O2 Discharge instructions: No Meaningful Use Info Meaningful Use Meaningful Use Diagnoses (Choose all that apply): None applicable Ischemic Stroke Statin Dosing Therapy Reference: STATIN DOSE THERAPY REFERENCE: * Patients > 75 years receive moderate or high dose statin therapy. * Patients 75 years or YOUNGER should receive HIGH intensity statin dose unless contraindicated. You will be required to document reason for non-treatment if statin daily dose does not meet guidelines. HIGH DOSE STATIN THERAPY DAILY Atorvastatin > than or = to 40 mg Rosuvastatin > than or = to 20 mg Amlodipine + Atorvastatin > than or = to 2.5/40 mg Ezetimibe + Simvastatin 10/80 mg Simvastatin 80mg Discharge Plan Admission Admit Date/Time: 08/01/24 11:20 Primary Reason for Your Visit: Transient ischemic attack (TIA) Attending Provider: Marie Marcos Primary Care Provider: Brayden Mac Consulting Providers: Bassam Cross; Gisela Reyes; Nohelia Burns; Lizbeth Peralta; Kate Goins; Cresencio Guzman; Adrienne Jaramillo; Forrest Luna; Titus Haines; Daniel Asencio; Martina Poe; Jonathan Lofton; Rosamaria Davenport; Reyes Stubbs; Turner Laurent; Karri Mims; Marina Falcon; Griffin Joseph; Becca Douglas; Cassie Mina Discharge Orders/Prescriptions Prescriptions: New atorvastatin 80 mg Tablet 80 mg PO DAILY Qty: 30 0RF aspirin 81 mg Tablet,Chewable 81 mg PO BREAKFAST Qty: 0 0RF clopidogrel 75 mg tablet 75 mg PO DAILY Qty: 30 0RF Continued pantoprazole 20 mg tablet,delayed release (DR/EC) 20 mg PO DAILY metformin 500 mg tablet 500 mg PO BID Patient Comments: patient takes 1,000 mg BID per PCP order. New prescription written, just not filled. famotidine 20 mg tablet 20 mg PO BID levothyroxine 125 mcg tablet 125 mcg PO DAILY ibandronate 150 mg tablet 150 mg PO QMONTH celecoxib 200 mg capsule 200 mg PO BID PRN PRN (Reason: knee pain) No Action acetaminophen [8 Hour Pain Reliever] 650 mg tablet extended release 1,300 mg PO Q8H PRN (Reason: fever or pain) Referrals / Follow Up: Brayden Mac MD [Primary Care Provider] - Within 2 Weeks Disposition Disposition (needs filled in before D/C Order can be placed): Home, Self Care Charges/Coding Visit Charges OBSV E&M: 19128 Observ/hosp same date L1 08/01/242024 <Electronically signed by Marie Marcos DO> Cosigner Signature (if applicable): CC: Dr. Brayden Mac MD; Dr. Marie Marcos DO~ Signed [facility] Work Phone: Evaluation noteNo assessment information available [facility] Work Phone: Evaluation note* Diagnosis Onset Date Resolution Status Admit Date Brain TIA acute August 01 11:20am History of prediabetes acute 2024 11:20am Left arm weakness acute August 012024 11:20am [facility] Work Phone: History and physical note Author Marie [facility]un[facility] Note Date/Time August 01, 2024 8:17 pm [facility] Medical Records Department [address] [place] [address] H&P Exam - Hospitalist 08/01/242004 MR#: [id number] Acct: [id number] Name: KRISTINA SUAREZ Rep #:[id number] : 1960 64 From: Marie Marcos DO PCP: Dr. Brayden Mac MD Status:ADM LUCIANA Location: [place] [address] HPI - General General Date of Admission: 08/01/24 Date of Service: 08/01/24 Chief Complaint: Left arm paresthesias and weakness HPI Narrative KRISTINA SUAREZ, is a 64 F who presents to the emergency room at [facility] with an episode of left arm weakness and paresthesias which lasted approximately a minute according to the patient. Patient stated her left arm felt like rubber and there was tingling in the arm. Stroke alert wascalled, she was examined by teleneurology in the ER, her NIH stroke score was 0 and her imaging studies showed only a small lacunar infarct in the right basal ganglion. Patient CBC was notable for a hemoglobin of 11.2, chemistry profile was unremarkable. Patient will be placed in observation status on PCU, she was placed on 81 mg aspirin daily and 80 mg Lipitor daily, lipid profile will be ordered, she will be seen by PT OT and speech therapy. Patient will undergo an MRI of the brain without contrast. She will undergo an echocardiogram. [facility] Medical History Wears partial dentures Thyroid disease Back pain Former smoker Hx of fracture of wrist Home Medications ?Medication ?Instructions ?Recorded ?Last Taken ?Type acetaminophen 650 mg 1,300 mg PO Q8H PRN fever or pain 08/01/24 Unknown History tablet,extended release (8 Hour Pain Reliever) aspirin 81 mg chewable tablet 81 mg PO BREAKFAST #0 ta bs 08/01/24 Unknown Rx atorvastatin 80 mg tablet 80 mg PO DAILY #30 tabs 07/23 Unknown Rx celecoxib 200 mg capsule 200 mg PO BID PRN PRN knee p ain 08/01/24 Unknown History clopidogrel 75 mg tablet 75 mg PO DAILY #30 tabs 07/23 Unknown Rx famotidine 20 mg tablet 20 mg PO BID 08/01/24 History ibandronate 150 mg tablet 150 mg PO QMONTH 08/01/24 Un known History levothyroxine 125 mcg tablet 125 mcg PO DAILY 08/01/24 08/01/24 History metformin 500 mg tablet 500 mg PO BID 08/01/2407/31 History pantoprazole 20 mg tablet,delayed 20 mg PO DAILY 08/0107/31/24 History release Allergy/AdvReac Type Severity Reaction Status Date / Time sulfamethoxazole (From Allergy Swelling Verified 09/11/20 06:59 Bactrim) trimethoprim (From Bactrim) Allergy Swelling Verified 09/11/20 06:59 Surgical History Hx of tubal ligation Hx of hysterectomy Social History Smoking Status: Former smoker ROS Constitutional Constitutional: Denies anorexia, change in weight, chills, fatigue, fever(s), night sweats or weakness Eyes Eyes: Denies blurry vision, change in vision, discharge from eye(s) or eye pain Cardiovascular Cardiovascular: Denies chest pain, claudication, edema or palpitations Respiratory/Chest Respiratory/Chest: Denies cough, hemoptysis, shortness of breath at rest or shortness of breath with exertion Gastrointestinal Gastrointestinal: Denies abdominal pain, constipation, diarrhea, hematemesis, hematochezia, melena, nausea or vomiting Genitourinary Genitourinary: Denies dysuria, hematuria, urinary frequency, urinary hesitancy, urinary incontinence or urinary urgency Musculoskeletal Musculoskeletal: Denies back pain, joint pain, joint stiffness, joint swelling, myalgias or neck pain Neurologic Neurologic: Reports focal weakness, paresthesias RUE and other Details: Focal weakness in the right arm lasting approximately a minute, paresthesias in the right arm lasting a minute ; Denies abnormal gait, abnormal speech, dizziness, headache(s), loss of vision, numbness, other visual disturbances, syncope or tingling Psychiatric Psychiatric: Denies anxiety, cognitive impairment, depression, irritability, mood swings or suicidal ideation Endocrine Endocrinology: Denies change in body appearance, cold intolerance, excessive sweating, heat intolerance, polydipsia or polyuria Hematologic/Lymphatic Hematologic/Lymphatic: Denies none, anemia, easy bleeding, easy bruising or lymphadenopathy Allergic/Immunologic Allergic/Immunologic: Denies rhinitis, urticaria, eczemia or asthma Vital Signs Vital Signs Vital Signs: 08/01/24 09:06 08/01/24 09:07 08/01/24 09:09 Temperature 97 F L Temperature Source Temporal Pulse Rate 78 73 Respiratory Rate 18 18 Blood Pressure 168/86 H 168/86 H Blood Pressure Mean 113 113 Blood Pressure Source Blood Pressure Position Blood Pressure Location Pulse Ox 99 98 Oxygen Delivery Method Room Air Room Air Room Air 08/01/24 09:39 08/01/24 10:09 08/01/24 10:30 Temperature Temperature Source Pulse Rate 62 63 64 Respiratory Rate 15 14 14 Blood Pressure 166/82 H 169/91 H 171/99 H Blood Pressure Mean 110 117 123 Blood Pressure Source Blood Pressure Position Blood Pressure Location Pulse Ox 98 98 98 Oxygen Delivery Method Room Air Room Air Room Air 08/01/24 11:00 08/01/24 11:00 08/01/24 11:18 Temperature 97.9 F Temperature Source Pulse Rate 72 64 64 Respiratory Rate 16 14 16 Blood Pressure 165/80 H 185/75 H 180/72 H Blood Pressure Mean 108 111 108 Blood Pressure Source Blood Pressure Position Blood Pressure Location Pulse Ox 98 98 99 Oxygen Delivery Method Room Air Room Air 08/01/24 11:30 08/01/24 12:20 08/01/24 14:42 Temperature 97.2 F L 98.0 F Temperature Source Temporal Oral Pulse Rate 63 58 L 61 Respiratory Rate 14 15 18 Blood Pressure 180/72 H 150/90 H 147/96 H Blood Pressure Mean 108 110 113 Blood Pressure Source Monitor Monitor Blood Pressure Position Supine Supine Blood Pressure Location Right Arm Right Arm Pulse Ox 98 98 95 Oxygen Delivery Method Room Air Room Air Room Air 08/01/24 18:23 Temperature 97.3 F L Temperature Source Temporal Pulse Rate 62 Respiratory Rate 17 Blood Pressure 136/71 H Blood Pressure Mean 92 Blood Pressure Source Monitor Blood Pressure Position Supine Blood Pressure Location Left Arm Pulse Ox 96 Oxygen Delivery Method Room Air Weight Weight: 85.1 kg Body Mass Index (BMI) 32.2 Physical Exam Const alert, oriented x3, no apparent distress and healthy appearing General Appearance: cooperative, well kempt and well developed Orientation / Consciousness: awake, oriented to person, oriented to place and oriented to time HEENT normocephalic, head/scalp atraumatic, hearing grossly normal bilaterally and moist oral mucous membranes Eyes PERRL, EOMs intact bilaterally and conjunctivae normal Neck supple, no JVD, thyroid normal and no carotid bruits General: trachea midline Resp normal respiratory effort, no retractions, no use of accessory muscles and clearto auscultation bilaterally Auscultation: Negative for rales, rhonchi or wheezes Cardio regular rate, regular rhythm, S1 normal heart sound, S2 normal heart sound, no murmurs, no rub and no gallops GI normal to inspection, nondistended, normoactive bowel sounds, soft to palpation,non-tender and non-distended Extremity no clubbing, cyanosis or edema Skin no rashes or lesions noted General Skin Exam: no breakdown Neuro oriented x3, CN's II-XII intact bilaterally, moves all extremities, no focal motor deficits and no sensory deficits noted Sensorium / Orientation: awake and alert Speech: speech normal Psych affect normal Results Lab / Micro Data 08/01/24 09:25 08/01/24 09:25 Labs: Laboratory Results - last 24 hr 08/01/24 09:08: POC Glucose 84 08/01/24 09:25: WBC 4.4, RBC 3.66 L, Hgb 11.2 L, Hct 34.0 L, MCV 92.9, MCH 30.6,MCHC 32.9, RDW Std Deviation 47.2 H, RDW Coeff of Jamin 13.7, Plt Count 273, MPV 10.3, Immature Gran % (Auto) 0.200, Neut % (Auto) 58.2, Lymph % (Auto) 29.6, [place] % (Auto) 7.0, Eos % (Auto) 3.4, Baso % (Auto) 1.6 H, Absolute Neuts (auto) 2.6, Absolute Lymphs (auto) 1.31, Nucleated RBC % 0, PT 13.0, INR 1.0, APTT 27.2, Sodium 133, Potassium 3.9, Chloride 102, Carbon Dioxide 22.3, Anion Gap 9,BUN 16, Creatinine 0.61 L, Estim Creat Clear Calc 72.92, Est GFR (MDRD) Non-Af 98, BUN/Creatinine Ratio 26.7 H, Glucose 94, Calcium 8.4, Troponin T High Sens 12 08/01/24 16:15: Troponin T Hi Sens 2 Hr 11 Imaging Radiology Impression Brain CT 08/01/24 09:09 IMPRESSION: Tiny lacune in the right basal ganglion. Red Alert: Tiny lacune in Right basal ganglion The critical information above was relayed directly by me by telephone to Karl Bocanegra on 08/01/2024 at 9:30 am with readback verification. Reading Location: [facility] Head/Neck CTA 08/01/24 09:09 IMPRESSION: Fluid density is noted in a portion of the left mastoid air cells, with mastoiditis. Unremarkable CTA of the head and neck. [facility] 08/01/24 11:37 Interpretation Summary The LV systolic function is normal. EF is 65 %. Aortic sclerosis, no stenosis. Ordering Physician: Marie Marcos Referring Physician: Brayden Mac MD Performed By: Jacquelin Werner RDCS and Student Brain MRI 08/01/24 15:15 IMPRESSION: No acute intracranial abnormality. Reading Location: [place] [id number] Assessment & Plan Assessment/Plan (1) Brain TIA: PLAN: Plan 1. Left arm weakness and left arm paresthesia lasting approximately 1 minute- possible TIA, patient will be placed in observation status on PCU, she will undergo an MRI, echocardiogram, she will be given 81 mg aspirin and 80 mg Lipitor, lipid panel will be performed, she will be seen by PT OT and speech therapy, NIH scores will be monitored, she will be seen by teleneurology and follow-up tomorrow. #2 prediabetes-patient is on metformin, this will be held during her observationstay #3 hypothyroidism-patient is on Synthroid #4 GERD-patient is on omeprazole according to nursing and she takes Pepcid as needed for symptoms Total clinical time spent by myself addressing the patient's medical issues, reviewing all of her data, and collaborating of the patient's care team: 55 minutes Charges/Coding Visit Charges Inpatient E&M: 64190 Init Hosp L2 08/01/242016 <Electronically signed by Marie Marcos DO> Cosigner Signature (if applicable): CC: Dr. Brayden Mac MD; Dr. Marie Marcos DO~ Signed [facility] Work Phone: Reason for referral (narrative)No reason for referral information availableWWood [facility] Work Phone: Summary Purpose Family History No Family History Records FoundNo Family History Records FoundNo Family History Records Found Advance Directives Advance Directive Response Recorded Date/ Time Living Will No September 10, 2020 9:35am Power of Insole Buffer No September 10 9:35am Advance Directive Response Recorded Date/ Time Living Will No September 10, 2020 8:35am Power of Insole Buffer No September 10 8:35am Advance Directive Response Recorded Date/ Time Do you have a Healthcare Power of Insole Buffer? No August 01, 2024 12:02pm Chief Complaint and Reason for Visit Chief Complaint Admit Date TIA, LUE WEAKNESS August 01, 2024 11:2 0am TIA, LUE WEAKNESS August 01, 2024 8:05 pm Reason for Visit Admit Date Brain TIA August 01, 2024 11:2 0am History of prediabetes August 01, 2024 1 1:20am Left arm weakness August 01, 2024 11:2 0am Chief Complaint FORMER TOBACCO USE Chief Complaint [...] arm weakness August 01, 2024 11:2 0am Chief Complaint Admit Date TIA, LUE WEAKNESS August 01, 2024 11:2 0am TIA, LUE WEAKNESS August 01, 2024 8:05 pm Additional Source Comments INFORMATION SOURCE (unrecogn ized section and content) DATE CREATED AUTHOR 08/18/2017 [facility] DATE CREATED AUTHOR AUTHOR'S ORGANIZ ATION 08/18/2017 [facility] DATE CREATED AUTHOR AUTHOR'S ORGANIZ ATION 04/07/2024 [facility] Goals (unrecognized section and content) Goals may [...] MD Primary Care Provider Active Team Status: Inactive Member Role Status Dates Dr. Brayden Mac MD Primary Care Provider Active Start: August 01, 2024 End: August 01, 2024 Dr. Karl Bocanegra DO Emergency Provider Active Start : August 01, 2024 End: August 01, 2024 Dr. Marie Marcos DO Admit Provider Active S tart: August 01, 2024 End: August 01, 2024 Dr. Marie Marcos DO Attending Provider Active Start: August 01, 2024 End: August 01, 2024 Bassam Cross MD Other Provider Active Start: 2024 End: August 01, 2024 Dr. Gisela Reyes MD Other Provider Active Start: August 01, 2024 End: August 01, 2024 Nohelia Burns MD Other Provider Active Start : August 01, 2024 End: August 01, 2024 Dr. Lizbeth Peralta DO Other Provider Active St art: August 01, 2024 End: August 01, 2024 Dr. Kate Goins MD Other Provider Active Start: August 01, 2024 End: August 01, 2024 Dr. Cresencio Guzman MD Other Provider Active Sta rt: August 01, 2024 End: August 01, 2024 Dr. Adrienne Jaramillo MD Other Provider Active Start : August 01, 2024 End: August 01, 2024 Dr. Forrest Luna MD Other Provider Active Start: August 01, 2024 End: August 01, 2024 Dr. Titus Haines MD Other Provider Active Start : August 01, 2024 End: August 01, 2024 Dr. Daniel Asencio MD Other Provider Active Sta rt: August 01, 2024 End: August 01, 2024 Martina Poe MD Other Provider Active Start : August 01, 2024 End: August 01, 2024 Dr. Jonathan Lofton MD Other Provider Active St art: August 01, 2024 End: August 01, 2024 Dr. Rosamaria Davenport MD Other Provider Active Start : August 01, 2024 End: August 01, 2024 Dr. Reyes Stubbs MD Other Provider Active Sta rt: August 01, 2024 End: August 01, 2024 Dr. Turner Laurent MD Other Provider Active Start: August 01, 2024 End: August 01, 2024 Dr. Karri Mims MD Other Provider Active St art: August 01, 2024 End: August 01, 2024 Dr. Marina Falcon MD Other Provider Active Star t: August 01, 2024 End: August 01, 2024 Dr. Griffin Joseph MD Other Provider Active St art: August 01, 2024 End: August 01, 2024 Dr. Becca Douglas MD Other Provider Active Start: August 01, 2024 End: August 01, 2024 Cassie Mina MD Other Provider Active Start: August 01, 2024 End: August 01, 2024 Team Status: Active Member Role Status Dates Dr. Brayden Mac MD Primary Care Provider Active Start: August 01, 2024 Dr. Anjel Douglass MD Attending Provider Active Start: August 01, 2024 Team Status: Active Member Role Status Dates Dr. Brayden Mac MD Primary Care Provider Active Start: August 01, 2024 Dr. Karl Bocanegra DO Emergency Provider Active Start : August 01, 2024 Dr. Marei Marcos DO Admit Provider Active S tart: August 01, 2024 Dr. Marie Marcos DO Attending Provider Active Start: August 01, 2024 Dr. Marie Marcos DO Other Provider Active S tart: August 01, 2024 Bassam Cross MD Other Provider Active Start: 2024 Dr. Gisela Reyes MD Other Provider Active Start: August 01, 2024 Nohelia Burns MD Other Provider Active Start : August 01, 2024 Dr. Lizbeth Peralta DO Other Provider Active St art: August 01, 2024 Dr. Kate Goins MD Other Provider Active Start: August 01, 2024 Dr. Cresencio Guzman MD Other Provider Active Sta rt: August 01, 2024 Dr. Adrienne Jaramillo MD Other Provider Active Start : August 01, 2024 Dr. Forrest Luna MD Other Provider Active Start: August 01, 2024 Dr. Titus Haines MD Other Provider Active Start : August 01, 2024 Dr. Daniel Asencio MD Other Provider Active Sta rt: August 01, 2024 Martina Poe MD Other Provider Active Start : August 01, 2024 Dr. Jonathan Lofton MD Other Provider Active St art: August 01, 2024 Dr. Rosamaria Davenport MD Other Provider Active Start : August 01, 2024 Dr. Reyes Stubbs MD Other Provider Active Sta rt: August 01, 2024 Dr. Turner Laurent MD Other Provider Active Start: August 01, 2024 Dr. Karri Mims MD Other Provider Active St art: August 01, 2024 Dr. Marina Falcon MD Other Provider Active Star t: August 01, 2024 Dr. Griffin Joseph MD Other Provider Active St art: August 01, 2024 Dr. Becca Douglas MD Other Provider Active Start: August 01, 2024 Cassie Mina MD Other Provider Active Start: August 01, 2024 Team Status: Active Member Role Status Dates Dr. Brayden Mac MD Family Provider Active Dr. Brayden Mac MD Primary Care Provider Active Team Status: Active Member Role Status Dates Dr. Brayden Mac MD Primary Care Provider Active Chanell Cantu MUSIC THERAPY TEACHER, MUSIC THERAPY TEACHER-C Attending Provider Active Team Status: Inactive Member Role Status Dates Dr. Brayden Mac MD Primary Care Provider Active Chanell Cantu MUSIC THERAPY TEACHER, MUSIC THERAPY TEACHER-C Attending Provider, Referring Pro vider Active Team Status: Inactive Member Role Status Dates Dr. Brayden Mac MD Primary Care Provider Active Chanell Cantu MUSIC THERAPY TEACHER, MUSIC THERAPY TEACHER-C Attending Provider Active Team Status: Active Member [...] Attending Provider Active Start: August 01, 2024 Team Status: Inactive Member Role Status Dates Dr. Brayden Mac MD Primary Care Provider Active Start: August 01, 2024 End: August 01, 2024 Dr. Karl Bocanegra DO Emergency Provider Active Start : August 01, 2024 End: August 01, 2024 Dr. Marie Marcos DO Admit Provider Active S tart: August 01, 2024 End: August 01, 2024 Dr. Marie Marcos DO Attending Provider Active Start: August 01, 2024 End: August 01, 2024 Bassam Cross MD Other Provider Active Start: 2024 End: August 01, 2024 Dr. Gisela Reyes MD Other Provider Active Start: August 01, 2024 End: August 01, 2024 Nohelia Burns MD Other Provider Active Start : August 01, 2024 End: August 01, 2024 Dr. Lizbeth Peralta DO Other Provider Active St art: August 01, 2024 End: August 01, 2024 Dr. Kate Goins MD Other Provider Active Start: August 01, 2024 End: August 01, 2024 Dr. Cresencio Guzman MD Other Provider Active Sta rt: August 01, 2024 End: August 01, 2024 Dr. Adrienne Jaramillo MD Other Provider Active Start : August 01, 2024 End: August 01, 2024 Dr. Forrest Luna MD Other Provider Active Start: August 01, 2024 End: August 01, 2024 Dr. Titus Haines MD Other Provider Active Start : August 01, 2024 End: August 01, 2024 Dr. Daniel Asencio MD Other Provider Active Sta rt: August 01, 2024 End: August 01, 2024 Martian Poe MD Other Provider Active Start : August 01, 2024 End: August 01, 2024 Dr. Jonathan Lofton MD Other Provider Active St art: August 01, 2024 End: August 01, 2024 Dr. Rosamaria Davenport MD Other Provider Active Start : August 01, 2024 End: August 01, 2024 Dr. Reyes Stubbs MD Other Provider Active Sta rt: August 01, 2024 End: August 01, 2024 Dr. Turner Laurent MD Other Provider Active Start: August 01, 2024 End: August 01, 2024 Dr. Krari Mims MD Other Provider Active St art: August 01, 2024 End: August 01, 2024 Dr. Marina Falcon MD Other Provider Active Star t: August 01, 2024 End: August 01, 2024 Dr. Griffin Joseph MD Other Provider Active St art: August 01, 2024 End: August 01, 2024 Dr. Becca Douglas MD Other Provider Active Start: August 01, 2024 End: August 01, 2024 Cassie Mina MD Other Provider Active Start: August 01, 2024 End: August 01, 2024 Team Status: Active Member Role Status Dates Dr. Brayden Mac MD Primary Care Provider Active Start: August 01, 2024 Dr. Anjel Douglass MD Attending Provider Active Start: August 01, 2024 Team Status: Active Member Role Status Dates Dr. Brayden Mac MD Primary Care Provider Active Start: August 01, 2024 Dr. Karl Bocanegra DO Emergency Provider Active Start : August 01, 2024 Dr. Marie Marcos DO Admit Provider Active S tart: August 01, 2024 Dr. Marie Marcos DO Attending Provider Active Start: August 01, 2024 Dr. Marie Marcos DO Other Provider Active S tart: August 01, 2024 Bassam Cross MD Other Provider Active Start: 2024 Dr. Gisela Reyes MD Other Provider Active Start: August 01, 2024 Nohelia Burns MD Other Provider Active Start : August 01, 2024 Dr. Lizbeth Peralta DO Other Provider Active St art: August 01, 2024 Dr. Kate Goins MD Other Provider Active Start: August 01, 2024 Dr. Cresencio Guzman MD Other Provider Active Sta rt: August 01, 2024 Dr. Adrienne Jaramillo MD Other Provider Active Start : August 01, 2024 Dr. Forrest Luna MD Other Provider Active Start: August 01, 2024 Dr. Titus Haines MD Other Provider Active Start : August 01, 2024 Dr. Daniel Asencio MD Other Provider Active Sta rt: August 01, 2024 Martina Poe MD Other Provider Active Start : August 01, 2024 Dr. Jonathan Lofton MD Other Provider Active St art: August 01, 2024 Dr. Rosamaria Davenport MD Other Provider Active Start : August 01, 2024 Dr. Reyes Stubbs MD Other Provider Active Sta rt: August 01, 2024 Dr. Turner Laurent MD Other Provider Active Start: August 01, 2024 Dr. Karri Mims MD Other Provider Active St art: August 01, 2024 Dr. Marina Falcon MD Other Provider Active Star t: August 01, 2024 Dr. Griffin Joseph MD Other Provider Active St art: August 01, 2024 Dr. Becca Douglas MD Other Provider Active Start: August 01, 2024 Cassie Mina MD Other Provider Active Start: Yari 10th, 2025 FOR RECORDS PERTAINING TO PATIENTS WHO ARE [...] BE BASED ON THE PRIMARY CLINICAL RECORDS. [facility] [employer] [facility]. provides no warranty or guarantee of the accuracy or completeness of information in this document.
--- OUTSIDE RECORDS SUMMARY | 2024-08-01 23:12 | XMS RPT_ITS | CCD ---
Author Organization [facility] Care Team Providers Care Facilities And Grounds Director Name Role Phone Angelo Payton Unavailable Vickie [...] Bubba WATSON, Dr. Owen Primary Care Provider Dr. Karl Bocanegra DO Emergency Provider Dr. Marie Marcos DO Admit Provider [phone] Marie Marcos DO Attending Provider Bassam Cross MD Other Provider Unavailable Dr. Gisela Reyes MD Other Provider [phone] Nohelia Burns MD Other Provider Unavailable Dr. Lizbeth Peralta DO Other Provider [phone] Dr. Kate Goins MD Other Provider Dr. Cresencio Guzman MD Other Provider [phone] Dr. Adrienne Jaramillo MD Other Provider [phone] Forrest Luna MD Other Provider [phone] Titus Haines MD Other Provider [phone] Luis M WATSON, Dr. Sanchez Other Provider [phone] Martina Poe MD Other Provider Kirsty WATSON, Dr. Castillo Other Provider [phone] Issac WATSON, Dr. Blank Other Provider [phone] Evelyne WATSON, Dr. Chambers Other Provider Mehran WATSON, Dr. Turner Reed Other Provider Prasanna WATSON, Dr. Zeng Other Provider Ezekiel WATSON, Dr. Gray Other Provider [phone] Opal WATSON, Dr. Moya Other Provider Misael WATSON, Dr. Hudson Other Provider Unavailable Leopoldo WATSON, Yousejeremy Other Provider Unavailable Rafat WATSON, Dr. Hobbs Attending Provider Hemant RIZVI, Dr. Mattson Other Provider Allergies Allergy Classification Reported Allergen(s) Allergy Type Date of Onset Reaction(s) Facility (2 sources) sulfamethoxazole / trimethoprim Drug Allergy 7 [facility] Work Phone: (2 sources) sulfamethoxazole / trimethoprim; Translations: [SULFAMETHOXAZOLE-TR IMETHOPRIM] Drug Allergy 7 [facility] Rep[facility] (8 sources) Sulfamethoxazole Drug Allergy 1 [facility] (8 sources) Trimethoprim Drug Allergy 1 [facility] (1 source) Sulfamethoxazole Drug Allergy 1 [facility] (1 source) Trimethoprim Drug Allergy 1 [facility] Medications Current Medications Medication Drug [...] MCG TABS 1 tablet daily LEVOTHYROXINE SODIUM [id number] Bijan HUMMEL Completed/Discontinued Medications Medication Drug Class(es) [...] Auto (Unsp spec) [#/Vol] 1.31 10*3/uL 0.83-4.51 [facility] Absolute neutrophil countOrd ered By: Karl Bocanegra on 08-01-2024 Neutrophils (Bld) [#/Vol] 2.6 10*3/uL 2.0-7.7 [facility] Activated partial thrombopla stin time (aPTT) in platelet poor plasma by coagulation aOrdered By: Karl Bocanegra on 08-01-2024 aPTT Coag (PPP) [Time] 27.2 s 24.1-36.2 [facility] Anion gap in Serum or Plasma Ordered By: Karl Bocanegra on 08-01-2024 Anion gap [Moles/Vol] 9 mmol/L 5-15 [facility] Automated lymphocyte count a s percentage of total leukocytesOrdered By: Karl Bocanegra on 08-01-2024 Lymphocytes/100 WBC Auto (Unsp spec) 29.6 % 19-41 [facility] BUN/creatinine ratioOrdered By: Karl Bocanegra on 08-01-2024 Urea nitrogen/Creatinine [Mass ratio] 26.7 mg/mg High 10-20 [facility] Basophil percentageOrdered B y: Karl Bocanegra on 08-01-2024 Basophils/100 WBC (Bld) 1.6 % High 0-1 [facility] Calculated very low density lipoprotein (VLDL) cholesterol measurementOrdered By: Marie Marcos on 08-01-2024 Calculated very low density lipoprotein (VLDL) cholesterol measurement 15 mg/dL 5-40 [facility] Carbon dioxide, total [Moles /volume] in Central venous bloodOrdered By: Karl Bocanegra on 08-01-2024 CO2 [Moles/Vol] 22.3 mmol/L 21.0-32.0 [facility] Chloride assayOrdered By: Juan Antonio Bocanegra on 08-01-2024 Chloride [Moles/Vol] 102 mmol/L 98-108 [facility] Echocardiogram study reportO rdered By: Anjel Douglass on 08-01-2024 Study report [facility] [address] [place] [address] Echo Complete W/ Contrast 08/01/24 1316 MR#: [id number] Acct: [id number] Name: KRISTINA SUAREZ Rep #:[id number] : 1960 64 From: Anjel Douglass MD Attending Dr: Dr. Marie Marcos, DO Status: ADM LUCIANA Ordering Dr: Marie Marcos DO Date: 08/01/24 [facility] Sex[facility] F C Admitted: 08/01/24 Reason For [...] Dictated: 08/01/24 1316 Date Transcribed: 08/01/24 153 Cephalometric Analyst: Signed [facility] Work Phone: Eosinophil percentageOrdered By: Karl Bocanegra on 08-01-2024 Eosinophils/100 WBC (Bld) 3.4 % 0-5 [facility] Erythrocyte distribution wid th ratioOrdered By: Karl Bocanegra on 08-01-2024 Erythrocyte distribution width (RBC) [Ratio] 13.7 % 11.6-14.6 [facility] Erythrocyte distribution wid th standard deviationOrdered By: Karl Bocanegra on 08-01-2024 Erythrocyte distribution width (RBC) [Ratio] 47.2 fl High 35.1-43.9 [facility] Glomerular filtration rate ( GFR) estimation/1.73 sq m using serum, plasma, or whole bOrdered By: Karl Bocanegra on 08-01-2024 GFR/1.73 sq M.predicted among non-blacks MDRD (S/P/Bld) [Vol rate/Area] 98 mL/min/{1.73_m2} >60 [facility] Comment on above: mL/min/1.73m2 CKD-EP I Creatinine Equation (2020) Glucose measurement at [facility] deOrdered By: Karl Bocanegra on 08-01-2024 Glucose [Mass/Vol] 84 mg/dL 74-106 [facility] Comment on above: MANAGEMENT OF PATIEN T CARE PER NURSING PROTOCOL Hematocrit Auto (Bld) [Volum e fraction]Ordered By: Karl Bocanegra on 08-01-2024 Hematocrit (Bld) [Volume fraction] 34.0 % Low 37-47 [facility] Hemoglobin measurementOrdere d By: Karl Bocanegra on 08-01-2024 Hemoglobin (Bld) [Mass/Vol] 11.2 g/dL Low 12.0-15.0 [facility] Immature granulocytes/100 WB C Auto (Bld)Ordered By: Karl Bocanegra on 08-01-2024 Immature granulocytes/100 WBC (Bld) 0.200 % 0.0-0.9 [facility] Comment on above: IG% - Immature Granu locytes (promyelocytes, myelocytes and metamyelocytes) > 1% indicates that a LEFT SHIFT is Present. International normalized rat io (INR) calculationOrdered By: Karl Bocanegra on 08-01-2024 INR Coag (Bld) [Relative time] 1.0 {INR} [facility] LDL calc ser/plasOrdered By: Marie Marcos on 08-01-2024 Cholesterol in LDL [Mass/Vol] 121 mg/dL [facility] Comment on above: Ejecfusryj=740-859 m g/dL & Higher Pccg=145 mg/dL or greater MCV (mean corpuscular volume ) determinationOrdered By: Karl Bocanegra on 08-01-2024 MCV (RBC) [Entitic vol] 92.9 fL 81-99 [facility] Magnetic resonance imaging r eportOrdered By: Jonathan Haney on 08-01-2024 Study report [facility] Services [address] [place], [place] [address] Brain without Contrast MR#: [id number] Acct: [id number] Name: KRISTINA SUAREZ Rep #: [id number] : 1960 F 64 From: Rik Haney MD PCP: Dr. Brayden Mac MD Status: ADM LUCIANA Study:Brain without Contrast Date of Exam: 08/01/24 Exam# [id number] Ordering Dr: Marie Reese DO PROCEDURE: BRAIN [...] IMPRESSION: No acute intracranial abnormality. Reading Location: [place] [address] CC: Dr. Brayden Mac MD; Dr. Marie Marcos DO ~ Cephalometric Analyst: Signed [facility] Mean corpuscular hemoglobin (MCH) determinationOrdered By: Karl Bocanegra on 08-01-2024 MCH (RBC) [Entitic mass] 30.6 pg 27.0-32.0 [facility] Mean corpuscular hemoglobin concentration (MCHC) determinationOrdered By: Karl Bocanegra on 08-01-2024 MCHC (RBC) [Mass/Vol] 32.9 g/dL 32-36 [facility] Mean platelet volume determi nationOrdered By: Karl Bocanegra on 08-01-2024 Platelet mean volume (Bld) [Entitic vol] 10.3 fL 6.2-12.0 [facility] Monocyte percentageOrdered B y: Karl Bocanegra on 08-01-2024 Monocytes/100 WBC (Bld) 7.0 % 0-10 [facility] Neutrophil percentageOrdered By: Karl Le on 08-01-2024 Neutrophils/100 WBC (Bld) 58.2 % 47-70 [facility] Nucleated red blood cell per centageOrdered By: Karl Le on 08-01-2024 Nucleated RBC/100 WBC (Bld) [Ratio] 0 % 0-5 [facility] Platelet countOrdered By: Juan Antonio Bocanegra on 08-01-2024 Platelets (Bld) [#/Vol] 273 10*3/uL 150-450 [facility] Potassium measurement (mass/ volume)Ordered By: Karl Bocanegra on 08-01-2024 Potassium (Unsp spec) [Mass/Vol] 3.9 mmol/L 3.3-5.1 [facility] Prothrombin timeOrdered By: Karl Bocanegra on 08-01-2024 PT Coag (PPP) [Time] 13.0 s 11.7-14.9 [facility] RBC Auto (Bld) [#/Vol]Ordere d By: Karl Bocanegra on 08-01-2024 RBC (Bld) [#/Vol] 3.66 10*6/uL Low 4.2-5.4 [facility] Screening total cholesterol/ high density lipoprotein (HDL) cholesterol ratioOrdered By: Marie Marcos on 08-01-2024 Cholesterol.total/Marisol sterol in HDL [Mass ratio] 3.52 {ratio} [facility] Serum creatinine measurement (mass/volume)Ordered By: Karl Bocanegra on 08-01-2024 Creatinine [Mass/Vol] 0.61 mg/dL Low 0.70-1.20 [facility] Serum glucose measurement (m ass/volume)Ordered By: Karl Bocanegra on 08-01-2024 Glucose [Mass/Vol] 94 mg/dL 70-99 [facility] Serum or plasma calcium detla urement (mass/volume)Ordered By: Karl Bocanegra on 08-01-2024 Calcium [Mass/Vol] 8.4 mg/dL 7.6-11.0 [facility] Serum or plasma cholesterol in HDL measurement (mass/volume)Ordered By: Marie Marcos on 08-01-2024 Cholesterol in HDL [Mass/Vol] 54 mg/dL >40 [facility] Comment on above: National Cholesterol Education Program (NCEP) guidelines:<40 mg/dL: Low HDL-cholesterol (major risk factor for CHD)>= 60 mg/dL: High HDL-cholesterol (negative risk factor for CHD)HDL-cholesterol is affected by a number of factors, e.g. smoking, exercise, hormones, sex and age. Serum or plasma cholesterol measurement (mass/volume)Ordered By: Marie Marcos on 08-01-2024 Cholesterol [Mass/Vol] 190 mg/dL <201 [facility] Comment on above: Cholesterol level, D esirable <200 mg/dLBorderline high cholesterol 200-239 mg/dLHigh cholesterol >=240 mg/dLRecommendations of the NCEP Adult Treatment Panel for the following risk-cutoff thresholds for the [place] population. Serum or plasma urea nitroge n measurement (mass/volume)Ordered By: Karl Bocanegra on 08-01-2024 Urea nitrogen [Mass/Vol] 16 mg/dL 4-19 [facility] Sodium levelOrdered By: Karl Bocanegra on 08-01-2024 Sodium [Moles/Vol] 133 mmol/L 133-145 [facility] Triglycerides measurementOrd ered By: Marie Marcos on 08-01-2024 Triglyceride [Mass/Vol] 75 mg/dL <199 [facility] Comment on above: The drugs N-Acetylcy steine and Metamizole may falsely depress this assay. Normal range: <150 mg/dLBorderline High: 150-199 mg/dLHigh: 200-499 mg/dLVery High: >500 mg/dL Troponin T.cardiac [Mass/vol ume] in Serum or Plasma by High sensitivity methodOrdered By: Karl Bocanegra on 08-01-2024 Troponin T.cardiac High sensitivity method [Mass/Vol] 11 ng/L <14 [facility] Troponin T.cardiac High sensitivity method [Mass/Vol] 12 ng/L <14 [facility] White blood cell (WBC) count Ordered By: Karl Bocanegra on 08-01-2024 WBC (Bld) [#/Vol] 4.4 10*3/uL 4.4-11.0 [facility] Low Dose CT Lung Screeningon 03-21-[address] Lung Screening [facility] [address] [place], [place] [id number] Low Dose CT Lung Screening MR#: [id number] Acct: [id number] Name: KRISTINA SUAREZ Rep #: [id number] : 1960 F 64 From: Jonathan Haney MD PCP: Dr. Brayden Mac MD Status: REG CLI Study: Low Dose CT Lung Screening Date of Exam: 03/21 Exam# [id number] Ordering Dr: Brayden Mac MD PROCEDURE: LOW [...] Lung-RADS is available at [email or web address] Reading Location: [id number] CC: Dr. Brayden Mac MD Cephalometric Analyst: Signed Normal [facility] CBC W/Diff, Automatedon 12-0 Absolute Lymph 1.68 X10 3/uL Normal 0.83-4.51 [facility] Comment on above: Order Comment: Order Date: 01/27/24 Order Info: 0184-1 - CBCD Performed By: #### L 500.4050, L100.0100, L501.9520, L501.9985, L506.0400 #### [facility] [address] [place], [address] Absolute Neut 4.5 X10 3/uL Normal 2.0-7.7 [facility] Comment on above: Order Comment: Order Date: 01/27/24 Order Info: 018- - CBCD Performed By: #### L 500.4050, L100.0100, L501.9520, L501.9985, L506.0400 #### [facility] [address] [place], [address] Basophils/100 WBC (Bld) 1.0 % Normal 0-1 [facility] Comment on above: Order Comment: Order Date: 01/27/24 Order Info: 018- - CBCD Performed By: #### L 500.4050, L100.0100, L501.9520, L501.9985, L506.0400 #### [facility] [address] [place], [address] Eosinophils/100 WBC (Bld) 4.7 % Normal 0-5 [facility] Comment on above: Order Comment: Order Date: 01/27/24 Order Info: 0184-1 - CBCD Performed By: #### L 500.4050, L100.0100, L501.9520, L501.9985, L506.0400 #### [facility] [address] [place], [address] Erythrocyte distribution width (RBC) [Ratio] 13.3 % Normal 11.6-14.6 [facility] Comment on above: Order Comment: Order Date: 01/27/24 Order Info: 0184-1 - CBCD Performed By: #### L 500.4050, L100.0100, L501.9520, L501.9985, L506.0400 #### [facility] [address] [place], [address] Hematocrit (Bld) [Volume fraction] 42.1 % Normal 37-47 [facility] Comment on above: Order Comment: Order Date: 01/27/24 Order Info: 0184-1 - CBCD Performed By: #### L 500.4050, L100.0100, L501.9520, L501.9985, L506.0400 #### [facility] [address] [place], [address] Hemoglobin (Bld) [Mass/Vol] 13.0 g/dL Normal 12.0-15.0 [facility] Comment on above: Order Comment: Order Date: 01/27/24 Order Info: 0184-1 - CBCD Performed By: #### L 500.4050, L100.0100, L501.9520, L501.9985, L506.0400 #### [facility] [address] [place], [address] IG% 0.600 Normal 0.0-0.9 [facility] Comment on above: Order Comment: Order Date: 01/27/24 Order Info: 0184-1 - CBCD Result Comment: IG% - Immature Granulocytes (promyelocytes, myelocytes and metamyelocytes) > 1% indicates that a LEFT SHIFT is Present. Performed By: #### L 500.4050, L100.0100, L501.9520, L501.9985, L506.0400 #### [facility] [address] [place], [address] Lymphocytes/100 WBC (Bld) 23.8 % Normal 19-41 [facility] Comment on above: Order Comment: Order Date: 01/27/24 Order Info: 0184-1 - CBCD Performed By: #### L 500.4050, L100.0100, L501.9520, L501.9985, L506.0400 #### [facility] [address] [place], [address] MCH (RBC) [Entitic mass] 29.6 pg Normal 27.0-32.0 [facility] Comment on above: Order Comment: Order Date: 01/27/24 Order Info: 0184- - CBCD Performed By: #### L 500.4050, L100.0100, L501.9520, L501.9985, L506.0400 #### [facility] [address] [place], [address] MCHC (RBC) [Mass/Vol] 30.9 g/dL Low 32-36 [facility] Comment on above: Order Comment: Order Date: 01/27/24 Order Info: 0184- - CBCD Performed By: #### L 500.4050, L100.0100, L501.9520, L501.9985, L506.0400 #### [facility] [address] [place], [address] MCV (RBC) [Entitic vol] 95.9 fL Normal 81-99 [facility] Comment on above: Order Comment: Order Date: 01/27/24 Order Info: 0184-1 - CBCD Performed By: #### L 500.4050, L100.0100, L501.9520, L501.9985, L506.0400 #### [facility] [address] [place], [address] Monocytes/100 WBC (Bld) 6.5 % Normal 0-10 [facility] Comment on above: Order Comment: Order Date: 01/27/24 Order Info: 0184-1 - CBCD Performed By: #### L 500.4050, L100.0100, L501.9520, L501.9985, L506.0400 #### [facility] [address] [place], [address] Neutrophils/100 WBC (Bld) 63.4 % Normal 47-70 [facility] Comment on above: Order Comment: Order Date: 01/27/24 Order Info: 0184-1 - CBCD Performed By: #### L 500.4050, L100.0100, L501.9520, L501.9985, L506.0400 #### [facility] [address] [place], [address] Nucleated RBC (Bld) [#/Vol] 0 10*3/uL Normal 0-5 [facility] Comment on above: Order Comment: Order Date: 01/27/24 Order Info: 0184-1 - CBCD Performed By: #### L 500.4050, L100.0100, L501.9520, L501.9985, L506.0400 #### [facility] [address] [place], [address] Platelet mean volume (Bld) [Entitic vol] 10.9 fL Normal 6.2-12.0 [facility] Comment on above: Order Comment: Order Date: 01/27/24 Order Info: 0184-1 - CBCD Performed By: #### L 500.4050, L100.0100, L501.9520, L501.9985, L506.0400 #### [facility] [address] [place], [address] Platelets (Bld) [#/Vol] 336 10*3/uL Normal 150-450 [facility] Comment on above: Order Comment: Order Date: 01/27/24 Order Info: 0184-1 - CBCD Performed By: #### L 500.4050, L100.0100, L501.9520, L501.9985, L506.0400 #### [facility] [address] [place], [address] RBC (Bld) [#/Vol] 4.39 10*6/uL Normal 4.2-5.4 [facility] Comment on above: Order Comment: Order Date: 01/27/24 Order Info: 0184-1 - CBCD Performed By: #### L 500.4050, L100.0100, L501.9520, L501.9985, L506.0400 #### [facility] [address] [place], [address] RDW SD 48.0 fl High 35.1-43.9 [facility] Comment on above: Order Comment: Order Date: 01/27/24 Order Info: 0184- - CBCD Performed By: #### L 500.4050, L100.0100, L501.9520, L501.9985, L506.0400 #### [facility] [address] [place], [address] WBC (Bld) [#/Vol] 7.1 10*3/uL Normal 4.4-11.0 [facility] Comment on above: Order Comment: Order Date: 01/27/24 Order Info: 0184-1 - CBCD Performed By: #### L 500.4050, L100.0100, L501.9520, L501.9985, L506.0400 #### [facility] [address] [place], [address] Comprehensive Metabolic Prof ilon 01-27-2024 Albumin [Mass/Vol] 3.6 g/dL Normal 3.2-5.0 [facility] Comment on above: Order Comment: Order Date: 01/27/24 Order Info: 0786-1 - CMP Order Info: 3016-3 - TSH Order Info: 3024-7 - T4F Performed By: #### L 500.4050, L100.0100, L501.9520, L501.9985, L506.0400 #### [facility] [address] [place], [address] Albumin/Globulin [Mass ratio] 1.0 {ratio} Normal 0.9-2.4 [facility] Comment on above: Order Comment: Order Date: 01/27/24 Order Info: 0786-1 - CMP Order Info: 3016-3 - TSH Order Info: 3024-7 - T4F Performed By: #### L 500.4050, L100.0100, L501.9520, L501.9985, L506.0400 #### [facility] [address] [place], [address] ALK P 73 U/L Normal 45-117 [facility] Comment on above: Order Comment: Order Date: 01/27/24 Order Info: 0786-1 - CMP Order Info: 3 - TSH Order Info: 3027 - T4F Performed By: #### L 500.4050, L100.0100, L501.9520, L501.9985, L506.0400 #### [facility] [address] [place], [address] ALT [Catalytic activity/Vol] 28 U/L Normal 13-56 [facility] Comment on above: Order Comment: Order Date: 01/27/24 Order Info: 0786-1 - CMP Order Info: 3 - TSH Order Info: 302-7 - T4F Performed By: #### L 500.4050, L100.0100, L501.9520, L501.9985, L506.0400 #### [facility] [address] [place], [address] AST [Catalytic activity/Vol] 20 U/L Normal 15-37 [facility] Comment on above: Order Comment: Order Date: 01/27/24 Order Info: 0786-1 - CMP Order Info: 3013 - TSH Order Info: 3024-7 - T4F Performed By: #### L 500.4050, L100.0100, L501.9520, L501.9985, L506.0400 #### [facility] [address] [place], [address] Bilirubin [Mass/Vol] 0.40 mg/dL Normal 0.20-1.00 [facility] Comment on above: Order Comment: Order Date: 01/27/24 Order Info: 0786-1 - CMP Order Info: 3016-3 - TSH Order Info: 3027 - T4F Result Comment: For patients on eltrombopag therapy, use of Dimension [place] TBIL is not recommended. Performed By: #### L 500.4050, L100.0100, L501.9520, L501.9985, L506.0400 #### [facility] [address] [place], [address] BUN/CRE 19.1 RATIO Normal 10-20 [facility] Comment on above: Order Comment: Order Date: 01/27/24 Order Info: 0786-1 - CMP Order Info: 3016-3 - TSH Order Info: 7 - T4F Performed By: #### L 500.4050, L100.0100, L501.9520, L501.9985, L506.0400 #### [facility] [address] [place], [address] CA,Total 9.1 mg/dL Normal 8.5-10.1 [facility] Comment on above: Order Comment: Order Date: 01/27/24 Order Info: 0786-1 - CMP Order Info: 3016-3 - TSH Order Info: 3027 - T4F Performed By: #### L 500.4050, L100.0100, L501.9520, L501.9985, L506.0400 #### [facility] [address] [place], [address] Chloride [Moles/Vol] 106 mmol/L Normal 98-107 [facility] Comment on above: Order Comment: Order Date: 01/27/24 Order Info: 785-02 - CMP Order Info: 3015-04 - TSH Order Info: 3023-08 - T4F Performed By: #### L 500.4050, L100.0100, L501.9520, L501.9985, L506.0400 #### [facility] [address] [place], [address] CO2 [Moles/Vol] 27.0 mmol/L Normal 21.0-32.0 [facility] Comment on above: Order Comment: Order Date: 01/27/24 Order Info: 785-02 - CMP Order Info: 3015-04 - TSH Order Info: 3023-08 - T4F Performed By: #### L 500.4050, L100.0100, L501.9520, L501.9985, L506.0400 #### [facility] [address] [place], [address] Creatinine [Mass/Vol] 0.73 mg/dL Normal 0.55-1.02 [facility] Comment on above: Order Comment: Order Date: 01/27/24 Order Info: 785-02 - CMP Order Info: 3015-04 - TSH Order Info: 3023-08 - T4F Result Comment: The validity of the calculated GFR GFRAA in patients over 70 years has not been determined. Clinical correlation is essential. Performed By: #### L 500.4050, L100.0100, L501.9520, L501.9985, L506.0400 #### [facility] [address] [place], [address] EST GFR - AA 102 mL/min Normal >60 [facility] Comment on above: Order Comment: Order Date: 01/27/24 Order Info: 07861 - CMP Order Info: 3015-04 - TSH Order Info: 3027 - T4F Result Comment: Afri can Haitian GFR Calc Performed By: #### L 500.4050, L100.0100, L501.9520, L501.9985, L506.0400 #### [facility] [address] [place], [address] GAP 5 Normal 5-15 [facility] Comment on above: Order Comment: Order Date: 01/27/24 Order Info: 0786-1 - CMP Order Info: 3016-3 - TSH Order Info: 3024-7 - T4F Performed By: #### L 500.4050, L100.0100, L501.9520, L501.9985, L506.0400 #### [facility] [address] [place], [address] GFR/1.73 sq M.predicted among non-blacks MDRD (S/P/Bld) [Vol rate/Area] 84 mL/min/{1.73_m2} Normal >60 [facility] Comment on above: Order Comment: Order Date: 01/27/24 Order Info: 0786-1 - CMP Order Info: 3015-3 - TSH Order Info: 3024-7 - T4F Result Comment: Non- GFR Calc Performed By: #### L 500.4050, L100.0100, L501.9520, L501.9985, L506.0400 #### [facility] [address] [place], [address] Globulin (S) [Mass/Vol] 3.6 g/dL Normal 2.2-4.2 [facility] Comment on above: Order Comment: Order Date: 01/27/24 Order Info: 0786-1 - CMP Order Info: 3016-3 - TSH Order Info: 3024-7 - T4F Performed By: #### L 500.4050, L100.0100, L501.9520, L501.9985, L506.0400 #### [facility] [address] [place], [address] Glucose [Mass/Vol] 91 mg/dL Normal 74-106 [facility] Comment on above: Order Comment: Order Date: 01/27/24 Order Info: 0786-1 - CMP Order Info: 3 - TSH Order Info: 3027 - T4F Performed By: #### L 500.4050, L100.0100, L501.9520, L501.9985, L506.0400 #### [facility] [address] [place], [address] Potassium [Moles/Vol] 4.3 mmol/L Normal 3.5-5.1 [facility] Comment on above: Order Comment: Order Date: 01/27/24 Order Info: 0786-1 - CMP Order Info: 3 - TSH Order Info: 7 - T4F Performed By: #### L 500.4050, L100.0100, L501.9520, L501.9985, L506.0400 #### [facility] [address] [place], [address] Sodium [Moles/Vol] 138 mmol/L Normal 136-145 [facility] Comment on above: Order Comment: Order Date: 01/27/24 Order Info: 0786-1 - CMP Order Info: 3 - TSH Order Info: 3027 - T4F Performed By: #### L 500.4050, L100.0100, L501.9520, L501.9985, L506.0400 #### [facility] [address] [place], [address] T PROT 7.2 g/dL Normal 6.4-8.2 [facility] Comment on above: Order Comment: Order Date: 01/27/24 Order Info: 0786-1 - CMP Order Info: 3 - TSH Order Info: 3027 - T4F Performed By: #### L 500.4050, L100.0100, L501.9520, L501.9985, L506.0400 #### [facility] [address] [place], [address] Urea nitrogen [Mass/Vol] 14 mg/dL Normal 7-18 [facility] Comment on above: Order Comment: Order Date: 01/27/24 Order Info: 0786-1 - CMP Order Info: 3015-3 - TSH Order Info: 3023-7 - T4F Performed By: #### L 500.4050, L100.0100, L501.9520, L501.9985, L506.0400 #### [facility] [address] [place], [address] Hemoglobin A1con 01-27-2024 HbA1c (Bld) [Mass fraction] 5.7 % High 3.8-5.6 [facility] Comment on above: Order Comment: Order Date: 01/27/24 Order Info: 4548-4 - A1C Result Comment: Norm al < 5.7 % Prediabetic 5.7 - 6.4 % Diabetic >or= 6.5 % Please note range changes. Performed By: #### L 500.4050, L100.0100, L501.9520, L501.9985, L506.0400 #### [facility] [address] [place], [address] T4 Free Directon 01-27-2024 T4 FREE DIRECT 1.37 ng/dL Normal 0.76-1.46 [facility] Comment on above: Order Comment: Order Date: 01/27/24 Order Info: 0786-1 - CMP Order Info: 301-3 - TSH Order Info: 7 - T4F Performed By: #### L 500.4050, L100.0100, L501.9520, L501.9985, L506.0400 #### [facility] [address] [place], [address] Thyroid Stim Hormone (TSH)on 01-27-2024 TSH 5.210 uIU/mL High 0.358-3.740 [facility] Comment on above: Order Comment: Order Date: 01/27/24 Order Info: 0786-1 - CMP Order Info: 3 - TSH Order Info: 7 - T4F Performed By: #### L 500.4050, L100.0100, L501.9520, L501.9985, L506.0400 #### [facility] [address] [place], [place], [address] Lower Ext Joint Only (Routin e)on 09-13-2023 Lower Ext Joint Only (Routine) [facility] [address] [place] [address] Lower Ext Joint Only (Routine) MR#: [id number] Acct: [id number] Name: KRISTINA SUAREZ Rep #: [id number] : 1960 F 63 From: Evaristo Andrade MD PCP: Dr. Brayden Mac MD Status: REG CLI Study: Lower Ext Joint Only (Routine) Date of Exam: 0 09/13/23 Exam# [id number] Ordering Dr: Brayden Mac MD [id number] EXAM: MR LEFT LOWER EXTREMITY WITHOUT INTRAVENOUS [...] EDT , CC: Dr. Brayden Mac MD Cephalometric Analyst: Signed Normal [facility] Dexa Bone Density Studyon Dexa Bone Density Study [facility] Imaging Services [address] [place] [address] Dexa Bone Density Study MR#: [id number] Acct: [id number] Name: KRISTINA SUAREZ Rep #: [id number] : 1960 F 63 From: Zohaib garcia MD PCP: Dr. Brayden aMc MD Status: [facility] Study: Dexa Bone Density Study Date of Exam: 09/07/23 Exam# [id number] Ordering Dr: Brayden Mac MD [id number] STUDY: DUAL ENERGY X-RAY ABSORPTIOMETRY / DXA [...] EDT , CC: Dr. Brayden Mac MD Cephalometric Analyst: Signed Normal [facility] SCRN MAMM (CAD)W/MARI Abdullahi n 09-07-2023 SCRN MAMM (CAD)W/MARI BRANT [facility] Services [address] [place] [address] SCRN MAMM (CAD)W/MARI BILAT MR#: [id number] Acct: [id number] Name: KRISTINA SUAREZ Rep #: [id number] : 1960 F 63 From: Zohaib garcia MD PCP: Dr. Brayden Mac MD Status: [facility] Study: SCRN MAMM (CAD)W/MARI BILAT Date of Exam: 08/22 08/15 Exam# [id number] Ordering Dr: Brayden Mac MD [id number] MAMMOGRAPHY - BILATERAL SCREENING REASON FOR EXAM: [...] delay biopsy of a clinically suspicious abnormality. [id number] Electronically Signed: Zohaib Mack MD at 15:18 EDT , CC: Dr. Brayden Mac MD Cephalometric Analyst: Signed Normal [facility] CBC W/Diff, Automatedon 07-23 Absolute Lymph 1.46 X10 3/uL Normal 0.83-4.51 [facility] Comment on above: Order Comment: Order Date: 08/03/23 Order Info: 0184-1 - CBCD Performed By: #### L 501.47302, L501.9520, L506.0400, L501.9985, L100.0100, L500.4100, L500.4050 #### [facility] [address] [place], [place], [phone] Absolute Neut 3.4 X10 3/uL Normal 2.0-7.7 [facility] Comment on above: Order Comment: Order Date: 08/03/23 Order Info: 0184-1 - CBCD Performed By: #### L 501.92861, L501.9520, L506.0400, L501.9985, L100.0100, L500.4100, L500.4050 #### [facility] [address] [place], [address] Basophils/100 WBC (Bld) 1.6 % High 0-1 [facility] Comment on above: Order Comment: Order Date: 08/03/23 Order Info: 0184-1 - CBCD Performed By: #### L 501.66828, L501.9520, L506.0400, L501.9985, L100.0100, L500.4100, L500.4050 #### [facility] [address] [place], [place], [phone] ([phone] Eosinophils/100 WBC (Bld) 6.5 % High 0-5 [facility] Comment on above: Order Comment: Order Date: 08/03/23 Order Info: 0184-1 - CBCD Performed By: #### L 501.88686, L501.9520, L506.0400, L501.9985, L100.0100, L500.4100, L500.4050 #### [facility] [address] [place], [place], [phone] Erythrocyte distribution width (RBC) [Ratio] 13.8 % Normal 11.6-14.6 [facility] Comment on above: Order Comment: Order Date: 08/03/23 Order Info: 0184-1 - CBCD Performed By: #### L 501.20275, L501.9520, L506.0400, L501.9985, L100.0100, L500.4100, L500.4050 #### [facility] [address] [place], [place], [phone] Hematocrit (Bld) [Volume fraction] 41.2 % Normal 37-47 [facility] Comment on above: Order Comment: Order Date: 08/03/23 Order Info: 0184-1 - CBCD Performed By: #### L 501.36271, L501.9520, L506.0400, L501.9985, L100.0100, L500.4100, L500.4050 #### [facility] [address] [place], [place], [phone] Hemoglobin (Bld) [Mass/Vol] 13.1 g/dL Normal 12.0-15.0 [facility] Comment on above: Order Comment: Order Date: 08/03/23 Order Info: 0184-1 - CBCD Performed By: #### L 501.44595, L501.9520, L506.0400, L501.9985, L100.0100, L500.4100, L500.4050 #### [facility] [address] [place], [address] IG% 0.200 Normal 0.0-0.9 [facility] Comment on above: Order Comment: Order Date: 08/03/23 Order Info: 01805-23 - CBCD Result Comment: IG% - Immature Granulocytes (promyelocytes, myelocytes and metamyelocytes) > 1% indicates that a LEFT SHIFT is Present. Performed By: #### L 501.04590, L501.9520, L506.0400, L501.9985, L100.0100, L500.4100, L500.4050 #### [facility] [address] [place], [address] Lymphocytes/100 WBC (Bld) 25.7 % Normal 19-41 [facility] Comment on above: Order Comment: Order Date: 08/03/23 Order Info: 01805-23 - CBCD Performed By: #### L 501.56140, L501.9520, L506.0400, L501.9985, L100.0100, L500.4100, L500.4050 #### [facility] [address] [place], [address] MCH (RBC) [Entitic mass] 30.9 pg Normal 27.0-32.0 [facility] Comment on above: Order Comment: Order Date: 08/03/23 Order Info: 01805-23 - CBCD Performed By: #### L 501.04503, L501.9520, L506.0400, L501.9985, L100.0100, L500.4100, L500.4050 #### [facility] [address] [place], [address] MCHC (RBC) [Mass/Vol] 31.8 g/dL Low 32-36 [facility] Comment on above: Order Comment: Order Date: 08/03/23 Order Info: 01805-23 - CBCD Performed By: #### L 501.57020, L501.9520, L506.0400, L501.9985, L100.0100, L500.4100, L500.4050 #### [facility] [address] [place], [address] MCV (RBC) [Entitic vol] 97.2 fL Normal 81-99 [facility] Comment on above: Order Comment: Order Date: 08/03/23 Order Info: 018- - CBCD Performed By: #### L 501.98407, L501.9520, L506.0400, L501.9985, L100.0100, L500.4100, L500.4050 #### [facility] [address] [place], [address] Monocytes/100 WBC (Bld) 6.0 % Normal 0-10 [facility] Comment on above: Order Comment: Order Date: 08/03/23 Order Info: 01805-23 - CBCD Performed By: #### L 501.23932, L501.9520, L506.0400, L501.9985, L100.0100, L500.4100, L500.4050 #### [facility] [address] [place], [address] Neutrophils/100 WBC (Bld) 60.0 % Normal 47-70 [facility] Comment on above: Order Comment: Order Date: 08/03/23 Order Info: 01805-23 - CBCD Performed By: #### L 501.70796, L501.9520, L506.0400, L501.9985, L100.0100, L500.4100, L500.4050 #### [facility] [address] [place], [address] Nucleated RBC (Bld) [#/Vol] 0 10*3/uL Normal 0-5 [facility] Comment on above: Order Comment: Order Date: 08/03/23 Order Info: 018- - CBCD Performed By: #### L 501.18724, L501.9520, L506.0400, L501.9985, L100.0100, L500.4100, L500.4050 #### [facility] [address] [place], [address] Platelet mean volume (Bld) [Entitic vol] 10.9 fL Normal 6.2-12.0 [facility] Comment on above: Order Comment: Order Date: 08/03/23 Order Info: 0184-1 - CBCD Performed By: #### L 501.87222, L501.9520, L506.0400, L501.9985, L100.0100, L500.4100, L500.4050 #### [facility] [address] [place], [address] Platelets (Bld) [#/Vol] 330 10*3/uL Normal 150-450 [facility] Comment on above: Order Comment: Order Date: 08/03/23 Order Info: 0184-1 - CBCD Performed By: #### L 501.62618, L501.9520, L506.0400, L501.9985, L100.0100, L500.4100, L500.4050 #### [facility] [address] [place], [address] RBC (Bld) [#/Vol] 4.24 10*6/uL Normal 4.2-5.4 [facility] Comment on above: Order Comment: Order Date: 08/03/23 Order Info: 0184-1 - CBCD Performed By: #### L 501.40109, L501.9520, L506.0400, L501.9985, L100.0100, L500.4100, L500.4050 #### [facility] [address] [place], [address] RDW SD 49.8 fl High 35.1-43.9 [facility] Comment on above: Order Comment: Order Date: 08/03/23 Order Info: 0184-1 - CBCD Performed By: #### L 501.47788, L501.9520, L506.0400, L501.9985, L100.0100, L500.4100, L500.4050 #### [facility] [address] [place], [place], [phone] WBC (Bld) [#/Vol] 5.7 10*3/uL Normal 4.4-11.0 [facility] Comment on above: Order Comment: Order Date: 08/03/23 Order Info: 0184-1 - CBCD Performed By: #### L 501.65039, L501.9520, L506.0400, L501.9985, L100.0100, L500.4100, L500.4050 #### [facility] [address] [place], [place], [phone] Comprehensive Metabolic Prof ilon 08-03-2023 Albumin [Mass/Vol] 3.5 g/dL Normal 3.2-5.0 [facility] Comment on above: Order Comment: Order Date: 08/03/23 Order Info: 0786-1 - CMP Order Info: 42904-4 - LIPID Order Info: 1-0 - T3F Order Info: 3 - TSH Order Info: 7 - T4F Performed By: #### L 501.91602, L501.9520, L506.0400, L501.9985, L100.0100, L500.4100, L500.4050 #### [facility] [address] [place], [place], [phone] Albumin/Globulin [Mass ratio] 1.0 {ratio} Normal 0.9-2.4 [facility] Comment on above: Order Comment: Order Date: 08/03/23 Order Info: 0786-1 - CMP Order Info: 54853-4 - LIPID Order Info: 3051-0 - T3F Order Info: 3016-3 - TSH Order Info: 3024-7 - T4F Performed By: #### L 501.17710, L501.9520, L506.0400, L501.9985, L100.0100, L500.4100, L500.4050 #### [facility] [address] [place], [place], [address] ALK P 78 U/L Normal 45-117 [facility] Comment on above: Order Comment: Order Date: 08/03/23 Order Info: 86-1 - CMP Order Info: 22212-6 - LIPID Order Info: 3051-0 - T3F Order Info: 3016-3 - TSH Order Info: 3024-7 - T4F Performed By: #### L 501.46438, L501.9520, L506.0400, L501.9985, L100.0100, L500.4100, L500.4050 #### [facility] [address] [place], [place], [phone] ALT [Catalytic activity/Vol] 26 U/L Normal 13-56 [facility] Comment on above: Order Comment: Order Date: 08/03/23 Order Info: 86-1 - CMP Order Info: 87504-4 - LIPID Order Info: 3051-0 - T3F Order Info: 3016-3 - TSH Order Info: 3024-7 - T4F Performed By: #### L 501.27464, L501.9520, L506.0400, L501.9985, L100.0100, L500.4100, L500.4050 #### [facility] [address] [place], [place], [address] [phone] [Catalytic activity/Vol] 22 U/L Normal 15-37 [facility] Comment on above: Order Comment: Order Date: 08/03/23 Order Info: 86-1 - CMP Order Info: 34771-2 - LIPID Order Info: 3051-0 - T3F Order Info: 3016-3 - TSH Order Info: 3024-7 - T4F Performed By: #### L 501.08840, L501.9520, L506.0400, L501.9985, L100.0100, L500.4100, L500.4050 #### [facility] [address] [place], [place], [phone] Bilirubin [Mass/Vol] 0.30 mg/dL Normal 0.20-1.00 [facility] Comment on above: Order Comment: Order Date: 08/03/23 Order Info: 0786- - CMP Order Info: 68174-0 - LIPID Order Info: 3051-0 - T3F Order Info: 3 - TSH Order Info: 302-7 - T4F Result Comment: For patients on eltrombopag therapy, use of Dimension [place] TBIL is not recommended. Performed By: #### L 501.21910, L501.9520, L506.0400, L501.9985, L100.0100, L500.4100, L500.4050 #### [facility] [address] [place], [place], [phone] BUN/CRE 17.6 RATIO Normal 10-20 [facility] Comment on above: Order Comment: Order Date: 08/03/23 Order Info: 785-02 - CMP Order Info: 22187-4 - LIPID Order Info: 3051-0 - T3F Order Info: 3 - TSH Order Info: 7 - T4F Performed By: #### L 501.49967, L501.9520, L506.0400, L501.9985, L100.0100, L500.4100, L500.4050 #### [facility] [address] [place], [place], [address] CA,Total 9.3 mg/dL Normal 8.5-10.1 [facility] Comment on above: Order Comment: Order Date: 08/03/23 Order Info: 785-02 - CMP Order Info: 96137-0 - LIPID Order Info: 3051-0 - T3F Order Info: 3013 - TSH Order Info: 3024-7 - T4F Performed By: #### L 501.99055, L501.9520, L506.0400, L501.9985, L100.0100, L500.4100, L500.4050 #### [facility] [address] [place], [address] Chloride [Moles/Vol] 108 mmol/L High 98-107 [facility] Comment on above: Order Comment: Order Date: 08/03/23 Order Info: 785-1 - CMP Order Info: 94873-2 - LIPID Order Info: 3051-0 - T3F Order Info: 3013 - TSH Order Info: 302-7 - T4F Performed By: #### L 501.20305, L501.9520, L506.0400, L501.9985, L100.0100, L500.4100, L500.4050 #### [facility] [address] [place], [address] CO2 [Moles/Vol] 28.0 mmol/L Normal 21.0-32.0 [facility] Comment on above: Order Comment: Order Date: 08/03/23 Order Info: 785-02 - CMP Order Info: 57076-5 - LIPID Order Info: 3051-0 - T3F Order Info: 3 - TSH Order Info: 7 - T4F Performed By: #### L 501.68332, L501.9520, L506.0400, L501.9985, L100.0100, L500.4100, L500.4050 #### [facility] [address] [place], [address] Creatinine [Mass/Vol] 0.74 mg/dL Normal 0.55-1.02 [facility] Comment on above: Order Comment: Order Date: 08/03/23 Order Info: 785-1 - CMP Order Info: 72959-3 - LIPID Order Info: 3051-0 - T3F Order Info: 30163 - TSH Order Info: 3024-7 - T4F Result Comment: The validity of the calculated GFR GFRAA in patients over 70 years has not been determined. Clinical correlation is essential. Performed By: #### L 501.37189, L501.9520, L506.0400, L501.9985, L100.0100, L500.4100, L500.4050 #### [facility] [address] [place], [place], [phone] EST GFR - AA 101 mL/min Normal >60 [facility] Comment on above: Order Comment: Order Date: 08/03/23 Order Info: 785-1 - CMP Order Info: - LIPID Order Info: 305-0 - T3F Order Info: 3 - TSH Order Info: 3027 - T4F Result Comment: Afri can Haitian GFR Calc Performed By: #### L 501.86854, L501.9520, L506.0400, L501.9985, L100.0100, L500.4100, L500.4050 #### [facility] [address] [place], [place], [phone] [phone] 3 Low 5-15 [facility] Comment on above: Order Comment: Order Date: 08/03/23 Order Info: 785-02 - CMP Order Info: - LIPID Order Info: 0 - T3F Order Info: 3015-04 - TSH Order Info: 7 - T4F Performed By: #### L 501.47744, L501.9520, L506.0400, L501.9985, L100.0100, L500.4100, L500.4050 #### [facility] [address] [place], [place], [phone] GFR/1.73 sq M.predicted among non-blacks MDRD (S/P/Bld) [Vol rate/Area] 84 mL/min/{1.73_m2} Normal >60 [facility] Comment on above: Order Comment: Order Date: 08/03/23 Order Info: 785-1 - CMP Order Info: 41179-9 - LIPID Order Info: 3051-0 - T3F Order Info: 3 - TSH Order Info: 3027 - T4F Result Comment: Non- GFR Calc Performed By: #### L 501.13608, L501.9520, L506.0400, L501.9985, L100.0100, L500.4100, L500.4050 #### [facility] [address] [place], [address] Globulin (S) [Mass/Vol] 3.5 g/dL Normal 2.2-4.2 [facility] Comment on above: Order Comment: Order Date: 08/03/23 Order Info: 785- - CMP Order Info: 08567-4 - LIPID Order Info: 3051-0 - T3F Order Info: 3 - TSH Order Info: 7 - T4F Performed By: #### L 501.22471, L501.9520, L506.0400, L501.9985, L100.0100, L500.4100, L500.4050 #### [facility] [address] [place], [address] Glucose [Mass/Vol] 83 mg/dL Normal 74-106 [facility] Comment on above: Order Comment: Order Date: 08/03/23 Order Info: 785-02 - CMP Order Info: - LIPID Order Info: 3051-0 - T3F Order Info: 3 - TSH Order Info: 302-7 - T4F Performed By: #### L 501.41260, L501.9520, L506.0400, L501.9985, L100.0100, L500.4100, L500.4050 #### [facility] [address] [place], [address] Potassium [Moles/Vol] 4.2 mmol/L Normal 3.5-5.1 [facility] Comment on above: Order Comment: Order Date: 08/03/23 Order Info: 785-02 - CMP Order Info: 46650-2 - LIPID Order Info: 3051-0 - T3F Order Info: 3013 - TSH Order Info: 30247 - T4F Performed By: #### L 501.30102, L501.9520, L506.0400, L501.9985, L100.0100, L500.4100, L500.4050 #### [facility] [address] [place], [place], [phone] Sodium [Moles/Vol] 139 mmol/L Normal 136-145 [facility] Comment on above: Order Comment: Order Date: 08/03/23 Order Info: 785-1 - CMP Order Info: 69214-2 - LIPID Order Info: 3051-0 - T3F Order Info: 3016-3 - TSH Order Info: 3024-7 - T4F Performed By: #### L 501.00261, L501.9520, L506.0400, L501.9985, L100.0100, L500.4100, L500.4050 #### [facility] [address] [place], [place], [phone] T PROT 7.0 g/dL Normal 6.4-8.2 [facility] Comment on above: Order Comment: Order Date: 08/03/23 Order Info: 785-02 - CMP Order Info: 64436-6 - LIPID Order Info: 3051-0 - T3F Order Info: 3016-3 - TSH Order Info: 3024-7 - T4F Performed By: #### L 501.34371, L501.9520, L506.0400, L501.9985, L100.0100, L500.4100, L500.4050 #### [facility] [address] [place], [place], [phone] Urea nitrogen [Mass/Vol] 13 mg/dL Normal 7-18 [facility] Comment on above: Order Comment: Order Date: 08/03/23 Order Info: 785-1 - CMP Order Info: 64038-0 - LIPID Order Info: 3051-0 - T3F Order Info: 3016-3 - TSH Order Info: 3024-7 - T4F Performed By: #### L 501.18398, L501.9520, L506.0400, L501.9985, L100.0100, L500.4100, L500.4050 #### [facility] [address] [place], [place], [address] Free T3on 08-03-2023 Free T3 [Mass/Vol] 1.9 pg/mL Low 2.18-3.98 [facility] Comment on above: Order Comment: Order Date: 08/03/23 Order Info: 0786- - CMP Order Info: 72188-0 - LIPID Order Info: 0 - T3F Order Info: 3 - TSH Order Info: 3023-08 - T4F Performed By: #### L 501.84755, L501.9520, L506.0400, L501.9985, L100.0100, L500.4100, L500.4050 #### [facility] [address] [place], [address] Hemoglobin A1con 08-03-2023 HbA1c (Bld) [Mass fraction] 5.5 % Normal 3.8-5.6 [facility] Comment on above: Order Comment: Order Date: 01/27/24 Order Info: 0184-1 - CBCD Result Comment: Norm al < 5.7 % Prediabetic 5.7 - 6.4 % Diabetic >or= 6.5 % Please note range changes. Performed By: #### L 500.4050, L100.0100, L501.9520, L501.9985, L506.0400 #### [facility] [address] [place], [address] Lipid Profileon 08-03-2023 Cholesterol [Mass/Vol] 209 mg/dL High 200 [facility] Comment on above: Order Comment: Order Date: 08/03/23 Order Info: 0786- - CMP Order Info: 39181-0 - LIPID Order Info: 3051-0 - T3F Order Info: 6-3 - TSH Order Info: 7 - T4F Result Comment: <200 mg/dL Desirable 200-240 mg/dL Borderline >240 mg/dL High Risk Performed By: #### L 501.26694, L501.9520, L506.0400, L501.9985, L100.0100, L500.4100, L500.4050 #### [facility] [address] [place], [address] Cholesterol in HDL [Mass/Vol] 68 mg/dL Normal [facility] Comment on above: Order Comment: Order Date: 08/03/23 Order Info: 0786- - CMP Order Info: 52594-7 - LIPID Order Info: 0 - T3F Order Info: 3 - TSH Order Info: 3023-08 T4F Result Comment: The drugs N-Acetylcysteine and Metamizole may falsely depress this assay. Reference Range HDL <40 mg/dL Low HDL Cholesterol HDL >or= 60 mg/dL High HDL Cholesterol Performed By: #### L 501.04584, L501.9520, L506.0400, L501.9985, L100.0100, L500.4100, L500.4050 #### [facility] [address] [place], [address] Cholesterol in LDL [Mass/Vol] 126 mg/dL Normal 0-130 [facility] Comment on above: Order Comment: Order Date: 08/03/23 Order Info: 0786 - CMP Order Info: 91366-5 - LIPID Order Info: T3F Order Info: 3015-04 - TSH Order Info: 3023-08 T4F Performed By: #### L 501.28816, L501.9520, L506.0400, L501.9985, L100.0100, L500.4100, L500.4050 #### [facility] [address] [place], [address] Cholesterol in VLDL [Mass/Vol] 15 mg/dL Normal 5-40 [facility] Comment on above: Order Comment: Order Date: 08/03/23 Order Info: 07- - CMP Order Info: - LIPID Order Info: 0 - T3F Order Info: 3 - TSH Order Info: 3023-08 - T4F Performed By: #### L 501.44947, L501.9520, L506.0400, L501.9985, L100.0100, L500.4100, L500.4050 #### [facility] [address] [place], [place], [address] (705) Triglyceride [Mass/Vol] 74 mg/dL Normal [facility] Comment on above: Order Comment: Order Date: 08/03/23 Order Info: 0786-1 - CMP Order Info: 11383-6 - LIPID Order Info: 0 - T3F Order Info: 3015-04 - TSH Order Info: 3023-08 - T4F Result Comment: The drugs N-Acetylcysteine and Metamizole may falsely depress this assay. Serum Triglycerides Reference Interval Normal <150 mg/dL Borderline high 150 - 199 mg/dL High 200 - 499 mg/dL Very High > or = 500 mg/dL Performed By: #### L 501.73223, L501.9520, L506.0400, L501.9985, L100.0100, L500.4100, L500.4050 #### [facility] [address] [place], [place], [id number] ([phone] T4 Free Directon 08-03-2023 T4 FREE DIRECT 1.49 ng/dL High 0.76-1.46 [facility] Comment on above: Order Comment: Order Date: 01/27/24 Order Info: 0184-1 - CBCD Performed By: #### L 500.4050, L100.0100, L501.9520, L501.9985, L506.0400 #### [facility] [address] [place], [place], [address] [phone] Thyroid Stim Hormone (TSH)on 08-03-2023 TSH 3.04 uIU/mL Normal 0.358-3.74 [facility] Comment on above: Order Comment: Order Date: 01/27/24 Order Info: 0184-1 - CBCD Performed By: #### L 500.4050, L100.0100, L501.0156, L501.9946, L506.0400 #### [facility] [address] [place], [address] Basophil percentageOrdered B y: Chanell Cantu on 07-16-2022 Chloride [Moles/Vol] 107 mmol/L 98-107 [facility] Cholesterol [Mass/Vol] 203 mg/dL <200 [facility] Comment on above: <200 mg/dL Desirable 200-240 mg/dL Borderline >240 mg/dL High Risk Glucose [Mass/Vol] 83 mg/dL 74-106 [facility] Potassium [Moles/Vol] 4.3 mmol/L 3.5-5.1 [facility] Sodium [Moles/Vol] 139 mmol/L 136-145 [facility] Triglyceride [Mass/Vol] 79 mg/dL <199 [facility] Comment on above: The drugs N-Acetylcy steine and Metamizole may falsely depress this assay.Serum Triglycerides Reference Interval Normal <150 mg/dL Borderline high 150 - 199 mg/dL High 200 - 499 mg/dL Very High > or = 500 mg/dL Laboratory - Chemistry and C hemistry - challengeOrdered By: Chanell Cantu on 07-16-2022 CO2 [Moles/Vol] 25.0 mmol/L 21.0-32.0 [facility] Urea nitrogen/Creatinine [Mass ratio] 25.2 mg/mg 10-20 [facility] No Panel InformationOrdered By: Chanell Cantu on 07-16-2022 Estimated GFR (MDRD) Amer 106 mL/min >60 [facility] Comment on above: GFR Calc Estimated GFR (MDRD) Non-Af Amer 87 mL/min >60 [facility] Comment on above: Non- GFR Calc Thyroid Stimulating Hormone (TSH) 3.76 uIU/mL 0.358-3.74 [facility] Serum or plasma calcium delta urement (mass/volume)Ordered By: Chanell Cantu on 07-16-2022 Calcium [Mass/Vol] 9.1 mg/dL 8.5-10.1 [facility] Serum or plasma cholesterol in HDL measurement (mass/volume)Ordered By: Chanell Cantu on 07-16-2022 Cholesterol in HDL [Mass/Vol] 60 mg/dL >40 [facility] Comment on above: The drugs N-Acetylcy steine and Metamizole may falsely depress this assay. Reference Range HDL <40 mg/dL Low HDL Cholesterol HDL >or= 60 mg/dL High HDL Cholesterol Serum or plasma cholesterol in VLDL measurement (mass/volume)Ordered By: Chanell Cantu on 07-16-2022 Cholesterol in VLDL [Mass/Vol] 16 mg/dL 5-40 [facility] Serum or plasma creatinine m easurement (mass/volume)Ordered By: Chanell Cantu on 07-16-2022 Creatinine [Mass/Vol] 0.71 mg/dL 0.55-1.02 [facility] Comment on above: The validity of the calculated GFR & GFRAA in patients over 70 years has not been determined. Clinical correlation is essential. Serum or plasma low density lipoprotein (LDL) cholesterol measurement (mass/volume)Ordered By: Chanell Cantu on 07-16-2022 Cholesterol in LDL [Mass/Vol] 127 mg/dL 0-130 [facility] Serum or plasma urea nitroge n measurement (mass/volume)Ordered By: Chanell Cantu on 07-16-2022 Urea nitrogen [Mass/Vol] 18 mg/dL 7-18 [facility] Thin prep Papanicolaou smear with manual screeningOrdered By: Chanellmitch Cantu on 07-16-2022 Thin prep Papanicolaou smear with manual screening 7 5-15 [facility] Basophil percentageon 2021 Basophil percentage >100 SEEN /hpf 0-5 [facility] Work Phone: Bilirubin Test strip Ql (U)o n 12-08-2021 Bilirubin Ql (U) Negative Negative [facility] Work Phone: Ketones Test strip Ql (U)on 12-08-2021 Ketones Ql (U) Negative Negative [facility] Work Phone: Mucus LM Ql (Urine sed)on Mucus Ql (Urine sed) 0 SEEN /hpf [facility] Work Phone: Nitrite Test strip Ql (U)on 12-08-2021 Nitrite Ql (U) Positive Negative [facility] Work Phone: Protein Test strip Ql (U)on 12-08-2021 Protein Ql (U) 100 mg/dl Negative [facility] Work Phone: Squamous epithelial cells de tection in urine sediment by light microscopyon 12-08-2021 Epithelial cells.squamous LM Ql (Urine sed) 0-5 SEEN /hpf 5-10 [facility] Work Phone: Urine blood detectionon 11-22 RBC Ql (U) 250 /ul Negative [facility] Work Phone: [phone] RBC Ql (U) 50-100 SEEN /hpf 0-5 [facility] Work Phone: Urine clarityon 12-08-2021 Clarity (U) Sl. Cloudy Clear [facility] Work Phone: Urine color determinationon 12-08-2021 Color (U) Yellow Yellow [facility] Work Phone: Urine glucose detectionon Glucose Ql (U) Normal mg/dl Normal [facility] Work Phone: Urine leukocyte esterase det ection by dipstickon 12-08-2021 Leukocyte esterase Test strip Ql (U) 500 /ul Negative [facility] Work Phone: Urine pHon 12-08-2021 pH (U) 7.0 [pH] 5.0 - 8.0 [facility] Work Phone: Urine sediment bacteria coun t by microscopy (number/high power field)on 12-08-2021 Bacteria LM.HPF (Urine sed) [#/Area] 4 /[HPF] None Seen [facility] Work Phone: Urine specific gravity measu rementon 12-08-2021 Specific gravity (U) [Rel density] 1.010 1.002-1.030 [facility] Work Phone: Urobilinogen Auto test strip Ql (U)on 12-08-2021 Urobilinogen Ql (U) Normal mg/dl Normal [facility] Work Phone: Office Visit: UC: Hypothyroi dism aphthous ulcer,on 01-21-2017 Documentation of current medications (procedure) Done Invalid Interpretation Code [facility] Work Phone: Fall risk assessment No Invalid Interpretation Code [facility] Work Phone: Tobacco smoking status NHIS Never Invalid Interpretation Code [facility] Work Phone: Tobacco smoking status NHIS Tobacco smoking status NHIS Invalid Interpretation Code [facility] Work Phone: Tobacco use HS Never smoker Invalid Interpretation Code [facility] Work Phone: PROGRESSon 09-22-2016 PROGRESS HNO ID: [id number]: Kobi FloresSerlorrainee: (none)Author Type: PhysicianType: Progress NotesFiled: 09/22/2016 8:14 AMNote Text:Kobi Flores, [facility] OrthopaedicsOrtblue mountain hospital, inc.ae [address] [facility] [place] [address]Tkqt: [phone] Thpj 2016CHIEF COMPLAINT: Surgical Followup (6 weeks 3 days post ORIF right distalradius).ASSESSME NT:S52.571D Other closed intra-articular fracture of distal end of rightradius with routine healing, subsequent encounter (primary encounterdiagnosis)RAFITA RANGLE/PLAN:Patient is 6/2 weeks status post ORIF of [...] needed and all contraindications werereviewed.Radha mcmahon Information Below:Medications:[facility] ent Outpatient Prescriptions:levothyr oxine (SYNTHROID) 50 mcg ORAL tablet Take 125 mcg by mouth oncedaily.HYDROcodone- acetaminophen (NORCO) 5-325 mg per tablet Take 1 tablet bymouth every 6 hours as needed.No current facility-administered medications for this visit.Allergies: Bactrim [Sulfamethoxazole-Trim ethoprim]This note was partially generated using [employer] voice recognition system,and there may be some incorrect words, spellings, and punctuation thatwere not noted in checking the note before saving.Kobi Flores MD [facility] CNOVon 09-21-2016 CNOV Office Visit (ORTHWS) KRISTINA SUAREZ ([id number]) 1960 [facility] Time Provider Department09/21/16 1:00 PM KOBI FLORES [...] Flores MD 09/22/2016 8:14 AM SignedKobi Flores [facility] OrthopaedicsOrtshasta regional medical center[address] [facility] [place] [address]Skwq: [phone] Vfxj 2016CHIEF COMPLAINT: Surgical Followup (6 weeks 3 [...] [Sulfamethoxazole-Trim ethoprim]This note was partially generated using [employer] voice recognition system, andthere may be some incorrect words, spellings, and punctuation that were notnoted in checking the note before saving.Reece Avendaño Provider: KOBI FLORES [[id number]]Allergies As of Date: 09/21/2016 Noted Allergy ReactionBACTRIM [...] by KOBI FLORES MD on 09/22/16 [facility] PROGRESSon 09-21-2016 PROGRESS HNO ID: [id number]: Gris Trujillo RNService: (none)Author Type: (none)Type: Progress NotesFiled: 09/22/2016 8:14 AMNote Text:Incision cleansed with Chlora prep and small disolvable suture clipped atskin level mid incision. New stockinet given from under EXOS brace. [facility] PROGRESS HNO ID: [id number]: Silva Charles MaService: (none)Author Type: (none)Type: Progress [...] x-ray done today prior to appointment. [facility] PROGRESS HNO ID: [id number]: Sania White (Rt) Itz Lim: (none)Author Type: TechnicianType: Progress NotesFiled: 09/21/2016 12:33 PMNote Text: Radiology Service Progress NotePATIENT NAME: Kristina RajputRN: [id number] OF SERVICE: September 21, 2016TIME: 12:27 PMPATIENT IDENTITY VERIFICATION COMPLETED USING TWO (2) METHODS: Patientconfirmed name verbally and Date of .PATIENT GENDER DATA: Female. status: : NoBreastfeeding status: NO.PATIENT RELEVANT IMPLANT DATA REVIEWED: Not ApplicableRADIOLOGY DEPARTMENT: General X-ray: Exam(s) Completed: Upper ExtremityX-Ray(s): Wrist, Right :PERIPHERAL IV DATA: Not applicableSIGNED BY: Sol Saunders 2016 12:27 PM [facility] XR WRIST PA/LAT/OBLon 2016 XR WRIST [...] on Sep 21 2016 4:02PM EST [facility] PROGRESSon 09-01-2016 PROGRESS HNO ID: [id number]: Kobi FloresSerlorrainee: (none)Author Type: PhysicianType: Progress NotesFiled: 09/01/2016 11:38 AMNote Text:Kobi Flores [facility]ICEepartment of OrthopaedicsOrthopaedi [address] [place] [address]Ibcl: [phone] Atls 2016CHIEF COMPLAINT: Post Op (3 week 3 [...] [Sulfamethoxazole-Trim ethoprim]This note was partially generated using [employer] voice recognition system,and there may be some incorrect words, spellings, and punctuation thatwere not noted in checking the note before saving.Kobi Flores MD [facility] CNOVon 08-31-2016 CNOV Office Visit (ORTHWS) KRISTINA SUAREZ ([id number]) 1960 [facility] Time Provider Department08/31/16 4:00 PM KOBI FLORES [...] 09/01/2016 11:38 AM SignedPT ASSESSMENT - CASTING ROOMKatlakeland community hospital presents for Application of brace.Applied DonKarina Exos short arm fracture brace open thumb to Right wrist.Patient tolerated well.Patient has been instructed in Care and proper application of brace. Patientsigned Jonathon Collins product agreement form for billing. Patient verbalizednakia Flores MD 09/01/2016 11:38 AM SignedKobi Flores [facility]ICEep[facility] of OrthopaedicsOrtblue mountain hospital, inc.ae [address] [address]Lufr: [phone] Brvt 2016CHIEF COMPLAINT: Post Op (3 week 3 days post ORIF right wrist ).ASSESSMENT:S52.527J Other closed intra-articular fracture of distal end [...] [Sulfamethoxazole-Trim ethoprim]This note was partially generated using [employer] voice recognition system, andthere may be some incorrect words, spellings, and punctuation that were notnoted in checking the note before saving.Reece Avendaño Provider: KOBI FLORES [[id number]]Allergies As of Date: 08/31/2016 Noted Allergy ReactionBACTRIM (SULFAMETHOXAZOLE-TRIM ETH*08/03/2016 14 - Other: See Comments Comments: Tongue swells and lips get tinglyDate Reviewed: 08/31/2016Reviewed by: Alis Willingham Ma - Fully AssessedReason for Visit: Post Op [174] Cmt: 3 week 3 days post ORIF right wristPrimary Visit Diagnosis:Other closed intra-articular fracture of distal end of right radius with routine healing, subsequent encounter [S50.571D]Prescription s as of 08/31/2016 Sig: * LEVOTHYROXINE [...] Status:Closed by KOBI FLORES MD on 09/01/16 [facility] PROGRESSon 08-31-2016 PROGRESS HNO ID: [id number]: Silva Charles MaService: (none)Author Type: (none)Type: Progress NotesFiled: 09/01/2016 11:38 AMNote Text:PT ASSESSMENT - CASTING ROOMKristina presents for Application of brace.Applied DonHireHive Exos short arm fracture brace open thumb to Right wrist.Patient tolerated well.Patient has been instructed in Care and proper application of brace.Patient signed [employer] Karina product agreement form for billing. Patientverbalized understanding.Silva Charles Ma [facility] PROGRESS HNO ID: [id number]: Sarah Cisneros (Itz Callahan: (none)Author Type: TechnicianType: Progress NotesFiled: 08/31/2016 4:41 PMNote Text: Radiology Service Progress NotePATIENT NAME: Kristina PorterMRN: [id number] OF SERVICE: August 31, 2016TIME: 4:34 PMPATIENT IDENTITY VERIFICATION COMPLETED USING TWO (2) METHODS: Patientconfirmed name verbally and Date of .PATIENT GENDER DATA: Female. status: : NoBreastfeeding status: NO.PATIENT RELEVANT IMPLANT DATA REVIEWED: Not ApplicableRADIOLOGY DEPARTMENT: General X-ray: Exam(s) Completed: Upper ExtremityX-Ray(s): Wrist, Right :PERIPHERAL IV DATA: Not applicableSIGNED BY: Sol Story 2016 4:34 PM [facility] PROGRESS HNO ID: [id number]: Alis Boggsice: (none)Author Type: (none)Type: Progress NotesFiled: 09/01/2016 11:38 AMNote Text:AMB ROOMING INTAKE FLOWSHEET DATARisk ScreeningDo you have concerns about personal safety or safety in the home?: NoPatient here today for 3 weeks 3 days post ORIF right wrist. Denies anypain in surgical arm. Arrives with cast intact, but removed for exam andx-ray. [facility] XR WRIST PA/LAT/OBLon 2016 XR WRIST PA/LAT/OBL [...] area of fracture consistent with callus.IMPRESSION:Heal ing fracture.Production Grader ist: PSCB Transcribe Date/Time: Sep 01 2016 6:17PDictated by : MARIE MARION MDThis examination was interpreted and the report reviewed and electronically signed by: MARIE MARION MD on Sep 01 2016 6:18PM EST [facility] PROGRESSon 08-24-2016 PROGRESS HNO ID: [id number]: Kobi Spencer: (none)Author Type: PhysicianType: Progress NotesFiled: 08/24/2016 12:25 PMNote Text:TAYLOR Avendañoepartment of OrthopaedicsOrtblue mountain hospital, inc.ae [address] [address]Gtua: [phone] Wldr 2016CHIEF COMPLAINT: New Patient (Comminuted impacted right wrist fracture )HPI: Ms. Kristina Suarez is a 56 year old female , [id number] whohad a fall at her daughter's house just a day or 2 ago. She was then seenat urgent care and splinted. 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 History Main Topics Smoking status: Current [...] by either mail or electronic medicalrecord.[place] Call, UMN[address] [facility] [address]OysoxTitus Amaro MD[address] [facility] [address] [id number] note was partially generated using [employer] voice recognition system,and there may be some incorrect words, spellings, and punctuation thatwere not noted in checking the note before saving.Kobi Flores MD [facility] Culture, urine Bacteria identified Cx Nom (U) Presumptive E. coli [facility] Work Phone: Vital Signs Date Time Vital Sign Value Performing Clinician Facility 08-01-2024 20:05-0400 Body temperature 97.9 [degF] Dr. Brayden Mac MD Work Phone: [facility] 08-01-2024 20:05-0400 Diastolic blood pressure 84 mm[Hg] Dr. Brayden Mac MD Work Phone: [facility] 08-01-2024 20:05-0400 Heart rate 64 /min Dr. Brayden Mac MD Work Phone: [facility] 08-01-2024 20:05-0400 Respiratory rate 18 /min Dr. Brayden Mac MD Work Phone: [facility] 08-01-2024 20:05-0400 SaO2% (BldA) [Mass fraction] 96 % Dr. Brayden Mac MD Work Phone: [facility] 08-01-2024 20:05-0400 Systolic blood pressure 141 mm[Hg] Dr. Brayden Mac MD Work Phone: [facility] 08-01-2024 14:45-0400 Body height 162.[address] Brayden Mac MD Work Phone: [facility] 08-01-2024 14:45-0400 Body weight 85.[address] Brayden Mac MD Work Phone: [facility] 08-01-2024 12:10-0400 Body height 162.[address] Brayden Mac MD Work Phone: [facility] 08-01-2024 12:10-0400 Body mass index (BMI) [Ratio] 32.2 kg/m2 Dr. Brayden Mac MD Work Phone: [facility] 08-01-2024 12:10-0400 Body weight 85.[address] Brayden Mac MD Work Phone: [facility] 08-01-2024 11:30-0400 Diastolic blood pressure 72 mm[Hg] Dr. Brayden Mac MD Work Phone: [facility] 08-01-2024 11:30-0400 Heart rate 63 /min Dr. Brayden Mac MD Work Phone: [facility] 08-01-2024 11:30-0400 Respiratory rate 14 /min Dr. Brayden Mac MD Work Phone: [facility] 08-01-2024 11:30-0400 SaO2% (BldA) [Mass fraction] 98 % Dr. Brayden Mac MD Work Phone: [facility] 08-01-2024 11:30-0400 Systolic blood pressure 180 mm[Hg] Dr. Brayden Mac MD Work Phone: [facility] 08-01-2024 11:18-0400 Body temperature 97.9 [degF] Dr. Brayden Mac MD Work Phone: [facility] 01-21-2017 12:39-0500 BMI (Body Mass Index) 24.93 kg/m2 [facility] Work Phone: 01-21-2017 12:39-0500 Body Temperature 98.1 [degF] [facility] Work Phone: 01-21-2017 12:39-0500 BP Diastolic 82 mm[Hg] [facility] Work Phone: 01-21-2017 12:39-0500 BP Systolic 124 mm[Hg] [facility] Work Phone: 01-21-2017 12:39-0500 Height 161.29 cm [facility] Work Phone: 01-21-2017 12:39-0500 Pulse (Heart Rate) 74 /min [facility] Work Phone: 01-21-2017 12:39-0500 Respiratory Rate 14 /min [facility] Work Phone: 01-21-2017 12:39-0500 Weight 64.86 kg [facility] Work Phone: Encounters Encounter Date Encounter Type Care Provider Facility Start: 08-01-2024 Non-patient / Non-visit Dr. Marie Hollingsworth DO -[facility] Work Phone: Start: 08-01-2024 Non-patient / Non-visit Dr. Anjel boyd MD -[facility] Start: 08-01-2024 End: 08-01-2024 Evaluation and management of inpatient Dr. Marie Marcos DO -[facility] Work Phone: Start: 08-01-2024 End: 08-01-[address] Brayden Mac MD Work Phone: [facility] Work Phone: Start: 03-21-2024 End: 03-21-2024 ambulatory Brayden Mac Facility:[facility] Start: 01-27-2024 End: 01-27-2024 ambulatory Brayden Mac Facility:[facility] Start: 09-13-2023 End: 09-13-2023 ambulatory Brayden Mac Facility:[facility] Start: 09-07-2023 End: 09-07-2023 ambulatory Brayden Mac Facility:[facility] Start: 08-03-2023 End: 08-03-2023 ambulatory Brayden Bubba Facility:[facility] Start: 03-20-2023 End: 03-20-2023 ambulatory [facility] Work Phone: Start: 03-20-2023 End: 03-20-2023 Patient encounter procedure [facility]Erika Page [facility] Work Phone: Start: 09-16-2022 End: 09-16-2022 ambulatory [facility] Work Phone: Start: 09-16-2022 End: 09-16-2022 Patient encounter procedure [facility]Cat Scan, [facility] Work Phone: Start: 07-17-2022 End: 07-17-2022 ambulatory [facility] Work Phone: Start: 07-17-2022 End: 07-17-2022 Patient encounter procedure [facility] Work Phone: Start: 07-16-2022 End: 07-16-2022 ambulatory [facility] Work Phone: Start: 07-16-2022 End: 07-16-2022 [facility] Start: 12-08-2021 End: 12-08-2021 ambulatory [facility] Work Phone: Start: 12-08-2021 End: 12-08-2021 Patient encounter procedure [facility] Start: 09-12-2021 End: 09-12-2021 Patient encounter procedure [facility], [facility] Start: 09-21-2016 End: 09-21-2016 Ambulatory KOBI FLORES [facility] Start: 09-08-2016 End: 09-08-2016 Ambulatory KOBI FLORES [facility] Start: 08-31-2016 End: 08-31-2016 Ambulatory KOBI FLORES [facility] Start: 08-07-2016 Ambulatory KOBI FLORES [facility] [...] Activity Detail Author Start: 08-01-2024 Patient discharge [facility] Start: 08-01-2024 Ambulation without limitation [facility] Start: 08-01-2024 Assessment of risk of venous thromboembolism [facility] Start: 08-01-2024 Cardiac monitoring [facility] Start: 08-01-2024 Catheterization of vein [facility] Start: 08-01-2024 Consultation [facility] Start: 08-01-2024 Continuous pulse oximetry [facility] Start: 08-01-2024 Exercises [facility] Start: 08-01-2024 Insertion of catheter into peripheral vein [facility] Start: 08-01-2024 Measuring intake and output [facility] Start: 08-01-2024 Notification of physician [facility] Start: 08-01-2024 Oxygen therapy [facility] Start: 08-01-2024 Patient referral to dietitian [facility] Start: 08-01-2024 Providing care according to standard [facility] Start: 08-01-2024 Referral to occupational therapist [facility] Start: 08-01-2024 Referral to service [facility] Start: 08-01-2024 Speech therapy assessment [facility] Start: 08-01-2024 Telemedicine consultation with patient [facility] Start: 08-01-2024 Vital signs measurements [facility] Start: 08-01-2024 MRI of brain without contrast Brain without Contrast [facility] Start: 08-01-2024 Verification routine [facility] Start: 08-01-2024 Admission procedure [facility] Start: 08-01-2024 End: 08-01-2024 [facility] Start: 08-01-2024 Hospital admission, emergency, from emergency room, medical nature [facility] Start: 08-01-2024 Oxygen therapy [facility] Start: 08-01-2024 [facility] Start: 01-21-2017 End: 01-21-2017 Appointment Appointment [facility] Work Phone: Cholesterol [Mass/vo lume] in Serum or Plasma [facility] Cholesterol in HDL [Mass/volume] in Serum or Plasma [facility] Low density lipoprot ein cholesterol measurement [facility] Patient referral [facility] Work Phone: Total cholesterol:HD L ratio measurement [facility] Triglycerides measurement [facility] Troponin T.cardiac [Mass/volume] in Serum or Plasma by High sensitivity method [facility] Troponin T.cardiac [Mass/volume] in Serum or Plasma by High sensitivity method [facility] VLDL cholesterol measurement [facility] Work Phone: Payers Date Payer Category Payer Self-pay [id number] 2023 Unknown [id number] Private Health Insurance [employer] [id number] Unknown [id number] Unknown [id number] 2.16.8 [id number] Unknown [id number] 2.16.8 [id number] Unknown [id number] 2.16.8 [id number] Unknown [id number] 2.16.8 [id number] Unknown [id number] 2.16.8 [id number] Social History Date Type Detail Facility Start: 09-11-2020 End: 09-11-2020 Tobacco smoking status NHIS Unknown if ever smoked [facility] Start: 1960 Sex Assigned At Female [facility] Start: 08-01-2024 End: 08-01-2024 Tobacco smoking status NHIS Ex-smoker (finding) [facility] Functional Status Date Assessment Result Facility 08-01-2024 Functional status Ambulates;Bathroom Priv ilege [facility] Work Phone: Mental Status Date Assessment Result Facility 08-01-2024 Cognitive function Voice/Name [facility] Work Phone: Clinical Notes 08-01-2024 Note Date & Type Note Facility 08-01-2024 Discharge summary [facility] 08-01-2024 History and physical note [facility] 08-01-2024 Discharge summary [facility] 08-01-2024 Discharge summary Note Date/Time August 01, 2024 5:31pm [facility] Medical Records Department [address] [place] [address] Emergency Department Summary 08/01/24 MR#: [id number] Acct: [id number] Name: KRISTINA SUAREZ Rep #:[id number] : 1960 64 From: Karl Wallace PCP: Dr. 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 [...] to the left upper extremity symptoms mild slime plant operator helper strength weakness NIH was 0. Timeframe symptom onset stroke protocol initiated. 0924: Patient returned from CT recheck NIH still 0 still has mild slime plant operator helper strength weakness left hand compared to the [...] neurology, hospitalist This note was generated with [employer] dictation software. It may contain incorrectwords, spelling, [...] % (Auto) 58.2 Lymph % (Auto) 29.6 Faulk % (Auto) 7.0 Eos % (Auto) 3.4 [...] 9:30 am with readback verification. Reading Location: [facility] Head/Neck CTA 08/01/24 09:09 IMPRESSION: Fluid density is noted in a portion of the left mastoid air cells, with mastoiditis. Unremarkable CTA of the head and neck. [facility] Critical [facility] Time Critical Care Time: Yes Critical care time (excluding procedures): 30-74 minutes, Discussing w/Patient &/or Family/Instructional Resource Teacher, Discussing w/Consultants, Arranging Admission or Transfer, Performing Direct Patient Care at Bedside and - (30 minutes) Discharge Plan Dx/Rx/DC Orders Clinical Impression: Brain TIA, Left arm weakness, History of prediabetes Disposition Disposition: Acute Care Hospital [facility] Discharge Date/Time: 08/01/24 12:05 NIHSS NIHSS 1a. [...] problems, contact your Primary Care Provider. Call [facility] ([phone]) or report to the closest Emergency Room. Call 911 if necessary. 08/01/24 1731 <Electronically signed by Karl Wallace> Cosigner Signature (if applicable): CC: Dr. Brayden Mac MD ~ Signed [facility] Work Phone: 1(887) 892-670706-10-2025 Discharge summary [facility] Medical Records Department [address] [place] [address] Emergency Department Summary 08/01/24 MR#: [id number] Acct: [id number] Name: KRISTINA SUAREZ Rep #:[id number] : 1960 64 From: Karl Wallace PCP: Dr. 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 [...] to the left upper extremity symptoms mild slime plant operator helper strength weakness NIH was 0. Timeframe symptom onset stroke protocol initiated. 0924: Patient returned from CT recheck NIH still 0 still has mild slime plant operator helper strength weakness left hand compared to the [...] neurology, hospitalist This note was generated with [employer] software. It may contain incorrectwords, spelling, and [...] % (Auto) 58.2 Lymph % (Auto) 29.6 Faulk % (Auto) 7.0 Eos % (Auto) 3.4 [...] 9:30 am with readback verification. Reading Location: [facility] Head/Neck CTA 08/01/24 09:09 IMPRESSION: Fluid [...] of prediabetes Disposition Disposition: Acute Care Hospital [facility] Discharge Date/Time: 08/01/24 12:05 NIHSS NIHSS 1a. [...] your Primary Care Provider. Call [facility] ([phone]) or report tothe closest Emergency Room. Call 911 if necessary. 08/01/24 1731 Cosigner Signature (if applicable): CC: Dr. Brayden Mac MD ~ Signed [facility]06-10-2025 Evaluation note* Diagnosis Onset Date Resolution Status Admit Date Brain TIA acute August 01 11:20am History of prediabetes acute 2024 11:20am Left arm weakness acute August 012024 11:20am [facility] Work Phone: 1(692) 470-701906-10-2025 Radiology Diagnostic study note [facility] Imaging Services [address] [place] [address] STROKE CTA Head AND Neck W/Con MR#: [id number] Acct: [id number] Name: KRISTINA SUAREZ Rep #: [id number] : 1960 F 64 From: Shama Butt MD PCP: Dr. Brayden Mac MD Status: REG ER Study:STROKE CTA Head AND Neck W/Con Date of Exam: 08/01/24 Exam# [id number] Ordering Dr: Karl Bocanegra DO PROCEDURE: STROKE [...] Mac MD; Dr. Karl Bocanegra DO ~ Cephalometric Analyst: Signed [facility]06-10-2025 Radiology Diagnostic study note [facility] Imaging Services [address] [place] [address] STROKE Brain/Head without Cont MR#: [id number] Acct: [id number] Name: KRISTINA SUAREZ Rep #: [id number] : 1960 F 64 From: Romain Mack MD PCP: Dr. Brayden Mac MD Status: REG ER Study:STROKE Brain/Head without Cont Date of Exam: 08/01/24 Exam# [id number] Ordering Dr: Karl Bocanegra DO PROCEDURE: STROKE [...] 9:30 am with readback verification. Reading Location: [place] [address] CC: Dr. Brayden Mac MD; Dr. Karl Bocanegra DO ~ Cephalometric Analyst: [facility] Author Marie Marcos [facility] Note Date/Time August 01, 2024 8:05 pm [facility] Medical Records Department [address] [place] [address] Instructions for Home/Discharge Instructions 08/01/241958 MR#: [id number] Acct: [id number] Name: KRISTINA SUAREZ Rep #:[id number] : 1960 64 From: Marie Marcos DO [...] Care 08/01/242004<Electronically signed by Marie Marcos DO>Marie Mracos DO CC: Lizbeth Peralta; Rosamaria Davenport; Karri [...] MD; Dr. Griffin Joseph MD; Dr. Becca Douglas MD; Martina Poe DO; Cassie Mina MD ~ Signed [facility] Work Phone: Discharge summary Author Marie [facility] Note Date/Time August 01, 2024 8:25 pm [facility] Medical Records Department [address] [place] [address] Discharge Summary 08/01/242016 MR#: [id number] Acct: [id number] Name: KRISTINA SUAREZ Rep #:[id number] : 1960 64 From: Marie Marcos DO PCP: Dr. Brayden Mac MD Status:ADM LUCIANA Location: [place] [address] Providers Date of Admission: 08/01/24 Date of [...] was seen in the emergency room at [facility] with complaints of an episode of left arm numbness and loss of strength that lasted approximately 1 minute while she was in her car. This resolved prior to her being seen in the emergency room at [facility], a stroke team was called on her [...] place her on aspirin 81 mg and Jytfvj31 mg as well as Lipitor 80 mg. [...] % (Auto) 58.2, Lymph % (Auto) 29.6, Faulk % (Auto) 7.0, Eos % (Auto) 3.4, [...] 9:30 am with readback verification. Reading Location: [facility] Head/Neck CTA 08/01/24 09:09 IMPRESSION: Fluid density is noted in a portion of the left mastoid air cells, with mastoiditis. Unremarkable CTA of the head and neck. Reading [facility] Echocardiogram 08/01/24 11:37 Interpretation Summary The LV systolic function is normal. EF is 65 %. Aortic sclerosis, no stenosis. Ordering Physician: Marie Marcos Referring Physician: Brayden Mac MD Performed By: Jacquelin Werner RDCS and Student Brain MRI 08/01/24 15:15 IMPRESSION: No acute intracranial abnormality. Reading Location: [place] [address] D/C Instructions Discharge Diet: No restrictions Weight [...] Self Care Charges/Coding Visit Charges OBSV E&M: 96149 Observ/hosp same date L1 08/01/242024 <Electronically signed by Marie Marcos DO> Cosigner Signature (if applicable): CC: Dr. Brayden Mac MD; Dr. Marie Marcos DO~ Signed [facility] Work Phone: Evaluation noteNo assessment information available [facility] Work Phone: Evaluation note* Diagnosis Onset Date Resolution Status Admit Date Brain TIA acute August 01 11:20am History of prediabetes acute 2024 11:20am Left arm weakness acute August 012024 11:20am [facility] Work Phone: History and physical note Author [facility] Note Date/Time August 01, 2024 8:17 pm [facility] Medical Records Department [address] [place] [address] H&P Exam - Hospitalist 08/01/242004 MR#: [id number] Acct: [id number] Name: KRISTINA SUAREZ Rep #:[id number] : 1960 64 From: Marie Marcos DO PCP: Dr. Brayden Mac MD Status:ADM LUCIANA Location: [place] [address] HPI - General General Date of Admission: 08/01/24 Date of Service: 08/01/24 Chief Complaint: Left arm paresthesias and weakness HPI Narrative KRISTINA SUAREZ, is a 64 F who presents to the emergency room at [facility] with an episode of left arm [...] without contrast. She will undergo an echocardiogram. [facility] Medical History Wears partial dentures Thyroid disease [...] % (Auto) 58.2, Lymph % (Auto) 29.6, Faulk % (Auto) 7.0, Eos % (Auto) 3.4, [...] 9:30 am with readback verification. Reading Location: [facility] Head/Neck CTA 08/01/24 09:09 IMPRESSION: Fluid density is noted in a portion of the left mastoid air cells, with mastoiditis. Unremarkable CTA of the head and neck. Reading [facility] Echocardiogram 08/01/24 11:37 Interpretation Summary The LV systolic function is normal. EF is 65 %. Aortic sclerosis, no stenosis. Ordering Physician: Marie Marcos Referring Physician: Brayden Mac MD Performed By: Jacquelin Werner RDCS and Student Brain MRI 08/01/24 15:15 IMPRESSION: No acute intracranial abnormality. Reading Location: [place] [address] Assessment & Plan Assessment/Plan (1) Brain TIA: [...] 55 minutes Charges/Coding Visit Charges Inpatient E&M: 45874 Init Hosp L2 08/01/242016 <Electronically signed by Marie Marcos DO> Cosigner Signature (if applicable): CC: Dr. Brayden Mac MD; Dr. Marie Marcos DO~ Signed [facility] Work Phone: Reason for referral (narrative)No reason for referral information availableWFirelands Regional [facility] Work Phone: Summary Purpose Family History No Family History Records FoundNo Family History Records FoundNo Family History Records Found Advance Directives Advance Directive Response Recorded Date/ Time Living Will No September 10, 2020 9:35am Power of Equine Vet No September 10 9:35am Advance Directive Response Recorded Date/ Time Living Will No September 10, 2020 8:35am Power of Equine Vet No September 10 8:35am Advance Directive Response Recorded Date/ Time Do you have a Healthcare Power of Equine Vet? No August 01, 2024 12:02pm Chief Complaint [...] section and content) DATE CREATED AUTHOR 08/18/2017 [facility] DATE CREATED AUTHOR AUTHOR'S ORGANIZ ATION 08/18/[address] [facility] DATE CREATED AUTHOR AUTHOR'S ORGANIZ ATION 04/07/2024 [facility] Goals (unrecognized section and content) [...] Sta rt: August 01, 2024 Dr. Turner Luarent MD Other Provider Active Start: August 01, [...] MD Primary Care Provider Active Chanell Cantu MARKETING COMMUNICATIONS COORDINATOR, MARKETING COMMUNICATIONS COORDINATOR-C Attending Provider Active Team Status: Inactive Member Role Status Dates Dr. Brayden Mac MD Primary Care Provider Active Chanell Cantu MARKETING COMMUNICATIONS COORDINATOR, MARKETING COMMUNICATIONS COORDINATOR-C Attending Provider, Referring Pro vider Active Team Status: Inactive Member Role Status Dates Dr. Brayden Mac MD Primary Care Provider Active Chanell Cantu MARKETING COMMUNICATIONS COORDINATOR, MARKETING COMMUNICATIONS COORDINATOR-C Attending Provider Active Team Status: Active Member [...] BE BASED ON THE PRIMARY CLINICAL RECORDS. [facility] [email or web address] [facility]. provides no warranty or guarantee of the accuracy or completeness of information in this document.
== END 2024-08-01 21:12 | disposition home or self-care (01) ==
LOC: ED 11:09 → PCU 11:40
PROVIDERS: Admitting Provider Internal Medicine; Emergency Provider Emergency Medicine; PCP Family Medicine; Visit Provider Internal Medicine
DX: G45.9 Transient cerebral ischemic attack, unspecified (principal); Z79.83 Long term (current) use of bisphosphonates; Z79.82 Long term (current) use of aspirin; R29.898 Other symptoms and signs involving the musculoskeletal system; Z87.891 Personal history of nicotine dependence; R73.03 Prediabetes; Z79.84 Long term (current) use of oral hypoglycemic drugs; Z79.899 Other long term (current) drug therapy; Z79.890 Hormone replacement therapy; E03.9 Hypothyroidism, unspecified; K21.9 Gastro-esophageal reflux disease without esophagitis; R20.0 Anesthesia of skin
CPT/HCPCS: 36415; 70450; 70496; 70498; 70551; 80048; 80061; 82962; 84484; 85025; 85610; 85730; 93005; 93306; 97802; 99221; 99285; Q9957; Q9967; A4216; C8929; G0378

== ENCOUNTER → 2024-11-22 | Outpatient (CLI) | payer MEDICARE, SELFPAY ==
[2024-11-22 18:22] LABS: AST(SGOT) 22 U/L (<=31); Alanine Aminotransfer ALT/SGPT 21 U/L (<=34); Albumin, Serum 4.0 g/dL (3.4-4.8); Alkaline Phosphatase 65 U/L (35-104); Anion Gap 11 (5-15); BUN 10 mg/dL (4-19); BUN/Creat Ratio 16.8 RATIO (10-20); Calcium,Total 9.3 mg/dL (7.6-11.0); Carbon Dioxide 22.4 mmol/L (21.0-32.0); Chloride 106 mmol/L (98-108); Cholesterol 127 mg/dL (<=200); Globulin 2.5 g/dL (2.2-4.2); Glucose 76 mg/dL (70-99); Low Density Lipoprotein Calc. 50 mg/dL; Potassium 4.1 mmol/L (3.3-5.1); Triglycerides 127 mg/dL; Very Low Density Lipoprotein 25 mg/dL (5-40); cholesterol:hdl ratio screen 2.44
== END | disposition home or self-care (01) ==
LOC: MFPLAB 15:20
PROVIDERS: PCP Family Medicine; Visit Provider Family Medicine
DX: E78.00 Pure hypercholesterolemia, unspecified (principal); E03.9 Hypothyroidism, unspecified
CPT/HCPCS: 36415; 80053; 80061; 84439; 84443